=== PATIENT | male | born 1955 | race Caucasian/White ===

== ENCOUNTER 2018-11-25 04:05 | Inpatient (IN) | payer OTHER ==
[2018-11-25] VITALS (46 sets, daily range): BP systolic 69–144; BP diastolic 42–91
[~2018-11-25] VITALS: Ht 188 cm; Wt 104.8 kg
[2018-11-25] MEDS ORDERED: Vancomycin 1.5 GM in NS 275 ML IVPB ONE (04:15)
[2018-11-25] MEDS ORDERED: Sodium Chloride 3,400 ML IVLG ONE (04:15)
[2018-11-25] MEDS ORDERED: Piperacillin/Tazobactam 3.375 GM in NS 110 ML IVPB ONE (04:15)
[2018-11-25] MEDS ORDERED: Acetaminophen 650 MG SUPP RECTAL ONE (04:15)
--- NOTE | 2018-11-25 04:18 | Emergency Room Report ---
History of Present Illness General Chief Complaint: Altered Mental Status Source: EMS Present Illness HPI EMS was called to [facility] for altered level of consciousness. Oxygen saturation was 82%. The patient was also hypotensive. They started an IO and started fluid bolus. The patient fell hot to them. They're provider impression was sepsis. The patient is in the [facility] facility with a history of muscle weakness. Little other history available. Allergies: Coded Allergies: No Known Allergies (Unverified , 11/25/18) Patient History Limited by: medical condition Past Medical History: see triage record Social History: Denies: smoking Social History Narrative [facility] facility Reviewed Nursing Documentation: PMH: Agreed; PSxH: Agreed Nursing Documentation-PMH Hx Hypertension: Yes Hx Gastrointestinal Problems: Yes - GERD Hx Cerebrovascular Accident: Yes - neuropathy, muscle weakness, acidosis Review of Systems All Other Systems: limited Physical Exam Vital Signs Date Time Temp Pulse Resp B/P (MAP) Pulse Ox O2 Delivery O2 Flow Rate FiO2 11/25/18 04:06 Nasal Cannula 3.0 11/25/18 04:20 102.1 123 43 72/42 89 11/25/18 05:00 80 Sp02 EP Interpretation: reviewed, abnormal - interpreted as low by me General Appearance: severe distress, lethargic, other - opens eyes with voice Head: normocephalic, atraumatic Eyes: bilateral eye normal inspection, bilateral eye PERRL ENT: dry mucus membranes Neck: supple, no meningismus Respiratory: lungs clear, normal breath sounds, other - tachypnea and deep respirations Cardiovascular #1: tachycardia Cardiovascular #2: 2+ radial (R) Gastrointestinal: decreased bowel sounds, scaphoid Genitourinary: no CVA tenderness Musculoskeletal: other - extensor contractions LE with atrophy Neurologic: motor weakness - diffuse Psychiatric: other - lethargic Skin: other - hot, cyanosis and poor capillary fill Procedures Critical Care Time Critical Care Time Total Critical Care Time: 120 min bedside evaluation and treatment excludes procedures (EKG, intubation, CVP). Reason for critical care: severe sepsis Possible complications: hypotension, hypertension, [place], shock, arrhythmias, metabolic acidosis, end organ damage, respiratory failure. Interventions: intubation, CVP, sepsis resuscitation, aspirin for NSTEMI Course: Patient presents with severe dyspnea, fever and distress. Patient appears septic. An IO was begun in the field. CVP begun. Fluid resuscitation , bloods and antibiotics started. Excessive work with breathing therefore intubation indicated. Patient intubated intubated. Ventilator settings given. Sedation initiated. Intermittent waking and increased sedation. Repeat evaluations. Positive troponin treated with aspirin. EKG without STEMI. Labs with multiorgan failure. Ventilator changed based on ABG. Repeat evaluations and boluses of propofol given for proper sedation. Bicarbonate given. Still hypotensive near 30 mg/kg bolus. Levo fed started. Continue type duration. Discussed with admitting physician. See medical treatment notes. Consultations: nursing staff, EMS, RT, admitting MD Performed by: Dr. Dejesus Tolerated well condition = critical Central Line Central Line : Consent: Verbal Central Line Lumen: triple Maximal Sterile Barrier Tech: yes cap, yes mask, yes sterile gown, yes sterile gloves, yes large sterile sheet, yes hand hygiene, yes chlorhexidine prep Central Line Postion: internal jugular (R) Anesthesia: Lidocaine cc's of anesthesia: 0 - 0.5 Complications: none Central Line Post Position: sutured Attempts: One Patient Tolerated: Well Complications: None Progress 40 ml blood drawn for lab -performed under ultrasound guidance Intubation Intubation : Consent: Verbal Intubation Method: orotracheal Tube Size (cm): 7.5 Medications: Etomidate, Versed Breath Sounds after Intubation: equal Intubation Complications: no complications Post Intubation Xray: Yes Attempts: One Patient Tolerated: Well Complications: None Medical Decision Making Diagnostic Impression: Primary Impression: Severe sepsis Additional Impressions: Acute renal failure Qualified Codes: N17.9 - Acute kidney failure, unspecified NSTEMI (non-ST elevated myocardial infarction) Hypoxia Elevated liver function tests UTI (urinary tract infection) Qualified Codes: N39.0 - Urinary tract infection, site not specified ER Course Patient presents hypoxic and hypotensive. Differential includes sepsis, pneumonia, severe sepsis, acute myocardial infarction, probably embolus amongst others. Evaluation will be with EKG, chest x-ray and labs including blood culture and lactate. The patient will receive 30 mg/kg fluid resuscitation as well as antibiotics and Tylenol. The patient has some respiratory difficulty at this time and he may require BiPAP or intubation. Depending on how he responds to fluid resuscitation he may require pressors also. Needs line. CVP started. Work to breath. Needs intubation. (In retrospect, hypoxia might be due to poor perfusion.) However, metabolic acidosis with respiratory compensation needs vent assist. Sedation assisted with versed and bolus propofol. 5:25 Lab called with + troponin. WBC normal but L shift. Renal failure. Elevated LFTs. Min elevated BNP. INR prolonged (on anticoagulation). EKG without STEMI. CXR with ET good, CVP SVC and clear lungs. Hypotensive after bolus of propofol. Initial resuscitation bolus still infusing. Sats 100%. Await ABG. Mentation was improved. Cyanosis of LE, but cap fill good of hands. Sats better. BP 91 and HR better. 5:45 ABG with compensated met acidosis. Bicarb given and decreased FiO2 6:15. BP still low and bolus almost in - Levophed ordered. 6:25. Discussed Dr. Gutierrez @ 6:40. IO removed by ERMD 6:45. Bolus of LR ordered in ICU. Laboratory Tests Test 11/25/18 04:40 11/25/18 05:50 11/25/18 07:00 11/25/18 08:24 White Blood Count 7.0 K/UL (4.8-10.8) Red Blood Count 4.11 M/UL (4.70-6.10) L Hemoglobin 11.6 G/DL (14.2-18.0) L Hematocrit 34.6 % (42.0-52.0) L Mean Corpuscular Volume 84 FL (80-99) Mean Corpuscular Hemoglobin 28.3 PG (27.0-31.0) Mean Corpuscular Hemoglobin Concent 33.6 G/DL (32.0-36.0) Red Cell Distribution Width 14.0 % (11.6-14.8) Platelet Count 231 K/UL (150-450) Mean Platelet Volume 8.1 FL (6.5-10.1) Neutrophils (%) (Auto) % (45.0-75.0) Lymphocytes (%) (Auto) % (20.0-45.0) Monocytes (%) (Auto) % (1.0-10.0) Eosinophils (%) (Auto) % (0.0-3.0) Basophils (%) (Auto) % (0.0-2.0) Differential Total Cells Counted 100 Neutrophils % (Manual) 71 % (45-75) Lymphocytes % (Manual) 12 % (20-45) L Monocytes % (Manual) 2 % (1-10) Eosinophils % (Manual) 0 % (0-3) Basophils % (Manual) 0 % (0-2) Band Neutrophils 15 % (0-8) H Platelet Estimate Adequate Platelet Morphology Normal Anisocytosis 1+ Prothrombin Time 14.3 SEC (9.30-11.50) H Prothrombin Time INR 1.4 (0.9-1.1) H PTT 35 SEC (23-33) H Sodium Level 136 MMOL/L (136-145) Potassium Level 3.5 MMOL/L (3.5-5.1) Chloride Level 102 MMOL/L (98-107) Carbon Dioxide Level 12 MMOL/L (21-32) L Anion Gap 22 mmol/L (5-15) H Blood Urea Nitrogen 36 mg/dL (7-18) H Creatinine 3.8 MG/DL (0.55-1.30) H Estimate Glomerular Filtration Rate 16.3 mL/min (>60) Glucose Level 123 MG/DL (74-106) H Lactic Acid Level 8.90 mmol/L (0.4-2.0) H 6.60 mmol/L (0.66-2.22) H Calcium Level 9.1 MG/DL (8.5-10.1) Magnesium Level 1.7 MG/DL (1.8-2.4) L Total Bilirubin 1.4 MG/DL (0.2-1.0) H Direct Bilirubin 1.0 MG/DL (0.0-0.3) H Aspartate Amino Transferase (AST) 213 U/L (15-37) H Alanine Aminotransferase (ALT) 151 U/L (12-78) H Alkaline Phosphatase 233 U/L (46-116) H Total Creatine Kinase 209 U/L (26-308) Creatine Kinase MB 1.4 NG/ML (0.0-3.6) Creatine Kinase MB Relative Index 0.6 Troponin I 0.166 ng/mL (0.000-0.056) Pro-B-Type Natriuretic Peptide 1847 pg/mL (0-125) H Total Protein 7.4 G/DL (6.4-8.2) Albumin 2.5 G/DL (3.4-5.0) L Globulin 4.9 g/dL Albumin/Globulin Ratio 0.5 (1.0-2.7) L Triglycerides Level 145 MG/DL (30-150) Arterial Blood pH 7.375 (7.350-7.450) 7.392 (7.350-7.450) Arterial Blood Partial Pressure CO2 18.6 mmHg (35.0-45.0) *L 22.6 mmHg (35.0-45.0) *L Arterial Blood Partial Pressure O2 394.7 mmHg (75.0-100.0) H 108.0 mmHg (75.0-100.0) H Arterial Blood HCO3 10.6 mmol/L (22.0-26.0) *L 13.4 mmol/L (22.0-26.0) *L Arterial Blood Oxygen Saturation 99.2 % (95-100) 97.5 % (95-100) Arterial Blood Base Excess -12.5 (-2-2) *L -9.7 (-2-2) *L Jon Test Positive Positive Urine Color Yellow Urine Appearance Slightly cloudy Urine pH 5 (4.5-8.0) Urine Specific [place] 1.015 (1.005-1.035) Urine Protein 4+ (NEGATIVE) H Urine Glucose (UA) Negative (NEGATIVE) Urine Ketones Negative (NEGATIVE) Urine Blood 5+ (NEGATIVE) H Urine Nitrite Positive (NEGATIVE) H Urine Bilirubin Negative (NEGATIVE) Urine Urobilinogen Normal MG/DL (0.0-1.0) Urine Leukocyte Esterase 3+ (NEGATIVE) H Urine RBC 5-10 /HPF (0 - 0) H Urine WBC 40-60 /HPF (0 - 0) H Urine Squamous Epithelial Cells Occasional /LPF Urine Bacteria Moderate /HPF (NONE) H Test 11/25/18 14:05 Lactic Acid Level 5.00 mmol/L (0.4-2.0) H Troponin I 0.267 ng/mL (0.000-0.056) EKG Diagnostic Results Rate: tachycardiac Rhythm: NSR ST Segments: no acute changes - NSSTTW changes Rhythm Strip Diag. Results EP Interpretation: yes Rhythm: no PVC's, no ectopy, other - ST Chest X-Ray Diagnostic Results Chest X-Ray Diagnostic Results : Chest X-Ray Ordered: Yes # of Views/Limited/Complete: 1 View Indication: Other EP Interpretation: Yes Interpretation: no consolidation, no effusion, no pneumothorax, other - CVP in SVC and ET good Impression: Other Electronically Signed by: Electronically signed by Carl Dejesus MD Last Vital Signs Date Time Temp Pulse Resp B/P (MAP) Pulse Ox O2 Delivery O2 Flow Rate FiO2 11/25/18 15:07 90 24 70 11/25/18 15:00 84/57 (66) 100 11/25/18 14:00 98.5 11/25/18 12:00 40.0 11/25/18 12:00 Mechanical Ventilator Status: improved Disposition: ADMITTED INPATIENT Condition: Critical Carl Dejesus MD November 25, 2018 04:18
[2018-11-25] MEDS ORDERED: FAMOTIDINE20 MG ORAL (04:47)
[2018-11-25] MEDS ORDERED: ARTIFICIAL TEA1 EAC2 OP (04:47)
[2018-11-25] MEDS ORDERED: ACETAMINOPHEN325 M1 ORAL (04:47)
[2018-11-25] MEDS ORDERED: NORCO 5-325 TA1 EACH ORAL (04:47)
[2018-11-25] MEDS ORDERED: NEURONTIN300 MG ORAL (04:47)
[2018-11-25] MEDS ORDERED: XARELTO10 MG ORAL (04:47)
[2018-11-25] MEDS ORDERED: Midazolam 2mg/2ml Inj IV ONE (05:00)
[2018-11-25] MEDS ORDERED: Etomidate 40mg/20ml Inj IV ONE ×2 (05:00→10:25)
[2018-11-25] MEDS ORDERED: Midazolam for drip 50 MG in NS 90 ML IV ONE (05:00)
[2018-11-25] MEDS ORDERED: Midazolam 2mg/2ml Inj IVP ONE (05:15)
[2018-11-25 05:16] LABS: ANION GAP 22 mmol/L (5-15); BLOOD UREA NITROGEN 36 mg/dL (7-18); CALCIUM 9.1 MG/DL (8.5-10.1); CARBON DIOXIDE 12 MMOL/L (21-32); CHLORIDE 102 MMOL/L (98-107); CREATININE 3.8 MG/DL (0.55-1.30); POTASSIUM 3.5 MMOL/L (3.5-5.1); SODIUM 136 MMOL/L (136-145)
[2018-11-25 05:18] LABS: HEMATOCRIT 34.6 % (42.0-52.0); HEMOGLOBIN 11.6 G/DL (14.2-18.0); INR 1.4 (0.9-1.1); MEAN CORPUSCULAR VOLUME 84 FL (80-99); PLATELET COUNT 231 K/UL (150-450); RED BLOOD COUNT 4.11 M/UL (4.70-6.10)
[2018-11-25 05:31] LABS: ALANINE AMINOTRANSFERASE 151 U/L (12-78); ALBUMIN 2.5 G/DL (3.4-5.0); ALBUMIN/GLOBULIN RATIO 0.5 (1.0-2.7); ALKALINE PHOSPHATASE 233 U/L (46-116); ASPARTATE AMINO TRANSFERASE 213 U/L (15-37); BILIRUBIN,TOTAL 1.4 MG/DL (0.2-1.0); CKMB 1.4 NG/ML (0.0-3.6); CREATINE KINASE 209 U/L (26-308)
[2018-11-25] MEDS ORDERED: Sodium Bicarbonate 50ml Carp IV ONE (06:15)
[2018-11-25] MEDS ORDERED: Levophed 4mg/4mL Inj IV ONE (06:34)
[2018-11-25 07:23] LABS: APPEARANCE,URINE SLIGHTLY CLOUDY; BILIRUBIN, URINE NEGATIVE (NEGATIVE); GLUCOSE, URINE (UA) NEGATIVE (NEGATIVE); KETONES,URINE NEGATIVE (NEGATIVE); LEUKOCYTE ESTERASE ,URINE 3+ (NEGATIVE); NITRITE,URINE POSITIVE (NEGATIVE); PH,URINE 5 (4.5-8.0); PROTEIN,URINE 4+ (NEGATIVE); UROBILINOGEN,URINE NORMAL MG/DL (0.0-1.0)
[2018-11-25 07:35] LABS: COLOR,URINE YELLOW
[2018-11-25] MEDS ORDERED: Midazolam 2mg/2ml Inj IVP PRN (08:15)
[2018-11-25] MEDS ORDERED: LR 1000ml 1,000 ML IV ONE (08:30)
--- NOTE | 2018-11-25 08:38 | Critical Care Progress Note ---
Assessment/Plan Assessment/Plan Respiratory failure, acute hypoxemia hypotension possible sepsis NSTEMI transaminitis metabolic acidosis possible shock liver PLAN care noted IV antibiotics respiratory care Ventilatory support monitor acid base SNF meds supportive care pressors if needed suction as needed no wean oxygen therapy and titrate prognosis guarded medications/laboratory data/nursing notes/ICU care reviewed in detail note reviewed and edited care discussed with RN and RT ICU time spent 50 minutes Critical Care - Subjective Interval Events: asked to follow events noted and reviewed intubated ROS Limited/Unobtainable: Yes Condition: critical EKG Rhythm: Sinus Rhythm I&O: Intake and Output 11/24/18 11/25/18 19:00 07:00 Output Total 0 ml Balance 0 ml Output Urine Total 0 ml Critical Care - Objective ET-Tube: 7.5 ET Position: 24 Last 24 Hour Vital Signs Date Time Temp Pulse Resp B/P (MAP) Pulse Ox O2 Delivery O2 Flow Rate FiO2 11/25/18 07:31 101.8 110 17 90/55 98 Mechanical Ventilator 70 11/25/18 07:17 109 31 70 11/25/18 07:07 90/58 11/25/18 07:00 78/56 11/25/18 07:00 31 78/56 Mechanical Ventilator 100.0 80 11/25/18 07:00 100.0 109 31 78/56 100 Mechanical Ventilator 11/25/18 06:57 82/56 11/25/18 06:52 88/46 11/25/18 06:47 75/56 11/25/18 06:45 101.0 111 32 75/56 100 Mechanical Ventilator 11/25/18 06:45 75/56 11/25/18 06:45 32 75/56 Mechanical Ventilator 100.0 80 11/25/18 06:42 75/48 11/25/18 06:37 79/54 11/25/18 06:37 82/54 11/25/18 06:30 32 79/54 Mechanical Ventilator 100.0 80 11/25/18 06:30 101.4 115 32 79/54 100 Mechanical Ventilator 11/25/18 06:15 101.4 116 32 78/53 94 Mechanical Ventilator 11/25/18 06:15 32 78/32 Mechanical Ventilator 94.0 80 11/25/18 06:00 33 102/64 Mechanical Ventilator 100.0 80 11/25/18 06:00 101.4 119 33 102/64 100 Mechanical Ventilator 11/25/18 05:56 40 144/87 Mechanical Ventilator 94.0 80 11/25/18 05:45 101.6 120 33 120/42 96 Mechanical Ventilator 11/25/18 05:45 33 91/52 Mechanical Ventilator 96.0 80 11/25/18 05:30 30 128/42 Mechanical Ventilator 91.0 80 11/25/18 05:30 101.8 127 30 128/42 91 Mechanical Ventilator 11/25/18 05:20 101.8 133 40 144/87 94 Mechanical Ventilator 11/25/18 05:20 40 144/87 Mechanical Ventilator 94.0 80 11/25/18 05:18 131 36 Mechanical Ventilator 70 11/25/18 05:15 40 144/87 Mechanical Ventilator 94.0 80 11/25/18 05:07 136 36 70 11/25/18 05:00 31 Mechanical Ventilator 90.0 80 11/25/18 04:20 123 41 Nasal Cannula 3.0 11/25/18 04:20 102.1 123 43 72/42 89 Non-Rebreather 15.0 11/25/18 04:06 Nasal Cannula 3.0 Labs: Labs Test 11/25/18 04:40 11/25/18 05:50 11/25/18 07:00 White Blood Count 7.0 K/UL (4.8-10.8) Red Blood Count 4.11 M/UL (4.70-6.10) Hemoglobin 11.6 G/DL (14.2-18.0) Hematocrit 34.6 % (42.0-52.0) Mean Corpuscular Volume 84 FL (80-99) Mean Corpuscular Hemoglobin 28.3 PG (27.0-31.0) Mean Corpuscular Hemoglobin Concent 33.6 G/DL (32.0-36.0) Red Cell Distribution Width 14.0 % (11.6-14.8) Platelet Count 231 K/UL (150-450) Mean Platelet Volume 8.1 FL (6.5-10.1) Neutrophils (%) (Auto) % (45.0-75.0) Lymphocytes (%) (Auto) % (20.0-45.0) Monocytes (%) (Auto) % (1.0-10.0) Eosinophils (%) (Auto) % (0.0-3.0) Basophils (%) (Auto) % (0.0-2.0) Prothrombin Time 14.3 SEC (9.30-11.50) Prothromb Time International Ratio 1.4 (0.9-1.1) Activated Partial Thromboplast Time 35 SEC (23-33) Sodium Level 136 MMOL/L (136-145) Potassium Level 3.5 MMOL/L (3.5-5.1) Chloride Level 102 MMOL/L (98-107) Carbon Dioxide Level 12 MMOL/L (21-32) Anion Gap 22 mmol/L (5-15) Blood Urea Nitrogen 36 mg/dL (7-18) Creatinine 3.8 MG/DL (0.55-1.30) Estimat Glomerular Filtration Rate 16.3 mL/min (>60) Glucose Level 123 MG/DL (74-106) Lactic Acid Level 8.90 mmol/L (0.4-2.0) 6.60 mmol/L (0.66-2.22) Calcium Level 9.1 MG/DL (8.5-10.1) Magnesium Level 1.7 MG/DL (1.8-2.4) Total Bilirubin 1.4 MG/DL (0.2-1.0) Direct Bilirubin 1.0 MG/DL (0.0-0.3) Aspartate Amino Transf (AST/SGOT) 213 U/L (15-37) Alanine Aminotransferase (ALT/SGPT) 151 U/L (12-78) Alkaline Phosphatase 233 U/L (46-116) Total Creatine Kinase 209 U/L (26-308) Creatine Kinase MB 1.4 NG/ML (0.0-3.6) Creatine Kinase MB Relative Index 0.6 Troponin I 0.166 ng/mL (0.000-0.056) Pro-B-Type Natriuretic Peptide 1847 pg/mL (0-125) Total Protein 7.4 G/DL (6.4-8.2) Albumin 2.5 G/DL (3.4-5.0) Globulin 4.9 g/dL Albumin/Globulin Ratio 0.5 (1.0-2.7) Triglycerides Level 145 MG/DL (30-150) Arterial Blood pH 7.375 (7.350-7.450) Arterial Blood Partial Pressure CO2 18.6 mmHg (35.0-45.0) Arterial Blood Partial Pressure O2 394.7 mmHg (75.0-100.0) Arterial Blood HCO3 10.6 mmol/L (22.0-26.0) Arterial Blood Oxygen Saturation 99.2 % (95-100) Arterial Blood Base Excess -12.5 (-2-2) Jon Test Positive Urine Color Yellow Urine Appearance Slightly cloudy Urine pH 5 (4.5-8.0) Urine Specific [place] 1.015 (1.005-1.035) Urine Protein 4+ (NEGATIVE) Urine Glucose (UA) Negative (NEGATIVE) Urine Ketones Negative (NEGATIVE) Urine Blood 5+ (NEGATIVE) Urine Nitrite Positive (NEGATIVE) Urine Bilirubin Negative (NEGATIVE) Urine Urobilinogen Normal MG/DL (0.0-1.0) Urine Leukocyte Esterase 3+ (NEGATIVE) Urine RBC 5-10 /HPF (0 - 0) Urine WBC 40-60 /HPF (0 - 0) Urine Squamous Epithelial Cells Occasional /LPF Urine Bacteria Moderate /HPF (NONE) Objective: WDWN toxic orally intubated clear breath sounds bilaterally without rhonchi or wheeze [id number] without MRG NABS nontender no HSM; no distention no CCE nonfocal, sedated skin noted reviewed and edited Matt Ramirez MD November 25, 2018 08:38
[2018-11-25] MEDS: Piperacillin/Tazobactam 3.375 GM in NS 110 ML IVPB SCH ×2 (09:30→22:20)
[2018-11-25] MEDS: 1/2NS w/KCl 20mEq 1000ml 1,000 ML IV SCH ×2 (10:16→22:24)
[2018-11-25] MEDS: LORazepam Inj 2mg/ml 1ml IV PRN ×2 (10:16→16:15)
[2018-11-25] MEDS: Pantoprazole Inj IVP SCH ×2 (10:16→21:17)
--- NOTE | 2018-11-25 11:40 | Diagnostic Imaging Report ---
Indication: Dyspnea Comparison: None A single view chest radiograph was obtained. Findings: Cardiomediastinal appearance is within normal limits for age. Endotracheal tube is in good position 4 cm above the tyrese. There is a right jugular line projected over the SVC. The lungs are clear. Pulmonary vascularity is appropriate. The diaphragmatic contour is smooth and costophrenic angles are sharp. No pleural effusions are identified. The bones are unremarkable. Impression: No acute findings
[2018-11-25] MEDS: Midazolam 2mg/2ml Inj IVP PRN (12:39)
[2018-11-25] MEDS ORDERED: Vancomycin 500mg/D5W 110ml IVPB ONE ×2 (14:00)
--- NOTE | 2018-11-25 16:00 | History and Physical Report ---
DATE OF ADMISSION: 11/25/2018 CHIEF COMPLAINT: Shortness of breath. HISTORY OF PRESENT ILLNESS: This is a 63-year-old male who is a resident of [facility]. I was called earlier this morning about the patient developing profound shortness of breath. 911 was called and the patient was transferred to this hospital's ER. PAST MEDICAL HISTORY: 1. Organic brain syndrome. 2. History of decubitus ulcers. 3. History of DVT. 4. History of osteomyelitis of the left foot. 5. Anemia of chronic disease. 6. Status post DVT, left leg and right basilic vein. 7. History of depression. 8. History of alcohol abuse. MEDICATIONS: Tylenol p.r.n., [place] p.r.n., Artificial Tears, famotidine, Neurontin, Xarelto. ALLERGIES: No known drug allergies. FAMILY HISTORY: Unable to obtain. SOCIAL HISTORY: Unable to obtain. REVIEW OF SYSTEMS: Unable to obtain. PHYSICAL EXAMINATION: GENERAL: This is an elderly male, who is in moderate to severe respiratory distress. He is intubated transorally. VITAL SIGNS: Blood pressure 90/55, pulse 110, apical, temperature 101.8. HEENT: The head is normocephalic and atraumatic. Pupils are equal, round, and reactive to light. NECK: Supple. Trachea midline. There was no lymphadenopathy or thyromegaly. LUNGS: Bilateral rhonchi. HEART: Regular rate and rhythm with a tachycardia. No rubs, murmurs, or gallops. ABDOMEN: Soft and nontender. Bowel sounds were active. EXTREMITIES: No clubbing, cyanosis, or edema. NEUROLOGICAL: He is obtunded. There were no gross focal findings. LABORATORY AND ANCILLARY DATA: CBC within normal range. ABGs at 5:50 a.m., pH 7.375, pCO2 18.6, pO2 395, bicarbonate 10.6. This is after intubation. Chemistry electrolytes sodium 136, potassium 3.5, BUN 36, creatinine 3.8. Lactic acid initially 8.9 and then 6.6. AST 213, ALT 151. Troponin 0.166. EKG, sinus tachycardia. Chest x-ray is not reported. ASSESSMENT: 1. Septicemia. 2. Respiratory failure secondary to above. 3. Organic brain syndrome. 4. History of decubitus ulcers. 5. History of DVT. 6. History of osteomyelitis of the left foot. 7. Anemia of chronic disease. 8. Status post DVT, left leg and right basilic vein. 9. History of depression. 10. History of alcohol abuse. PLAN: 1. Continue intubation. 2. IV fluids. 3. IV antibiotics. Vlad Gutierrez M.D. DR: ROSA JOB#: [id number] CC:
[2018-11-25] MEDS: Heparin 5000 units/ml inj SUBQ SCH (21:19)
[2018-11-26] VITALS (38 sets, daily range): BP systolic 90–114; BP diastolic 41–80
[2018-11-26] MEDS ORDERED: Dyna-Hex 2% Top Sol 2oz TOPIC SCH (04:15)
[2018-11-26 04:55] LABS: HEMATOCRIT 32.3 % (42.0-52.0); HEMOGLOBIN 10.8 G/DL (14.2-18.0); MEAN CORPUSCULAR VOLUME 86 FL (80-99); PLATELET COUNT 175 K/UL (150-450); RED BLOOD COUNT 3.77 M/UL (4.70-6.10); RED CELL DISTRIBUTION WIDTH 14.9 % (11.6-14.8)
[2018-11-26 05:03] LABS: WHITE BLOOD COUNT 38.3 K/UL (4.8-10.8)
[2018-11-26 05:25] LABS: ANION GAP 17 mmol/L (5-15); BLOOD UREA NITROGEN 46 mg/dL (7-18); CALCIUM 7.8 MG/DL (8.5-10.1); CARBON DIOXIDE 16 MMOL/L (21-32); CHLORIDE 100 MMOL/L (98-107); CREATININE 4.8 MG/DL (0.55-1.30); SODIUM 133 MMOL/L (136-145)
[2018-11-26] MEDS: LORazepam Inj 2mg/ml 1ml IV PRN (05:35)
[2018-11-26] MEDS: Piperacillin/Tazobactam 3.375 GM in NS 110 ML IVPB SCH (05:43)
[2018-11-26] MEDS: Pantoprazole Inj IVP SCH ×2 (08:09→20:28)
[2018-11-26] MEDS: Heparin 5000 units/ml inj SUBQ SCH ×2 (08:13→20:34)
--- NOTE | 2018-11-26 09:48 | Diagnostic Imaging Report ---
Indication: Dyspnea Comparison: 11/25/2018 A single view chest radiograph was obtained. Findings: Lung volumes are low. Heart size is relatively normal. Right jugular line and endotracheal tubes are in good position. IMPRESSION: No acute disease
[2018-11-26] MEDS: 1/2NS w/KCl 20mEq 1000ml 1,000 ML IV SCH (11:22)
--- NOTE | 2018-11-26 12:45 | General Progress Note ---
Assessment/Plan Assessment/Plan: GNR - not called in to me!!! Were available around midnight! U C+s GNR = True Urosepsis On IV Zosyn + Vanco. Dc Vanco Check Renal US Subjective Allergies: Coded Allergies: No Known Allergies (Unverified , 11/25/18) Subjective On vent. Nonverbal Objective Last 24 Hour Vital Signs Date Time Temp Pulse Resp B/P (MAP) Pulse Ox O2 Delivery O2 Flow Rate FiO2 11/26/18 12:01 80 11/26/18 12:01 40 11/26/18 12:00 98.4 78 31 92/57 (69) 100 11/26/18 11:30 81 31 94/59 (71) 100 11/26/18 11:00 81 32 94/57 (69) 100 11/26/18 10:53 80 32 40 11/26/18 10:33 85/53 11/26/18 10:30 77 29 105/68 (80) 100 11/26/18 10:00 83 31 103/48 (66) 100 11/26/18 10:00 85/53 11/26/18 09:30 76 29 114/41 (65) 100 11/26/18 09:00 103/64 11/26/18 09:00 80 28 103/64 (77) 100 11/26/18 08:36 84 32 40 11/26/18 08:00 Mechanical Ventilator 11/26/18 08:00 83 11/26/18 08:00 40 11/26/18 08:00 98.4 83 27 92/58 (69) 100 11/26/18 07:00 83 33 95/60 (72) 100 11/26/18 06:49 84 30 40 11/26/18 06:00 95/61 11/26/18 06:00 85 29 95/61 (72) 100 11/26/18 05:41 94/46 11/26/18 05:18 92 32 40 70 11/26/18 05:00 96/61 11/26/18 05:00 87 34 96/61 (73) 100 11/26/18 04:00 Mechanical Ventilator 11/26/18 04:00 84 11/26/18 04:00 98.8 84 33 109/66 (80) 100 11/26/18 04:00 92/64 11/26/18 04:00 40 11/26/18 03:30 84 29 92/64 (73) 100 11/26/18 03:22 84 26 40 70 11/26/18 03:00 85 29 94/62 (73) 100 11/26/18 03:00 93/59 11/26/18 02:30 85 28 93/59 (70) 100 11/26/18 02:00 95/62 11/26/18 02:00 86 29 93/60 (71) 100 11/26/18 01:30 88 28 95/62 (73) 100 11/26/18 01:00 90/60 11/26/18 01:00 88 28 93/61 (72) 100 11/26/18 00:46 92/68 11/26/18 00:36 87 26 40 70 11/26/18 00:30 87 28 90/60 (70) 100 11/26/18 00:00 98.6 91 29 92/63 (73) 100 11/26/18 00:00 Mechanical Ventilator 11/26/18 00:00 91/60 11/25/18 23:30 92 28 91/60 (70) 100 11/25/18 23:20 85 26 40 70 11/25/18 23:00 94/65 11/25/18 23:00 98 32 94/65 (75) 100 11/25/18 22:30 98 32 94/65 (75) 100 11/25/18 22:00 97 33 88/65 (73) 100 11/25/18 22:00 88/68 11/25/18 21:30 97 33 91/63 (72) 100 11/25/18 21:10 98 34 40 70 11/25/18 21:00 96 32 88/59 (69) 100 11/25/18 21:00 88/56 11/25/18 20:30 96 31 90/61 (71) 100 11/25/18 20:00 68 11/25/18 20:00 40 11/25/18 20:00 98.8 96 34 90/64 (73) 100 11/25/18 20:00 90/61 11/25/18 20:00 Mechanical Ventilator 11/25/18 19:59 87/67 11/25/18 19:58 94 34 91/65 (74) 100 11/25/18 19:30 95 34 87/68 (74) 100 11/25/18 19:11 98 31 87/63 (71) 100 11/25/18 19:10 101 33 84/59 (67) 100 11/25/18 19:00 96 27 77/48 (58) 11/25/18 19:00 92 34 87/63 (71) 100 11/25/18 18:47 90 28 40 70 11/25/18 18:30 90 26 90/62 (71) 100 11/25/18 18:00 90 26 87/54 (65) 100 11/25/18 17:30 92 25 88/55 (66) 100 11/25/18 17:22 92 26 70 11/25/18 17:00 92 26 85/59 (68) 100 11/25/18 16:30 97.8 91 24 91/60 (70) 100 11/25/18 16:00 90 11/25/18 16:00 40 11/25/18 16:00 Mechanical Ventilator 11/25/18 16:00 94 32 88/57 (67) 100 11/25/18 15:30 91 26 86/54 (65) 100 11/25/18 15:07 90 24 70 11/25/18 15:00 91 25 84/57 (66) 100 11/25/18 14:30 90 26 84/53 (63) 100 11/25/18 14:00 98.5 91 25 81/53 (62) 100 11/25/18 13:36 83/56 11/25/18 13:30 94 25 83/56 (65) 100 11/25/18 13:00 96 27 85/56 (66) 100 Intake and Output 11/25/18 11/26/18 19:00 07:00 Intake Total 1340.7 ml 2212.1 ml Output Total 490 ml 623 ml Balance 850.7 ml 1589.1 ml Intake IV Total 1340.7 ml 2212.1 ml Output Urine Total 490 ml 623 ml Laboratory Tests 11/25/18 14:05: Lactic Acid Level 5.00H, Troponin I 0.267H 11/25/18 20:00: Lactic Acid Level 4.60H, Troponin I 0.281H 11/25/18 23:10: Lactic Acid Level 6.10H 11/26/18 04:00: Lactic Acid Level 4.30H, Troponin I 0.253H, White Blood Count 38.3#*H, Red Blood Count 3.77L, Hemoglobin 10.8L, Hematocrit 32.3L, Mean Corpuscular Volume 86, Mean Corpuscular Hemoglobin 28.6, Mean Corpuscular Hemoglobin Concent 33.4, Red Cell Distribution Width 14.9H, Platelet Count 175, Mean Platelet Volume 7.9 , Neutrophils (%) (Auto) , Lymphocytes (%) (Auto) , Monocytes (%) (Auto) , Eosinophils (%) (Auto) , Basophils (%) (Auto) , Differential Total Cells Counted 100, Neutrophils % (Manual) 78H, Lymphocytes % (Manual) 2L, Monocytes % (Manual) 11H, Eosinophils % (Manual) 0, Basophils % (Manual) 0, Band Neutrophils 9H, Platelet Estimate Adequate, Platelet Morphology Normal, Anisocytosis 1+, Sodium Level 133L, Potassium Level 5.0, Chloride Level 100, Carbon Dioxide Level 16L, Anion Gap 17H, Blood Urea Nitrogen 46H, Creatinine 4.8H, Estimat Glomerular Filtration Rate 12.4, Glucose Level 117H, Calcium Level 7.8L, Magnesium Level 1.3L 11/26/18 06:47: Lactic Acid Level 3.80H 11/26/18 07:40: Arterial Blood pH 7.407, Arterial Blood Partial Pressure CO2 22.5*L, Arterial Blood Partial Pressure O2 147.1H, Arterial Blood HCO3 13.8*L, Arterial Blood Oxygen Saturation 98.6, Arterial Blood Base Excess -9.1*L, Jon Test Positive 11/26/18 11:55: Lactic Acid Level [Pending], Troponin I [Pending], Random Vancomycin Level [ Pending] Height (Feet): 6 Height (Inches): 2.00 Weight (Pounds): 251 Objective CV RR Lungs CTA Abd SNT. BS + E No CCE Vlad Gutierrez MD November 26, 2018 12:45
--- NOTE | 2018-11-26 14:12 | Diagnostic Imaging Report ---
Indication:Elevated Bun and Creatinine. Technique: Grayscale and duplex Doppler imaging of the kidneys performed. Comparison: None Findings: There is moderate left hydronephrosis demonstrated with dilatation of the renal pelvis and calyces. Internal filling defects likely small stones or debris noted within the dilated collecting system. The left ureter is not visualized on this study. The bladder is nondistended. Arguelles catheter noted in good position. The right kidney shows no hydronephrosis. There are bilateral renal cysts. In the upper pole the right kidney there is a 2.6 cm cyst. Other smaller cysts are noted within both kidneys. IVC is unremarkable. The right kidney measures 13.3 cm in length. The left kidney is 14.8 cm in length. IMPRESSION: Moderate left hydronephrosis. Internal debris and/or stones suspected. Further evaluation recommended. Bilateral renal cysts Arguelles catheter
[2018-11-26] MEDS ORDERED: NS 275ml ONE (14:14)
[2018-11-26] MEDS ORDERED: Tubing IV Secondary IV ONE (14:14)
--- NOTE | 2018-11-26 14:29 | Critical Care Progress Note ---
Assessment/Plan Assessment/Plan Respiratory failure, acute hypoxemia hypotension possible sepsis NSTEMI transaminitis metabolic acidosis possible shock liver leukocytosis possible sepsis PLAN care noted IV antibiotics panculture respiratory care Ventilatory support monitor acid base SNF meds supportive care pressors if needed suction as needed wean as able oxygen therapy and titrate prognosis guarded medications/laboratory data/nursing notes/ICU care reviewed in detail note reviewed and edited care discussed with RN and RT ICU time spent 50 minutes Critical Care - Subjective Interval Events: icu events reviewed ROS Limited/Unobtainable: Yes Condition: critical EKG Rhythm: Sinus Rhythm I&O: Intake and Output 11/25/18 11/26/18 19:00 07:00 Intake Total 1340.7 ml 2212.1 ml Output Total 490 ml 623 ml Balance 850.7 ml 1589.1 ml Intake IV Total 1340.7 ml 2212.1 ml Output Urine Total 490 ml 623 ml Critical Care - Objective ET-Tube: 7.5 ET Position: 24 Last 24 Hour Vital Signs Date Time Temp Pulse Resp B/P (MAP) Pulse Ox O2 Delivery O2 Flow Rate FiO2 11/26/18 13:00 99/60 11/26/18 13:00 77 28 96/56 (69) 100 11/26/18 12:53 78 35 40 11/26/18 12:01 80 11/26/18 12:01 40 11/26/18 12:00 Mechanical Ventilator 11/26/18 12:00 98/61 11/26/18 12:00 98.4 78 31 92/57 (69) 100 11/26/18 11:30 81 31 94/59 (71) 100 11/26/18 11:00 94/59 11/26/18 11:00 81 32 94/57 (69) 100 11/26/18 10:53 80 32 40 11/26/18 10:33 85/53 11/26/18 10:30 77 29 105/68 (80) 100 11/26/18 10:00 83 31 103/48 (66) 100 11/26/18 10:00 85/53 11/26/18 09:30 76 29 114/41 (65) 100 11/26/18 09:00 103/64 11/26/18 09:00 80 28 103/64 (77) 100 11/26/18 08:36 84 32 40 11/26/18 08:00 Mechanical Ventilator 11/26/18 08:00 83 11/26/18 08:00 40 11/26/18 08:00 98.4 83 27 92/58 (69) 100 11/26/18 07:00 83 33 95/60 (72) 100 11/26/18 06:49 84 30 40 11/26/18 06:00 95/61 11/26/18 06:00 85 29 95/61 (72) 100 11/26/18 05:41 94/46 11/26/18 05:18 92 32 40 70 11/26/18 05:00 96/61 11/26/18 05:00 87 34 96/61 (73) 100 11/26/18 04:00 Mechanical Ventilator 11/26/18 04:00 84 11/26/18 04:00 98.8 84 33 109/66 (80) 100 11/26/18 04:00 92/64 11/26/18 04:00 40 11/26/18 03:30 84 29 92/64 (73) 100 11/26/18 03:22 84 26 40 70 11/26/18 03:00 85 29 94/62 (73) 100 11/26/18 03:00 93/59 11/26/18 02:30 85 28 93/59 (70) 100 11/26/18 02:00 95/62 11/26/18 02:00 86 29 93/60 (71) 100 11/26/18 01:30 88 28 95/62 (73) 100 11/26/18 01:00 90/60 11/26/18 01:00 88 28 93/61 (72) 100 11/26/18 00:46 92/68 11/26/18 00:36 87 26 40 70 11/26/18 00:30 87 28 90/60 (70) 100 11/26/18 00:00 98.6 91 29 92/63 (73) 100 11/26/18 00:00 Mechanical Ventilator 11/26/18 00:00 91/60 11/25/18 23:30 92 28 91/60 (70) 100 11/25/18 23:20 85 26 40 70 11/25/18 23:00 94/65 11/25/18 23:00 98 32 94/65 (75) 100 11/25/18 22:30 98 32 94/65 (75) 100 11/25/18 22:00 97 33 88/65 (73) 100 11/25/18 22:00 88/68 11/25/18 21:30 97 33 91/63 (72) 100 11/25/18 21:10 98 34 40 70 11/25/18 21:00 96 32 88/59 (69) 100 11/25/18 21:00 88/56 11/25/18 20:30 96 31 90/61 (71) 100 11/25/18 20:00 68 11/25/18 20:00 40 11/25/18 20:00 98.8 96 34 90/64 (73) 100 11/25/18 20:00 90/61 11/25/18 20:00 Mechanical Ventilator 11/25/18 19:59 87/67 11/25/18 19:58 94 34 91/65 (74) 100 11/25/18 19:30 95 34 87/68 (74) 100 11/25/18 19:11 98 31 87/63 (71) 100 11/25/18 19:10 101 33 84/59 (67) 100 11/25/18 19:00 96 27 77/48 (58) 11/25/18 19:00 92 34 87/63 (71) 100 11/25/18 18:47 90 28 40 70 11/25/18 18:30 90 26 90/62 (71) 100 11/25/18 18:00 90 26 87/54 (65) 100 11/25/18 17:30 92 25 88/55 (66) 100 11/25/18 17:22 92 26 70 11/25/18 17:00 92 26 85/59 (68) 100 11/25/18 16:30 97.8 91 24 91/60 (70) 100 11/25/18 16:00 90 11/25/18 16:00 40 11/25/18 16:00 Mechanical Ventilator 11/25/18 16:00 94 32 88/57 (67) 100 11/25/18 15:30 91 26 86/54 (65) 100 11/25/18 15:07 90 24 70 11/25/18 15:00 91 25 84/57 (66) 100 11/25/18 14:30 90 26 84/53 (63) 100 Labs: Labs Test 11/25/18 04:40 11/25/18 05:50 11/25/18 07:00 11/25/18 08:24 White Blood Count 7.0 K/UL (4.8-10.8) Red Blood Count 4.11 M/UL (4.70-6.10) Hemoglobin 11.6 G/DL (14.2-18.0) Hematocrit 34.6 % (42.0-52.0) Mean Corpuscular Volume 84 FL (80-99) Mean Corpuscular Hemoglobin 28.3 PG (27.0-31.0) Mean Corpuscular Hemoglobin Concent 33.6 G/DL (32.0-36.0) Red Cell Distribution Width 14.0 % (11.6-14.8) Platelet Count 231 K/UL (150-450) Mean Platelet Volume 8.1 FL (6.5-10.1) Neutrophils (%) (Auto) % (45.0-75.0) Lymphocytes (%) (Auto) % (20.0-45.0) Monocytes (%) (Auto) % (1.0-10.0) Eosinophils (%) (Auto) % (0.0-3.0) Basophils (%) (Auto) % (0.0-2.0) Differential Total Cells Counted 100 Neutrophils % (Manual) 71 % (45-75) Lymphocytes % (Manual) 12 % (20-45) Monocytes % (Manual) 2 % (1-10) Eosinophils % (Manual) 0 % (0-3) Basophils % (Manual) 0 % (0-2) Band Neutrophils 15 % (0-8) Platelet Estimate Adequate Platelet Morphology Normal Anisocytosis 1+ Prothrombin Time 14.3 SEC (9.30-11.50) Prothromb Time International Ratio 1.4 (0.9-1.1) Activated Partial Thromboplast Time 35 SEC (23-33) Sodium Level 136 MMOL/L (136-145) Potassium Level 3.5 MMOL/L (3.5-5.1) Chloride Level 102 MMOL/L (98-107) Carbon Dioxide Level 12 MMOL/L (21-32) Anion Gap 22 mmol/L (5-15) Blood Urea Nitrogen 36 mg/dL (7-18) Creatinine 3.8 MG/DL (0.55-1.30) Estimat Glomerular Filtration Rate 16.3 mL/min (>60) Glucose Level 123 MG/DL (74-106) Lactic Acid Level 8.90 mmol/L (0.4-2.0) 6.60 mmol/L (0.66-2.22) Calcium Level 9.1 MG/DL (8.5-10.1) Magnesium Level 1.7 MG/DL (1.8-2.4) Total Bilirubin 1.4 MG/DL (0.2-1.0) Direct Bilirubin 1.0 MG/DL (0.0-0.3) Aspartate Amino Transf (AST/SGOT) 213 U/L (15-37) Alanine Aminotransferase (ALT/SGPT) 151 U/L (12-78) Alkaline Phosphatase 233 U/L (46-116) Total Creatine Kinase 209 U/L (26-308) Creatine Kinase MB 1.4 NG/ML (0.0-3.6) Creatine Kinase MB Relative Index 0.6 Troponin I 0.166 ng/mL (0.000-0.056) Pro-B-Type Natriuretic Peptide 1847 pg/mL (0-125) Total Protein 7.4 G/DL (6.4-8.2) Albumin 2.5 G/DL (3.4-5.0) Globulin 4.9 g/dL Albumin/Globulin Ratio 0.5 (1.0-2.7) Triglycerides Level 145 MG/DL (30-150) Arterial Blood pH 7.375 (7.350-7.450) 7.392 (7.350-7.450) Arterial Blood Partial Pressure CO2 18.6 mmHg (35.0-45.0) 22.6 mmHg (35.0-45.0) Arterial Blood Partial Pressure O2 394.7 mmHg (75.0-100.0) 108.0 mmHg (75.0-100.0) Arterial Blood HCO3 10.6 mmol/L (22.0-26.0) 13.4 mmol/L (22.0-26.0) Arterial Blood Oxygen Saturation 99.2 % (95-100) 97.5 % (95-100) Arterial Blood Base Excess -12.5 (-2-2) -9.7 (-2-2) Jon Test Positive Positive Urine Color Yellow Urine Appearance Slightly cloudy Urine pH 5 (4.5-8.0) Urine Specific [place] 1.015 (1.005-1.035) Urine Protein 4+ (NEGATIVE) Urine Glucose (UA) Negative (NEGATIVE) Urine Ketones Negative (NEGATIVE) Urine Blood 5+ (NEGATIVE) Urine Nitrite Positive (NEGATIVE) Urine Bilirubin Negative (NEGATIVE) Urine Urobilinogen Normal MG/DL (0.0-1.0) Urine Leukocyte Esterase 3+ (NEGATIVE) Urine RBC 5-10 /HPF (0 - 0) Urine WBC 40-60 /HPF (0 - 0) Urine Squamous Epithelial Cells Occasional /LPF Urine Bacteria Moderate /HPF (NONE) Test 11/25/18 14:05 11/25/18 20:00 11/25/18 23:10 11/26/18 04:00 Lactic Acid Level 5.00 mmol/L (0.4-2.0) 4.60 mmol/L (0.4-2.0) 6.10 mmol/L (0.66-2.22) 4.30 mmol/L (0.4-2.0) Troponin I 0.267 ng/mL (0.000-0.056) 0.281 ng/mL (0.000-0.056) 0.253 ng/mL (0.000-0.056) White Blood Count 38.3 K/UL (4.8-10.8) Red Blood Count 3.77 M/UL (4.70-6.10) Hemoglobin 10.8 G/DL (14.2-18.0) Hematocrit 32.3 % (42.0-52.0) Mean Corpuscular Volume 86 FL (80-99) Mean Corpuscular Hemoglobin 28.6 PG (27.0-31.0) Mean Corpuscular Hemoglobin Concent 33.4 G/DL (32.0-36.0) Red Cell Distribution Width 14.9 % (11.6-14.8) Platelet Count 175 K/UL (150-450) Mean Platelet Volume 7.9 FL (6.5-10.1) Neutrophils (%) (Auto) % (45.0-75.0) Lymphocytes (%) (Auto) % (20.0-45.0) Monocytes (%) (Auto) % (1.0-10.0) Eosinophils (%) (Auto) % (0.0-3.0) Basophils (%) (Auto) % (0.0-2.0) Differential Total Cells Counted 100 Neutrophils % (Manual) 78 % (45-75) Lymphocytes % (Manual) 2 % (20-45) Monocytes % (Manual) 11 % (1-10) Eosinophils % (Manual) 0 % (0-3) Basophils % (Manual) 0 % (0-2) Band Neutrophils 9 % (0-8) Platelet Estimate Adequate Platelet Morphology Normal Anisocytosis 1+ Sodium Level 133 MMOL/L (136-145) Potassium Level 5.0 MMOL/L (3.5-5.1) Chloride Level 100 MMOL/L (98-107) Carbon Dioxide Level 16 MMOL/L (21-32) Anion Gap 17 mmol/L (5-15) Blood Urea Nitrogen 46 mg/dL (7-18) Creatinine 4.8 MG/DL (0.55-1.30) Estimat Glomerular Filtration Rate 12.4 mL/min (>60) Glucose Level 117 MG/DL (74-106) Calcium Level 7.8 MG/DL (8.5-10.1) Magnesium Level 1.3 MG/DL (1.8-2.4) Test 11/26/18 06:47 11/26/18 07:40 11/26/18 11:55 Lactic Acid Level 3.80 mmol/L (0.66-2.22) 2.50 mmol/L (0.4-2.0) Arterial Blood pH 7.407 (7.350-7.450) Arterial Blood Partial Pressure CO2 22.5 mmHg (35.0-45.0) Arterial Blood Partial Pressure O2 147.1 mmHg (75.0-100.0) Arterial Blood HCO3 13.8 mmol/L (22.0-26.0) Arterial Blood Oxygen Saturation 98.6 % (95-100) Arterial Blood Base Excess -9.1 (-2-2) Jon Test Positive Troponin I 0.328 ng/mL (0.000-0.056) Random Vancomycin Level 16.6 ug/mL Objective: WDWN toxic orally intubated clear breath sounds bilaterally without rhonchi or wheeze [id number] without MRG NABS nontender no HSM; no distention no CCE nonfocal, sedated skin noted reviewed and edited Micro: Microbiology Date/Time Source Procedure Growth Status 11/25/18 04:30 Blood Blood Culture - Preliminary Resulted 11/25/18 04:15 Blood Blood Culture - Preliminary Resulted 11/25/18 07:00 Urine,Clean Catch Urine Culture - Preliminary Gram Negative Bacillus 1 Resulted Matt Ramirez MD November 26, 2018 14:29
[2018-11-26] MEDS ORDERED: Piperacillin/Tazobactam 3.375 GM in NS 110 ML IVPB SCH (18:00)
[2018-11-26] MEDS: Dyna-Hex 2% Top Sol 2oz TOPIC SCH (20:27)
[2018-11-26] MEDS: Meropenem 500 MG in NS 55 ML IVPB SCH (22:03)
[2018-11-27] VITALS (36 sets, daily range): BP systolic 84–120; BP diastolic 50–94
[2018-11-27] MEDS: LORazepam Inj 2mg/ml 1ml IV PRN ×4 (01:04→14:19)
[2018-11-27] MEDS: 1/2NS w/KCl 20mEq 1000ml 1,000 ML IV SCH ×2 (05:05→14:19)
[2018-11-27 05:25] LABS: HEMATOCRIT 30.3 % (42.0-52.0); HEMOGLOBIN 10.2 G/DL (14.2-18.0); MEAN CORPUSCULAR VOLUME 84 FL (80-99); PLATELET COUNT 156 K/UL (150-450); RED BLOOD COUNT 3.59 M/UL (4.70-6.10); RED CELL DISTRIBUTION WIDTH 15.2 % (11.6-14.8)
[2018-11-27 05:34] LABS: ANION GAP 12 mmol/L (5-15); BLOOD UREA NITROGEN 49 mg/dL (7-18); CALCIUM 8.2 MG/DL (8.5-10.1); CARBON DIOXIDE 18 MMOL/L (21-32); CHLORIDE 102 MMOL/L (98-107); CREATININE 4.9 MG/DL (0.55-1.30); POTASSIUM 4.3 MMOL/L (3.5-5.1); SODIUM 132 MMOL/L (136-145)
[2018-11-27 05:37] LABS: WHITE BLOOD COUNT 25.3 K/UL (4.8-10.8)
[2018-11-27] MEDS: Pantoprazole Inj IVP SCH ×2 (08:01→20:05)
[2018-11-27] MEDS: Meropenem 500 MG in NS 55 ML IVPB SCH ×2 (08:01→20:06)
[2018-11-27] MEDS: Heparin 5000 units/ml inj SUBQ SCH ×2 (08:02→20:06)
--- NOTE | 2018-11-27 09:40 | Nephrology Progress Note ---
Assessment/Plan Plan BC GNR - not called in to me!!! Were available around midnight! U C+s GNR = True Urosepsis On IV Zosyn + Vanco. Dc Vanco Check Renal US Acute Non Oliguric ATN see orders Subjective Subjective On weaning protocol Objective Objective Last 24 Hour Vital Signs Date Time Temp Pulse Resp B/P (MAP) Pulse Ox O2 Delivery O2 Flow Rate FiO2 11/27/18 09:00 82 25 97/64 (75) 100 11/27/18 08:54 83 27 40 11/27/18 08:50 100 11/27/18 08:30 83 22 101/64 (76) 100 11/27/18 08:01 95/65 11/27/18 08:00 40 11/27/18 08:00 Mechanical Ventilator 11/27/18 08:00 80 11/27/18 08:00 99.4 82 30 97/63 (74) 100 11/27/18 07:04 78 26 40 11/27/18 07:00 75 27 95/65 (75) 100 11/27/18 06:30 85 29 101/64 (76) 100 11/27/18 06:00 85 29 105/66 (79) 100 11/27/18 06:00 105/66 11/27/18 05:30 81 29 103/60 (74) 100 11/27/18 05:25 80 29 40 11/27/18 05:00 96/64 11/27/18 05:00 80 27 96/64 (75) 100 11/27/18 04:30 83 32 105/64 (78) 100 11/27/18 04:00 83 11/27/18 04:00 Mechanical Ventilator 11/27/18 04:00 40 11/27/18 04:00 100.0 79 31 94/59 (71) 100 11/27/18 04:00 105/64 11/27/18 03:30 77 26 103/69 (80) 100 11/27/18 03:19 79 31 40 11/27/18 03:00 80 25 98/60 (73) 100 11/27/18 03:00 103/69 11/27/18 02:30 82 28 101/65 (77) 100 11/27/18 02:00 101/65 11/27/18 02:00 86 29 91/54 (66) 100 11/27/18 01:30 88 32 95/63 (74) 100 11/27/18 01:14 88 32 40 11/27/18 01:00 88 28 90/54 (66) 100 11/27/18 01:00 95/63 11/27/18 00:30 84 30 88/56 (67) 100 11/27/18 00:00 40 11/27/18 00:00 86 11/27/18 00:00 99.5 88 31 84/50 (61) 100 11/27/18 00:00 84/50 11/27/18 00:00 Mechanical Ventilator 11/26/18 23:06 85 32 40 11/26/18 23:00 83 32 97/67 (77) 100 11/26/18 23:00 102/63 11/26/18 22:00 110/31 11/26/18 22:00 82 29 99/67 (78) 100 11/26/18 21:30 85 33 99/58 (72) 100 11/26/18 21:04 84 33 40 11/26/18 21:00 85 34 95/63 (74) 100 11/26/18 21:00 112/37 11/26/18 20:30 86 34 98/62 (74) 100 11/26/18 20:00 Mechanical Ventilator 11/26/18 20:00 68 11/26/18 20:00 128/46 11/26/18 20:00 100.0 86 30 98/63 (75) 100 11/26/18 20:00 40 11/26/18 19:02 86 31 40 11/26/18 19:00 94/63 11/26/18 19:00 86 28 94/63 (73) 100 11/26/18 18:30 85 28 93/58 (70) 100 11/26/18 18:30 102/64 11/26/18 18:00 86 28 102/64 (77) 100 11/26/18 18:00 102/64 11/26/18 17:30 81 32 111/65 (80) 100 11/26/18 17:29 82 34 40 11/26/18 17:00 93/69 11/26/18 17:00 81 32 103/54 (70) 100 11/26/18 16:30 82 30 93/69 (77) 100 11/26/18 16:00 Mechanical Ventilator 11/26/18 16:00 95/58 11/26/18 16:00 85 11/26/18 16:00 40 11/26/18 16:00 99.3 81 31 95/58 (70) 100 11/26/18 15:21 82 36 40 11/26/18 15:00 103/38 11/26/18 15:00 82 28 99/68 (78) 100 11/26/18 15:00 83 28 99/68 (78) 100 11/26/18 14:30 86 36 104/58 (73) 100 11/26/18 14:00 81 35 106/80 (89) 99 11/26/18 14:00 104/58 11/26/18 13:30 79 35 94/54 (67) 99 11/26/18 13:00 99/60 11/26/18 13:00 77 28 96/56 (69) 100 11/26/18 12:53 78 35 40 11/26/18 12:01 80 11/26/18 12:01 40 11/26/18 12:00 Mechanical Ventilator 11/26/18 12:00 98/61 11/26/18 12:00 98.4 78 31 92/57 (69) 100 11/26/18 11:30 81 31 94/59 (71) 100 11/26/18 11:00 94/59 11/26/18 11:00 81 32 94/57 (69) 100 11/26/18 10:53 80 32 40 11/26/18 10:33 85/53 11/26/18 10:30 77 29 105/68 (80) 100 11/26/18 10:00 83 31 103/48 (66) 100 11/26/18 10:00 85/53 Intake and Output 11/26/18 11/27/18 19:00 07:00 Intake Total 2127.26 ml 929.32 ml Output Total 1100 ml 990 ml Balance 1027.26 ml -60.68 ml Intake IV Total 2127.26 ml 929.32 ml Output Urine Total 1100 ml 990 ml Laboratory Tests 11/26/18 11:55: Lactic Acid Level 2.50H, Troponin I 0.328H, Random Vancomycin Level 16.6 11/26/18 17:59: Lactic Acid Level 1.80 11/27/18 03:50: White Blood Count 25.3*H, Red Blood Count 3.59L, Hemoglobin 10.2L, Hematocrit 30.3L, Mean Corpuscular Volume 84, Mean Corpuscular Hemoglobin 28.4, Mean Corpuscular Hemoglobin Concent 33.7, Red Cell Distribution Width 15.2H, Platelet Count 156, Mean Platelet Volume 8.7, Neutrophils (%) (Auto) , Lymphocytes (%) (Auto) , Monocytes (%) (Auto) , Eosinophils (%) (Auto) , Basophils (%) (Auto) , Differential Total Cells Counted 100, Neutrophils % ( Manual) 94H, Lymphocytes % (Manual) 3L, Monocytes % (Manual) 2, Eosinophils % ( Manual) 1, Basophils % (Manual) 0, Band Neutrophils 0, Platelet Estimate Adequate, Platelet Morphology Normal, Hypochromasia 1+, Anisocytosis 1+, Sodium Level 132L, Potassium Level 4.3, Chloride Level 102, Carbon Dioxide Level 18L, Anion Gap 12, Blood Urea Nitrogen 49H, Creatinine 4.9H, Estimat Glomerular Filtration Rate 12.1, Glucose Level 92, Calcium Level 8.2L Height (Feet): 6 Height (Inches): 2.00 Weight (Pounds): 255 Objective CV RR Lungs B wheezes Abd SNT. BS + E No CCE Vlad Gutierrez MD November 27, 2018 09:40
--- NOTE | 2018-11-27 14:57 | Pulmonolgy Critical Care Note ---
Critical Care - Asmt/Plan Assessment/Plan: Pulmonary CCM Progress Note Assessment/Plan Respiratory failure, acute hypoxemia hypotension possible sepsis NSTEMI transaminitis metabolic acidosis possible shock liver leukocytosis possible sepsis PLAN care noted IV antibiotics panculture respiratory care Ventilatory support PRN monitor acid base SNF meds supportive care pressors if needed suction as needed wean as able oxygen therapy and titrate prognosis guarded medications/laboratory data/nursing notes/ICU care reviewed in detail note reviewed and edited care discussed with RN and RT ICU time spent 40 minutes Critical Care - Subjective Interval Events: icu events reviewed ROS Limited/Unobtainable: Yes Condition: critical EKG Rhythm: Sinus Rhythm Labs Test 11/25/18 04:40 11/25/18 05:50 11/25/18 07:00 11/25/18 08:24 White Blood Count 7.0 K/UL (4.8-10.8) Red Blood Count 4.11 M/UL (4.70-6.10) Hemoglobin 11.6 G/DL (14.2-18.0) Hematocrit 34.6 % (42.0-52.0) Mean Corpuscular Volume 84 FL (80-99) Mean Corpuscular Hemoglobin 28.3 PG (27.0-31.0) Mean Corpuscular Hemoglobin Concent 33.6 G/DL (32.0-36.0) Red Cell Distribution Width 14.0 % (11.6-14.8) Platelet Count 231 K/UL (150-450) Mean Platelet Volume 8.1 FL (6.5-10.1) Neutrophils (%) (Auto) % (45.0-75.0) Lymphocytes (%) (Auto) % (20.0-45.0) Monocytes (%) (Auto) % (1.0-10.0) Eosinophils (%) (Auto) % (0.0-3.0) Basophils (%) (Auto) % (0.0-2.0) Differential Total Cells Counted 100 Neutrophils % (Manual) 71 % (45-75) Lymphocytes % (Manual) 12 % (20-45) Monocytes % (Manual) 2 % (1-10) Eosinophils % (Manual) 0 % (0-3) Basophils % (Manual) 0 % (0-2) Band Neutrophils 15 % (0-8) Platelet Estimate Adequate Platelet Morphology Normal Anisocytosis 1+ Prothrombin Time 14.3 SEC (9.30-11.50) Prothromb Time International Ratio 1.4 (0.9-1.1) Activated Partial Thromboplast Time 35 SEC (23-33) Sodium Level 136 MMOL/L (136-145) Potassium Level 3.5 MMOL/L (3.5-5.1) Chloride Level 102 MMOL/L (98-107) Carbon Dioxide Level 12 MMOL/L (21-32) Anion Gap 22 mmol/L (5-15) Blood Urea Nitrogen 36 mg/dL (7-18) Creatinine 3.8 MG/DL (0.55-1.30) Estimat Glomerular Filtration Rate 16.3 mL/min (>60) Glucose Level 123 MG/DL (74-106) Lactic Acid Level 8.90 mmol/L (0.4-2.0) 6.60 mmol/L (0.66-2.22) Calcium Level 9.1 MG/DL (8.5-10.1) Magnesium Level 1.7 MG/DL (1.8-2.4) Total Bilirubin 1.4 MG/DL (0.2-1.0) Direct Bilirubin 1.0 MG/DL (0.0-0.3) Aspartate Amino Transf (AST/SGOT) 213 U/L (15-37) Alanine Aminotransferase (ALT/SGPT) 151 U/L (12-78) Alkaline Phosphatase 233 U/L (46-116) Total Creatine Kinase 209 U/L (26-308) Creatine Kinase MB 1.4 NG/ML (0.0-3.6) Creatine Kinase MB Relative Index 0.6 Troponin I 0.166 ng/mL (0.000-0.056) Pro-B-Type Natriuretic Peptide 1847 pg/mL (0-125) Total Protein 7.4 G/DL (6.4-8.2) Albumin 2.5 G/DL (3.4-5.0) Globulin 4.9 g/dL Albumin/Globulin Ratio 0.5 (1.0-2.7) Triglycerides Level 145 MG/DL (30-150) Arterial Blood pH 7.375 (7.350-7.450) 7.392 (7.350-7.450) Arterial Blood Partial Pressure CO2 18.6 mmHg (35.0-45.0) 22.6 mmHg (35.0-45.0) Arterial Blood Partial Pressure O2 394.7 mmHg (75.0-100.0) 108.0 mmHg (75.0-100.0) Arterial Blood HCO3 10.6 mmol/L (22.0-26.0) 13.4 mmol/L (22.0-26.0) Arterial Blood Oxygen Saturation 99.2 % (95-100) 97.5 % (95-100) Arterial Blood Base Excess -12.5 (-2-2) -9.7 (-2-2) Jon Test Positive Positive Urine Color Yellow Urine Appearance Slightly cloudy Urine pH 5 (4.5-8.0) Urine Specific [place] 1.015 (1.005-1.035) Urine Protein 4+ (NEGATIVE) Urine Glucose (UA) Negative (NEGATIVE) Urine Ketones Negative (NEGATIVE) Urine Blood 5+ (NEGATIVE) Urine Nitrite Positive (NEGATIVE) Urine Bilirubin Negative (NEGATIVE) Urine Urobilinogen Normal MG/DL (0.0-1.0) Urine Leukocyte Esterase 3+ (NEGATIVE) Urine RBC 5-10 /HPF (0 - 0) Urine WBC 40-60 /HPF (0 - 0) Urine Squamous Epithelial Cells Occasional /LPF Urine Bacteria Moderate /HPF (NONE) Test 11/25/18 14:05 11/25/18 20:00 11/25/18 23:10 11/26/18 04:00 Lactic Acid Level 5.00 mmol/L (0.4-2.0) 4.60 mmol/L (0.4-2.0) 6.10 mmol/L (0.66-2.22) 4.30 mmol/L (0.4-2.0) Troponin I 0.267 ng/mL (0.000-0.056) 0.281 ng/mL (0.000-0.056) 0.253 ng/mL (0.000-0.056) White Blood Count 38.3 K/UL (4.8-10.8) Red Blood Count 3.77 M/UL (4.70-6.10) Hemoglobin 10.8 G/DL (14.2-18.0) Hematocrit 32.3 % (42.0-52.0) Mean Corpuscular Volume 86 FL (80-99) Mean Corpuscular Hemoglobin 28.6 PG (27.0-31.0) Mean Corpuscular Hemoglobin Concent 33.4 G/DL (32.0-36.0) Red Cell Distribution Width 14.9 % (11.6-14.8) Platelet Count 175 K/UL (150-450) Mean Platelet Volume 7.9 FL (6.5-10.1) Neutrophils (%) (Auto) % (45.0-75.0) Lymphocytes (%) (Auto) % (20.0-45.0) Monocytes (%) (Auto) % (1.0-10.0) Eosinophils (%) (Auto) % (0.0-3.0) Basophils (%) (Auto) % (0.0-2.0) Differential Total Cells Counted 100 Neutrophils % (Manual) 78 % (45-75) Lymphocytes % (Manual) 2 % (20-45) Monocytes % (Manual) 11 % (1-10) Eosinophils % (Manual) 0 % (0-3) Basophils % (Manual) 0 % (0-2) Band Neutrophils 9 % (0-8) Platelet Estimate Adequate Platelet Morphology Normal Anisocytosis 1+ Sodium Level 133 MMOL/L (136-145) Potassium Level 5.0 MMOL/L (3.5-5.1) Chloride Level 100 MMOL/L (98-107) Carbon Dioxide Level 16 MMOL/L (21-32) Anion Gap 17 mmol/L (5-15) Blood Urea Nitrogen 46 mg/dL (7-18) Creatinine 4.8 MG/DL (0.55-1.30) Estimat Glomerular Filtration Rate 12.4 mL/min (>60) Glucose Level 117 MG/DL (74-106) Calcium Level 7.8 MG/DL (8.5-10.1) Magnesium Level 1.3 MG/DL (1.8-2.4) Test 11/26/18 06:47 11/26/18 07:40 11/26/18 11:55 Lactic Acid Level 3.80 mmol/L (0.66-2.22) 2.50 mmol/L (0.4-2.0) Arterial Blood pH 7.407 (7.350-7.450) Arterial Blood Partial Pressure CO2 22.5 mmHg (35.0-45.0) Arterial Blood Partial Pressure O2 147.1 mmHg (75.0-100.0) Arterial Blood HCO3 13.8 mmol/L (22.0-26.0) Arterial Blood Oxygen Saturation 98.6 % (95-100) Arterial Blood Base Excess -9.1 (-2-2) Jon Test Positive Troponin I 0.328 ng/mL (0.000-0.056) Random Vancomycin Level 16.6 ug/mL Objective: WDWN toxic orally intubated clear breath sounds bilaterally without rhonchi or wheeze [id number] without MRG NABS nontender no HSM; no distention no CCE nonfocal, sedated skin noted reviewed and edited Micro: Microbiology Date/Time Source Procedure Growth Status 11/25/18 04:30 Blood Blood Culture - Preliminary Resulted 11/25/18 04:15 Blood Blood Culture - Preliminary Resulted 11/25/18 07:00 Urine,Clean Catch Urine Culture - Preliminary Gram Negative Bacillus 1 Resulted Critical Care - Objective Last 24 Hour Vital Signs Date Time Temp Pulse Resp B/P (MAP) Pulse Ox O2 Delivery O2 Flow Rate FiO2 11/27/18 14:00 73 22 91/62 (72) 100 11/27/18 13:00 74 22 99/65 (76) 11/27/18 12:43 77 28 40 11/27/18 12:30 77 22 85/62 (70) 100 11/27/18 12:00 98.2 83 22 95/62 (73) 100 11/27/18 12:00 Mechanical Ventilator 11/27/18 12:00 85 11/27/18 12:00 40 11/27/18 11:30 84 28 88/66 (73) 100 11/27/18 11:00 89 31 96/67 (77) 98 11/27/18 10:35 95 23 40 11/27/18 10:30 94 27 96/67 (77) 99 11/27/18 10:00 111 35 97/60 (72) 98 11/27/18 09:30 101 31 97/60 (72) 99 11/27/18 09:00 82 25 97/64 (75) 100 11/27/18 08:54 83 27 40 11/27/18 08:50 100 11/27/18 08:30 83 22 101/64 (76) 100 11/27/18 08:01 95/65 11/27/18 08:00 40 11/27/18 08:00 Mechanical Ventilator 11/27/18 08:00 80 11/27/18 08:00 99.4 82 30 97/63 (74) 100 11/27/18 07:04 78 26 40 11/27/18 07:00 75 27 95/65 (75) 100 11/27/18 06:30 85 29 101/64 (76) 100 11/27/18 06:00 85 29 105/66 (79) 100 11/27/18 06:00 105/66 11/27/18 05:30 81 29 103/60 (74) 100 11/27/18 05:25 80 29 40 11/27/18 05:00 96/64 11/27/18 05:00 80 27 96/64 (75) 100 11/27/18 04:30 83 32 105/64 (78) 100 11/27/18 04:00 83 11/27/18 04:00 Mechanical Ventilator 11/27/18 04:00 40 11/27/18 04:00 100.0 79 31 94/59 (71) 100 11/27/18 04:00 105/64 11/27/18 03:30 77 26 103/69 (80) 100 11/27/18 03:19 79 31 40 11/27/18 03:00 80 25 98/60 (73) 100 11/27/18 03:00 103/69 11/27/18 02:30 82 28 101/65 (77) 100 11/27/18 02:00 101/65 11/27/18 02:00 86 29 91/54 (66) 100 11/27/18 01:30 88 32 95/63 (74) 100 11/27/18 01:14 88 32 40 11/27/18 01:00 88 28 90/54 (66) 100 11/27/18 01:00 95/63 11/27/18 00:30 84 30 88/56 (67) 100 11/27/18 00:00 40 11/27/18 00:00 86 11/27/18 00:00 99.5 88 31 84/50 (61) 100 11/27/18 00:00 84/50 11/27/18 00:00 Mechanical Ventilator 11/26/18 23:06 85 32 40 11/26/18 23:00 83 32 97/67 (77) 100 11/26/18 23:00 102/63 11/26/18 22:00 110/31 11/26/18 22:00 82 29 99/67 (78) 100 11/26/18 21:30 85 33 99/58 (72) 100 11/26/18 21:04 84 33 40 11/26/18 21:00 85 34 95/63 (74) 100 11/26/18 21:00 112/37 11/26/18 20:30 86 34 98/62 (74) 100 11/26/18 20:00 Mechanical Ventilator 11/26/18 20:00 68 11/26/18 20:00 128/46 11/26/18 20:00 100.0 86 30 98/63 (75) 100 11/26/18 20:00 40 11/26/18 19:02 86 31 40 11/26/18 19:00 94/63 11/26/18 19:00 86 28 94/63 (73) 100 11/26/18 18:30 85 28 93/58 (70) 100 11/26/18 18:30 102/64 11/26/18 18:00 86 28 102/64 (77) 100 11/26/18 18:00 102/64 11/26/18 17:30 81 32 111/65 (80) 100 11/26/18 17:29 82 34 40 11/26/18 17:00 93/69 11/26/18 17:00 81 32 103/54 (70) 100 11/26/18 16:30 82 30 93/69 (77) 100 11/26/18 16:00 Mechanical Ventilator 11/26/18 16:00 95/58 11/26/18 16:00 85 11/26/18 16:00 40 11/26/18 16:00 99.3 81 31 95/58 (70) 100 11/26/18 15:21 82 36 40 11/26/18 15:00 103/38 11/26/18 15:00 82 28 99/68 (78) 100 11/26/18 15:00 83 28 99/68 (78) 100 Micro: Microbiology Date/Time Source Procedure Growth Status 11/25/18 04:30 Blood Blood Culture - Preliminary Gram Negative Bacillus 1 Resulted 11/25/18 04:15 Blood Blood Culture - Preliminary Gram Negative Bacillus 1 Resulted 11/25/18 04:09 Nasal Nares MRSA Culture - Final NO METHICILLIN RESISTANT STAPH AUREUS... Complete 11/25/18 07:00 Urine,Clean Catch Urine Culture - Final Escherichia Coli - Esbl Complete 11/25/18 04:09 Rectum - Final NO CARBAPENEM-RESISTANT ENTEROBACTERI... Complete 11/25/18 04:09 Rectum VRE Culture - Final Enterococcus Faecalis - Vre Complete Critical Care - Subjective ROS Limited/Unobtainable: No FI02: 40 Vent Support Breath Rate: 18 Vent Support Mode: AC Vent Tidal Volume: 650 Sputum Amount: Small PEEP: 5.0 PIP: 25 I&O: Intake and Output 11/26/18 11/27/18 19:00 07:00 Intake Total 2127.26 ml 929.32 ml Output Total 1100 ml 990 ml Balance 1027.26 ml -60.68 ml Intake IV Total 2127.26 ml 929.32 ml Output Urine Total 1100 ml 990 ml ET-Tube: 7.5 ET Position: 24 Carl Key MD November 27, 2018 14:57
[2018-11-27] MEDS ORDERED: NS 250 ML IV ONE (15:45)
--- NOTE | 2018-11-27 17:30 | Consultation ---
DATE OF CONSULTATION: 11/27/2014 INFECTIOUS DISEASE CONSULTATION This consult is for coverage of Dr. Barnes. CONSULTING PHYSICIAN: Sandeep Faust M.D. PRIMARY ATTENDING PHYSICIAN: Vlad Gutierrez M.D. REASON FOR CONSULT: Gram-negative sepsis, UTI. HISTORY OF PRESENT ILLNESS: This 63-year-old white male who is a residential resident admitted on 11/25/2018. The patient had altered mental status at nursing facility, had a decrease in O2 saturation to 82%, was hypotensive, had a fever of 102.1 in the ER. He had a pulse rate of 123. Intubated in the ER, started on maximum dose of vasopressor and transferred to ICU. The patient at the time of admission had elevation in transaminase, acidosis, acute renal failure, started on IV antibiotic Zosyn that was changed yesterday to meropenem. The patient's fever is going down, currently is off pressor. PAST MEDICAL HISTORY: Organic brain syndrome, history of foot osteomyelitis, depression, alcohol abuse, and history of DVT of legs. ALLERGIES: No known drug allergies. MEDICATIONS: Meropenem, heparin, norepinephrine, lorazepam, metolazone, Protonix, and Tylenol. SOCIAL HISTORY: correction resident. Single. He has history of alcohol abuse in the past. No other history obtainable. The patient is on restraints. PHYSICAL EXAMINATION: VITAL SIGNS: Temperature is 99.4, T-max 100, pulse 95, and blood pressure 97/60. GENERAL APPEARANCE: Seems to be well developed. HEAD AND NECK: Orally intubated. [place] conjunctivae. HEART: Normal rate. LUNGS: On mechanical ventilator. Clear. ABDOMEN: Soft and nontender. EXTREMITIES: No edema. There is erythema in ruth area. LINES: The patient has right subclavian line. NEUROLOGIC: Awake, seems confused. LABORATORY AND DIAGNOSTIC DATA: Sodium 132, potassium 4.3, chloride 102, bicarbonate 18, BUN 49, and creatinine 4.9. The latest lactic acid was 1.8. Lactic acid at the time of admission was 6.1. Troponin is elevated 0.328. WBC 25.3 coming down from 38.3, hemoglobin 10.9, hematocrit 30.3, and platelets within normal limit. UA showed wbc's 40 to 60, nitrite positive, bacteria moderate. Urine culture showed ESBL E. coli. Blood culture x2 growing gram-negative rods. VRE screen is positive. MRSA screen is negative. Chest x-ray showed no acute disease. Renal ultrasound showed left hydronephrosis, that is moderate, Sludge or stones suspected. IMPRESSION: 1. Gram-negative sepsis. 2. Urinary tract infection, that seems to be complicated. 3. Acute renal failure. 4. Left hydronephrosis, likely secondary to nephrolithiasis. 5. Septic shock, that is resolving. 6. Anemia. 7. Acute respiratory failure. RECOMMENDATION: We will continue meropenem. We will follow up blood cultures. We will follow up transaminase level and BUN and creatinine. At the end of my exam, I thank Dr. Gutierrez, for involving me in the care of this patient. Sandeep Faust M.D. DR: SUKUMAR JOB#: [id number] CC: KEYON
[2018-11-27] MEDS: Midazolam 2mg/2ml Inj IVP PRN (20:05)
[2018-11-27] MEDS: Dyna-Hex 2% Top Sol 2oz TOPIC SCH (20:05)
[2018-11-28] VITALS (24 sets, daily range): BP systolic 92–139; BP diastolic 56–85
[2018-11-28] MEDS: 1/2NS w/KCl 20mEq 1000ml 1,000 ML IV SCH ×2 (04:00→17:26)
[2018-11-28 05:18] LABS: HEMATOCRIT 30.5 % (42.0-52.0); HEMOGLOBIN 10.2 G/DL (14.2-18.0); MEAN CORPUSCULAR VOLUME 85 FL (80-99); PLATELET COUNT 180 K/UL (150-450); RED CELL DISTRIBUTION WIDTH 15.1 % (11.6-14.8); WHITE BLOOD COUNT 21.6 K/UL (4.8-10.8)
[2018-11-28 05:43] LABS: ANION GAP 14 mmol/L (5-15); CALCIUM 8.7 MG/DL (8.5-10.1); CARBON DIOXIDE 17 MMOL/L (21-32); CHLORIDE 105 MMOL/L (98-107); CREATININE 4.8 MG/DL (0.55-1.30); POTASSIUM 4.5 MMOL/L (3.5-5.1); SODIUM 136 MMOL/L (136-145)
[2018-11-28 05:53] LABS: BLOOD UREA NITROGEN 58 mg/dL (7-18)
--- NOTE | 2018-11-28 08:16 | Critical Care Progress Note ---
Assessment/Plan Assessment/Plan Respiratory failure, acute hypoxemia hypotension possible sepsis NSTEMI transaminitis metabolic acidosis possible shock liver leukocytosis possible sepsis PLAN care noted IV antibiotics reviewed cultures respiratory care Ventilatory support monitor acid base SNF meds supportive care suction as needed wean as able oxygen therapy and titrate prognosis guarded medications/laboratory data/nursing notes/ICU care reviewed in detail note reviewed and edited care discussed with RN and RT ICU time spent 35 minutes Critical Care - Subjective Interval Events: on vent increase RR Condition: critical EKG Rhythm: Sinus Rhythm Residuals: minimal Tube Feeding Tolerated: yes I&O: Intake and Output 11/27/18 11/28/18 18:59 06:59 Intake Total 920 ml 940 ml Output Total 1000 ml 1190 ml Balance -80 ml -250 ml Intake IV Total 920 ml 940 ml Output Urine Total 1000 ml 1190 ml Critical Care - Objective ET-Tube: 7.5 ET Position: 24 Last 24 Hour Vital Signs Date Time Temp Pulse Resp B/P (MAP) Pulse Ox O2 Delivery O2 Flow Rate FiO2 11/28/18 07:19 77 27 40 11/28/18 07:00 70 24 105/64 (78) 100 11/28/18 06:00 82 28 109/81 (90) 100 11/28/18 05:12 77 27 40 11/28/18 05:00 77 22 105/69 (81) 100 11/28/18 04:00 97.7 76 33 109/75 (86) 100 11/28/18 04:00 80 11/28/18 04:00 40 11/28/18 04:00 Mechanical Ventilator 11/28/18 03:00 80 29 115/79 (91) 100 11/28/18 02:48 81 27 40 11/28/18 02:00 79 21 92/56 (68) 100 11/28/18 01:19 78 36 40 11/28/18 01:00 82 18 123/76 (92) 100 11/28/18 00:00 68 11/28/18 00:00 Mechanical Ventilator 11/28/18 00:00 98.5 77 23 117/74 (88) 100 11/27/18 23:05 85 33 40 11/27/18 23:00 81 25 103/77 (86) 96 11/27/18 22:00 77 28 120/73 (89) 100 11/27/18 21:10 80 28 40 11/27/18 21:00 76 25 110/68 (82) 11/27/18 20:00 40 11/27/18 20:00 99.1 80 29 103/71 (82) 100 11/27/18 20:00 Mechanical Ventilator 11/27/18 20:00 75 11/27/18 19:15 86 33 40 11/27/18 19:00 79 24 104/66 (79) 99 11/27/18 18:00 75 24 107/94 (98) 99 11/27/18 17:02 78 27 40 11/27/18 17:00 74 29 94/68 (77) 100 11/27/18 16:00 Mechanical Ventilator 11/27/18 16:00 98.5 77 29 91/64 (73) 100 11/27/18 16:00 78 11/27/18 16:00 40 11/27/18 15:06 79 26 40 11/27/18 15:00 80 22 96/62 (73) 100 11/27/18 14:00 73 22 91/62 (72) 100 11/27/18 13:00 74 22 99/65 (76) 11/27/18 12:43 77 28 40 11/27/18 12:30 77 22 85/62 (70) 100 11/27/18 12:00 98.2 83 22 95/62 (73) 100 11/27/18 12:00 Mechanical Ventilator 11/27/18 12:00 85 11/27/18 12:00 40 11/27/18 11:30 84 28 88/66 (73) 100 11/27/18 11:00 89 31 96/67 (77) 98 11/27/18 10:35 95 23 40 11/27/18 10:30 94 27 96/67 (77) 99 11/27/18 10:00 111 35 97/60 (72) 98 11/27/18 09:30 101 31 97/60 (72) 99 11/27/18 09:00 82 25 97/64 (75) 100 11/27/18 08:54 83 27 40 11/27/18 08:50 100 11/27/18 08:30 83 22 101/64 (76) 100 Labs: Labs Test 11/25/18 08:24 11/25/18 14:05 11/25/18 20:00 11/25/18 23:10 Arterial Blood pH 7.392 (7.350-7.450) Arterial Blood Partial Pressure CO2 22.6 mmHg (35.0-45.0) Arterial Blood Partial Pressure O2 108.0 mmHg (75.0-100.0) Arterial Blood HCO3 13.4 mmol/L (22.0-26.0) Arterial Blood Oxygen Saturation 97.5 % (95-100) Arterial Blood Base Excess -9.7 (-2-2) Jon Test Positive Lactic Acid Level 5.00 mmol/L (0.4-2.0) 4.60 mmol/L (0.4-2.0) 6.10 mmol/L (0.66-2.22) Troponin I 0.267 ng/mL (0.000-0.056) 0.281 ng/mL (0.000-0.056) Test 11/26/18 04:00 11/26/18 06:47 11/26/18 07:40 11/26/18 11:55 White Blood Count 38.3 K/UL (4.8-10.8) Red Blood Count 3.77 M/UL (4.70-6.10) Hemoglobin 10.8 G/DL (14.2-18.0) Hematocrit 32.3 % (42.0-52.0) Mean Corpuscular Volume 86 FL (80-99) Mean Corpuscular Hemoglobin 28.6 PG (27.0-31.0) Mean Corpuscular Hemoglobin Concent 33.4 G/DL (32.0-36.0) Red Cell Distribution Width 14.9 % (11.6-14.8) Platelet Count 175 K/UL (150-450) Mean Platelet Volume 7.9 FL (6.5-10.1) Neutrophils (%) (Auto) % (45.0-75.0) Lymphocytes (%) (Auto) % (20.0-45.0) Monocytes (%) (Auto) % (1.0-10.0) Eosinophils (%) (Auto) % (0.0-3.0) Basophils (%) (Auto) % (0.0-2.0) Differential Total Cells Counted 100 Neutrophils % (Manual) 78 % (45-75) Lymphocytes % (Manual) 2 % (20-45) Monocytes % (Manual) 11 % (1-10) Eosinophils % (Manual) 0 % (0-3) Basophils % (Manual) 0 % (0-2) Band Neutrophils 9 % (0-8) Platelet Estimate Adequate Platelet Morphology Normal Anisocytosis 1+ Sodium Level 133 MMOL/L (136-145) Potassium Level 5.0 MMOL/L (3.5-5.1) Chloride Level 100 MMOL/L (98-107) Carbon Dioxide Level 16 MMOL/L (21-32) Anion Gap 17 mmol/L (5-15) Blood Urea Nitrogen 46 mg/dL (7-18) Creatinine 4.8 MG/DL (0.55-1.30) Estimat Glomerular Filtration Rate 12.4 mL/min (>60) Glucose Level 117 MG/DL (74-106) Lactic Acid Level 4.30 mmol/L (0.4-2.0) 3.80 mmol/L (0.66-2.22) 2.50 mmol/L (0.4-2.0) Calcium Level 7.8 MG/DL (8.5-10.1) Magnesium Level 1.3 MG/DL (1.8-2.4) Troponin I 0.253 ng/mL (0.000-0.056) 0.328 ng/mL (0.000-0.056) Arterial Blood pH 7.407 (7.350-7.450) Arterial Blood Partial Pressure CO2 22.5 mmHg (35.0-45.0) Arterial Blood Partial Pressure O2 147.1 mmHg (75.0-100.0) Arterial Blood HCO3 13.8 mmol/L (22.0-26.0) Arterial Blood Oxygen Saturation 98.6 % (95-100) Arterial Blood Base Excess -9.1 (-2-2) Jon Test Positive Random Vancomycin Level 16.6 ug/mL Test 11/26/18 17:59 11/27/18 03:50 11/28/18 04:00 Lactic Acid Level 1.80 mmol/L (0.66-2.22) White Blood Count 25.3 K/UL (4.8-10.8) 21.6 K/UL (4.8-10.8) Red Blood Count 3.59 M/UL (4.70-6.10) 3.60 M/UL (4.70-6.10) Hemoglobin 10.2 G/DL (14.2-18.0) 10.2 G/DL (14.2-18.0) Hematocrit 30.3 % (42.0-52.0) 30.5 % (42.0-52.0) Mean Corpuscular Volume 84 FL (80-99) 85 FL (80-99) Mean Corpuscular Hemoglobin 28.4 PG (27.0-31.0) 28.4 PG (27.0-31.0) Mean Corpuscular Hemoglobin Concent 33.7 G/DL (32.0-36.0) 33.4 G/DL (32.0-36.0) Red Cell Distribution Width 15.2 % (11.6-14.8) 15.1 % (11.6-14.8) Platelet Count 156 K/UL (150-450) 180 K/UL (150-450) Mean Platelet Volume 8.7 FL (6.5-10.1) 7.7 FL (6.5-10.1) Neutrophils (%) (Auto) % (45.0-75.0) % (45.0-75.0) Lymphocytes (%) (Auto) % (20.0-45.0) % (20.0-45.0) Monocytes (%) (Auto) % (1.0-10.0) % (1.0-10.0) Eosinophils (%) (Auto) % (0.0-3.0) % (0.0-3.0) Basophils (%) (Auto) % (0.0-2.0) % (0.0-2.0) Differential Total Cells Counted 100 100 Neutrophils % (Manual) 94 % (45-75) 91 % (45-75) Lymphocytes % (Manual) 3 % (20-45) 3 % (20-45) Monocytes % (Manual) 2 % (1-10) 3 % (1-10) Eosinophils % (Manual) 1 % (0-3) 3 % (0-3) Basophils % (Manual) 0 % (0-2) 0 % (0-2) Band Neutrophils 0 % (0-8) 0 % (0-8) Platelet Estimate Adequate Adequate Platelet Morphology Normal Normal Hypochromasia 1+ 1+ Anisocytosis 1+ 1+ Sodium Level 132 MMOL/L (136-145) 136 MMOL/L (136-145) Potassium Level 4.3 MMOL/L (3.5-5.1) 4.5 MMOL/L (3.5-5.1) Chloride Level 102 MMOL/L (98-107) 105 MMOL/L (98-107) Carbon Dioxide Level 18 MMOL/L (21-32) 17 MMOL/L (21-32) Anion Gap 12 mmol/L (5-15) 14 mmol/L (5-15) Blood Urea Nitrogen 49 mg/dL (7-18) 58 mg/dL (7-18) Creatinine 4.9 MG/DL (0.55-1.30) 4.8 MG/DL (0.55-1.30) Estimat Glomerular Filtration Rate 12.1 mL/min (>60) 12.4 mL/min (>60) Glucose Level 92 MG/DL (74-106) 75 MG/DL (74-106) Calcium Level 8.2 MG/DL (8.5-10.1) 8.7 MG/DL (8.5-10.1) Phosphorus Level 2.2 MG/DL (2.5-4.9) Objective: WDWN toxic orally intubated clear breath sounds bilaterally without rhonchi or wheeze [id number] without MRG NABS nontender no HSM; no distention no CCE nonfocal, sedated skin noted reviewed and edited Matt Ramirez MD November 28, 2018 08:16
[2018-11-28] MEDS: Heparin 5000 units/ml inj SUBQ SCH ×2 (08:21→20:40)
[2018-11-28] MEDS: Meropenem 500 MG in NS 55 ML IVPB SCH ×2 (08:21→20:39)
[2018-11-28] MEDS: Pantoprazole Inj IVP SCH ×2 (08:21→20:39)
--- NOTE | 2018-11-28 10:09 | Nephrology Progress Note ---
Assessment/Plan Plan BC GNR - not called in to me!!! Were available around midnight! U C+s GNR = True Urosepsis On IV Zosyn + Vanco. Dc Vanco Check Renal US Acute Non Oliguric ATN see orders Subjective Subjective On weaning protocol Objective Objective Last 24 Hour Vital Signs Date Time Temp Pulse Resp B/P (MAP) Pulse Ox O2 Delivery O2 Flow Rate FiO2 11/28/18 09:07 74 27 30 30 11/28/18 09:06 100 11/28/18 09:00 72 27 94/66 (75) 100 11/28/18 08:00 74 11/28/18 08:00 97.7 73 25 117/79 (92) 11/28/18 08:00 40 11/28/18 08:00 Mechanical Ventilator 11/28/18 07:19 77 27 35 11/28/18 07:00 70 24 105/64 (78) 100 11/28/18 06:00 82 28 109/81 (90) 100 11/28/18 05:12 77 27 40 11/28/18 05:00 77 22 105/69 (81) 100 11/28/18 04:00 97.7 76 33 109/75 (86) 100 11/28/18 04:00 80 11/28/18 04:00 40 11/28/18 04:00 Mechanical Ventilator 11/28/18 03:00 80 29 115/79 (91) 100 11/28/18 02:48 81 27 40 11/28/18 02:00 79 21 92/56 (68) 100 11/28/18 01:19 78 36 40 11/28/18 01:00 82 18 123/76 (92) 100 11/28/18 00:00 68 11/28/18 00:00 Mechanical Ventilator 11/28/18 00:00 98.5 77 23 117/74 (88) 100 11/27/18 23:05 85 33 40 11/27/18 23:00 81 25 103/77 (86) 96 11/27/18 22:00 77 28 120/73 (89) 100 11/27/18 21:10 80 28 40 11/27/18 21:00 76 25 110/68 (82) 11/27/18 20:00 40 11/27/18 20:00 99.1 80 29 103/71 (82) 100 11/27/18 20:00 Mechanical Ventilator 11/27/18 20:00 75 11/27/18 19:15 86 33 40 11/27/18 19:00 79 24 104/66 (79) 99 11/27/18 18:00 75 24 107/94 (98) 99 11/27/18 17:02 78 27 40 11/27/18 17:00 74 29 94/68 (77) 100 11/27/18 16:00 Mechanical Ventilator 11/27/18 16:00 98.5 77 29 91/64 (73) 100 11/27/18 16:00 78 11/27/18 16:00 40 11/27/18 15:06 79 26 40 11/27/18 15:00 80 22 96/62 (73) 100 11/27/18 14:00 73 22 91/62 (72) 100 11/27/18 13:00 74 22 99/65 (76) 11/27/18 12:43 77 28 40 11/27/18 12:30 77 22 85/62 (70) 100 11/27/18 12:00 98.2 83 22 95/62 (73) 100 11/27/18 12:00 Mechanical Ventilator 11/27/18 12:00 85 11/27/18 12:00 40 11/27/18 11:30 84 28 88/66 (73) 100 11/27/18 11:00 89 31 96/67 (77) 98 11/27/18 10:35 95 23 40 11/27/18 10:30 94 27 96/67 (77) 99 Intake and Output 11/27/18 11/28/18 18:59 06:59 Intake Total 920 ml 940 ml Output Total 1000 ml 1190 ml Balance -80 ml -250 ml Intake IV Total 920 ml 940 ml Output Urine Total 1000 ml 1190 ml Laboratory Tests 11/28/18 04:00: White Blood Count 21.6H, Red Blood Count 3.60L, Hemoglobin 10.2L, Hematocrit 30.5L, Mean Corpuscular Volume 85, Mean Corpuscular Hemoglobin 28.4, Mean Corpuscular Hemoglobin Concent 33.4, Red Cell Distribution Width 15.1H, Platelet Count 180, Mean Platelet Volume 7.7, Neutrophils (%) (Auto) , Lymphocytes (%) (Auto) , Monocytes (%) (Auto) , Eosinophils (%) (Auto) , Basophils (%) (Auto) , Differential Total Cells Counted 100, Neutrophils % ( Manual) 91H, Lymphocytes % (Manual) 3L, Monocytes % (Manual) 3, Eosinophils % ( Manual) 3, Basophils % (Manual) 0, Band Neutrophils 0, Platelet Estimate Adequate, Platelet Morphology Normal, Hypochromasia 1+, Anisocytosis 1+, Sodium Level 136, Potassium Level 4.5, Chloride Level 105, Carbon Dioxide Level 17L, Anion Gap 14, Blood Urea Nitrogen 58H, Creatinine 4.8H, Estimat Glomerular Filtration Rate 12.4, Glucose Level 75, Calcium Level 8.7, Phosphorus Level 2.2L Height (Feet): 6 Height (Inches): 2.00 Weight (Pounds): 250 Objective CV RR Lungs B wheezes Abd SNT. BS + E No CCE Vlad Gutierrez MD November 28, 2018 10:09
--- NOTE | 2018-11-28 10:59 | Infectious Diseases Prog Note ---
Assessment/Plan Assessment/Plan IMPRESSION: 1. E. coli sepsis. 2. Urinary tract infection, that seems to be complicated. 3. Acute renal failure. 4. Left hydronephrosis, likely secondary to nephrolithiasis. 5. Septic shock, that is resolving. 6. Anemia. 7. Acute respiratory failure. RECOMMENDATION: We will continue meropenem Subjective ROS Limited/Unobtainable: Yes Neurologic: Reports: other - on restraint Allergies: Coded Allergies: No Known Allergies (Unverified , 11/25/18) Objective Vital Signs Last 24 Hour Vital Signs Date Time Temp Pulse Resp B/P (MAP) Pulse Ox O2 Delivery O2 Flow Rate FiO2 11/28/18 10:41 69 31 30 11/28/18 10:00 75 24 115/80 (92) 100 11/28/18 09:07 74 27 30 30 11/28/18 09:06 100 11/28/18 09:00 72 27 94/66 (75) 100 11/28/18 08:00 74 11/28/18 08:00 97.7 73 25 117/79 (92) 11/28/18 08:00 40 11/28/18 08:00 Mechanical Ventilator 11/28/18 07:19 77 27 35 11/28/18 07:00 70 24 105/64 (78) 100 11/28/18 06:00 82 28 109/81 (90) 100 11/28/18 05:12 77 27 40 11/28/18 05:00 77 22 105/69 (81) 100 11/28/18 04:00 97.7 76 33 109/75 (86) 100 11/28/18 04:00 80 11/28/18 04:00 40 11/28/18 04:00 Mechanical Ventilator 11/28/18 03:00 80 29 115/79 (91) 100 11/28/18 02:48 81 27 40 11/28/18 02:00 79 21 92/56 (68) 100 11/28/18 01:19 78 36 40 11/28/18 01:00 82 18 123/76 (92) 100 11/28/18 00:00 68 11/28/18 00:00 Mechanical Ventilator 11/28/18 00:00 98.5 77 23 117/74 (88) 100 11/27/18 23:05 85 33 40 11/27/18 23:00 81 25 103/77 (86) 96 11/27/18 22:00 77 28 120/73 (89) 100 11/27/18 21:10 80 28 40 11/27/18 21:00 76 25 110/68 (82) 11/27/18 20:00 40 11/27/18 20:00 99.1 80 29 103/71 (82) 100 11/27/18 20:00 Mechanical Ventilator 11/27/18 20:00 75 11/27/18 19:15 86 33 40 11/27/18 19:00 79 24 104/66 (79) 99 11/27/18 18:00 75 24 107/94 (98) 99 11/27/18 17:02 78 27 40 11/27/18 17:00 74 29 94/68 (77) 100 11/27/18 16:00 Mechanical Ventilator 11/27/18 16:00 98.5 77 29 91/64 (73) 100 11/27/18 16:00 78 11/27/18 16:00 40 11/27/18 15:06 79 26 40 11/27/18 15:00 80 22 96/62 (73) 100 11/27/18 14:00 73 22 91/62 (72) 100 11/27/18 13:00 74 22 99/65 (76) 11/27/18 12:43 77 28 40 11/27/18 12:30 77 22 85/62 (70) 100 11/27/18 12:00 98.2 83 22 95/62 (73) 100 11/27/18 12:00 Mechanical Ventilator 11/27/18 12:00 85 11/27/18 12:00 40 11/27/18 11:30 84 28 88/66 (73) 100 11/27/18 11:00 89 31 96/67 (77) 98 Height (Feet): 6 Height (Inches): 2.00 Weight (Pounds): 250 HEENT: other - orally intubated Respiratory/Chest: lungs clear, other - on ventilator Cardiovascular: normal rate, other - RIJ line Abdomen: soft, non tender Extremities: no edema Neurologic/Psychiatric: alert, responsive Laboratory Tests Test 11/28/18 04:00 11/28/18 10:12 White Blood Count 21.6 K/UL (4.8-10.8) H Red Blood Count 3.60 M/UL (4.70-6.10) L Hemoglobin 10.2 G/DL (14.2-18.0) L Hematocrit 30.5 % (42.0-52.0) L Mean Corpuscular Volume 85 FL (80-99) Mean Corpuscular Hemoglobin 28.4 PG (27.0-31.0) Mean Corpuscular Hemoglobin Concent 33.4 G/DL (32.0-36.0) Red Cell Distribution Width 15.1 % (11.6-14.8) H Platelet Count 180 K/UL (150-450) Mean Platelet Volume 7.7 FL (6.5-10.1) Neutrophils (%) (Auto) % (45.0-75.0) Lymphocytes (%) (Auto) % (20.0-45.0) Monocytes (%) (Auto) % (1.0-10.0) Eosinophils (%) (Auto) % (0.0-3.0) Basophils (%) (Auto) % (0.0-2.0) Differential Total Cells Counted 100 Neutrophils % (Manual) 91 % (45-75) H Lymphocytes % (Manual) 3 % (20-45) L Monocytes % (Manual) 3 % (1-10) Eosinophils % (Manual) 3 % (0-3) Basophils % (Manual) 0 % (0-2) Band Neutrophils 0 % (0-8) Platelet Estimate Adequate Platelet Morphology Normal Hypochromasia 1+ Anisocytosis 1+ Sodium Level 136 MMOL/L (136-145) Potassium Level 4.5 MMOL/L (3.5-5.1) Chloride Level 105 MMOL/L (98-107) Carbon Dioxide Level 17 MMOL/L (21-32) L Anion Gap 14 mmol/L (5-15) Blood Urea Nitrogen 58 mg/dL (7-18) H Creatinine 4.8 MG/DL (0.55-1.30) H Estimat Glomerular Filtration Rate 12.4 mL/min (>60) Glucose Level 75 MG/DL (74-106) Calcium Level 8.7 MG/DL (8.5-10.1) Phosphorus Level 2.2 MG/DL (2.5-4.9) L Arterial Blood pH 7.402 (7.350-7.450) Arterial Blood Partial Pressure CO2 23.7 mmHg (35.0-45.0) *L Arterial Blood Partial Pressure O2 115.4 mmHg (75.0-100.0) H Arterial Blood HCO3 14.4 mmol/L (22.0-26.0) *L Arterial Blood Oxygen Saturation 97.9 % (95-100) Arterial Blood Base Excess -8.7 (-2-2) L Jon Test Positive Current Medications Medications (Trade) Dose Ordered Sig/Rikki Route PRN Reason Start Time Stop Time Status Last Admin Dose Admin Acetaminophen (Tylenol) 650 mg Q6H PRN ORAL Mild Pain/Temp > 100.5 11/25/18 08:15 12/25/18 08:14 Chlorhexidine Gluconate (Brianna-Hex 2%) 1 applic DAILY@2000 TOPIC 11/26/18 20:00 12/26/18 19:59 11/27/18 20:05 Heparin Sodium (Porcine) (Heparin 5000 units/ml) 5,000 units EVERY 12 HOURS SUBQ 11/25/18 21:00 12/25/18 20:59 11/28/18 08:21 Lorazepam (Ativan 2mg/ml 1ml) 2 mg Q4H PRN IV For Anxiety 11/25/18 09:45 12/02/18 09:44 11/27/18 14:19 Meropenem 500 mg/ Sodium Chloride 55 ml @ 110 mls/hr EVERY 12 HOURS IVPB 11/26/18 22:00 12/01/18 21:59 11/28/18 08:21 Midazolam HCl (Versed 2mg/2ml vial) 2 mg Q4H PRN IVP Agitation 11/25/18 09:45 12/25/18 08:14 11/27/18 20:05 Norepinephrine Bitartrate 8 mg/ Dextrose 508 ml @ 0 mls/hr Q24H IV 11/25/18 13:30 12/25/18 13:29 11/27/18 08:01 Pantoprazole (Protonix) 40 mg EVERY 12 HOURS IVP 11/25/18 09:00 12/25/18 08:59 11/28/18 08:21 Sodium 1,000 ml @ 75 mls/hr [id number] IV 11/25/18 09:30 12/25/18 09:29 11/28/18 04:00 Sandeep Faust MD November 28, 2018 10:59
[2018-11-28] MEDS ORDERED: Sodium Bicarbonate 50ml Carp IV SCH (11:45)
[2018-11-28] MEDS: LORazepam Inj 2mg/ml 1ml IV PRN (13:01)
[2018-11-28] MEDS: Dyna-Hex 2% Top Sol 2oz TOPIC SCH (20:38)
--- NOTE | 2018-11-28 20:41 | Cardiology Report ---
APPROVED REPORT EXAM: Two-dimensional and M-mode echocardiogram with Doppler and color Doppler. INDICATION Congestive Heart Failure M-Mode DIMENSIONS IVSd0.8 (0.7-1.1cm)Left Atrium (MM)2.7 (1.6-4.0cm) LVDd4.6 (3.5-5.6cm)Aortic Root3.7 (2.0-3.7cm) PWd0.8 (0.7-1.1cm)Aortic Cusp Exc.1.6 (1.5-2.0cm) IVSs1.2 cm LVDs2.6 (2.5-4.0cm) PWs1.2 cm Technically difficult study due to pt's breathing. Normal left ventricular chamber size, systolic function and wall motion to extent visualized. Left ventricular ejection fraction estimated to be 55-60 %. Study quality precludes accurate assessment of regional wall motion. No evidence of left ventricular hypertrophy. No evidence of pericardial effusion. All other cardiac chamber sizes are within normal limits. Focal aortic valve sclerosis with adequate cusp excursion. Thickened mitral valve leaflets with normal excursion. Mitral annulus and aortic root calcification. Normal pulmonic valve structure. Normal tricuspid valve structure. IVC at normal size with physiologic collapse. A color flow and spectral Doppler study was performed and revealed: No aortic insufficiency . Mild mitral regurgitation. Mitral diastolic velocities suggest reduced left ventricular relaxation c/w mild LV diastolic dysfunction (Grade I ). Trace tricuspid regurgitation. Tricuspid systolic velocities suggests peak right ventricular systolic pressure of 25 mmHg
[2018-11-29] VITALS (26 sets, daily range): BP systolic 101–128; BP diastolic 59–83
[2018-11-29 05:03] LABS: HEMATOCRIT 30.9 % (42.0-52.0); HEMOGLOBIN 10.4 G/DL (14.2-18.0); MEAN CORPUSCULAR VOLUME 85 FL (80-99); PLATELET COUNT 159 K/UL (150-450); RED BLOOD COUNT 3.63 M/UL (4.70-6.10); RED CELL DISTRIBUTION WIDTH 15.3 % (11.6-14.8); WHITE BLOOD COUNT 15.3 K/UL (4.8-10.8)
[2018-11-29 05:12] LABS: ANION GAP 14 mmol/L (5-15); BLOOD UREA NITROGEN 63 mg/dL (7-18); CALCIUM 8.7 MG/DL (8.5-10.1); CARBON DIOXIDE 19 MMOL/L (21-32); CHLORIDE 109 MMOL/L (98-107); CREATININE 4.5 MG/DL (0.55-1.30); POTASSIUM 4.3 MMOL/L (3.5-5.1); SODIUM 141 MMOL/L (136-145)
[2018-11-29] MEDS: Meropenem 500 MG in NS 55 ML IVPB SCH ×2 (09:20→20:05)
[2018-11-29] MEDS: Pantoprazole Inj IVP SCH ×2 (09:20→20:04)
[2018-11-29] MEDS: 1/2NS w/KCl 20mEq 1000ml 1,000 ML IV SCH ×2 (09:21→21:25)
[2018-11-29] MEDS: Heparin 5000 units/ml inj SUBQ SCH ×2 (09:23→20:06)
--- NOTE | 2018-11-29 09:31 | Pulmonolgy Critical Care Note ---
Critical Care - Asmt/Plan Assessment/Plan: Pulmonary CCM Progress Note Assessment/Plan Respiratory failure, acute hypoxemia hypotension possible sepsis NSTEMI transaminitis metabolic acidosis possible shock liver leukocytosis possible sepsis PLAN care noted IV antibiotics reviewed cultures respiratory care Ventilatory support monitor acid base SNF meds supportive care suction as needed wean as able oxygen therapy and titrate prognosis guarded medications/laboratory data/nursing notes/ICU care reviewed in detail note reviewed and edited care discussed with RN and RT ICU time spent 35 minutes Critical Care - Subjective Interval Events: on vent increase RR Condition: critical EKG Rhythm: Sinus Rhythm Residuals: minimal Tube Feeding Tolerated: yes Labs Test 11/25/18 08:24 11/25/18 14:05 11/25/18 20:00 11/25/18 23:10 Arterial Blood pH 7.392 (7.350-7.450) Arterial Blood Partial Pressure CO2 22.6 mmHg (35.0-45.0) Arterial Blood Partial Pressure O2 108.0 mmHg (75.0-100.0) Arterial Blood HCO3 13.4 mmol/L (22.0-26.0) Arterial Blood Oxygen Saturation 97.5 % (95-100) Arterial Blood Base Excess -9.7 (-2-2) Jon Test Positive Lactic Acid Level 5.00 mmol/L (0.4-2.0) 4.60 mmol/L (0.4-2.0) 6.10 mmol/L (0.66-2.22) Troponin I 0.267 ng/mL (0.000-0.056) 0.281 ng/mL (0.000-0.056) Test 11/26/18 04:00 11/26/18 06:47 11/26/18 07:40 11/26/18 11:55 White Blood Count 38.3 K/UL (4.8-10.8) Red Blood Count 3.77 M/UL (4.70-6.10) Hemoglobin 10.8 G/DL (14.2-18.0) Hematocrit 32.3 % (42.0-52.0) Mean Corpuscular Volume 86 FL (80-99) Mean Corpuscular Hemoglobin 28.6 PG (27.0-31.0) Mean Corpuscular Hemoglobin Concent 33.4 G/DL (32.0-36.0) Red Cell Distribution Width 14.9 % (11.6-14.8) Platelet Count 175 K/UL (150-450) Mean Platelet Volume 7.9 FL (6.5-10.1) Neutrophils (%) (Auto) % (45.0-75.0) Lymphocytes (%) (Auto) % (20.0-45.0) Monocytes (%) (Auto) % (1.0-10.0) Eosinophils (%) (Auto) % (0.0-3.0) Basophils (%) (Auto) % (0.0-2.0) Differential Total Cells Counted 100 Neutrophils % (Manual) 78 % (45-75) Lymphocytes % (Manual) 2 % (20-45) Monocytes % (Manual) 11 % (1-10) Eosinophils % (Manual) 0 % (0-3) Basophils % (Manual) 0 % (0-2) Band Neutrophils 9 % (0-8) Platelet Estimate Adequate Platelet Morphology Normal Anisocytosis 1+ Sodium Level 133 MMOL/L (136-145) Potassium Level 5.0 MMOL/L (3.5-5.1) Chloride Level 100 MMOL/L (98-107) Carbon Dioxide Level 16 MMOL/L (21-32) Anion Gap 17 mmol/L (5-15) Blood Urea Nitrogen 46 mg/dL (7-18) Creatinine 4.8 MG/DL (0.55-1.30) Estimat Glomerular Filtration Rate 12.4 mL/min (>60) Glucose Level 117 MG/DL (74-106) Lactic Acid Level 4.30 mmol/L (0.4-2.0) 3.80 mmol/L (0.66-2.22) 2.50 mmol/L (0.4-2.0) Calcium Level 7.8 MG/DL (8.5-10.1) Magnesium Level 1.3 MG/DL (1.8-2.4) Troponin I 0.253 ng/mL (0.000-0.056) 0.328 ng/mL (0.000-0.056) Arterial Blood pH 7.407 (7.350-7.450) Arterial Blood Partial Pressure CO2 22.5 mmHg (35.0-45.0) Arterial Blood Partial Pressure O2 147.1 mmHg (75.0-100.0) Arterial Blood HCO3 13.8 mmol/L (22.0-26.0) Arterial Blood Oxygen Saturation 98.6 % (95-100) Arterial Blood Base Excess -9.1 (-2-2) Jon Test Positive Random Vancomycin Level 16.6 ug/mL Test 11/26/18 17:59 11/27/18 03:50 11/28/18 04:00 Lactic Acid Level 1.80 mmol/L (0.66-2.22) White Blood Count 25.3 K/UL (4.8-10.8) 21.6 K/UL (4.8-10.8) Red Blood Count 3.59 M/UL (4.70-6.10) 3.60 M/UL (4.70-6.10) Hemoglobin 10.2 G/DL (14.2-18.0) 10.2 G/DL (14.2-18.0) Hematocrit 30.3 % (42.0-52.0) 30.5 % (42.0-52.0) Mean Corpuscular Volume 84 FL (80-99) 85 FL (80-99) Mean Corpuscular Hemoglobin 28.4 PG (27.0-31.0) 28.4 PG (27.0-31.0) Mean Corpuscular Hemoglobin Concent 33.7 G/DL (32.0-36.0) 33.4 G/DL (32.0-36.0) Red Cell Distribution Width 15.2 % (11.6-14.8) 15.1 % (11.6-14.8) Platelet Count 156 K/UL (150-450) 180 K/UL (150-450) Mean Platelet Volume 8.7 FL (6.5-10.1) 7.7 FL (6.5-10.1) Neutrophils (%) (Auto) % (45.0-75.0) % (45.0-75.0) Lymphocytes (%) (Auto) % (20.0-45.0) % (20.0-45.0) Monocytes (%) (Auto) % (1.0-10.0) % (1.0-10.0) Eosinophils (%) (Auto) % (0.0-3.0) % (0.0-3.0) Basophils (%) (Auto) % (0.0-2.0) % (0.0-2.0) Differential Total Cells Counted 100 100 Neutrophils % (Manual) 94 % (45-75) 91 % (45-75) Lymphocytes % (Manual) 3 % (20-45) 3 % (20-45) Monocytes % (Manual) 2 % (1-10) 3 % (1-10) Eosinophils % (Manual) 1 % (0-3) 3 % (0-3) Basophils % (Manual) 0 % (0-2) 0 % (0-2) Band Neutrophils 0 % (0-8) 0 % (0-8) Platelet Estimate Adequate Adequate Platelet Morphology Normal Normal Hypochromasia 1+ 1+ Anisocytosis 1+ 1+ Sodium Level 132 MMOL/L (136-145) 136 MMOL/L (136-145) Potassium Level 4.3 MMOL/L (3.5-5.1) 4.5 MMOL/L (3.5-5.1) Chloride Level 102 MMOL/L (98-107) 105 MMOL/L (98-107) Carbon Dioxide Level 18 MMOL/L (21-32) 17 MMOL/L (21-32) Anion Gap 12 mmol/L (5-15) 14 mmol/L (5-15) Blood Urea Nitrogen 49 mg/dL (7-18) 58 mg/dL (7-18) Creatinine 4.9 MG/DL (0.55-1.30) 4.8 MG/DL (0.55-1.30) Estimat Glomerular Filtration Rate 12.1 mL/min (>60) 12.4 mL/min (>60) Glucose Level 92 MG/DL (74-106) 75 MG/DL (74-106) Calcium Level 8.2 MG/DL (8.5-10.1) 8.7 MG/DL (8.5-10.1) Phosphorus Level 2.2 MG/DL (2.5-4.9) Objective: VSS Noted WDWN toxic orally intubated clear breath sounds bilaterally without rhonchi or wheeze [id number] without MRG NABS nontender no HSM; no distention no CCE nonfocal, sedated skin noted reviewed and edited Critical Care - Objective Last 24 Hour Vital Signs Date Time Temp Pulse Resp B/P (MAP) Pulse Ox O2 Delivery O2 Flow Rate FiO2 11/29/18 08:30 75 23 113/68 (83) 100 11/29/18 08:00 77 23 116/66 (83) 100 11/29/18 07:00 83 22 108/63 (78) 100 11/29/18 06:00 82 22 110/66 (81) 100 11/29/18 05:00 76 22 118/67 (84) 100 11/29/18 04:00 98.9 78 26 113/59 (77) 100 11/29/18 04:00 82 11/29/18 04:00 Nasal Cannula 2.0 Venturi Mask 11/29/18 03:00 85 26 111/65 (80) 94 11/29/18 02:00 86 26 126/78 (94) 100 11/29/18 01:00 80 23 128/83 (98) 100 11/29/18 00:00 Venturi Mask Venturi Mask 11/29/18 00:00 84 11/29/18 00:00 98.8 82 22 126/81 (96) 100 11/28/18 23:00 77 22 135/75 (95) 100 11/28/18 22:00 80 22 139/80 (99) 100 11/28/18 21:00 77 22 117/76 (90) 100 11/28/18 20:00 Venturi Mask Venturi Mask 11/28/18 20:00 98.1 74 23 125/73 (90) 100 11/28/18 20:00 76 11/28/18 19:43 Venturi Mask 6.0 28 11/28/18 19:42 100 Venturi Mask 6.0 28 11/28/18 19:00 71 23 121/78 (92) 100 11/28/18 18:00 71 24 124/77 (93) 100 11/28/18 17:00 66 24 132/84 (100) 100 11/28/18 16:00 Venturi Mask Venturi Mask 11/28/18 16:00 73 11/28/18 16:00 97.7 66 25 113/73 (86) 100 11/28/18 15:00 74 26 111/74 (86) 100 11/28/18 14:00 72 24 126/78 (94) 100 11/28/18 13:30 103/85 11/28/18 13:00 76 29 109/68 (82) 100 11/28/18 12:06 80 22 11/28/18 12:06 Venturi Mask 6.0 28 11/28/18 12:00 98.0 72 23 103/85 (91) 100 11/28/18 12:00 Mechanical Ventilator 11/28/18 12:00 74 11/28/18 11:00 71 24 125/81 (96) 100 11/28/18 10:41 69 31 30 11/28/18 10:00 75 24 115/80 (92) 100 Critical Care - Subjective ROS Limited/Unobtainable: No FI02: 28 Vent Support Breath Rate: 18 Vent Support Mode: CPAP Vent Tidal Volume: 650 Sputum Amount: Moderate PEEP: 5.0 PIP: 14 I&O: Intake and Output 11/28/18 11/29/18 18:59 06:59 Intake Total 880 ml 880 ml Output Total 885 ml 820 ml Balance -5 ml 60 ml Intake IV Total 880 ml 880 ml Output Urine Total 885 ml 820 ml # Bowel Movements 1 ET-Tube: 7.5 ET Position: 24 Carl Key MD November 29, 2018 09:31
[2018-11-29] MEDS ORDERED: NS 275ml ONE (10:06)
[2018-11-29] MEDS ORDERED: Tubing IV Secondary IV ONE (10:06)
[2018-11-29 12:29] LABS: CREATININE 4.5 MG/DL (0.55-1.30)
--- NOTE | 2018-11-29 14:40 | Nephrology Progress Note ---
Assessment/Plan Plan BC GNR - not called in to me!!! Were available around midnight! U C+s GNR = True Urosepsis On IV Zosyn + Vanco. Dc Vanco Check Renal US Acute Non Oliguric ATN CCr 20!! Mild Metab. Acidosis. No need for HD. Subjective Subjective Extubated. No c/o. Objective Objective Last 24 Hour Vital Signs Date Time Temp Pulse Resp B/P (MAP) Pulse Ox O2 Delivery O2 Flow Rate FiO2 11/29/18 14:00 72 25 112/71 (85) 100 11/29/18 13:00 71 22 122/78 (93) 100 11/29/18 12:30 66 22 116/74 (88) 100 11/29/18 12:00 97.8 73 23 119/70 (86) 100 11/29/18 12:00 73 11/29/18 12:00 Nasal Cannula 2.0 Venturi Mask 11/29/18 11:00 73 23 113/66 (82) 100 11/29/18 10:00 80 19 117/76 (90) 100 11/29/18 09:00 76 24 108/65 (79) 99 11/29/18 08:30 75 23 113/68 (83) 100 11/29/18 08:00 98.8 77 23 116/66 (83) 100 11/29/18 08:00 79 11/29/18 08:00 Nasal Cannula 2.0 Venturi Mask 11/29/18 07:00 83 22 108/63 (78) 100 11/29/18 06:00 82 22 110/66 (81) 100 11/29/18 05:00 76 22 118/67 (84) 100 11/29/18 04:00 98.9 78 26 113/59 (77) 100 11/29/18 04:00 82 11/29/18 04:00 Nasal Cannula 2.0 Venturi Mask 11/29/18 03:00 85 26 111/65 (80) 94 11/29/18 02:00 86 26 126/78 (94) 100 11/29/18 01:00 80 23 128/83 (98) 100 11/29/18 00:00 Venturi Mask Venturi Mask 11/29/18 00:00 84 11/29/18 00:00 98.8 82 22 126/81 (96) 100 11/28/18 23:00 77 22 135/75 (95) 100 11/28/18 22:00 80 22 139/80 (99) 100 11/28/18 21:00 77 22 117/76 (90) 100 11/28/18 20:00 Venturi Mask Venturi Mask 11/28/18 20:00 98.1 74 23 125/73 (90) 100 11/28/18 20:00 76 11/28/18 19:43 Venturi Mask 6.0 28 11/28/18 19:42 100 Venturi Mask 6.0 28 11/28/18 19:00 71 23 121/78 (92) 100 11/28/18 18:00 71 24 124/77 (93) 100 11/28/18 17:00 66 24 132/84 (100) 100 11/28/18 16:00 Venturi Mask Venturi Mask 11/28/18 16:00 73 11/28/18 16:00 97.7 66 25 113/73 (86) 100 11/28/18 15:00 74 26 111/74 (86) 100 Intake and Output 11/28/18 11/29/18 18:59 06:59 Intake Total 880 ml 880 ml Output Total 885 ml 820 ml Balance -5 ml 60 ml Intake IV Total 880 ml 880 ml Output Urine Total 885 ml 820 ml # Bowel Movements 1 Laboratory Tests 11/29/18 04:30: White Blood Count 15.3H, Red Blood Count 3.63L, Hemoglobin 10.4L, Hematocrit 30.9L, Mean Corpuscular Volume 85, Mean Corpuscular Hemoglobin 28.6, Mean Corpuscular Hemoglobin Concent 33.6, Red Cell Distribution Width 15.3H, Platelet Count 159, Mean Platelet Volume 7.8, Neutrophils (%) (Auto) , Lymphocytes (%) (Auto) , Monocytes (%) (Auto) , Eosinophils (%) (Auto) , Basophils (%) (Auto) , Differential Total Cells Counted 100, Neutrophils % ( Manual) 84H, Lymphocytes % (Manual) 8L, Monocytes % (Manual) 6, Eosinophils % ( Manual) 2, Basophils % (Manual) 0, Band Neutrophils 0, Platelet Estimate Adequate, Platelet Morphology Normal, Hypochromasia 1+, Anisocytosis 1+, Sodium Level 141, Potassium Level 4.3, Chloride Level 109H, Carbon Dioxide Level 19L, Anion Gap 14, Blood Urea Nitrogen 63H, Creatinine 4.5H, Estimat Glomerular Filtration Rate 13.4, Glucose Level 87, Calcium Level 8.7, Phosphorus Level 3.7 , Hepatitis A IgM Antibody [Pending], Hepatitis B Surface Antigen [Pending], Hepatitis B Core IgM Antibody [Pending], Hepatitis C Antibody [Pending] 11/29/18 11:00: Creatinine 4.5H, Estimat Glomerular Filtration Rate 13.4, Urine Collection Time 24, Urine Total Volume 2200, Urine Creatinine 84, Urine Creatinine 24 Hour 1848 , Patient Height Inches (Creat Clear) 74, Patient Weight Pounds (Creat Clear) 260, Creatinine Clearance 20L, Urine Total Protein mg/dL 65, Urine Total Protein 24 Hour 1430.0H Height (Feet): 6 Height (Inches): 2.00 Weight (Pounds): 260 Objective CV RR Lungs B wheezes Abd SNT. BS + E No CCE Vlad Gutierrez MD November 29, 2018 14:40
[2018-11-29] MEDS: Dyna-Hex 2% Top Sol 2oz TOPIC SCH (20:04)
[2018-11-30] VITALS (24 sets, daily range): BP systolic 90–128; BP diastolic 51–76
[2018-11-30 05:52] LABS: ANION GAP 13 mmol/L (5-15); BLOOD UREA NITROGEN 64 mg/dL (7-18); CALCIUM 8.6 MG/DL (8.5-10.1); CARBON DIOXIDE 17 MMOL/L (21-32); CHLORIDE 110 MMOL/L (98-107); CREATININE 4.2 MG/DL (0.55-1.30); POTASSIUM 4.5 MMOL/L (3.5-5.1); SODIUM 140 MMOL/L (136-145)
[2018-11-30 06:00] LABS: CREATINE KINASE 38 U/L (26-308)
--- NOTE | 2018-11-30 08:03 | Critical Care Progress Note ---
Assessment/Plan Assessment/Plan Respiratory failure, acute hypoxemia hypotension possible sepsis NSTEMI transaminitis metabolic acidosis possible shock liver leukocytosis possible sepsis PLAN care noted stable off vent IV antibiotics reviewed cultures respiratory care Ventilatory support off monitor acid base supportive care suction as needed oxygen therapy and titrate prognosis guarded medications/laboratory data/nursing notes/ICU care reviewed in detail note reviewed and edited care discussed with RN and RT ICU time spent 35 minutes Critical Care - Subjective Interval Events: overall improved extubated ROS Limited/Unobtainable: Yes Condition: improving EKG Rhythm: Sinus Rhythm I&O: Intake and Output 11/29/18 11/30/18 19:00 07:00 Intake Total 1210 ml 1155 ml Output Total 780 ml 935 ml Balance 430 ml 220 ml Intake Oral 200 ml 200 ml IV Total 1010 ml 955 ml Output Urine Total 780 ml 935 ml Critical Care - Objective ET-Tube: 7.5 ET Position: 24 Last 24 Hour Vital Signs Date Time Temp Pulse Resp B/P (MAP) Pulse Ox O2 Delivery O2 Flow Rate FiO2 11/30/18 07:00 70 27 95/51 (66) 100 11/30/18 06:00 68 27 99/55 (70) 100 11/30/18 05:00 67 17 94/62 (73) 100 11/30/18 04:00 Nasal Cannula 2.0 Nasal Cannula 2.0 11/30/18 04:00 62 11/30/18 04:00 99.3 68 20 115/74 (88) 100 11/30/18 03:00 66 21 126/65 (85) 100 11/30/18 02:00 65 23 115/68 (84) 11/30/18 01:00 64 24 117/74 (88) 99 11/30/18 00:00 66 11/30/18 00:00 99.2 64 18 128/76 (93) 99 11/30/18 00:00 Nasal Cannula 2.0 Nasal Cannula 2.0 11/29/18 23:00 68 17 124/77 (93) 100 11/29/18 22:00 63 22 111/67 (82) 100 11/29/18 21:00 68 15 120/70 (87) 100 11/29/18 20:54 Nasal Cannula 4.0 36 11/29/18 20:54 100 Nasal Cannula 4.0 36 11/29/18 20:00 98.3 67 15 115/71 (86) 100 11/29/18 20:00 75 11/29/18 20:00 Nasal Cannula 2.0 Nasal Cannula 2.0 11/29/18 19:00 67 15 101/66 (78) 100 11/29/18 18:00 67 20 122/73 (89) 100 11/29/18 17:00 72 26 101/74 (83) 100 11/29/18 16:00 72 11/29/18 16:00 Nasal Cannula 2.0 Venturi Mask 11/29/18 16:00 98.6 70 23 106/68 (81) 100 11/29/18 15:00 72 19 111/79 (90) 100 11/29/18 14:00 72 25 112/71 (85) 100 11/29/18 13:00 71 22 122/78 (93) 100 11/29/18 12:30 66 22 116/74 (88) 100 11/29/18 12:00 97.8 73 23 119/70 (86) 100 11/29/18 12:00 73 11/29/18 12:00 Nasal Cannula 2.0 Venturi Mask 11/29/18 11:00 73 23 113/66 (82) 100 11/29/18 10:00 80 19 117/76 (90) 100 11/29/18 09:00 76 24 108/65 (79) 99 11/29/18 08:30 75 23 113/68 (83) 100 Labs: Laboratory Tests Test 11/29/18 11:00 11/30/18 04:30 Urine Collection Time 24 HRS Urine Total Volume 2200 ML Urine Creatinine 84 mg/dL Urine Creatinine 24 Hour 1848 mg/24hr (0973-0752) Patient Height Inches (Creat Clear) 74 INCHES Patient Weight Pounds (Creat Clear) 260 LBS Creatinine Clearance 20 mL/min (71-151) L Urine Total Protein mg/dL 65 mg/dL Urine Total Protein 24 Hour 1430.0 mg/24hr (< 150) H Creatinine 4.5 MG/DL (0.55-1.30) H 4.2 MG/DL (0.55-1.30) H Estimat Glomerular Filtration Rate 13.4 mL/min (>60) 14.5 mL/min (>60) Sodium Level 140 MMOL/L (136-145) Potassium Level 4.5 MMOL/L (3.5-5.1) Chloride Level 110 MMOL/L (98-107) H Carbon Dioxide Level 17 MMOL/L (21-32) L Anion Gap 13 mmol/L (5-15) Blood Urea Nitrogen 64 mg/dL (7-18) H Glucose Level 93 MG/DL (74-106) Calcium Level 8.6 MG/DL (8.5-10.1) Phosphorus Level 4.3 MG/DL (2.5-4.9) Total Creatine Kinase 38 U/L (26-308) Objective: WDWN on oxygen extubated clear breath sounds bilaterally without rhonchi or wheeze [id number] without MRG NABS nontender no HSM; no distention no CCE nonfocal, more alert skin noted reviewed and edited Matt Ramirez MD November 30, 2018 08:03
--- NOTE | 2018-11-30 08:05 | Diagnostic Imaging Report ---
APPROVED REPORT CPT Code: 90332 Present Symptoms Comments: AMS RIGHT LEG: Venous imaging reveals a patent deep venous system. There is no evidence of thrombus within the femoral, popliteal or tibial segments. The greater saphenous vein is also within normal limits. Doppler indicates normal spontaneous flow within these segments. LEFT LEG:Imaging reveals venous insufficiency in the greater saphenous vein at the proximal thigh level. Reflux lasting longer than 0.5 seconds noted. Venous imaging reveals a patent deep venous system. There is no evidence of thrombus within the femoral, popliteal or tibial segments. Doppler indicates normal spontaneous flow within these segments.
[2018-11-30] MEDS: 1/2NS w/KCl 20mEq 1000ml 1,000 ML IV SCH ×3 (09:06→20:32)
[2018-11-30] MEDS: Pantoprazole Inj IVP SCH ×2 (09:06→20:21)
[2018-11-30] MEDS: Meropenem 1gm/NS 110ml IVPB SCH ×4 (09:06→20:20)
[2018-11-30] MEDS: Heparin 5000 units/ml inj SUBQ SCH ×2 (09:08→20:25)
[2018-11-30] MEDS ORDERED: Tubing IV Secondary IV ONE ×2 (10:27→15:49)
[2018-11-30] MEDS ORDERED: NS 275ml ONE (10:27)
--- NOTE | 2018-11-30 10:36 | Infectious Diseases Prog Note ---
Assessment/Plan Assessment/Plan antibiotics : meropenem A 1. e.coli sepsis secondary to UTI 2. e.coli UTI 3. leucocytosis improving 4. shock 5. renal failure improving 6. left hydronephrosis 7. rectal VRE colonization P 1. continue meropenem 5 more days 2. will follow up cultures Subjective Constitutional: Denies: fever, chills Respiratory: Denies: shortness of breath, dry cough Gastrointestinal/Abdominal: Denies: nausea, vomiting, diarrhea Musculoskeletal: Denies: pain Allergies: Coded Allergies: No Known Allergies (Unverified , 11/25/18) Objective Vital Signs Last 24 Hour Vital Signs Date Time Temp Pulse Resp B/P (MAP) Pulse Ox O2 Delivery O2 Flow Rate FiO2 11/30/18 08:00 67 11/30/18 08:00 Nasal Cannula 2.0 Nasal Cannula 2.0 11/30/18 07:00 70 27 95/51 (66) 100 11/30/18 06:00 68 27 99/55 (70) 100 11/30/18 05:00 67 17 94/62 (73) 100 11/30/18 04:00 Nasal Cannula 2.0 Nasal Cannula 2.0 11/30/18 04:00 62 11/30/18 04:00 99.3 68 20 115/74 (88) 100 11/30/18 03:00 66 21 126/65 (85) 100 11/30/18 02:00 65 23 115/68 (84) 11/30/18 01:00 64 24 117/74 (88) 99 11/30/18 00:00 66 11/30/18 00:00 99.2 64 18 128/76 (93) 99 11/30/18 00:00 Nasal Cannula 2.0 Nasal Cannula 2.0 11/29/18 23:00 68 17 124/77 (93) 100 11/29/18 22:00 63 22 111/67 (82) 100 11/29/18 21:00 68 15 120/70 (87) 100 11/29/18 20:54 Nasal Cannula 4.0 36 11/29/18 20:54 100 Nasal Cannula 4.0 36 11/29/18 20:00 98.3 67 15 115/71 (86) 100 11/29/18 20:00 75 11/29/18 20:00 Nasal Cannula 2.0 Nasal Cannula 2.0 11/29/18 19:00 67 15 101/66 (78) 100 11/29/18 18:00 67 20 122/73 (89) 100 11/29/18 17:00 72 26 101/74 (83) 100 11/29/18 16:00 72 11/29/18 16:00 Nasal Cannula 2.0 Venturi Mask 11/29/18 16:00 98.6 70 23 106/68 (81) 100 11/29/18 15:00 72 19 111/79 (90) 100 11/29/18 14:00 72 25 112/71 (85) 100 11/29/18 13:00 71 22 122/78 (93) 100 11/29/18 12:30 66 22 116/74 (88) 100 11/29/18 12:00 97.8 73 23 119/70 (86) 100 11/29/18 12:00 73 11/29/18 12:00 Nasal Cannula 2.0 Venturi Mask 11/29/18 11:00 73 23 113/66 (82) 100 Height (Feet): 6 Height (Inches): 2.00 Weight (Pounds): 265 Respiratory/Chest: lungs clear Cardiovascular: normal rate, regular rhythm, no gallop/murmur Abdomen: soft, non tender Extremities: no edema, other - right IJ catheter Laboratory Tests Test 11/29/18 11:00 11/30/18 04:30 Urine Collection Time 24 HRS Urine Total Volume 2200 ML Urine Creatinine 84 mg/dL Urine Creatinine 24 Hour 1848 mg/24hr (1394-2694) Patient Height Inches (Creat Clear) 74 INCHES Patient Weight Pounds (Creat Clear) 260 LBS Creatinine Clearance 20 mL/min (71-151) L Urine Total Protein mg/dL 65 mg/dL Urine Total Protein 24 Hour 1430.0 mg/24hr (< 150) H Creatinine 4.5 MG/DL (0.55-1.30) H 4.2 MG/DL (0.55-1.30) H Estimat Glomerular Filtration Rate 13.4 mL/min (>60) 14.5 mL/min (>60) Sodium Level 140 MMOL/L (136-145) Potassium Level 4.5 MMOL/L (3.5-5.1) Chloride Level 110 MMOL/L (98-107) H Carbon Dioxide Level 17 MMOL/L (21-32) L Anion Gap 13 mmol/L (5-15) Blood Urea Nitrogen 64 mg/dL (7-18) H Glucose Level 93 MG/DL (74-106) Calcium Level 8.6 MG/DL (8.5-10.1) Phosphorus Level 4.3 MG/DL (2.5-4.9) Total Creatine Kinase 38 U/L (26-308) Current Medications Medications (Trade) Dose Ordered Sig/Rikki Route PRN Reason Start Time Stop Time Status Last Admin Dose Admin Acetaminophen (Tylenol) 650 mg Q6H PRN ORAL Mild Pain/Temp > 100.5 11/25/18 08:15 12/25/18 08:14 Chlorhexidine Gluconate (Brianna-Hex 2%) 1 applic DAILY@2000 TOPIC 11/26/18 20:00 12/26/18 19:59 11/29/18 20:04 Heparin Sodium (Porcine) (Heparin 5000 units/ml) 5,000 units EVERY 12 HOURS SUBQ 11/25/18 21:00 12/25/18 20:59 11/30/18 09:08 Lorazepam (Ativan 2mg/ml 1ml) 2 mg Q4H PRN IV For Anxiety 11/25/18 09:45 12/02/18 09:44 11/28/18 13:01 Meropenem 1 gm/ Sodium Chloride 110 ml @ 220 mls/hr Q12HR IVPB 11/30/18 09:00 12/05/18 08:59 11/30/18 09:06 Midazolam HCl (Versed 2mg/2ml vial) 2 mg Q4H PRN IVP Agitation 11/25/18 09:45 12/25/18 08:14 11/27/18 20:05 Norepinephrine Bitartrate 8 mg/ Dextrose 508 ml @ 0 mls/hr Q24H IV 11/25/18 13:30 12/25/18 13:29 11/27/18 08:01 Pantoprazole (Protonix) 40 mg EVERY 12 HOURS IVP 11/25/18 09:00 12/25/18 08:59 11/30/18 09:06 Sodium 1,000 ml @ 75 mls/hr [id number] IV 11/25/18 09:30 12/25/18 09:29 11/30/18 09:06 Adilia Barnes MD November 30, 2018 10:36
--- NOTE | 2018-11-30 11:30 | Nephrology Progress Note ---
Assessment/Plan Plan BC GNR - not called in to me!!! Were available around midnight! U C+s GNR = True Urosepsis On IV Zosyn + Vanco. Dc Vanco Check Renal US Acute Non Oliguric ATN CCr 20!! Mild Metab. Acidosis. No need for HD. To [facility] Subjective Subjective Extubated. No c/o. Objective Objective Last 24 Hour Vital Signs Date Time Temp Pulse Resp B/P (MAP) Pulse Ox O2 Delivery O2 Flow Rate FiO2 11/30/18 11:00 60 23 97/64 (75) 100 11/30/18 10:00 65 20 102/69 (80) 100 11/30/18 09:00 64 20 96/64 (75) 100 11/30/18 08:00 67 11/30/18 08:00 Nasal Cannula 2.0 Nasal Cannula 2.0 11/30/18 08:00 99.1 61 20 90/52 (65) 100 11/30/18 07:00 70 27 95/51 (66) 100 11/30/18 06:00 68 27 99/55 (70) 100 11/30/18 05:00 67 17 94/62 (73) 100 11/30/18 04:00 Nasal Cannula 2.0 Nasal Cannula 2.0 11/30/18 04:00 62 11/30/18 04:00 99.3 68 20 115/74 (88) 100 11/30/18 03:00 66 21 126/65 (85) 100 11/30/18 02:00 65 23 115/68 (84) 11/30/18 01:00 64 24 117/74 (88) 99 11/30/18 00:00 66 11/30/18 00:00 99.2 64 18 128/76 (93) 99 11/30/18 00:00 Nasal Cannula 2.0 Nasal Cannula 2.0 11/29/18 23:00 68 17 124/77 (93) 100 11/29/18 22:00 63 22 111/67 (82) 100 11/29/18 21:00 68 15 120/70 (87) 100 11/29/18 20:54 Nasal Cannula 4.0 36 11/29/18 20:54 100 Nasal Cannula 4.0 36 11/29/18 20:00 98.3 67 15 115/71 (86) 100 11/29/18 20:00 75 11/29/18 20:00 Nasal Cannula 2.0 Nasal Cannula 2.0 11/29/18 19:00 67 15 101/66 (78) 100 11/29/18 18:00 67 20 122/73 (89) 100 11/29/18 17:00 72 26 101/74 (83) 100 11/29/18 16:00 72 11/29/18 16:00 Nasal Cannula 2.0 Venturi Mask 11/29/18 16:00 98.6 70 23 106/68 (81) 100 11/29/18 15:00 72 19 111/79 (90) 100 11/29/18 14:00 72 25 112/71 (85) 100 11/29/18 13:00 71 22 122/78 (93) 100 11/29/18 12:30 66 22 116/74 (88) 100 11/29/18 12:00 97.8 73 23 119/70 (86) 100 11/29/18 12:00 73 11/29/18 12:00 Nasal Cannula 2.0 Venturi Mask Intake and Output 11/29/18 11/30/18 19:00 07:00 Intake Total 1210 ml 1155 ml Output Total 780 ml 935 ml Balance 430 ml 220 ml Intake Oral 200 ml 200 ml IV Total 1010 ml 955 ml Output Urine Total 780 ml 935 ml Laboratory Tests 11/30/18 04:30: Sodium Level 140, Potassium Level 4.5, Chloride Level 110H, Carbon Dioxide Level 17L, Anion Gap 13, Blood Urea Nitrogen 64H, Creatinine 4.2H, Estimat Glomerular Filtration Rate 14.5, Glucose Level 93, Calcium Level 8.6, Phosphorus Level 4.3, Total Creatine Kinase 38 Height (Feet): 6 Height (Inches): 2.00 Weight (Pounds): 265 Objective CV RR Lungs B wheezes Abd SNT. BS + E No CCE Vlad Gutierrez MD November 30, 2018 11:30
[2018-11-30] MEDS: Dyna-Hex 2% Top Sol 2oz TOPIC SCH (20:14)
[2018-12-01] VITALS (23 sets, daily range): BP systolic 90–127; BP diastolic 25–82
[2018-12-01 05:58] LABS: HEMATOCRIT 23.5 % (42.0-52.0); HEMOGLOBIN 7.8 G/DL (14.2-18.0); MEAN CORPUSCULAR VOLUME 100 FL (80-99); PLATELET COUNT 102 K/UL (150-450); RED BLOOD COUNT 2.35 M/UL (4.70-6.10); RED CELL DISTRIBUTION WIDTH 13.1 % (11.6-14.8); WHITE BLOOD COUNT 7.5 K/UL (4.8-10.8)
[2018-12-01] MEDS: 1/2NS w/KCl 20mEq 1000ml 1,000 ML IV SCH ×3 (06:07→21:03)
[2018-12-01 06:16] LABS: ANION GAP 4 mmol/L (5-15); BLOOD UREA NITROGEN 15 mg/dL (7-18); CALCIUM 7.8 MG/DL (8.5-10.1); CARBON DIOXIDE 29 MMOL/L (21-32); CHLORIDE 112 MMOL/L (98-107); CREATININE 0.7 MG/DL (0.55-1.30); POTASSIUM 3.8 MMOL/L (3.5-5.1); SODIUM 145 MMOL/L (136-145)
[2018-12-01] MEDS: Pantoprazole Inj IVP SCH ×2 (08:47→21:03)
[2018-12-01] MEDS: Meropenem 1gm/NS 110ml IVPB SCH ×4 (08:48→17:25)
[2018-12-01] MEDS: Heparin 5000 units/ml inj SUBQ SCH ×2 (08:49→21:04)
--- NOTE | 2018-12-01 09:51 | Critical Care Progress Note ---
Assessment/Plan Assessment/Plan Respiratory failure, acute hypoxemia hypotension possible sepsis NSTEMI transaminitis metabolic acidosis possible shock liver leukocytosis possible sepsis PLAN care noted stable off vent IV antibiotics reviewed cultures respiratory care Ventilatory support off monitor acid base supportive care suction as needed oxygen therapy and titrate prognosis guarded medications/laboratory data/nursing notes/ICU care reviewed in detail note reviewed and edited care discussed with RN and RT ICU time spent 35 minutes Critical Care - Subjective Interval Events: ICU care reviewed No distress EKG Rhythm: Sinus Rhythm I&O: Intake and Output 11/30/18 12/01/18 19:00 07:00 Intake Total 2859 ml 4590 ml Output Total 1375 ml 1400 ml Balance 1484 ml 3190 ml Intake Oral 1674 ml 2880 ml IV Total 1185 ml 1710 ml Output Urine Total 1375 ml 1400 ml Critical Care - Objective ET-Tube: 7.5 ET Position: 24 Last 24 Hour Vital Signs Date Time Temp Pulse Resp B/P (MAP) Pulse Ox O2 Delivery O2 Flow Rate FiO2 12/01/18 09:00 59 18 96/60 (72) 100 12/01/18 08:00 Nasal Cannula 2.0 12/01/18 08:00 98.9 59 15 127/25 (59) 100 12/01/18 07:00 56 22 97/59 (72) 100 12/01/18 06:00 54 17 94/60 (71) 100 12/01/18 05:00 57 21 100 12/01/18 05:00 57 21 97/82 (87) 100 12/01/18 04:00 97.8 57 17 111/66 (81) 100 12/01/18 04:00 58 12/01/18 04:00 Nasal Cannula 2.0 Nasal Cannula 2.0 12/01/18 03:00 57 18 103/60 (74) 100 12/01/18 03:00 57 18 103/60 (74) 100 12/01/18 02:30 56 19 97/68 (78) 100 12/01/18 02:00 58 20 105/69 (81) 100 12/01/18 02:00 58 20 105/69 (81) 100 12/01/18 01:30 55 21 105/69 (81) 100 12/01/18 01:00 55 19 113/70 (84) 99 12/01/18 01:00 55 19 113/70 (84) 99 12/01/18 00:30 54 11 115/71 (86) 100 12/01/18 00:30 54 11 115/71 (86) 100 12/01/18 00:00 55 22 109/67 (81) 100 12/01/18 00:00 55 22 109/67 (81) 100 12/01/18 00:00 Nasal Cannula 2.0 Nasal Cannula 2.0 12/01/18 00:00 55 12/01/18 00:00 55 22 109/67 (81) 100 11/30/18 23:00 99.0 55 20 101/64 (76) 100 11/30/18 22:00 55 20 109/67 (81) 100 11/30/18 21:00 54 20 100/67 (78) 100 11/30/18 20:31 Nasal Cannula 2.0 28 11/30/18 20:31 100 Nasal Cannula 2.0 28 11/30/18 20:21 56 19 Nasal Cannula 2.0 28 11/30/18 20:00 48 11/30/18 20:00 100.0 56 21 93/66 (75) 100 11/30/18 20:00 Nasal Cannula 2.0 Nasal Cannula 2.0 11/30/18 19:00 58 24 101/60 (74) 100 11/30/18 18:00 57 23 94/56 (69) 100 11/30/18 17:00 56 20 91/54 (66) 100 11/30/18 16:00 98.7 55 23 91/61 (71) 100 11/30/18 16:00 Nasal Cannula 2.0 Nasal Cannula 2.0 11/30/18 16:00 55 11/30/18 15:00 59 25 91/62 (72) 100 11/30/18 14:00 56 22 95/57 (70) 100 11/30/18 13:30 95/57 11/30/18 13:00 61 23 95/55 (68) 100 11/30/18 12:00 Nasal Cannula 2.0 Nasal Cannula 2.0 11/30/18 12:00 99.0 58 23 99/62 (74) 100 11/30/18 12:00 58 11/30/18 11:00 60 23 97/64 (75) 100 11/30/18 10:00 65 20 102/69 (80) 100 Labs: Laboratory Tests Test 12/01/18 04:30 White Blood Count 7.5 K/UL (4.8-10.8) Red Blood Count 2.35 M/UL (4.70-6.10) L Hemoglobin 7.8 G/DL (14.2-18.0) L Hematocrit 23.5 % (42.0-52.0) L Mean Corpuscular Volume 100 FL (80-99) H Mean Corpuscular Hemoglobin 33.1 PG (27.0-31.0) H Mean Corpuscular Hemoglobin Concent 33.1 G/DL (32.0-36.0) Red Cell Distribution Width 13.1 % (11.6-14.8) Platelet Count 102 K/UL (150-450) L Mean Platelet Volume 10.7 FL (6.5-10.1) H Neutrophils (%) (Auto) % (45.0-75.0) Lymphocytes (%) (Auto) % (20.0-45.0) Monocytes (%) (Auto) % (1.0-10.0) Eosinophils (%) (Auto) % (0.0-3.0) Basophils (%) (Auto) % (0.0-2.0) Differential Total Cells Counted 100 Neutrophils % (Manual) 75 % (45-75) Lymphocytes % (Manual) 20 % (20-45) Monocytes % (Manual) 5 % (1-10) Eosinophils % (Manual) 0 % (0-3) Basophils % (Manual) 0 % (0-2) Band Neutrophils 0 % (0-8) Platelet Estimate Decreased L Platelet Morphology Normal Macrocytosis 1+ Sodium Level 145 MMOL/L (136-145) Potassium Level 3.8 MMOL/L (3.5-5.1) Chloride Level 112 MMOL/L (98-107) H Carbon Dioxide Level 29 MMOL/L (21-32) Anion Gap 4 mmol/L (5-15) L Blood Urea Nitrogen 15 mg/dL (7-18) Creatinine 0.7 MG/DL (0.55-1.30) # Estimat Glomerular Filtration Rate > 60 mL/min (>60) Glucose Level 134 MG/DL (74-106) H Calcium Level 7.8 MG/DL (8.5-10.1) L Phosphorus Level 2.4 MG/DL (2.5-4.9) L Magnesium Level 2.2 MG/DL (1.8-2.4) Objective: WDWN on oxygen extubated and stable clear breath sounds bilaterally without rhonchi or wheeze [id number] without MRG NABS nontender no HSM; no distention no CCE nonfocal, more alert skin noted reviewed and edited Matt Ramirez MD December 01, 2018 09:51
--- NOTE | 2018-12-01 10:43 | Nephrology Progress Note ---
Assessment/Plan Plan GNR Urosepsis - IV Abx. = True Urosepsis On IV Zosyn + Vanco. Dc Vanco Check Renal US Acute Non Oliguric ATN CCr 20!! Mild Metab. Acidosis. No need for HD. Hypotensive +_ Bradycardic! Erroneous Lab results (m/p drawn from IV line) - to repeat! Subjective Subjective Extubated. No c/o. Snoring. Objective Objective Last 24 Hour Vital Signs Date Time Temp Pulse Resp B/P (MAP) Pulse Ox O2 Delivery O2 Flow Rate FiO2 12/01/18 10:00 57 15 91/56 (68) 100 12/01/18 09:00 59 18 96/60 (72) 100 12/01/18 08:00 Nasal Cannula 2.0 12/01/18 08:00 98.9 59 15 127/25 (59) 100 12/01/18 07:00 56 22 97/59 (72) 100 12/01/18 06:00 54 17 94/60 (71) 100 12/01/18 05:00 57 21 100 12/01/18 05:00 57 21 97/82 (87) 100 12/01/18 04:00 97.8 57 17 111/66 (81) 100 12/01/18 04:00 58 12/01/18 04:00 Nasal Cannula 2.0 Nasal Cannula 2.0 12/01/18 03:00 57 18 103/60 (74) 100 12/01/18 03:00 57 18 103/60 (74) 100 12/01/18 02:30 56 19 97/68 (78) 100 12/01/18 02:00 58 20 105/69 (81) 100 12/01/18 02:00 58 20 105/69 (81) 100 12/01/18 01:30 55 21 105/69 (81) 100 12/01/18 01:00 55 19 113/70 (84) 99 12/01/18 01:00 55 19 113/70 (84) 99 12/01/18 00:30 54 11 115/71 (86) 100 12/01/18 00:30 54 11 115/71 (86) 100 12/01/18 00:00 55 22 109/67 (81) 100 12/01/18 00:00 55 22 109/67 (81) 100 12/01/18 00:00 Nasal Cannula 2.0 Nasal Cannula 2.0 12/01/18 00:00 55 12/01/18 00:00 55 22 109/67 (81) 100 11/30/18 23:00 99.0 55 20 101/64 (76) 100 11/30/18 22:00 55 20 109/67 (81) 100 11/30/18 21:00 54 20 100/67 (78) 100 11/30/18 20:31 Nasal Cannula 2.0 28 11/30/18 20:31 100 Nasal Cannula 2.0 28 11/30/18 20:21 56 19 Nasal Cannula 2.0 28 11/30/18 20:00 48 11/30/18 20:00 100.0 56 21 93/66 (75) 100 11/30/18 20:00 Nasal Cannula 2.0 Nasal Cannula 2.0 11/30/18 19:00 58 24 101/60 (74) 100 11/30/18 18:00 57 23 94/56 (69) 100 11/30/18 17:00 56 20 91/54 (66) 100 11/30/18 16:00 98.7 55 23 91/61 (71) 100 11/30/18 16:00 Nasal Cannula 2.0 Nasal Cannula 2.0 11/30/18 16:00 55 11/30/18 15:00 59 25 91/62 (72) 100 11/30/18 14:00 56 22 95/57 (70) 100 11/30/18 13:30 95/57 11/30/18 13:00 61 23 95/55 (68) 100 11/30/18 12:00 Nasal Cannula 2.0 Nasal Cannula 2.0 11/30/18 12:00 99.0 58 23 99/62 (74) 100 11/30/18 12:00 58 11/30/18 11:00 60 23 97/64 (75) 100 Intake and Output 11/30/18 12/01/18 19:00 07:00 Intake Total 2859 ml 4590 ml Output Total 1375 ml 1400 ml Balance 1484 ml 3190 ml Intake Oral 1674 ml 2880 ml IV Total 1185 ml 1710 ml Output Urine Total 1375 ml 1400 ml Laboratory Tests 12/01/18 04:30: White Blood Count 7.5, Red Blood Count 2.35L, Hemoglobin 7.8L, Hematocrit 23.5L , Mean Corpuscular Volume 100H, Mean Corpuscular Hemoglobin 33.1H, Mean Corpuscular Hemoglobin Concent 33.1, Red Cell Distribution Width 13.1, Platelet Count 102L, Mean Platelet Volume 10.7H, Neutrophils (%) (Auto) , Lymphocytes (% ) (Auto) , Monocytes (%) (Auto) , Eosinophils (%) (Auto) , Basophils (%) (Auto) , Differential Total Cells Counted 100, Neutrophils % (Manual) 75, Lymphocytes % (Manual) 20, Monocytes % (Manual) 5, Eosinophils % (Manual) 0, Basophils % ( Manual) 0, Band Neutrophils 0, Platelet Estimate DecreasedL, Platelet Morphology Normal, Macrocytosis 1+, Sodium Level 145, Potassium Level 3.8, Chloride Level 112H, Carbon Dioxide Level 29, Anion Gap 4L, Blood Urea Nitrogen 15, Creatinine 0.7#, Estimat Glomerular Filtration Rate > 60, Glucose Level 134H , Calcium Level 7.8L, Phosphorus Level 2.4L, Magnesium Level 2.2 Height (Feet): 6 Height (Inches): 2.00 Weight (Pounds): 270 Objective CV RR Lungs B wheezes Abd SNT. BS + E No CCE Vlad Gutierrez MD December 01, 2018 10:43
--- NOTE | 2018-12-01 10:58 | Infectious Diseases Prog Note ---
Assessment/Plan Assessment/Plan IMPRESSION: 1. E. coli sepsis. 2. Urinary tract infection, that seems to be complicated. 3. Acute renal failure. 4. Left hydronephrosis, likely secondary to nephrolithiasis. 5. Septic shock, resolved 6. Anemia. 7. Acute respiratory failure, extubated RECOMMENDATION: We will continue meropenem X 4 days Subjective ROS Limited/Unobtainable: No Constitutional: Reports: no symptoms Respiratory: Reports: no symptoms Gastrointestinal/Abdominal: Reports: no symptoms Genitourinary: Reports: no symptoms Allergies: Coded Allergies: No Known Allergies (Unverified , 11/25/18) Objective Vital Signs Last 24 Hour Vital Signs Date Time Temp Pulse Resp B/P (MAP) Pulse Ox O2 Delivery O2 Flow Rate FiO2 12/01/18 10:00 57 15 91/56 (68) 100 12/01/18 09:00 59 18 96/60 (72) 100 12/01/18 08:00 Nasal Cannula 2.0 12/01/18 08:00 98.9 59 15 127/25 (59) 100 12/01/18 07:00 56 22 97/59 (72) 100 12/01/18 06:00 54 17 94/60 (71) 100 12/01/18 05:00 57 21 100 12/01/18 05:00 57 21 97/82 (87) 100 12/01/18 04:00 97.8 57 17 111/66 (81) 100 12/01/18 04:00 58 12/01/18 04:00 Nasal Cannula 2.0 Nasal Cannula 2.0 12/01/18 03:00 57 18 103/60 (74) 100 12/01/18 03:00 57 18 103/60 (74) 100 12/01/18 02:30 56 19 97/68 (78) 100 12/01/18 02:00 58 20 105/69 (81) 100 12/01/18 02:00 58 20 105/69 (81) 100 12/01/18 01:30 55 21 105/69 (81) 100 12/01/18 01:00 55 19 113/70 (84) 99 12/01/18 01:00 55 19 113/70 (84) 99 12/01/18 00:30 54 11 115/71 (86) 100 12/01/18 00:30 54 11 115/71 (86) 100 12/01/18 00:00 55 22 109/67 (81) 100 12/01/18 00:00 55 22 109/67 (81) 100 12/01/18 00:00 Nasal Cannula 2.0 Nasal Cannula 2.0 12/01/18 00:00 55 12/01/18 00:00 55 22 109/67 (81) 100 11/30/18 23:00 99.0 55 20 101/64 (76) 100 11/30/18 22:00 55 20 109/67 (81) 100 11/30/18 21:00 54 20 100/67 (78) 100 11/30/18 20:31 Nasal Cannula 2.0 28 11/30/18 20:31 100 Nasal Cannula 2.0 28 11/30/18 20:21 56 19 Nasal Cannula 2.0 28 11/30/18 20:00 48 11/30/18 20:00 100.0 56 21 93/66 (75) 100 11/30/18 20:00 Nasal Cannula 2.0 Nasal Cannula 2.0 11/30/18 19:00 58 24 101/60 (74) 100 11/30/18 18:00 57 23 94/56 (69) 100 11/30/18 17:00 56 20 91/54 (66) 100 11/30/18 16:00 98.7 55 23 91/61 (71) 100 11/30/18 16:00 Nasal Cannula 2.0 Nasal Cannula 2.0 11/30/18 16:00 55 11/30/18 15:00 59 25 91/62 (72) 100 11/30/18 14:00 56 22 95/57 (70) 100 11/30/18 13:30 95/57 11/30/18 13:00 61 23 95/55 (68) 100 11/30/18 12:00 Nasal Cannula 2.0 Nasal Cannula 2.0 11/30/18 12:00 99.0 58 23 99/62 (74) 100 11/30/18 12:00 58 11/30/18 11:00 60 23 97/64 (75) 100 Height (Feet): 6 Height (Inches): 2.00 Weight (Pounds): 270 General Appearance: no acute distress HEENT: mucous membranes moist Respiratory/Chest: lungs clear Cardiovascular: bradycardia, other - RIJ central line Extremities: no edema Neurologic/Psychiatric: alert, responsive Laboratory Tests Test 12/01/18 04:30 White Blood Count 7.5 K/UL (4.8-10.8) Red Blood Count 2.35 M/UL (4.70-6.10) L Hemoglobin 7.8 G/DL (14.2-18.0) L Hematocrit 23.5 % (42.0-52.0) L Mean Corpuscular Volume 100 FL (80-99) H Mean Corpuscular Hemoglobin 33.1 PG (27.0-31.0) H Mean Corpuscular Hemoglobin Concent 33.1 G/DL (32.0-36.0) Red Cell Distribution Width 13.1 % (11.6-14.8) Platelet Count 102 K/UL (150-450) L Mean Platelet Volume 10.7 FL (6.5-10.1) H Neutrophils (%) (Auto) % (45.0-75.0) Lymphocytes (%) (Auto) % (20.0-45.0) Monocytes (%) (Auto) % (1.0-10.0) Eosinophils (%) (Auto) % (0.0-3.0) Basophils (%) (Auto) % (0.0-2.0) Differential Total Cells Counted 100 Neutrophils % (Manual) 75 % (45-75) Lymphocytes % (Manual) 20 % (20-45) Monocytes % (Manual) 5 % (1-10) Eosinophils % (Manual) 0 % (0-3) Basophils % (Manual) 0 % (0-2) Band Neutrophils 0 % (0-8) Platelet Estimate Decreased L Platelet Morphology Normal Macrocytosis 1+ Sodium Level 145 MMOL/L (136-145) Potassium Level 3.8 MMOL/L (3.5-5.1) Chloride Level 112 MMOL/L (98-107) H Carbon Dioxide Level 29 MMOL/L (21-32) Anion Gap 4 mmol/L (5-15) L Blood Urea Nitrogen 15 mg/dL (7-18) Creatinine 0.7 MG/DL (0.55-1.30) # Estimat Glomerular Filtration Rate > 60 mL/min (>60) Glucose Level 134 MG/DL (74-106) H Calcium Level 7.8 MG/DL (8.5-10.1) L Phosphorus Level 2.4 MG/DL (2.5-4.9) L Magnesium Level 2.2 MG/DL (1.8-2.4) Current Medications Medications (Trade) Dose Ordered Sig/Rikki Route PRN Reason Start Time Stop Time Status Last Admin Dose Admin Acetaminophen (Tylenol) 650 mg Q6H PRN ORAL Mild Pain/Temp > 100.5 11/25/18 08:15 12/25/18 08:14 Chlorhexidine Gluconate (Brianna-Hex 2%) 1 applic DAILY@2000 TOPIC 11/26/18 20:00 12/26/18 19:59 11/30/18 20:14 Heparin Sodium (Porcine) (Heparin 5000 units/ml) 5,000 units EVERY 12 HOURS SUBQ 11/25/18 21:00 12/25/18 20:59 12/01/18 08:49 Lorazepam (Ativan 2mg/ml 1ml) 2 mg Q4H PRN IV For Anxiety 11/25/18 09:45 12/02/18 09:44 11/28/18 13:01 Meropenem 1 gm/ Sodium Chloride 110 ml @ 220 mls/hr Q8HR@0100,0900,1700 IVPB 12/01/18 09:00 12/06/18 08:59 12/01/18 08:48 Midazolam HCl (Versed 2mg/2ml vial) 2 mg Q4H PRN IVP Agitation 11/25/18 09:45 12/25/18 08:14 11/27/18 20:05 Norepinephrine Bitartrate 8 mg/ Dextrose 508 ml @ 0 mls/hr Q24H IV 11/25/18 13:30 12/25/18 13:29 11/27/18 08:01 Pantoprazole (Protonix) 40 mg EVERY 12 HOURS IVP 11/25/18 09:00 12/25/18 08:59 12/01/18 08:47 Sodium 1,000 ml @ 100 mls/hr Q10H IV 11/30/18 12:32 12/30/18 12:31 12/01/18 06:07 Sandeep Faust MD December 01, 2018 10:58
[2018-12-01 11:58] LABS: BASOPHILS % (AUTO) 1.3 % (0.0-2.0); EOSINOPHILS % (AUTO) 3.3 % (0.0-3.0); HEMATOCRIT 32.4 % (42.0-52.0); HEMOGLOBIN 10.5 G/DL (14.2-18.0); LYMPHOCYTES % (AUTO) 8.5 % (20.0-45.0); MEAN CORPUSCULAR VOLUME 86 FL (80-99); MONOCYTES % (AUTO) 7.3 % (1.0-10.0); NEUTROPHILS % (AUTO) 79.6 % (45.0-75.0); PLATELET COUNT 272 K/UL (150-450); RED BLOOD COUNT 3.77 M/UL (4.70-6.10); WHITE BLOOD COUNT 13.7 K/UL (4.8-10.8)
[2018-12-01 12:07] LABS: ANION GAP 11 mmol/L (5-15); BLOOD UREA NITROGEN 56 mg/dL (7-18); CALCIUM 8.1 MG/DL (8.5-10.1); CARBON DIOXIDE 18 MMOL/L (21-32); CHLORIDE 107 MMOL/L (98-107); CREATININE 3.5 MG/DL (0.55-1.30); SODIUM 136 MMOL/L (136-145)
[2018-12-01] MEDS: Dyna-Hex 2% Top Sol 2oz TOPIC SCH (20:42)
[2018-12-01] MEDS ORDERED: LORazepam Inj 2mg/ml 1ml IV PRN ×2 (20:54→21:45)
[2018-12-01] MEDS ORDERED: 1/2NS w/KCl 20mEq 1000ml 1,000 ML IV SCH (21:00)
[2018-12-01] MEDS ORDERED: Heparin 5000 units/ml inj SUBQ SCH (21:00)
[2018-12-01] MEDS ORDERED: Pantoprazole Inj IVP SCH (21:00)
[2018-12-01] MEDS ORDERED: Midazolam 2mg/2ml Inj IVP PRN ×2 (21:45)
[2018-12-02] VITALS: BP 105/62
[2018-12-02] MEDS ORDERED: Meropenem 1 GM in NS 110 ML IVPB SCH (01:00)
[2018-12-02] MEDS: Meropenem 1 GM in NS 110 ML IVPB SCH ×3 (01:14→17:19)
[2018-12-02] MEDS: 1/2NS w/KCl 20mEq 1000ml 1,000 ML IV SCH ×2 (02:41→12:55)
[2018-12-02 04:00] VITALS: BP 136/64
[2018-12-02 05:16] LABS: HEMATOCRIT 30.2 % (42.0-52.0); HEMOGLOBIN 10.2 G/DL (14.2-18.0); MEAN CORPUSCULAR VOLUME 84 FL (80-99); PLATELET COUNT 328 K/UL (150-450); RED BLOOD COUNT 3.58 M/UL (4.70-6.10); RED CELL DISTRIBUTION WIDTH 15.3 % (11.6-14.8); WHITE BLOOD COUNT 14.6 K/UL (4.8-10.8)
[2018-12-02 05:39] LABS: ANION GAP 12 mmol/L (5-15); BLOOD UREA NITROGEN 52 mg/dL (7-18); CALCIUM 8.2 MG/DL (8.5-10.1); CARBON DIOXIDE 15 MMOL/L (21-32); CHLORIDE 109 MMOL/L (98-107); CREATININE 3.3 MG/DL (0.55-1.30); POTASSIUM 4.7 MMOL/L (3.5-5.1); SODIUM 136 MMOL/L (136-145)
[2018-12-02 08:00] VITALS: BP 111/55
--- NOTE | 2018-12-02 08:02 | Critical Care Progress Note ---
Assessment/Plan Assessment/Plan Respiratory failure, acute hypoxemia hypotension possible sepsis NSTEMI transaminitis metabolic acidosis possible shock liver leukocytosis possible sepsis PLAN care noted no distress at present IV antibiotics reviewed cultures respiratory care Ventilatory support off monitor acid base supportive care suction as needed oxygen therapy and titrate prognosis guarded medications/laboratory data/nursing notes reviewed in detail note reviewed and edited care discussed with RN and RT Critical Care - Subjective Condition: improving EKG Rhythm: Sinus Rhythm I&O: Intake and Output 12/01/18 12/02/18 19:00 07:00 Intake Total 490 ml 1386 ml Output Total 800 ml 1150 ml Balance -310 ml 236 ml Intake Oral 490 ml 240 ml IV Total 1146 ml Output Urine Total 800 ml 1150 ml # Bowel Movements 2 Critical Care - Objective ET-Tube: 7.5 ET Position: 24 Last 24 Hour Vital Signs Date Time Temp Pulse Resp B/P (MAP) Pulse Ox O2 Delivery O2 Flow Rate FiO2 12/02/18 04:00 57 12/02/18 04:00 97.6 58 19 136/64 (88) 97 12/02/18 04:00 Nasal Cannula 2.0 12/02/18 00:00 55 12/02/18 00:00 Nasal Cannula 2.0 12/02/18 00:00 98.9 56 19 105/62 (76) 98 12/01/18 21:36 50 12/01/18 21:00 Nasal Cannula 2.0 12/01/18 21:00 98.0 54 19 117/70 (86) 99 12/01/18 18:00 50 20 98/68 (78) 100 12/01/18 17:00 98.9 50 19 100/60 (73) 100 12/01/18 16:00 Nasal Cannula 2.0 12/01/18 16:00 52 12/01/18 16:00 52 20 92/60 (71) 99 12/01/18 15:00 53 20 105/62 (76) 99 12/01/18 14:00 51 20 100/63 (75) 100 12/01/18 13:00 52 20 90/60 (70) 99 12/01/18 12:48 91/59 12/01/18 12:00 57 12/01/18 12:00 Nasal Cannula 2.0 12/01/18 12:00 98.6 54 15 91/56 (68) 100 12/01/18 11:00 54 21 99/63 (75) 100 12/01/18 10:00 57 15 91/56 (68) 100 12/01/18 09:00 59 18 96/60 (72) 100 Labs: Labs Test 11/29/18 11:00 11/30/18 04:30 12/01/18 04:30 12/01/18 11:15 Urine Collection Time 24 HRS Urine Total Volume 2200 ML Urine Creatinine 84 mg/dL Urine Creatinine 24 Hour 1848 mg/24hr ([id number]) Patient Height Inches (Creat Clear) 74 INCHES Patient Weight Pounds (Creat Clear) 260 LBS Creatinine Clearance 20 mL/min (71-151) Urine Total Protein mg/dL 65 mg/dL Urine Total Protein 24 Hour 1430.0 mg/24hr (< 150) Creatinine 4.5 MG/DL (0.55-1.30) 4.2 MG/DL (0.55-1.30) 0.7 MG/DL (0.55-1.30) Estimat Glomerular Filtration Rate 13.4 mL/min (>60) 14.5 mL/min (>60) > 60 mL/min (>60) Sodium Level 140 MMOL/L (136-145) 145 MMOL/L (136-145) Potassium Level 4.5 MMOL/L (3.5-5.1) 3.8 MMOL/L (3.5-5.1) Chloride Level 110 MMOL/L (98-107) 112 MMOL/L (98-107) Carbon Dioxide Level 17 MMOL/L (21-32) 29 MMOL/L (21-32) Anion Gap 13 mmol/L (5-15) 4 mmol/L (5-15) Blood Urea Nitrogen 64 mg/dL (7-18) 15 mg/dL (7-18) Glucose Level 93 MG/DL (74-106) 134 MG/DL (74-106) Calcium Level 8.6 MG/DL (8.5-10.1) 7.8 MG/DL (8.5-10.1) Phosphorus Level 4.3 MG/DL (2.5-4.9) 2.4 MG/DL (2.5-4.9) Total Creatine Kinase 38 U/L (26-308) White Blood Count 7.5 K/UL (4.8-10.8) 13.7 K/UL (4.8-10.8) Red Blood Count 2.35 M/UL (4.70-6.10) 3.77 M/UL (4.70-6.10) Hemoglobin 7.8 G/DL (14.2-18.0) 10.5 G/DL (14.2-18.0) Hematocrit 23.5 % (42.0-52.0) 32.4 % (42.0-52.0) Mean Corpuscular Volume 100 FL (80-99) 86 FL (80-99) Mean Corpuscular Hemoglobin 33.1 PG (27.0-31.0) 27.8 PG (27.0-31.0) Mean Corpuscular Hemoglobin Concent 33.1 G/DL (32.0-36.0) 32.4 G/DL (32.0-36.0) Red Cell Distribution Width 13.1 % (11.6-14.8) 15.0 % (11.6-14.8) Platelet Count 102 K/UL (150-450) 272 K/UL (150-450) Mean Platelet Volume 10.7 FL (6.5-10.1) 8.1 FL (6.5-10.1) Neutrophils (%) (Auto) % (45.0-75.0) 79.6 % (45.0-75.0) Lymphocytes (%) (Auto) % (20.0-45.0) 8.5 % (20.0-45.0) Monocytes (%) (Auto) % (1.0-10.0) 7.3 % (1.0-10.0) Eosinophils (%) (Auto) % (0.0-3.0) 3.3 % (0.0-3.0) Basophils (%) (Auto) % (0.0-2.0) 1.3 % (0.0-2.0) Differential Total Cells Counted 100 Neutrophils % (Manual) 75 % (45-75) Lymphocytes % (Manual) 20 % (20-45) Monocytes % (Manual) 5 % (1-10) Eosinophils % (Manual) 0 % (0-3) Basophils % (Manual) 0 % (0-2) Band Neutrophils 0 % (0-8) Platelet Estimate Decreased Platelet Morphology Normal Macrocytosis 1+ Magnesium Level 2.2 MG/DL (1.8-2.4) Test 12/01/18 11:40 12/02/18 04:45 Sodium Level 136 MMOL/L (136-145) 136 MMOL/L (136-145) Potassium Level 5.0 MMOL/L (3.5-5.1) 4.7 MMOL/L (3.5-5.1) Chloride Level 107 MMOL/L (98-107) 109 MMOL/L (98-107) Carbon Dioxide Level 18 MMOL/L (21-32) 15 MMOL/L (21-32) Anion Gap 11 mmol/L (5-15) 12 mmol/L (5-15) Blood Urea Nitrogen 56 mg/dL (7-18) 52 mg/dL (7-18) Creatinine 3.5 MG/DL (0.55-1.30) 3.3 MG/DL (0.55-1.30) Estimat Glomerular Filtration Rate 17.9 mL/min (>60) 19.2 mL/min (>60) Glucose Level 95 MG/DL (74-106) 81 MG/DL (74-106) Calcium Level 8.1 MG/DL (8.5-10.1) 8.2 MG/DL (8.5-10.1) Thyroid Stimulating Hormone (TSH) 3.522 uiU/mL (0.358-3.740) White Blood Count 14.6 K/UL (4.8-10.8) Red Blood Count 3.58 M/UL (4.70-6.10) Hemoglobin 10.2 G/DL (14.2-18.0) Hematocrit 30.2 % (42.0-52.0) Mean Corpuscular Volume 84 FL (80-99) Mean Corpuscular Hemoglobin 28.5 PG (27.0-31.0) Mean Corpuscular Hemoglobin Concent 33.8 G/DL (32.0-36.0) Red Cell Distribution Width 15.3 % (11.6-14.8) Platelet Count 328 K/UL (150-450) Mean Platelet Volume 7.8 FL (6.5-10.1) Neutrophils (%) (Auto) % (45.0-75.0) Lymphocytes (%) (Auto) % (20.0-45.0) Monocytes (%) (Auto) % (1.0-10.0) Eosinophils (%) (Auto) % (0.0-3.0) Basophils (%) (Auto) % (0.0-2.0) Objective: WDWN on oxygen extubated and stable clear breath sounds bilaterally without rhonchi or wheeze [id number] without MRG NABS nontender no HSM; no distention no CCE nonfocal, more alert skin noted reviewed and edited Matt Ramirez MD December 02, 2018 08:02
[2018-12-02] MEDS: Pantoprazole Inj IVP SCH ×2 (09:00→20:35)
[2018-12-02] MEDS: Heparin 5000 units/ml inj SUBQ SCH ×2 (09:02→21:00)
--- NOTE | 2018-12-02 10:08 | Nephrology Progress Note ---
Assessment/Plan Plan GNR Urosepsis - IV Abx. = True Urosepsis On IV Zosyn + Vanco. Dc Vanco Check Renal US Acute Non Oliguric ATN CCr 20!! Mild Metab. Acidosis. No need for HD. Hypotensive +_ Bradycardic! Erroneous Lab results (m/p drawn from IV line) - to repeat! Severe Renal Failure - slowly improving. Subjective Subjective Extubated. No c/o. Snoring. Objective Objective Last 24 Hour Vital Signs Date Time Temp Pulse Resp B/P (MAP) Pulse Ox O2 Delivery O2 Flow Rate FiO2 12/02/18 08:00 Nasal Cannula 2.0 12/02/18 08:00 98.0 58 21 111/55 (73) 94 12/02/18 08:00 58 12/02/18 04:00 57 12/02/18 04:00 97.6 58 19 136/64 (88) 97 12/02/18 04:00 Nasal Cannula 2.0 12/02/18 00:00 55 12/02/18 00:00 Nasal Cannula 2.0 12/02/18 00:00 98.9 56 19 105/62 (76) 98 12/01/18 21:36 50 12/01/18 21:00 Nasal Cannula 2.0 12/01/18 21:00 98.0 54 19 117/70 (86) 99 12/01/18 18:00 50 20 98/68 (78) 100 12/01/18 17:00 98.9 50 19 100/60 (73) 100 12/01/18 16:00 Nasal Cannula 2.0 12/01/18 16:00 52 12/01/18 16:00 52 20 92/60 (71) 99 12/01/18 15:00 53 20 105/62 (76) 99 12/01/18 14:00 51 20 100/63 (75) 100 12/01/18 13:00 52 20 90/60 (70) 99 12/01/18 12:48 91/59 12/01/18 12:00 57 12/01/18 12:00 Nasal Cannula 2.0 12/01/18 12:00 98.6 54 15 91/56 (68) 100 12/01/18 11:00 54 21 99/63 (75) 100 Intake and Output 12/01/18 12/02/18 19:00 07:00 Intake Total 490 ml 1386 ml Output Total 800 ml 1150 ml Balance -310 ml 236 ml Intake Oral 490 ml 240 ml IV Total 1146 ml Output Urine Total 800 ml 1150 ml # Bowel Movements 2 Laboratory Tests 12/01/18 11:15: White Blood Count 13.7#H, Red Blood Count 3.77L, Hemoglobin 10.5#L, Hematocrit 32.4#L, Mean Corpuscular Volume 86#, Mean Corpuscular Hemoglobin 27.8, Mean Corpuscular Hemoglobin Concent 32.4, Red Cell Distribution Width 15.0H, Platelet Count 272#, Mean Platelet Volume 8.1, Neutrophils (%) (Auto) 79.6H, Lymphocytes (%) (Auto) 8.5L, Monocytes (%) (Auto) 7.3, Eosinophils (%) (Auto) 3.3H, Basophils (%) (Auto) 1.3 12/01/18 11:40: Sodium Level 136, Potassium Level 5.0, Chloride Level 107, Carbon Dioxide Level 18L, Anion Gap 11, Blood Urea Nitrogen 56H, Creatinine 3.5#H, Estimat Glomerular Filtration Rate 17.9, Glucose Level 95, Calcium Level 8.1L, Thyroid Stimulating Hormone (TSH) 3.522 12/02/18 04:45: White Blood Count 14.6H, Red Blood Count 3.58L, Hemoglobin 10.2L, Hematocrit 30.2L, Mean Corpuscular Volume 84, Mean Corpuscular Hemoglobin 28.5, Mean Corpuscular Hemoglobin Concent 33.8, Red Cell Distribution Width 15.3H, Platelet Count 328, Mean Platelet Volume 7.8, Neutrophils (%) (Auto) , Lymphocytes (%) (Auto) , Monocytes (%) (Auto) , Eosinophils (%) (Auto) , Basophils (%) (Auto) , Sodium Level 136, Potassium Level 4.7, Chloride Level 109H, Carbon Dioxide Level 15L, Anion Gap 12, Blood Urea Nitrogen 52H, Creatinine 3.3H, Estimat Glomerular Filtration Rate 19.2, Glucose Level 81, Calcium Level 8.2L, Differential Total Cells Counted 100, Neutrophils % (Manual ) 77H, Lymphocytes % (Manual) 13L, Monocytes % (Manual) 5, Eosinophils % (Manual ) 5H, Basophils % (Manual) 0, Band Neutrophils 0, Platelet Estimate Adequate, Platelet Morphology Normal, Anisocytosis 1+ Height (Feet): 6 Height (Inches): 2.00 Weight (Pounds): 271 Objective CV RR Lungs B wheezes Abd SNT. BS + E No CCE Vlad Gutierrez MD December 02, 2018 10:08
[2018-12-02 12:02] VITALS: BP 103/62
[2018-12-02 16:00] VITALS: BP 99/62
--- NOTE | 2018-12-02 19:50 | Cardiology Report ---
APPROVED REPORT EKG Measurement Heart [id number] Sinus tachycardia T wave abnormality, consider inferior ischemia Abnormal ECG
[2018-12-02 20:00] VITALS: BP 101/69
[2018-12-02] MEDS ORDERED: Dyna-Hex 2% Top Sol 2oz TOPIC SCH ×2 (20:00)
[2018-12-03] VITALS: BP 106/66
[2018-12-03] MEDS: Meropenem 1 GM in NS 110 ML IVPB SCH ×3 (00:34→21:03)
[2018-12-03] MEDS: 1/2NS w/KCl 20mEq 1000ml 1,000 ML IV SCH ×3 (00:34→23:05)
[2018-12-03 04:00] VITALS: BP 102/70
[2018-12-03 05:35] LABS: BASOPHILS % (AUTO) 0.4 % (0.0-2.0); HEMATOCRIT 31.4 % (42.0-52.0); HEMOGLOBIN 10.4 G/DL (14.2-18.0); LYMPHOCYTES % (AUTO) 16.7 % (20.0-45.0); MEAN CORPUSCULAR VOLUME 86 FL (80-99); MONOCYTES % (AUTO) 3.8 % (1.0-10.0); PLATELET COUNT 379 K/UL (150-450); RED BLOOD COUNT 3.68 M/UL (4.70-6.10); RED CELL DISTRIBUTION WIDTH 15.1 % (11.6-14.8); WHITE BLOOD COUNT 11.3 K/UL (4.8-10.8)
[2018-12-03 06:06] LABS: ANION GAP 13 mmol/L (5-15); BLOOD UREA NITROGEN 46 mg/dL (7-18); CALCIUM 8.4 MG/DL (8.5-10.1); CARBON DIOXIDE 16 MMOL/L (21-32); CHLORIDE 109 MMOL/L (98-107); CREATININE 3.2 MG/DL (0.55-1.30); SODIUM 138 MMOL/L (136-145)
[2018-12-03 08:00] VITALS: BP 106/66
[2018-12-03] MEDS: Pantoprazole Inj IVP SCH ×2 (08:29→21:03)
[2018-12-03] MEDS: Heparin 5000 units/ml inj SUBQ SCH ×2 (08:33→21:04)
--- NOTE | 2018-12-03 08:56 | Critical Care Progress Note ---
Assessment/Plan Assessment/Plan Respiratory failure, acute hypoxemia hypotension possible sepsis NSTEMI transaminitis metabolic acidosis possible shock liver leukocytosis possible sepsis PLAN care noted no distress at present IV antibiotics per ID reviewed cultures respiratory care Ventilatory support off monitor acid base supportive care repeat imaging oxygen therapy and titrate prognosis guarded medications/laboratory data/nursing notes reviewed in detail note reviewed and edited care discussed with RN and RT Critical Care - Subjective Condition: improving EKG Rhythm: Sinus Rhythm I&O: Intake and Output 12/02/18 12/03/18 19:00 07:00 Intake Total 1220 ml 1295 ml Output Total 1600 ml 220 ml Balance -380 ml 1075 ml Intake Oral 240 ml IV Total 1220 ml 1055 ml Output Urine Total 1600 ml 220 ml # Bowel Movements 1 Critical Care - Objective ET-Tube: 7.5 ET Position: 24 Last 24 Hour Vital Signs Date Time Temp Pulse Resp B/P (MAP) Pulse Ox O2 Delivery O2 Flow Rate FiO2 12/03/18 08:00 Nasal Cannula 2.0 12/03/18 08:00 99.1 52 22 106/66 (79) 98 12/03/18 06:35 Nasal Cannula 2.0 28 12/03/18 06:35 99 Nasal Cannula 2.0 28 12/03/18 04:00 98.0 54 24 102/70 (81) 98 12/03/18 04:00 Nasal Cannula 2.0 12/03/18 04:00 50 12/03/18 00:00 98.0 50 24 106/66 (79) 98 12/03/18 00:00 50 12/03/18 00:00 Nasal Cannula 2.0 12/02/18 20:00 Nasal Cannula 2.0 12/02/18 20:00 51 12/02/18 20:00 98.9 53 24 101/69 (80) 97 12/02/18 19:27 98 Nasal Cannula 2.0 28 12/02/18 19:27 Nasal Cannula 2.0 28 12/02/18 16:00 48 12/02/18 16:00 98.4 54 24 99/62 (74) 100 12/02/18 16:00 Nasal Cannula 2.0 12/02/18 12:02 98.1 54 23 103/62 (76) 95 12/02/18 12:00 57 12/02/18 12:00 Nasal Cannula 2.0 Objective: WDWN on oxygen extubated and stable clear breath sounds bilaterally without rhonchi or wheeze [id number] without MRG NABS nontender no HSM; no distention no CCE nonfocal, more alert skin noted reviewed and edited Matt Ramirez MD December 03, 2018 08:56
--- NOTE | 2018-12-03 10:18 | Infectious Diseases Prog Note ---
Assessment/Plan Assessment/Plan antibiotics : meropenem A 1. e.coli sepsis secondary to UTI 2. e.coli UTI 3. leucocytosis resolved 4. shock resolved 5. renal failure improving 6. left hydronephrosis 7. rectal VRE colonization P 1. continue meropenem 2 more days 2. will follow up cultures Subjective Constitutional: Denies: fever, chills Respiratory: Denies: shortness of breath, dry cough Gastrointestinal/Abdominal: Denies: nausea, vomiting, diarrhea Musculoskeletal: Denies: pain Allergies: Coded Allergies: No Known Allergies (Unverified , 11/25/18) Objective Vital Signs Last 24 Hour Vital Signs Date Time Temp Pulse Resp B/P (MAP) Pulse Ox O2 Delivery O2 Flow Rate FiO2 12/03/18 08:00 Nasal Cannula 2.0 12/03/18 08:00 99.1 52 22 106/66 (79) 98 12/03/18 06:35 Nasal Cannula 2.0 28 12/03/18 06:35 99 Nasal Cannula 2.0 28 12/03/18 04:00 98.0 54 24 102/70 (81) 98 12/03/18 04:00 Nasal Cannula 2.0 12/03/18 04:00 50 12/03/18 00:00 98.0 50 24 106/66 (79) 98 12/03/18 00:00 50 12/03/18 00:00 Nasal Cannula 2.0 12/02/18 20:00 Nasal Cannula 2.0 12/02/18 20:00 51 12/02/18 20:00 98.9 53 24 101/69 (80) 97 12/02/18 19:27 98 Nasal Cannula 2.0 28 12/02/18 19:27 Nasal Cannula 2.0 28 12/02/18 16:00 48 12/02/18 16:00 98.4 54 24 99/62 (74) 100 12/02/18 16:00 Nasal Cannula 2.0 12/02/18 12:02 98.1 54 23 103/62 (76) 95 12/02/18 12:00 57 12/02/18 12:00 Nasal Cannula 2.0 Height (Feet): 6 Height (Inches): 2.00 Weight (Pounds): 271 Respiratory/Chest: lungs clear Cardiovascular: normal rate, regular rhythm, no gallop/murmur Abdomen: soft, non tender Extremities: no edema Laboratory Tests Test 12/03/18 04:00 White Blood Count 11.3 K/UL (4.8-10.8) H Red Blood Count 3.68 M/UL (4.70-6.10) L Hemoglobin 10.4 G/DL (14.2-18.0) L Hematocrit 31.4 % (42.0-52.0) L Mean Corpuscular Volume 86 FL (80-99) Mean Corpuscular Hemoglobin 28.2 PG (27.0-31.0) Mean Corpuscular Hemoglobin Concent 32.9 G/DL (32.0-36.0) Red Cell Distribution Width 15.1 % (11.6-14.8) H Platelet Count 379 K/UL (150-450) Mean Platelet Volume 8.3 FL (6.5-10.1) Neutrophils (%) (Auto) 76.0 % (45.0-75.0) H Lymphocytes (%) (Auto) 16.7 % (20.0-45.0) L Monocytes (%) (Auto) 3.8 % (1.0-10.0) Eosinophils (%) (Auto) 3.0 % (0.0-3.0) Basophils (%) (Auto) 0.4 % (0.0-2.0) Sodium Level 138 MMOL/L (136-145) Potassium Level 5.0 MMOL/L (3.5-5.1) Chloride Level 109 MMOL/L (98-107) H Carbon Dioxide Level 16 MMOL/L (21-32) L Anion Gap 13 mmol/L (5-15) Blood Urea Nitrogen 46 mg/dL (7-18) H Creatinine 3.2 MG/DL (0.55-1.30) H Estimat Glomerular Filtration Rate 19.8 mL/min (>60) Glucose Level 69 MG/DL (74-106) L Calcium Level 8.4 MG/DL (8.5-10.1) L Current Medications Medications (Trade) Dose Ordered Sig/Rikki Route PRN Reason Start Time Stop Time Status Last Admin Dose Admin Acetaminophen (Tylenol) 650 mg Q6H PRN ORAL Mild Pain/Temp > 100.5 12/01/18 20:54 12/31/18 20:53 Heparin Sodium (Porcine) (Heparin 5000 units/ml) 5,000 units EVERY 12 HOURS SUBQ 12/01/18 21:00 12/25/18 20:59 12/03/18 08:33 Lorazepam (Ativan 2mg/ml 1ml) 2 mg Q4H PRN IV For Anxiety 12/01/18 20:54 12/08/18 20:53 Meropenem 1 gm/ Sodium Chloride 110 ml @ 220 mls/hr Q8HR@0100,0900,1700 IVPB 12/02/18 01:00 12/06/18 08:59 12/03/18 08:29 Midazolam HCl (Versed 2mg/2ml vial) 2 mg Q4H PRN IVP Agitation 12/01/18 21:45 12/25/18 08:14 Pantoprazole (Protonix) 40 mg EVERY 12 HOURS IVP 12/01/18 21:00 12/25/18 08:59 12/03/18 08:29 Sodium 1,000 ml @ 100 mls/hr Q10H IV 12/01/18 20:54 12/31/18 20:53 12/03/18 00:34 Adilia Barnes MD December 03, 2018 10:18
[2018-12-03 11:52] VITALS: BP 126/56
--- NOTE | 2018-12-03 12:32 | Diagnostic Imaging Report ---
Indication: Dyspnea Comparison: 11/26/2018 A single view chest radiograph was obtained. Findings: Mild pulmonary vascular congestion suspected with slightly prominent and ill-defined pulmonary vasculature and suggestion of minimal perihilar interstitial edema. Lung volumes are low. Heart is borderline enlarged. IMPRESSION: Pulmonary vascular congestion suspected. Correlate clinically
--- NOTE | 2018-12-03 13:30 | Nephrology Progress Note ---
Assessment/Plan Plan GNR Urosepsis - IV Abx. = True Urosepsis On IV Zosyn + Vanco. Dc Vanco Check Renal US Non resolving ARF. Continue to monitor Subjective Subjective Extubated. No c/o. Snoring. Objective Objective Last 24 Hour Vital Signs Date Time Temp Pulse Resp B/P (MAP) Pulse Ox O2 Delivery O2 Flow Rate FiO2 12/03/18 11:52 98.7 58 21 126/56 (79) 97 12/03/18 08:00 48 12/03/18 08:00 Nasal Cannula 2.0 12/03/18 08:00 99.1 52 22 106/66 (79) 98 12/03/18 06:35 Nasal Cannula 2.0 28 12/03/18 06:35 99 Nasal Cannula 2.0 28 12/03/18 04:00 98.0 54 24 102/70 (81) 98 12/03/18 04:00 Nasal Cannula 2.0 12/03/18 04:00 50 12/03/18 00:00 98.0 50 24 106/66 (79) 98 12/03/18 00:00 50 12/03/18 00:00 Nasal Cannula 2.0 12/02/18 20:00 Nasal Cannula 2.0 12/02/18 20:00 51 12/02/18 20:00 98.9 53 24 101/69 (80) 97 12/02/18 19:27 98 Nasal Cannula 2.0 28 12/02/18 19:27 Nasal Cannula 2.0 28 12/02/18 16:00 48 12/02/18 16:00 98.4 54 24 99/62 (74) 100 12/02/18 16:00 Nasal Cannula 2.0 Intake and Output 12/02/18 12/03/18 19:00 07:00 Intake Total 1220 ml 1395 ml Output Total 1600 ml 220 ml Balance -380 ml 1175 ml Intake Oral 240 ml IV Total 1220 ml 1155 ml Output Urine Total 1600 ml 220 ml # Bowel Movements 1 Laboratory Tests 12/03/18 04:00: White Blood Count 11.3H, Red Blood Count 3.68L, Hemoglobin 10.4L, Hematocrit 31.4L, Mean Corpuscular Volume 86, Mean Corpuscular Hemoglobin 28.2, Mean Corpuscular Hemoglobin Concent 32.9, Red Cell Distribution Width 15.1H, Platelet Count 379, Mean Platelet Volume 8.3, Neutrophils (%) (Auto) 76.0H, Lymphocytes (%) (Auto) 16.7L, Monocytes (%) (Auto) 3.8, Eosinophils (%) (Auto) 3.0, Basophils (%) (Auto) 0.4, Sodium Level 138, Potassium Level 5.0, Chloride Level 109H, Carbon Dioxide Level 16L, Anion Gap 13, Blood Urea Nitrogen 46H, Creatinine 3.2H, Estimat Glomerular Filtration Rate 19.8, Glucose Level 69L, Calcium Level 8.4L Height (Feet): 6 Height (Inches): 2.00 Weight (Pounds): 271 Objective CV RR Lungs B wheezes Abd SNT. BS + E No CCE Vlad Gutierrez MD December 03, 2018 13:30
[2018-12-03 16:00] VITALS: BP 106/58
[2018-12-03 20:00] VITALS: BP 134/77
[2018-12-04] VITALS: BP 122/71
[2018-12-04 04:00] VITALS: BP 112/61
[2018-12-04 05:11] LABS: BASOPHILS % (AUTO) 0.4 % (0.0-2.0); EOSINOPHILS % (AUTO) 2.7 % (0.0-3.0); HEMATOCRIT 30.6 % (42.0-52.0); HEMOGLOBIN 10.3 G/DL (14.2-18.0); LYMPHOCYTES % (AUTO) 16.4 % (20.0-45.0); MEAN CORPUSCULAR VOLUME 84 FL (80-99); MONOCYTES % (AUTO) 4.1 % (1.0-10.0); NEUTROPHILS % (AUTO) 76.5 % (45.0-75.0); PLATELET COUNT 434 K/UL (150-450); RED BLOOD COUNT 3.63 M/UL (4.70-6.10); RED CELL DISTRIBUTION WIDTH 15.2 % (11.6-14.8); WHITE BLOOD COUNT 11.8 K/UL (4.8-10.8)
[2018-12-04 05:26] LABS: ANION GAP 10 mmol/L (5-15); BLOOD UREA NITROGEN 39 mg/dL (7-18); CALCIUM 8.3 MG/DL (8.5-10.1); CARBON DIOXIDE 16 MMOL/L (21-32); CHLORIDE 106 MMOL/L (98-107); CREATININE 2.8 MG/DL (0.55-1.30); POTASSIUM 5.1 MMOL/L (3.5-5.1); SODIUM 132 MMOL/L (136-145)
[2018-12-04 08:00] VITALS: BP 116/69
[2018-12-04] MEDS: Meropenem 1 GM in NS 110 ML IVPB SCH ×2 (08:29→20:56)
[2018-12-04] MEDS: Pantoprazole Inj IVP SCH ×2 (08:29→20:56)
[2018-12-04] MEDS: Heparin 5000 units/ml inj SUBQ SCH ×2 (08:33→20:59)
[2018-12-04] MEDS: 1/2NS w/KCl 20mEq 1000ml 1,000 ML IV SCH (09:41)
[2018-12-04 12:00] VITALS: BP 102/67
--- NOTE | 2018-12-04 12:07 | Pulmonology Progress Note ---
Assessment/Plan Assessment/Plan Pulmonary Progress Note Assessment/Plan Respiratory failure, acute - improved hypoxemia on O2 hypotension possible sepsis NSTEMI transaminitis metabolic acidosis possible shock liver leukocytosis possible sepsis PLAN care noted no distress at present IV antibiotics per ID reviewed cultures respiratory care - now extubated monitor acid base supportive care repeat imaging oxygen therapy and titrate prognosis guarded medications/laboratory data/nursing notes reviewed in detail note reviewed and edited care discussed with RN and RT Objective Vital Signs Noted Objective: WDWN on oxygen extubated and stable clear breath sounds bilaterally without rhonchi or wheeze [id number] without MRG NABS nontender no HSM; no distention no CCE nonfocal, more alert skin noted reviewed and edited Subjective ROS Limited/Unobtainable: No Allergies: Coded Allergies: No Known Allergies (Unverified , 11/25/18) Objective Last 24 Hour Vital Signs Date Time Temp Pulse Resp B/P (MAP) Pulse Ox O2 Delivery O2 Flow Rate FiO2 12/04/18 08:00 53 12/04/18 08:00 Nasal Cannula 2.0 12/04/18 08:00 98.1 50 21 116/69 (85) 97 12/04/18 04:00 97.0 53 18 112/61 (78) 97 12/04/18 04:00 Nasal Cannula 2.0 12/04/18 03:24 68 12/04/18 00:00 Nasal Cannula 2.0 12/04/18 00:00 97.7 52 20 122/71 (88) 98 12/03/18 23:29 59 12/03/18 20:44 100 Nasal Cannula 2.0 28 12/03/18 20:44 Nasal Cannula 2.0 28 12/03/18 20:00 Nasal Cannula 2.0 12/03/18 20:00 98.0 54 20 134/77 (96) 100 12/03/18 19:04 56 12/03/18 16:00 Nasal Cannula 2.0 12/03/18 16:00 98.7 64 21 106/58 (74) 98 12/03/18 16:00 50 Intake and Output 12/03/18 12/04/18 19:00 07:00 Intake Total 1160 ml 2801.66 ml Output Total 1900 ml 2400 ml Balance -740 ml 401.66 ml Intake Oral 1600 ml IV Total 1160 ml 1201.66 ml Output Urine Total 1900 ml 2400 ml Laboratory Tests 12/04/18 03:20: White Blood Count 11.8H, Red Blood Count 3.63L, Hemoglobin 10.3L, Hematocrit 30.6L, Mean Corpuscular Volume 84, Mean Corpuscular Hemoglobin 28.3, Mean Corpuscular Hemoglobin Concent 33.6, Red Cell Distribution Width 15.2H, Platelet Count 434, Mean Platelet Volume 8.2, Neutrophils (%) (Auto) 76.5H, Lymphocytes (%) (Auto) 16.4L, Monocytes (%) (Auto) 4.1, Eosinophils (%) (Auto) 2.7, Basophils (%) (Auto) 0.4, Sodium Level 132L, Potassium Level 5.1, Chloride Level 106, Carbon Dioxide Level 16L, Anion Gap 10, Blood Urea Nitrogen 39H, Creatinine 2.8H, Estimat Glomerular Filtration Rate 23.2, Glucose Level 65L, Calcium Level 8.3L Current Medications Medications (Trade) Dose Ordered Sig/Rikki Route PRN Reason Start Time Stop Time Status Last Admin Dose Admin Acetaminophen (Tylenol) 650 mg Q6H PRN ORAL Mild Pain/Temp > 100.5 12/01/18 20:54 12/31/18 20:53 Heparin Sodium (Porcine) (Heparin 5000 units/ml) 5,000 units EVERY 12 HOURS SUBQ 12/01/18 21:00 12/25/18 20:59 12/04/18 08:33 Lorazepam (Ativan 2mg/ml 1ml) 2 mg Q4H PRN IV For Anxiety 12/01/18 20:54 12/08/18 20:53 Meropenem 1 gm/ Sodium Chloride 110 ml @ 220 mls/hr Q12HR IVPB 12/03/18 21:00 12/05/18 23:59 12/04/18 08:29 Midazolam HCl (Versed 2mg/2ml vial) 2 mg Q4H PRN IVP Agitation 12/01/18 21:45 12/25/18 08:14 Pantoprazole (Protonix) 40 mg EVERY 12 HOURS IVP 12/01/18 21:00 12/25/18 08:59 12/04/18 08:29 Sodium 1,000 ml @ 100 mls/hr Q10H IV 12/01/18 20:54 12/31/18 20:53 12/04/18 09:41 Carl Key MD December 04, 2018 12:07
--- NOTE | 2018-12-04 12:11 | Infectious Diseases Prog Note ---
Assessment/Plan Assessment/Plan IMPRESSION: 1. E. coli sepsis. 2. Urinary tract infection, that seems to be complicated. 3. Acute renal failure, slowly improving 4. Left hydronephrosis, likely secondary to nephrolithiasis. 5. Septic shock, resolved 6. Anemia. 7. Acute respiratory failure, extubated RECOMMENDATION: We will continue meropenem X 1 day Subjective ROS Limited/Unobtainable: No HEENT: Reports: no symptoms Respiratory: Reports: no symptoms Cardiovascular: Reports: no symptoms Gastrointestinal/Abdominal: Reports: no symptoms Genitourinary: Reports: no symptoms Allergies: Coded Allergies: No Known Allergies (Unverified , 11/25/18) Objective Vital Signs Last 24 Hour Vital Signs Date Time Temp Pulse Resp B/P (MAP) Pulse Ox O2 Delivery O2 Flow Rate FiO2 12/04/18 08:00 53 12/04/18 08:00 Nasal Cannula 2.0 12/04/18 08:00 98.1 50 21 116/69 (85) 97 12/04/18 04:00 97.0 53 18 112/61 (78) 97 12/04/18 04:00 Nasal Cannula 2.0 12/04/18 03:24 68 12/04/18 00:00 Nasal Cannula 2.0 12/04/18 00:00 97.7 52 20 122/71 (88) 98 12/03/18 23:29 59 12/03/18 20:44 100 Nasal Cannula 2.0 28 12/03/18 20:44 Nasal Cannula 2.0 28 12/03/18 20:00 Nasal Cannula 2.0 12/03/18 20:00 98.0 54 20 134/77 (96) 100 12/03/18 19:04 56 12/03/18 16:00 Nasal Cannula 2.0 12/03/18 16:00 98.7 64 21 106/58 (74) 98 12/03/18 16:00 50 Height (Feet): 6 Height (Inches): 2.00 Weight (Pounds): 270 General Appearance: no acute distress HEENT: mucous membranes moist Respiratory/Chest: lungs clear Cardiovascular: bradycardia Abdomen: soft, non tender Extremities: other - pedal edema Neurologic/Psychiatric: alert, responsive Laboratory Tests Test 12/04/18 03:20 White Blood Count 11.8 K/UL (4.8-10.8) H Red Blood Count 3.63 M/UL (4.70-6.10) L Hemoglobin 10.3 G/DL (14.2-18.0) L Hematocrit 30.6 % (42.0-52.0) L Mean Corpuscular Volume 84 FL (80-99) Mean Corpuscular Hemoglobin 28.3 PG (27.0-31.0) Mean Corpuscular Hemoglobin Concent 33.6 G/DL (32.0-36.0) Red Cell Distribution Width 15.2 % (11.6-14.8) H Platelet Count 434 K/UL (150-450) Mean Platelet Volume 8.2 FL (6.5-10.1) Neutrophils (%) (Auto) 76.5 % (45.0-75.0) H Lymphocytes (%) (Auto) 16.4 % (20.0-45.0) L Monocytes (%) (Auto) 4.1 % (1.0-10.0) Eosinophils (%) (Auto) 2.7 % (0.0-3.0) Basophils (%) (Auto) 0.4 % (0.0-2.0) Sodium Level 132 MMOL/L (136-145) L Potassium Level 5.1 MMOL/L (3.5-5.1) Chloride Level 106 MMOL/L (98-107) Carbon Dioxide Level 16 MMOL/L (21-32) L Anion Gap 10 mmol/L (5-15) Blood Urea Nitrogen 39 mg/dL (7-18) H Creatinine 2.8 MG/DL (0.55-1.30) H Estimat Glomerular Filtration Rate 23.2 mL/min (>60) Glucose Level 65 MG/DL (74-106) L Calcium Level 8.3 MG/DL (8.5-10.1) L Current Medications Medications (Trade) Dose Ordered Sig/Rikki Route PRN Reason Start Time Stop Time Status Last Admin Dose Admin Acetaminophen (Tylenol) 650 mg Q6H PRN ORAL Mild Pain/Temp > 100.5 12/01/18 20:54 12/31/18 20:53 Heparin Sodium (Porcine) (Heparin 5000 units/ml) 5,000 units EVERY 12 HOURS SUBQ 12/01/18 21:00 12/25/18 20:59 12/04/18 08:33 Lorazepam (Ativan 2mg/ml 1ml) 2 mg Q4H PRN IV For Anxiety 12/01/18 20:54 12/08/18 20:53 Meropenem 1 gm/ Sodium Chloride 110 ml @ 220 mls/hr Q12HR IVPB 12/03/18 21:00 12/05/18 23:59 12/04/18 08:29 Midazolam HCl (Versed 2mg/2ml vial) 2 mg Q4H PRN IVP Agitation 12/01/18 21:45 12/25/18 08:14 Pantoprazole (Protonix) 40 mg EVERY 12 HOURS IVP 12/01/18 21:00 12/25/18 08:59 12/04/18 08:29 Sodium 1,000 ml @ 100 mls/hr Q10H IV 12/01/18 20:54 12/31/18 20:53 12/04/18 09:41 Sandeep Faust MD December 04, 2018 12:11
--- NOTE | 2018-12-04 14:41 | Nephrology Progress Note ---
Assessment/Plan Plan GNR Urosepsis - IV Abx. = True Urosepsis On IV Zosyn + Vanco. Dc Vanco Check Renal US Non resolving ARF. Continue to monitor Per SNF his MS is unusual for him. Needs HD? Neuro eval. Subjective Subjective Extubated. No c/o. Snoring. Objective Objective Last 24 Hour Vital Signs Date Time Temp Pulse Resp B/P (MAP) Pulse Ox O2 Delivery O2 Flow Rate FiO2 12/04/18 12:09 53 12/04/18 12:00 Nasal Cannula 2.0 12/04/18 12:00 97.9 63 22 102/67 (79) 97 12/04/18 08:00 53 12/04/18 08:00 Nasal Cannula 2.0 12/04/18 08:00 98.1 50 21 116/69 (85) 97 12/04/18 04:00 97.0 53 18 112/61 (78) 97 12/04/18 04:00 Nasal Cannula 2.0 12/04/18 03:24 68 12/04/18 00:00 Nasal Cannula 2.0 12/04/18 00:00 97.7 52 20 122/71 (88) 98 12/03/18 23:29 59 12/03/18 20:44 100 Nasal Cannula 2.0 28 12/03/18 20:44 Nasal Cannula 2.0 28 12/03/18 20:00 Nasal Cannula 2.0 12/03/18 20:00 98.0 54 20 134/77 (96) 100 12/03/18 19:04 56 12/03/18 16:00 Nasal Cannula 2.0 12/03/18 16:00 98.7 64 21 106/58 (74) 98 12/03/18 16:00 50 Intake and Output 12/03/18 12/04/18 19:00 07:00 Intake Total 1160 ml 2801.66 ml Output Total 1900 ml 2400 ml Balance -740 ml 401.66 ml Intake Oral 1600 ml IV Total 1160 ml 1201.66 ml Output Urine Total 1900 ml 2400 ml Laboratory Tests 12/04/18 03:20: White Blood Count 11.8H, Red Blood Count 3.63L, Hemoglobin 10.3L, Hematocrit 30.6L, Mean Corpuscular Volume 84, Mean Corpuscular Hemoglobin 28.3, Mean Corpuscular Hemoglobin Concent 33.6, Red Cell Distribution Width 15.2H, Platelet Count 434, Mean Platelet Volume 8.2, Neutrophils (%) (Auto) 76.5H, Lymphocytes (%) (Auto) 16.4L, Monocytes (%) (Auto) 4.1, Eosinophils (%) (Auto) 2.7, Basophils (%) (Auto) 0.4, Sodium Level 132L, Potassium Level 5.1, Chloride Level 106, Carbon Dioxide Level 16L, Anion Gap 10, Blood Urea Nitrogen 39H, Creatinine 2.8H, Estimat Glomerular Filtration Rate 23.2, Glucose Level 65L, Calcium Level 8.3L Height (Feet): 6 Height (Inches): 2.00 Weight (Pounds): 270 Objective CV RR Lungs B wheezes Abd SNT. BS + E No CCE Vlad Gutierrez MD December 04, 2018 14:41
[2018-12-04 16:00] VITALS: BP 111/71
[2018-12-04 20:00] VITALS: BP 110/66
[2018-12-05] VITALS: BP 108/61
[2018-12-05 04:00] VITALS: BP 105/64
[2018-12-05 08:00] VITALS: BP 108/66
--- NOTE | 2018-12-05 08:51 | Critical Care Progress Note ---
Assessment/Plan Assessment/Plan Respiratory failure, acute hypoxemia hypotension possible sepsis NSTEMI transaminitis metabolic acidosis possible shock liver leukocytosis possible sepsis PLAN care noted no distress at present IV antibiotics per ID reviewed cultures respiratory care monitor acid base supportive care repeat imaging for further clearing low flow oxygen medications/laboratory data/nursing notes reviewed in detail note reviewed and edited care discussed with RN and RT Critical Care - Subjective Condition: stable EKG Rhythm: Sinus Rhythm I&O: Intake and Output 12/04/18 12/05/18 19:00 07:00 Intake Total 1020 ml 110 ml Output Total 2700 ml 2680 ml Balance -1680 ml -2570 ml Intake Oral 100 ml 0 ml IV Total 920 ml 110 ml Output Urine Total 2700 ml 2680 ml # Bowel Movements 1 2 Critical Care - Objective ET-Tube: 7.5 ET Position: 24 Last 24 Hour Vital Signs Date Time Temp Pulse Resp B/P (MAP) Pulse Ox O2 Delivery O2 Flow Rate FiO2 12/05/18 04:00 Room Air 12/05/18 04:00 97.9 54 20 105/64 (78) 98 12/05/18 03:25 59 12/05/18 00:00 98.8 53 20 108/61 (77) 98 12/05/18 00:00 Nasal Cannula 2.0 12/04/18 23:45 55 12/04/18 20:00 Nasal Cannula 2.0 28 12/04/18 20:00 Nasal Cannula 2.0 12/04/18 20:00 97 Nasal Cannula 2.0 28 12/04/18 20:00 97.1 50 20 110/66 (81) 100 12/04/18 19:28 48 12/04/18 16:00 51 12/04/18 16:00 98.2 58 22 111/71 (84) 98 12/04/18 16:00 Nasal Cannula 2.0 12/04/18 12:09 53 12/04/18 12:00 Nasal Cannula 2.0 12/04/18 12:00 97.9 63 22 102/67 (79) 97 Objective: WDWN on oxygen extubated and stable clear breath sounds bilaterally without rhonchi or wheeze [id number] without MRG NABS nontender no HSM; no distention no CCE nonfocal, more alert skin noted reviewed and edited Matt Ramirez MD December 05, 2018 08:51
[2018-12-05] MEDS: Meropenem 1 GM in NS 110 ML IVPB SCH ×2 (09:13→20:24)
[2018-12-05] MEDS: Pantoprazole Inj IVP SCH ×2 (09:13→20:23)
[2018-12-05] MEDS: Heparin 5000 units/ml inj SUBQ SCH ×2 (09:14→20:25)
--- NOTE | 2018-12-05 10:18 | Infectious Diseases Prog Note ---
Assessment/Plan Assessment/Plan IMPRESSION: 1. E. coli sepsis. 2. Urinary tract infection, that seems to be complicated. 3. Acute renal failure, slowly improving 4. Left hydronephrosis, likely secondary to nephrolithiasis. 5. Septic shock, resolved 6. Anemia. 7. Acute respiratory failure, extubated RECOMMENDATION: We will continue meropenem until tonight Subjective ROS Limited/Unobtainable: No Constitutional: Reports: no symptoms Respiratory: Reports: no symptoms Gastrointestinal/Abdominal: Reports: no symptoms Genitourinary: Reports: no symptoms Allergies: Coded Allergies: No Known Allergies (Unverified , 11/25/18) Objective Vital Signs Last 24 Hour Vital Signs Date Time Temp Pulse Resp B/P (MAP) Pulse Ox O2 Delivery O2 Flow Rate FiO2 12/05/18 08:00 98.4 58 20 108/66 (80) 98 12/05/18 08:00 Room Air 12/05/18 07:31 55 12/05/18 04:00 Room Air 12/05/18 04:00 97.9 54 20 105/64 (78) 98 12/05/18 03:25 59 12/05/18 00:00 98.8 53 20 108/61 (77) 98 12/05/18 00:00 Nasal Cannula 2.0 12/04/18 23:45 55 12/04/18 20:00 Nasal Cannula 2.0 28 12/04/18 20:00 Nasal Cannula 2.0 12/04/18 20:00 97 Nasal Cannula 2.0 28 12/04/18 20:00 97.1 50 20 110/66 (81) 100 12/04/18 19:28 48 12/04/18 16:00 51 12/04/18 16:00 98.2 58 22 111/71 (84) 98 12/04/18 16:00 Nasal Cannula 2.0 12/04/18 12:09 53 12/04/18 12:00 Nasal Cannula 2.0 12/04/18 12:00 97.9 63 22 102/67 (79) 97 Height (Feet): 6 Height (Inches): 2.00 Weight (Pounds): 251 General Appearance: no acute distress Respiratory/Chest: lungs clear Cardiovascular: normal rate Abdomen: soft, non tender Extremities: other - mild pedal edema Neurologic/Psychiatric: alert, responsive Current Medications Medications (Trade) Dose Ordered Sig/Rikki Route PRN Reason Start Time Stop Time Status Last Admin Dose Admin Acetaminophen (Tylenol) 650 mg Q6H PRN ORAL Mild Pain/Temp > 100.5 12/01/18 20:54 12/31/18 20:53 Heparin Sodium (Porcine) (Heparin 5000 units/ml) 5,000 units EVERY 12 HOURS SUBQ 12/01/18 21:00 12/25/18 20:59 12/05/18 09:14 Lorazepam (Ativan 2mg/ml 1ml) 2 mg Q4H PRN IV For Anxiety 12/01/18 20:54 12/08/18 20:53 Meropenem 1 gm/ Sodium Chloride 110 ml @ 220 mls/hr Q12HR IVPB 12/03/18 21:00 12/05/18 23:59 12/05/18 09:13 Midazolam HCl (Versed 2mg/2ml vial) 2 mg Q4H PRN IVP Agitation 12/01/18 21:45 12/25/18 08:14 Pantoprazole (Protonix) 40 mg EVERY 12 HOURS IVP 12/01/18 21:00 12/25/18 08:59 12/05/18 09:13 Sandeep Faust MD December 05, 2018 10:18
[2018-12-05 12:00] VITALS: BP 106/63
--- NOTE | 2018-12-05 13:02 | Nephrology Progress Note ---
Assessment/Plan Plan GNR Urosepsis - IV Abx. Resolving. Slowly resolving ARF. Continue to monitor Per SNF his MS is unusual for him. Neuro eval. Psych eval. Repeat Creatinine clearance. Amulate. DVT PPX. Subjective Subjective No new c/o. Slightly improved appetite. Objective Objective Last 24 Hour Vital Signs Date Time Temp Pulse Resp B/P (MAP) Pulse Ox O2 Delivery O2 Flow Rate FiO2 12/05/18 12:00 98.2 49 24 106/63 (77) 99 12/05/18 12:00 Room Air 12/05/18 11:44 48 12/05/18 08:00 98.4 58 20 108/66 (80) 98 12/05/18 08:00 Room Air 12/05/18 07:31 55 12/05/18 04:00 Room Air 12/05/18 04:00 97.9 54 20 105/64 (78) 98 12/05/18 03:25 59 12/05/18 00:00 98.8 53 20 108/61 (77) 98 12/05/18 00:00 Nasal Cannula 2.0 12/04/18 23:45 55 12/04/18 20:00 Nasal Cannula 2.0 28 12/04/18 20:00 Nasal Cannula 2.0 12/04/18 20:00 97 Nasal Cannula 2.0 28 12/04/18 20:00 97.1 50 20 110/66 (81) 100 12/04/18 19:28 48 12/04/18 16:00 51 12/04/18 16:00 98.2 58 22 111/71 (84) 98 12/04/18 16:00 Nasal Cannula 2.0 Intake and Output 12/04/18 12/05/18 19:00 07:00 Intake Total 1020 ml 110 ml Output Total 2700 ml 2680 ml Balance -1680 ml -2570 ml Intake Oral 100 ml 0 ml IV Total 920 ml 110 ml Output Urine Total 2700 ml 2680 ml # Bowel Movements 1 2 Height (Feet): 6 Height (Inches): 2.00 Weight (Pounds): 251 Objective CV RR Lungs B wheezes Abd SNT. BS + E No CCE Vlad Gutierrez MD December 05, 2018 13:02
--- NOTE | 2018-12-05 13:26 | Consultation ---
History of Present Illness General Date patient seen: December 04, 2018 Time patient seen: 20:00 Chief Complaint: Altered Mental Status Present Illness HPI Mr Alexi Martinez is a 63-year-old male who is a fpc resident at [facility], who was admitted on 11/25/2018. He has a PMH significant for organic brain syndrome, history of foot osteomyelitis of the left foot, depression, alcohol abuse, and history of DVT of legs. He was noted to have SOB and altered mental status at nursing facility, a decrease in O2 saturation to 82%, was hypotensive, had a fever of 102.1 in the ER. He had a pulse rate of 123. Intubated in the ER, started on maximum dose of vasopressor and transferred to ICU. The patient at the time of admission had elevation in transaminase, acidosis, acute renal failure, and was intubated in ICU at [facility]. We are called to evaluate him for confusion post extubation in the stepdown unit of [facility]. At this time he is alert and conversant, oriented to himself. He is occasionally irritable and verbally confrontational but normal in conversation and following commands. Allergies: Coded Allergies: No Known Allergies (Unverified , 11/25/18) Medication History Scheduled Famotidine (Famotidine), 20 MG ORAL DAILY, (Reported) Gabapentin (Neurontin), 300 MG ORAL BID, (Reported) Rivaroxaban (Xarelto*), 10 MG ORAL DAILY, (Reported) Scheduled PRN Acetaminophen* (Acetaminophen 325MG Tablet*), 325 MG ORAL Q4H PRN for Pain Scale (3-5), (Reported) Acetaminophen* (Acetaminophen 325MG Tablet*), 325 MG ORAL Q4H PRN for Mild Pain/ Temp > 100.5, (Reported) Hydrocodone Bit/Acetaminophen 5-325* ([place] 5-325*), 1 TAB ORAL Q4H PRN for For Pain, (Reported) Miscellaneous Medications Dextran 70/Hypromellose (Artificial Tears), 1 EACH OP, (Reported) Patient History Limited by: medical condition History Provided By: Patient Healthcare decision maker Resuscitation status Full Code Advanced Directive on File Review of Systems Constitutional: Reports: weakness; Denies: no symptoms, see HPI, chills, sweats , fever, malaise, other Eye: Denies: no symptoms, see HPI, eye pain, blurred vision, tearing, double vision, nose pain, nose congestion, acuity changes, discharge, other ENT: Denies: no symptoms, see HPI, ear pain, ear discharge, nose pain, nose congestion, throat pain, throat swelling, mouth pain, hearing loss, nasal discharge, other Respiratory: Denies: no symptoms, see HPI, cough, orthopnea, shortness of breath, stridor, wheezing, ALLEN, sputum, other Cardiovascular: Denies: no symptoms, see HPI, chest pain, edema, palpitations, syncope, PND, other Gastrointestinal: Denies: no symptoms, see HPI, abdominal pain, constipation, diarrhea, nausea, vomiting, melena, hematemesis, other Genitourinary: Denies: no symptoms, see HPI, discharge, dysuria, frequency, hematuria, pain, retention, incontinence, urgency, vag bleed/dc, other Psychiatric: Denies: no symptoms, see HPI, prior hx, anxiety, depressed feelings, emotional problems, SI, HI, hallucinations, other Neurological: Reports: focal weakness; Denies: no symptoms, see HPI, headache, numbness, paresthesia, seizure, tingling, tremors, syncope, dizziness, other Endocrine: Denies: no symptoms, see HPI, excessive sweating, flushing, intolerance to temperature, increased thirst, increased urine, unexplained weight loss, other Hematologic/Lymphatic: Denies: no symptoms, see HPI, anemia, blood clots, easy bleeding, easy bruising, swollen glands, diathesis, other All Other Systems: negative except mentioned in HPI Physical Exam General Appearance: WD/WN, no apparent distress, alert, confused, agitated Lines, tubes and drains: peripheral HEENT: normocephalic, atraumatic, anicteric, mucous membranes moist, PERRL, EOMI, pharynx normal, supple, no JVD Neck: non-tender, normal alignment, supple, normal inspection Respiratory/Chest: no respiratory distress, no accessory muscle use Extremities: no calf tenderness, normal capillary refill, non-pitting, no edema , no cyanosis Skin Exam: normal pigmentation, warm/dry 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 He is somewhat confrontational in speech / demeanor He is appropriate in following directions and asking his own follow up questions. His exam is nonfocal as he reports that he was unable to walk at baseline secondary to multiple surgeries on his back and feet. Last 24 Hour Vital Signs Date Time Temp Pulse Resp B/P (MAP) Pulse Ox O2 Delivery O2 Flow Rate FiO2 12/05/18 12:00 98.2 49 24 106/63 (77) 99 12/05/18 12:00 Room Air 12/05/18 11:44 48 12/05/18 08:00 98.4 58 20 108/66 (80) 98 12/05/18 08:00 Room Air 12/05/18 07:31 55 12/05/18 04:00 Room Air 12/05/18 04:00 97.9 54 20 105/64 (78) 98 12/05/18 03:25 59 12/05/18 00:00 98.8 53 20 108/61 (77) 98 12/05/18 00:00 Nasal Cannula 2.0 12/04/18 23:45 55 12/04/18 20:00 Nasal Cannula 2.0 28 12/04/18 20:00 Nasal Cannula 2.0 12/04/18 20:00 97 Nasal Cannula 2.0 28 12/04/18 20:00 97.1 50 20 110/66 (81) 100 12/04/18 19:28 48 12/04/18 16:00 51 12/04/18 16:00 98.2 58 22 111/71 (84) 98 12/04/18 16:00 Nasal Cannula 2.0 Intake and Output 12/04/18 12/05/18 19:00 07:00 Intake Total 1020 ml 110 ml Output Total 2700 ml 2680 ml Balance -1680 ml -2570 ml Intake Oral 100 ml 0 ml IV Total 920 ml 110 ml Output Urine Total 2700 ml 2680 ml # Bowel Movements 1 2 Height (Feet): 6 Height (Inches): 2.00 Weight (Pounds): 251 Medications Current Medications Medications (Trade) Dose Ordered Sig/Rikki Route PRN Reason Start Time Stop Time Status Last Admin Dose Admin Acetaminophen (Tylenol) 650 mg Q6H PRN ORAL Mild Pain/Temp > 100.5 12/01/18 20:54 12/31/18 20:53 Heparin Sodium (Porcine) (Heparin 5000 units/ml) 5,000 units EVERY 12 HOURS SUBQ 12/01/18 21:00 12/25/18 20:59 12/05/18 09:14 Lorazepam (Ativan 2mg/ml 1ml) 2 mg Q4H PRN IV For Anxiety 12/01/18 20:54 12/08/18 20:53 Meropenem 1 gm/ Sodium Chloride 110 ml @ 220 mls/hr Q12HR IVPB 12/03/18 21:00 12/05/18 23:59 12/05/18 09:13 Midazolam HCl (Versed 2mg/2ml vial) 2 mg Q4H PRN IVP Agitation 12/01/18 21:45 12/25/18 08:14 Olanzapine (ZyPREXA) 5 mg BEDTIME ORAL 12/05/18 21:00 01/04/19 20:59 Pantoprazole (Protonix) 40 mg EVERY 12 HOURS IVP 12/01/18 21:00 12/25/18 08:59 12/05/18 09:13 Assessment/Plan Problem List: (1) UTI (urinary tract infection) ICD Codes: N39.0 - Urinary tract infection, site not specified SNOMED: 29841417 Qualifiers: Qualified Codes: N39.0 - Urinary tract infection, site not specified (2) Acute renal failure ICD Codes: N17.9 - Acute kidney failure, unspecified SNOMED: 33319488 Qualifiers: Qualified Codes: N17.9 - Acute kidney failure, unspecified (3) Hypoxia ICD Codes: R09.02 - Hypoxemia; R65.20 - Severe sepsis without septic shock SNOMED: 980119021, 708837175 (4) Elevated liver function tests ICD Codes: R94.5 - Abnormal results of liver function studies SNOMED: 268834262, 811437453 (5) Severe sepsis ICD Codes: A41.9 - Sepsis, unspecified organism; R65.20 - Severe sepsis without septic shock SNOMED: 15931791, 478587965 (6) NSTEMI (non-ST elevated myocardial infarction) ICD Codes: I21.4 - Non-ST elevation (NSTEMI) myocardial infarction; R65.20 - Severe sepsis without septic shock SNOMED: 23450476, 400399638 Status: stable Assessment/Plan: CT head ordered for confusion. Non focal exam at this time. Continue Q4 Hour neuro obs Check TSH Check HgBA1c Correct / Replete lytes Maintain normothermia Maintain normoglycemia with ISS Maintain SBP<140 Check B12 Desire Suarez N.P. December 05, 2018 13:26
[2018-12-05 16:00] VITALS: BP 111/57
[2018-12-05 16:08] LABS: CREATININE 2.8 MG/DL (0.55-1.30)
[2018-12-05 20:00] VITALS: BP 105/61
--- NOTE | 2018-12-05 22:06 | Cardiology Progress Note ---
Subjective Subjective The patient with episode of sinus bradycardia. Mostly when he is asleep. At present time no cardiac intervention is necessary. Will follow Objective Last 24 Hour Vital Signs Date Time Temp Pulse Resp B/P (MAP) Pulse Ox O2 Delivery O2 Flow Rate FiO2 12/05/18 20:00 98.1 57 20 105/61 (76) 100 12/05/18 20:00 Room Air 12/05/18 19:05 68 12/05/18 16:02 Room Air 12/05/18 16:00 49 12/05/18 16:00 97.7 51 22 111/57 (75) 97 12/05/18 12:00 98.2 49 24 106/63 (77) 99 12/05/18 12:00 Room Air 12/05/18 11:44 48 12/05/18 08:00 98.4 58 20 108/66 (80) 98 12/05/18 08:00 Room Air 12/05/18 07:31 55 12/05/18 04:00 Room Air 12/05/18 04:00 97.9 54 20 105/64 (78) 98 12/05/18 03:25 59 12/05/18 00:00 98.8 53 20 108/61 (77) 98 12/05/18 00:00 Nasal Cannula 2.0 12/04/18 23:45 55 Intake and Output 12/04/18 12/05/18 19:00 07:00 Intake Total 1020 ml 110 ml Output Total 2700 ml 2680 ml Balance -1680 ml -2570 ml Intake Oral 100 ml 0 ml IV Total 920 ml 110 ml Output Urine Total 2700 ml 2680 ml # Bowel Movements 1 2 Gracie Bunch MD December 05, 2018 22:06
--- NOTE | 2018-12-05 23:15 | Consultation ---
DATE OF CONSULTATION: 12/05/2018 CONSULTING PHYSICIAN: Elisabeth Ozuna M.D. HISTORY OF PRESENT ILLNESS: The patient is a 63-year-old male with a history of decubitus ulcer, DVT, osteomyelitis, depression, alcohol abuse, who has been admitted to the hospital due to COPD. The patient is somewhat confused, is a poor historian, presents with depressed mood, low appetite, waxing and waning consciousness, was a poor historian and was unable to provide any history. PAST PSYCHIATRIC HISTORY: Significant for depression as well as anxiety disorder. He is currently on benzodiazepines. PAST MEDICAL HISTORY: Significant for urinary tract infection, acute renal failure, hypoxia, sepsis, and non-ST elevated myocardial infarction. ALLERGIES: No known drug allergies. SUBSTANCE ABUSE HISTORY: No known history of illicit drug use or alcohol. MENTAL STATUS EXAMINATION: The patient is alert and oriented to times self. Mood is depressed. Affect is constricted, congruent with mood. Thought process is concrete. Thought content, no suicidal or homicidal ideation. ASSESSMENT: Sc[place] I Acute metabolic encephalopathy, major depressive disorder. Sc[place]ey II Deferred. Sc[place]ey III Altered mental status. [place] IV Low to moderate. [place]ey V . PLAN: 1. The patient will be started on mg at bedtime. 2. Prozac 20 mg in the morning. 3. Limit administering benzodiazepines, opiate pain medication as the patient has cognitive impairment. Elisabeth zOuna M.D. DR: CARLITA JOB#: [id number] CC:
[2018-12-06] VITALS: BP 110/66
[2018-12-06 04:00] VITALS: BP 115/65
[2018-12-06 05:11] LABS: BASOPHILS % (AUTO) 0.7 % (0.0-2.0); EOSINOPHILS % (AUTO) 3.1 % (0.0-3.0); HEMATOCRIT 31.8 % (42.0-52.0); HEMOGLOBIN 10.5 G/DL (14.2-18.0); LYMPHOCYTES % (AUTO) 15.8 % (20.0-45.0); MEAN CORPUSCULAR VOLUME 86 FL (80-99); MONOCYTES % (AUTO) 5.4 % (1.0-10.0); NEUTROPHILS % (AUTO) 74.9 % (45.0-75.0); PLATELET COUNT 582 K/UL (150-450); RED CELL DISTRIBUTION WIDTH 15.3 % (11.6-14.8); WHITE BLOOD COUNT 10.5 K/UL (4.8-10.8)
[2018-12-06 05:35] LABS: ANION GAP 8 mmol/L (5-15); BLOOD UREA NITROGEN 33 mg/dL (7-18); CARBON DIOXIDE 20 MMOL/L (21-32); CHLORIDE 106 MMOL/L (98-107); CREATININE 2.3 MG/DL (0.55-1.30); POTASSIUM 4.7 MMOL/L (3.5-5.1); SODIUM 134 MMOL/L (136-145)
[2018-12-06 08:00] VITALS: BP 104/57
[2018-12-06] MEDS: Pantoprazole Inj IVP SCH (08:59)
[2018-12-06] MEDS: Heparin 5000 units/ml inj SUBQ SCH ×2 (08:59→20:38)
--- NOTE | 2018-12-06 10:05 | Infectious Diseases Prog Note ---
Assessment/Plan Assessment/Plan antibiotics : none A 1. e.coli sepsis secondary to UTI s/p rx 2. e.coli UTI s/p rx 3. leucocytosis resolved 4. shock resolved 5. renal failure improving 6. left hydronephrosis 7. rectal VRE colonization P 1. observe off antibiotics Subjective Constitutional: Denies: fever, chills Respiratory: Denies: shortness of breath, dry cough Gastrointestinal/Abdominal: Denies: nausea, vomiting, diarrhea Musculoskeletal: Denies: pain Allergies: Coded Allergies: No Known Allergies (Unverified , 11/25/18) Objective Vital Signs Last 24 Hour Vital Signs Date Time Temp Pulse Resp B/P (MAP) Pulse Ox O2 Delivery O2 Flow Rate FiO2 12/06/18 08:00 Room Air 12/06/18 08:00 98.7 72 18 104/57 (73) 100 12/06/18 06:30 Room Air 21 12/06/18 06:30 Room Air 21 12/06/18 04:00 98.1 65 20 115/65 (82) 100 12/06/18 04:00 Room Air 12/06/18 03:34 55 12/06/18 00:00 Room Air 12/06/18 00:00 97.9 55 20 110/66 (81) 100 12/05/18 23:39 55 12/05/18 20:00 98.1 57 20 105/61 (76) 100 12/05/18 20:00 Room Air 12/05/18 19:05 68 12/05/18 16:02 Room Air 12/05/18 16:00 49 12/05/18 16:00 97.7 51 22 111/57 (75) 97 12/05/18 12:00 98.2 49 24 106/63 (77) 99 12/05/18 12:00 Room Air 12/05/18 11:44 48 Height (Feet): 6 Height (Inches): 2.00 Weight (Pounds): 245 Respiratory/Chest: lungs clear Cardiovascular: normal rate, regular rhythm, no gallop/murmur Abdomen: soft, non tender Extremities: no edema Laboratory Tests Test 12/06/18 03:25 White Blood Count 10.5 K/UL (4.8-10.8) Red Blood Count 3.70 M/UL (4.70-6.10) L Hemoglobin 10.5 G/DL (14.2-18.0) L Hematocrit 31.8 % (42.0-52.0) L Mean Corpuscular Volume 86 FL (80-99) Mean Corpuscular Hemoglobin 28.4 PG (27.0-31.0) Mean Corpuscular Hemoglobin Concent 33.1 G/DL (32.0-36.0) Red Cell Distribution Width 15.3 % (11.6-14.8) H Platelet Count 582 K/UL (150-450) H Mean Platelet Volume 7.2 FL (6.5-10.1) Neutrophils (%) (Auto) 74.9 % (45.0-75.0) Lymphocytes (%) (Auto) 15.8 % (20.0-45.0) L Monocytes (%) (Auto) 5.4 % (1.0-10.0) Eosinophils (%) (Auto) 3.1 % (0.0-3.0) H Basophils (%) (Auto) 0.7 % (0.0-2.0) Sodium Level 134 MMOL/L (136-145) L Potassium Level 4.7 MMOL/L (3.5-5.1) Chloride Level 106 MMOL/L (98-107) Carbon Dioxide Level 20 MMOL/L (21-32) L Anion Gap 8 mmol/L (5-15) Blood Urea Nitrogen 33 mg/dL (7-18) H Creatinine 2.3 MG/DL (0.55-1.30) H Estimat Glomerular Filtration Rate 29.1 mL/min (>60) Glucose Level 78 MG/DL (74-106) Calcium Level 9.0 MG/DL (8.5-10.1) Current Medications Medications (Trade) Dose Ordered Sig/Rikki Route PRN Reason Start Time Stop Time Status Last Admin Dose Admin Acetaminophen (Tylenol) 650 mg Q6H PRN ORAL Mild Pain/Temp > 100.5 12/01/18 20:54 12/31/18 20:53 Fluoxetine HCl (PROzac) 20 mg DAILY ORAL 12/06/18 09:00 01/05/19 08:59 12/06/18 08:59 Heparin Sodium (Porcine) (Heparin 5000 units/ml) 5,000 units EVERY 12 HOURS SUBQ 12/01/18 21:00 12/25/18 20:59 12/06/18 08:59 Lorazepam (Ativan 2mg/ml 1ml) 2 mg Q4H PRN IV For Anxiety 12/01/18 20:54 12/08/18 20:53 Midazolam HCl (Versed 2mg/2ml vial) 2 mg Q4H PRN IVP Agitation 12/01/18 21:45 12/25/18 08:14 Olanzapine (ZyPREXA) 5 mg BEDTIME ORAL 12/05/18 21:00 01/04/19 20:59 Pantoprazole (Protonix) 40 mg EVERY 12 HOURS IVP 12/01/18 21:00 12/25/18 08:59 12/06/18 08:59 Adilia Barnes MD December 06, 2018 10:05
[2018-12-06 12:00] VITALS: BP 100/60
--- NOTE | 2018-12-06 12:36 | Nephrology Progress Note ---
Assessment/Plan Plan GNR Urosepsis - IV Abx. Resolving. Slowly resolving ARF. Continue to monitor Per SNF his MS is unusual for him. Neuro eval. Psych eval. Repeat Creatinine clearance. Improving slowly. Metabolic encephalopathy with Major Depression. Ambulate. DVT PPX. Subjective Subjective No new c/o. Slightly improved appetite. Objective Objective Last 24 Hour Vital Signs Date Time Temp Pulse Resp B/P (MAP) Pulse Ox O2 Delivery O2 Flow Rate FiO2 12/06/18 12:00 98.2 84 18 100/60 (73) 98 12/06/18 12:00 Room Air 12/06/18 08:00 Room Air 12/06/18 08:00 98.7 72 18 104/57 (73) 100 12/06/18 07:20 56 12/06/18 06:30 Room Air 21 12/06/18 06:30 Room Air 21 12/06/18 04:00 98.1 65 20 115/65 (82) 100 12/06/18 04:00 Room Air 12/06/18 03:34 55 12/06/18 00:00 Room Air 12/06/18 00:00 97.9 55 20 110/66 (81) 100 12/05/18 23:39 55 12/05/18 20:00 98.1 57 20 105/61 (76) 100 12/05/18 20:00 Room Air 12/05/18 19:05 68 12/05/18 16:02 Room Air 12/05/18 16:00 49 12/05/18 16:00 97.7 51 22 111/57 (75) 97 Intake and Output 12/05/18 12/06/18 19:00 07:00 Intake Total 700 ml 410 ml Output Total 500 ml 2500 ml Balance 200 ml -2090 ml Intake Oral 700 ml 300 ml IV Total 110 ml Output Urine Total 500 ml 2500 ml # Bowel Movements 3 2 Laboratory Tests 12/06/18 03:25: White Blood Count 10.5, Red Blood Count 3.70L, Hemoglobin 10.5L, Hematocrit 31.8L, Mean Corpuscular Volume 86, Mean Corpuscular Hemoglobin 28.4, Mean Corpuscular Hemoglobin Concent 33.1, Red Cell Distribution Width 15.3H, Platelet Count 582H, Mean Platelet Volume 7.2, Neutrophils (%) (Auto) 74.9, Lymphocytes (%) (Auto) 15.8L, Monocytes (%) (Auto) 5.4, Eosinophils (%) (Auto) 3.1H, Basophils (%) (Auto) 0.7, Sodium Level 134L, Potassium Level 4.7, Chloride Level 106, Carbon Dioxide Level 20L, Anion Gap 8, Blood Urea Nitrogen 33H, Creatinine 2.3H, Estimat Glomerular Filtration Rate 29.1, Glucose Level 78 , Calcium Level 9.0 Height (Feet): 6 Height (Inches): 2.00 Weight (Pounds): 245 Objective CV RR Lungs B wheezes Abd SNT. BS + E No CCE Vlad Gutierrez MD December 06, 2018 12:36
--- NOTE | 2018-12-06 14:08 | Pulmonology Progress Note ---
Assessment/Plan Assessment/Plan Pulmonary Progress Note Assessment Respiratory failure, acute - improved hypoxemia on O2 hypotension possible sepsis NSTEMI transaminitis metabolic acidosis possible shock liver leukocytosis possible sepsis Plan care noted no distress at present IV antibiotics per ID reviewed cultures respiratory care monitor acid base supportive care repeat imaging for further clearing low flow oxygen medications/laboratory data/nursing notes reviewed in detail note reviewed and edited care discussed with RN and RT Critical Care - Subjective Condition: stable EKG Rhythm: Sinus Rhythm Vital Signs Noted Objective: WDWN on oxygen extubated and stable clear breath sounds bilaterally without rhonchi or wheeze [id number] without MRG NABS nontender no HSM; no distention no CCE nonfocal, more alert skin noted reviewed and edited Subjective ROS Limited/Unobtainable: No Allergies: Coded Allergies: No Known Allergies (Unverified , 11/25/18) Objective Last 24 Hour Vital Signs Date Time Temp Pulse Resp B/P (MAP) Pulse Ox O2 Delivery O2 Flow Rate FiO2 12/06/18 12:00 98.2 84 18 100/60 (73) 98 12/06/18 12:00 55 12/06/18 12:00 Room Air 12/06/18 08:00 Room Air 12/06/18 08:00 98.7 72 18 104/57 (73) 100 12/06/18 07:20 56 12/06/18 06:30 Room Air 21 12/06/18 06:30 Room Air 21 12/06/18 04:00 98.1 65 20 115/65 (82) 100 12/06/18 04:00 Room Air 12/06/18 03:34 55 12/06/18 00:00 Room Air 12/06/18 00:00 97.9 55 20 110/66 (81) 100 12/05/18 23:39 55 12/05/18 20:00 98.1 57 20 105/61 (76) 100 12/05/18 20:00 Room Air 12/05/18 19:05 68 12/05/18 16:02 Room Air 12/05/18 16:00 49 12/05/18 16:00 97.7 51 22 111/57 (75) 97 Intake and Output 12/05/18 12/06/18 19:00 07:00 Intake Total 700 ml 410 ml Output Total 500 ml 2500 ml Balance 200 ml -2090 ml Intake Oral 700 ml 300 ml IV Total 110 ml Output Urine Total 500 ml 2500 ml # Bowel Movements 3 2 Laboratory Tests 12/06/18 03:25: White Blood Count 10.5, Red Blood Count 3.70L, Hemoglobin 10.5L, Hematocrit 31.8L, Mean Corpuscular Volume 86, Mean Corpuscular Hemoglobin 28.4, Mean Corpuscular Hemoglobin Concent 33.1, Red Cell Distribution Width 15.3H, Platelet Count 582H, Mean Platelet Volume 7.2, Neutrophils (%) (Auto) 74.9, Lymphocytes (%) (Auto) 15.8L, Monocytes (%) (Auto) 5.4, Eosinophils (%) (Auto) 3.1H, Basophils (%) (Auto) 0.7, Sodium Level 134L, Potassium Level 4.7, Chloride Level 106, Carbon Dioxide Level 20L, Anion Gap 8, Blood Urea Nitrogen 33H, Creatinine 2.3H, Estimat Glomerular Filtration Rate 29.1, Glucose Level 78 , Calcium Level 9.0 Current Medications Medications (Trade) Dose Ordered Sig/Rikki Route PRN Reason Start Time Stop Time Status Last Admin Dose Admin Acetaminophen (Tylenol) 650 mg Q6H PRN ORAL Mild Pain/Temp > 100.5 12/01/18 20:54 12/31/18 20:53 Fluoxetine HCl (PROzac) 20 mg DAILY ORAL 12/06/18 09:00 01/05/19 08:59 12/06/18 08:59 Heparin Sodium (Porcine) (Heparin 5000 units/ml) 5,000 units EVERY 12 HOURS SUBQ 12/01/18 21:00 12/25/18 20:59 12/06/18 08:59 Lorazepam (Ativan 2mg/ml 1ml) 2 mg Q4H PRN IV For Anxiety 12/01/18 20:54 12/08/18 20:53 Midazolam HCl (Versed 2mg/2ml vial) 2 mg Q4H PRN IVP Agitation 12/01/18 21:45 12/25/18 08:14 Olanzapine (ZyPREXA) 5 mg BEDTIME ORAL 12/05/18 21:00 01/04/19 20:59 Pantoprazole (Protonix) 40 mg Q12HR ORAL 12/06/18 21:00 01/05/19 20:59 Carl Key MD December 06, 2018 14:08
[2018-12-06 16:00] VITALS: BP 100/60
--- NOTE | 2018-12-06 19:31 | Progress Note ---
DATE: 12/06/2018 SUBJECTIVE: The patient is still somewhat confused. He knows that he is in the hospital. He knows his name and date of . Disoriented to date. The patient has poor appetite. He has had his Ensure today 5 bottles. He stated that he has low appetite. His mood is irritable and has poor memory and has difficulty processing information given to him. MENTAL STATUS EXAMINATION: Alert and oriented times self, place, poor insight into the situation he is in. Mood is irritable and depressed. Affect is constricted. Thought process, there is a paucity of thought content. Thought content, no suicidal or homicidal ideations. He is paranoid. Memory is impaired. ASSESSMENT: 1. Chronic encephalopathy. 2. Major depressive disorder. PLAN: 1. We will continue Prozac 20 mg in the morning. 2. Continue Zyprexa 5 mg at bedtime. 3. Provide the patient with reality orientation and supportive therapy. Elisabeth Ozuna M.D. DR: Anjelica JOB#: [id number] CC:
[2018-12-06 20:00] VITALS: BP 110/64
--- NOTE | 2018-12-06 22:40 | Cardiology Progress Note ---
Assessment/Plan Assessment/Plan sinus bradycardia, probably baseline. No intervention Subjective Subjective the patient does not have cardiac coplaints. mostly compalining on weakness. Objective Last 24 Hour Vital Signs Date Time Temp Pulse Resp B/P (MAP) Pulse Ox O2 Delivery O2 Flow Rate FiO2 12/06/18 20:00 99.1 54 24 110/64 (79) 94 12/06/18 20:00 Room Air 12/06/18 19:21 53 12/06/18 16:00 Room Air 12/06/18 16:00 52 12/06/18 16:00 97.3 60 18 100/60 (73) 98 12/06/18 12:00 98.2 84 18 100/60 (73) 98 12/06/18 12:00 55 12/06/18 12:00 Room Air 12/06/18 08:00 Room Air 12/06/18 08:00 98.7 72 18 104/57 (73) 100 12/06/18 07:20 56 12/06/18 06:30 Room Air 21 12/06/18 06:30 Room Air 21 12/06/18 04:00 98.1 65 20 115/65 (82) 100 12/06/18 04:00 Room Air 12/06/18 03:34 55 12/06/18 00:00 Room Air 12/06/18 00:00 97.9 55 20 110/66 (81) 100 12/05/18 23:39 55 General Appearance: other - lethargic and confused EENT: PERRL/EOMI Neck: no JVD Rhythm: SB Cardiovascular: bradycardia Respiratory/Chest: crackles/rales Abdomen: no organomegaly Extremities: other - feet deforities Intake and Output 12/05/18 12/06/18 19:00 07:00 Intake Total 700 ml 410 ml Output Total 500 ml 2500 ml Balance 200 ml -2090 ml Intake Oral 700 ml 300 ml IV Total 110 ml Output Urine Total 500 ml 2500 ml # Bowel Movements 3 2 Laboratory Tests Test 12/06/18 03:25 White Blood Count 10.5 K/UL (4.8-10.8) Red Blood Count 3.70 M/UL (4.70-6.10) L Hemoglobin 10.5 G/DL (14.2-18.0) L Hematocrit 31.8 % (42.0-52.0) L Mean Corpuscular Volume 86 FL (80-99) Mean Corpuscular Hemoglobin 28.4 PG (27.0-31.0) Mean Corpuscular Hemoglobin Concent 33.1 G/DL (32.0-36.0) Red Cell Distribution Width 15.3 % (11.6-14.8) H Platelet Count 582 K/UL (150-450) H Mean Platelet Volume 7.2 FL (6.5-10.1) Neutrophils (%) (Auto) 74.9 % (45.0-75.0) Lymphocytes (%) (Auto) 15.8 % (20.0-45.0) L Monocytes (%) (Auto) 5.4 % (1.0-10.0) Eosinophils (%) (Auto) 3.1 % (0.0-3.0) H Basophils (%) (Auto) 0.7 % (0.0-2.0) Sodium Level 134 MMOL/L (136-145) L Potassium Level 4.7 MMOL/L (3.5-5.1) Chloride Level 106 MMOL/L (98-107) Carbon Dioxide Level 20 MMOL/L (21-32) L Anion Gap 8 mmol/L (5-15) Blood Urea Nitrogen 33 mg/dL (7-18) H Creatinine 2.3 MG/DL (0.55-1.30) H Estimat Glomerular Filtration Rate 29.1 mL/min (>60) Glucose Level 78 MG/DL (74-106) Calcium Level 9.0 MG/DL (8.5-10.1) Gracie Bunch MD December 06, 2018 22:40
--- NOTE | 2018-12-06 23:47 | Neurology Progress Note ---
Interim History Interim History ROS Limited/Unobtainable: No Complaints: AMS Events: None new -resting in bed all day Interim History This visit was performed on November with Dr. Zeus Garnica Objective Physical Exam Last Vital Signs Date Time Temp Pulse Resp B/P (MAP) Pulse Ox O2 Delivery O2 Flow Rate FiO2 12/06/18 20:00 99.1 54 24 110/64 (79) 94 12/06/18 20:00 Room Air 12/06/18 06:30 21 12/05/18 00:00 2.0 Laboratory Tests Test 12/06/18 03:25 White Blood Count 10.5 K/UL (4.8-10.8) Red Blood Count 3.70 M/UL (4.70-6.10) L Hemoglobin 10.5 G/DL (14.2-18.0) L Hematocrit 31.8 % (42.0-52.0) L Mean Corpuscular Volume 86 FL (80-99) Mean Corpuscular Hemoglobin 28.4 PG (27.0-31.0) Mean Corpuscular Hemoglobin Concent 33.1 G/DL (32.0-36.0) Red Cell Distribution Width 15.3 % (11.6-14.8) H Platelet Count 582 K/UL (150-450) H Mean Platelet Volume 7.2 FL (6.5-10.1) Neutrophils (%) (Auto) 74.9 % (45.0-75.0) Lymphocytes (%) (Auto) 15.8 % (20.0-45.0) L Monocytes (%) (Auto) 5.4 % (1.0-10.0) Eosinophils (%) (Auto) 3.1 % (0.0-3.0) H Basophils (%) (Auto) 0.7 % (0.0-2.0) Sodium Level 134 MMOL/L (136-145) L Potassium Level 4.7 MMOL/L (3.5-5.1) Chloride Level 106 MMOL/L (98-107) Carbon Dioxide Level 20 MMOL/L (21-32) L Anion Gap 8 mmol/L (5-15) Blood Urea Nitrogen 33 mg/dL (7-18) H Creatinine 2.3 MG/DL (0.55-1.30) H Estimat Glomerular Filtration Rate 29.1 mL/min (>60) Glucose Level 78 MG/DL (74-106) Calcium Level 9.0 MG/DL (8.5-10.1) General: well developed, well nourished, no acute distress Head: normocophalic, atraumatic Neck: no rigidity EENT: benign Neurologic Exam Mental Status: awake, alert, oriented x4, normal cognition, good mathematical skills, normal recent memory, normal remote memory, preserved visuospatial function Speech: normal speech, no dysarthia Language: normal language, no aphasia Cranial Nerve II: fundus normal, visual evans, no papilledema Cranial Nerves III, IV, : PERRLA, EOMI, pupils Cranial Nerve V: normal facial sensations, temporales function normal, masseters function normal, pterygoids function normal Cranial Nerve VII: no facial asymmetry, normal facial expressions Cranial Nerve VIII: normal hearing, no nystagmus Cranial Nerve IX: normal palate elevation, gag response Cranial Nerve X: no voice hoarseness Cranial Nerve XI: SCM symmetric, trapezii function normal Cranial Nerve XII: tongue midline, no tongue atrophy/fasciculations Motor System: normal muscle tone, no involuntary movement Sensory: normal pinprick, normal light touch, normal position sense, normal graphesthesia Coordination: normal finger to nose bilaterally, normal heel to ruth bilaterally, negative Romberg test Deep Tendon Reflexes: 1+ bicep (L), 1+ bicep (R), 1+ tricep (L), 1+ tricep (R) , 1+ brachioradialis (L), 1+ brachioradialis (R), 1+ knee (L), 1+ knee (R), 1+ ankle (L), 1+ ankle (R) Reflexes: flexor plantar (L), flexor plantar (R); extensor plantar (L), extensor plantar (R) Stance: normal Gait: stable, normal regular, heel + toe gait Objective Bilateral LE weakness - greatest at hip flexors but AG bilaterally - unable to ambulate Impression/Recommendations Problems: (1) UTI (urinary tract infection) (2) Acute renal failure (3) Hypoxia (4) Elevated liver function tests (5) Severe sepsis (6) NSTEMI (non-ST elevated myocardial infarction) Status: stable Recommendations Continue Q4 Hr Neuro Obs HgB>8 Maintain normothermia Maintain normoglycemia Check TSH No indication for CT/ MRI at this time. PT Eval Psych Eval SBP< 140 Abx as per Desire Palmer N.P. December 06, 2018 23:47
[2018-12-07] VITALS: BP 112/58
[2018-12-07 04:00] VITALS: BP 106/62
[2018-12-07 06:10] LABS: BASOPHILS % (AUTO) 0.9 % (0.0-2.0); EOSINOPHILS % (AUTO) 2.3 % (0.0-3.0); HEMATOCRIT 31.6 % (42.0-52.0); HEMOGLOBIN 10.5 G/DL (14.2-18.0); LYMPHOCYTES % (AUTO) 20.1 % (20.0-45.0); MEAN CORPUSCULAR VOLUME 85 FL (80-99); MONOCYTES % (AUTO) 4.5 % (1.0-10.0); NEUTROPHILS % (AUTO) 72.3 % (45.0-75.0); PLATELET COUNT 537 K/UL (150-450); RED BLOOD COUNT 3.72 M/UL (4.70-6.10); WHITE BLOOD COUNT 10.9 K/UL (4.8-10.8)
[2018-12-07 06:29] LABS: ANION GAP 11 mmol/L (5-15); BLOOD UREA NITROGEN 33 mg/dL (7-18); CALCIUM 9.1 MG/DL (8.5-10.1); CARBON DIOXIDE 20 MMOL/L (21-32); CHLORIDE 105 MMOL/L (98-107); CREATININE 2.2 MG/DL (0.55-1.30); POTASSIUM 4.8 MMOL/L (3.5-5.1); SODIUM 136 MMOL/L (136-145)
[2018-12-07 08:00] VITALS: BP 91/51
[2018-12-07] MEDS: Heparin 5000 units/ml inj SUBQ SCH ×2 (08:30→20:10)
--- NOTE | 2018-12-07 10:26 | Nephrology Progress Note ---
Assessment/Plan Plan GNR Urosepsis - IV Abx. Resolving. Slowly resolving ARF. Continue to monitor Per SNF his MS is unusual for him. Neuro eval. Psych eval. Repeat Creatinine clearance. Improving slowly. Metabolic encephalopathy with Major Depression. Ambulate. DVT PPX. Subjective Subjective No new c/o. Slightly improved appetite. Objective Objective Last 24 Hour Vital Signs Date Time Temp Pulse Resp B/P (MAP) Pulse Ox O2 Delivery O2 Flow Rate FiO2 12/07/18 09:05 97 Room Air 21 12/07/18 09:05 Room Air 21 12/07/18 08:00 Room Air 12/07/18 08:00 98.8 69 21 91/51 (64) 95 12/07/18 08:00 60 12/07/18 04:02 55 12/07/18 04:00 99.0 57 20 106/62 (77) 98 12/07/18 04:00 Room Air 12/07/18 00:00 Room Air 12/07/18 00:00 98.7 53 24 112/58 (76) 97 12/06/18 23:36 57 12/06/18 20:16 Nasal Cannula 2.0 28 12/06/18 20:16 98 Nasal Cannula 2.0 28 12/06/18 20:00 99.1 54 24 110/64 (79) 94 12/06/18 20:00 Room Air 12/06/18 19:21 53 12/06/18 16:00 Room Air 12/06/18 16:00 52 12/06/18 16:00 97.3 60 18 100/60 (73) 98 12/06/18 12:00 98.2 84 18 100/60 (73) 98 12/06/18 12:00 55 12/06/18 12:00 Room Air Intake and Output 12/06/18 12/07/18 18:59 06:59 Intake Total 948 ml 240 ml Output Total 1800 ml 2000 ml Balance -852 ml -1760 ml Intake Oral 240 ml Other 948 ml Output Urine Total 1800 ml 2000 ml Laboratory Tests 12/07/18 04:52: White Blood Count 10.9H, Red Blood Count 3.72L, Hemoglobin 10.5L, Hematocrit 31.6L, Mean Corpuscular Volume 85, Mean Corpuscular Hemoglobin 28.2, Mean Corpuscular Hemoglobin Concent 33.1, Red Cell Distribution Width 15.0H, Platelet Count 537H, Mean Platelet Volume 7.6, Neutrophils (%) (Auto) 72.3, Lymphocytes (%) (Auto) 20.1, Monocytes (%) (Auto) 4.5, Eosinophils (%) (Auto) 2.3, Basophils (%) (Auto) 0.9, Sodium Level 136, Potassium Level 4.8, Chloride Level 105, Carbon Dioxide Level 20L, Anion Gap 11, Blood Urea Nitrogen 33H, Creatinine 2.2H, Estimat Glomerular Filtration Rate 30.6, Glucose Level 94, Calcium Level 9.1 Height (Feet): 6 Height (Inches): 2.00 Weight (Pounds): 246 Objective CV RR Lungs B wheezes Abd SNT. BS + E No CCE Vlad Gutierrez MD December 07, 2018 10:26
[2018-12-07 12:00] VITALS: BP 97/55
[2018-12-07 16:00] VITALS: BP 114/67
--- NOTE | 2018-12-07 16:43 | Pulmonology Progress Note ---
Assessment/Plan Assessment/Plan Pulmonary Progress Note Assessment Respiratory failure, acute - improved hypoxemia on O2 hypotension possible sepsis NSTEMI transaminitis metabolic acidosis possible shock liver leukocytosis possible sepsis Plan care noted no distress at present IV antibiotics per ID reviewed cultures respiratory care monitor acid base supportive care repeat imaging for further clearing low flow oxygen medications/laboratory data/nursing notes reviewed in detail note reviewed and edited care discussed with RN and RT Critical Care - Subjective Condition: stable EKG Rhythm: Sinus Rhythm Vital Signs Noted Objective: WDWN on oxygen extubated and stable clear breath sounds bilaterally without rhonchi or wheeze [id number] without MRG NABS nontender no HSM; no distention no CCE nonfocal, more alert skin noted reviewed and edited Subjective ROS Limited/Unobtainable: No Allergies: Coded Allergies: No Known Allergies (Unverified , 11/25/18) Objective Last 24 Hour Vital Signs Date Time Temp Pulse Resp B/P (MAP) Pulse Ox O2 Delivery O2 Flow Rate FiO2 12/07/18 16:00 57 12/07/18 16:00 Room Air 12/07/18 12:00 88 12/07/18 12:00 Room Air 12/07/18 12:00 98.5 74 22 97/55 (69) 98 12/07/18 09:05 97 Room Air 21 12/07/18 09:05 Room Air 21 12/07/18 08:00 Room Air 12/07/18 08:00 98.8 69 21 91/51 (64) 95 12/07/18 08:00 60 12/07/18 04:02 55 12/07/18 04:00 99.0 57 20 106/62 (77) 98 12/07/18 04:00 Room Air 12/07/18 00:00 Room Air 12/07/18 00:00 98.7 53 24 112/58 (76) 97 12/06/18 23:36 57 12/06/18 20:16 Nasal Cannula 2.0 28 12/06/18 20:16 98 Nasal Cannula 2.0 28 12/06/18 20:00 99.1 54 24 110/64 (79) 94 12/06/18 20:00 Room Air 12/06/18 19:21 53 Intake and Output 12/06/18 12/07/18 19:00 07:00 Intake Total 948 ml 240 ml Output Total 1800 ml 2000 ml Balance -852 ml -1760 ml Intake Oral 240 ml Other 948 ml Output Urine Total 1800 ml 2000 ml Laboratory Tests 12/07/18 04:52: White Blood Count 10.9H, Red Blood Count 3.72L, Hemoglobin 10.5L, Hematocrit 31.6L, Mean Corpuscular Volume 85, Mean Corpuscular Hemoglobin 28.2, Mean Corpuscular Hemoglobin Concent 33.1, Red Cell Distribution Width 15.0H, Platelet Count 537H, Mean Platelet Volume 7.6, Neutrophils (%) (Auto) 72.3, Lymphocytes (%) (Auto) 20.1, Monocytes (%) (Auto) 4.5, Eosinophils (%) (Auto) 2.3, Basophils (%) (Auto) 0.9, Sodium Level 136, Potassium Level 4.8, Chloride Level 105, Carbon Dioxide Level 20L, Anion Gap 11, Blood Urea Nitrogen 33H, Creatinine 2.2H, Estimat Glomerular Filtration Rate 30.6, Glucose Level 94, Calcium Level 9.1 Current Medications Medications (Trade) Dose Ordered Sig/Rikki Route PRN Reason Start Time Stop Time Status Last Admin Dose Admin Acetaminophen (Tylenol) 650 mg Q6H PRN ORAL Mild Pain/Temp > 100.5 12/01/18 20:54 12/31/18 20:53 Fluoxetine HCl (PROzac) 20 mg DAILY ORAL 12/06/18 09:00 01/05/19 08:59 12/07/18 08:27 Heparin Sodium (Porcine) (Heparin 5000 units/ml) 5,000 units EVERY 12 HOURS SUBQ 12/01/18 21:00 12/25/18 20:59 12/07/18 08:30 Lorazepam (Ativan 2mg/ml 1ml) 2 mg Q4H PRN IV For Anxiety 12/01/18 20:54 12/08/18 20:53 Midazolam HCl (Versed 2mg/2ml vial) 2 mg Q4H PRN IVP Agitation 12/01/18 21:45 12/25/18 08:14 Olanzapine (ZyPREXA) 5 mg BEDTIME ORAL 12/05/18 21:00 01/04/19 20:59 12/06/18 20:36 Pantoprazole (Protonix) 40 mg Q12HR ORAL 5/24/19 21:00 01/05/19 20:59 12/07/18 08:27 Carl Key MD December 07, 2018 16:43
[2018-12-07 20:00] VITALS: BP 122/70
--- NOTE | 2018-12-07 23:48 | Neurology Progress Note ---
Interim History Interim History ROS Limited/Unobtainable: No Complaints: AMS Events: This visit was performed on November with Dr. Garnica Objective Physical Exam Last Vital Signs Date Time Temp Pulse Resp B/P (MAP) Pulse Ox O2 Delivery O2 Flow Rate FiO2 12/07/18 20:00 66 12/07/18 20:00 Room Air 12/07/18 20:00 98.1 20 122/70 (87) 99 12/07/18 09:05 21 12/06/18 20:16 2.0 Laboratory Tests Test 12/07/18 04:52 White Blood Count 10.9 K/UL (4.8-10.8) H Red Blood Count 3.72 M/UL (4.70-6.10) L Hemoglobin 10.5 G/DL (14.2-18.0) L Hematocrit 31.6 % (42.0-52.0) L Mean Corpuscular Volume 85 FL (80-99) Mean Corpuscular Hemoglobin 28.2 PG (27.0-31.0) Mean Corpuscular Hemoglobin Concent 33.1 G/DL (32.0-36.0) Red Cell Distribution Width 15.0 % (11.6-14.8) H Platelet Count 537 K/UL (150-450) H Mean Platelet Volume 7.6 FL (6.5-10.1) Neutrophils (%) (Auto) 72.3 % (45.0-75.0) Lymphocytes (%) (Auto) 20.1 % (20.0-45.0) Monocytes (%) (Auto) 4.5 % (1.0-10.0) Eosinophils (%) (Auto) 2.3 % (0.0-3.0) Basophils (%) (Auto) 0.9 % (0.0-2.0) Sodium Level 136 MMOL/L (136-145) Potassium Level 4.8 MMOL/L (3.5-5.1) Chloride Level 105 MMOL/L (98-107) Carbon Dioxide Level 20 MMOL/L (21-32) L Anion Gap 11 mmol/L (5-15) Blood Urea Nitrogen 33 mg/dL (7-18) H Creatinine 2.2 MG/DL (0.55-1.30) H Estimat Glomerular Filtration Rate 30.6 mL/min (>60) Glucose Level 94 MG/DL (74-106) Calcium Level 9.1 MG/DL (8.5-10.1) Neurologic Exam Mental Status: awake, alert, oriented x4, normal cognition, good mathematical skills, normal recent memory, normal remote memory, preserved visuospatial function Speech: normal speech, no dysarthia Language: normal language, no aphasia Cranial Nerve II: fundus normal, visual evans, no papilledema Cranial Nerves III, IV, : PERRLA, EOMI, pupils Cranial Nerve V: normal facial sensations, temporales function normal, masseters function normal, pterygoids function normal Cranial Nerve VII: no facial asymmetry, normal facial expressions Cranial Nerve VIII: normal hearing, no nystagmus Cranial Nerve IX: normal palate elevation, gag response Cranial Nerve X: no voice hoarseness Cranial Nerve XI: SCM symmetric, trapezii function normal Cranial Nerve XII: tongue midline, no tongue atrophy/fasciculations Motor System: no involuntary movement - Bilateral LE weakness - AG BLE and BUE - but non ambulatory , no muscle wasting Sensory: normal pinprick, normal light touch, normal position sense, normal graphesthesia Coordination: normal finger to nose bilaterally, normal heel to ruth bilaterally, negative Romberg test Deep Tendon Reflexes: 2+ bicep (L), 2+ bicep (R), 2+ tricep (L), 2+ tricep (R) , 2+ brachioradialis (L), 2+ brachioradialis (R), 2+ knee (L), 2+ knee (R), 2+ ankle (L), 2+ ankle (R) Stance: normal Gait: stable, normal regular, heel + toe gait Impression/Recommendations Problems: (1) UTI (urinary tract infection) (2) Acute renal failure (3) Hypoxia (4) Elevated liver function tests (5) Severe sepsis (6) NSTEMI (non-ST elevated myocardial infarction) Status: stable Recommendations Continue Q4 Hr Neuro Obs HgB>8 Maintain normothermia Maintain normoglycemia Abx as per ID Replace/ Replete Lytes PT Eval Psych Eval SBP< 140 Abx as per ID Desire Suarez N.P. December 07, 2018 23:48
[2018-12-08] VITALS: BP 107/61
--- NOTE | 2018-12-08 02:15 | Progress Note ---
DATE: 12/07/2018 SUBJECTIVE: The patient is presenting with cognitive impairment, memory impairment. Still has low appetite. Easily agitated. The patient is still refusing medications and has poor insight and judgment into his current medical condition. MENTAL STATUS EXAMINATION: The patient is alert and oriented to self, place, and situation. Mood is irritable. Affect is constricted. Congruent mood. Thought process is concrete. Thought content, no suicidal or homicidal ideations. Memory is impaired. ASSESSMENT: 1. Chronic encephalopathy. 2. Depression. 3. Poor appetite. PLAN: The patient lacks capacity to refuse any medication. If the patient is refusing any medication, medication . Elisabeth Ozuna M.D. DR: PREETI JOB#: [id number] CC:
[2018-12-08 04:00] VITALS: BP 102/62
[2018-12-08 08:00] VITALS: BP 93/50
[2018-12-08] MEDS ORDERED: 1/2 NS 1000ml IV ONE (08:09)
[2018-12-08] MEDS ORDERED: NS 275ml ONE (08:09)
[2018-12-08] MEDS ORDERED: Tubing IV Secondary IV ONE (08:09)
[2018-12-08] MEDS: Heparin 5000 units/ml inj SUBQ SCH ×2 (08:19→20:59)
--- NOTE | 2018-12-08 09:50 | Infectious Diseases Prog Note ---
Assessment/Plan Assessment/Plan IMPRESSION: 1. E. coli sepsis. 2. Urinary tract infection, that seems to be complicated. 3. Acute renal failure, slowly improving 4. Left hydronephrosis, likely secondary to nephrolithiasis. 5. Septic shock, resolved 6. Anemia. 7. Acute respiratory failure, extubated RECOMMENDATION: Observe off antibiotic Subjective ROS Limited/Unobtainable: No Constitutional: Reports: no symptoms Respiratory: Reports: no symptoms Cardiovascular: Reports: no symptoms Gastrointestinal/Abdominal: Reports: no symptoms Allergies: Coded Allergies: No Known Allergies (Unverified , 11/25/18) Objective Vital Signs Last 24 Hour Vital Signs Date Time Temp Pulse Resp B/P (MAP) Pulse Ox O2 Delivery O2 Flow Rate FiO2 12/08/18 08:00 Room Air 12/08/18 08:00 98.2 68 19 93/50 (64) 98 12/08/18 08:00 70 12/08/18 04:00 Room Air 12/08/18 04:00 79 12/08/18 04:00 98.1 73 19 102/62 (75) 99 12/08/18 00:00 83 12/08/18 00:00 Room Air 12/08/18 00:00 98.0 83 20 107/61 (76) 99 12/07/18 20:00 66 12/07/18 20:00 Room Air 12/07/18 20:00 98.1 90 20 122/70 (87) 99 12/07/18 16:00 97.9 59 21 114/67 (83) 98 12/07/18 16:00 57 12/07/18 16:00 Room Air 12/07/18 12:00 88 12/07/18 12:00 Room Air 12/07/18 12:00 98.5 74 22 97/55 (69) 98 Height (Feet): 6 Height (Inches): 2.00 Weight (Pounds): 246 General Appearance: no acute distress HEENT: mucous membranes moist Respiratory/Chest: lungs clear Cardiovascular: normal rate Abdomen: soft, non tender Genitourinary: other - Arguelles catheter Extremities: no edema Neurologic/Psychiatric: alert, responsive Current Medications Medications (Trade) Dose Ordered Sig/Rikki Route PRN Reason Start Time Stop Time Status Last Admin Dose Admin Acetaminophen (Tylenol) 650 mg Q6H PRN ORAL Mild Pain/Temp > 100.5 5/19/19 20:54 12/31/18 20:53 Fluoxetine HCl (PROzac) 20 mg DAILY ORAL 12/06/18 09:00 01/05/19 08:59 12/08/18 08:19 Heparin Sodium (Porcine) (Heparin 5000 units/ml) 5,000 units EVERY 12 HOURS SUBQ 12/01/18 21:00 12/25/18 20:59 12/08/18 08:19 Lorazepam (Ativan 2mg/ml 1ml) 2 mg Q4H PRN IV For Anxiety 12/01/18 20:54 12/08/18 20:53 Midazolam HCl (Versed 2mg/2ml vial) 2 mg Q4H PRN IVP Agitation 12/01/18 21:45 12/25/18 08:14 Olanzapine (ZyPREXA) 5 mg BEDTIME ORAL 12/05/18 21:00 01/04/19 20:59 12/07/18 20:08 Pantoprazole (Protonix) 40 mg Q12HR ORAL 12/06/18 21:00 01/05/19 20:59 12/08/18 08:20 Sandeep Faust MD December 08, 2018 09:50
--- NOTE | 2018-12-08 10:10 | Nephrology Progress Note ---
Assessment/Plan Plan Slowly resolving ARF. Continue to monitor Per SNF his MS is unusual for him. Neuro eval. Psych eval. Repeat Creatinine clearance. Improving slowly. Metabolic encephalopathy with Major Depression. Ambulate. DVT PPX. Subjective Subjective No new c/o. Slightly improved appetite. Refusing blood draw. Objective Objective Last 24 Hour Vital Signs Date Time Temp Pulse Resp B/P (MAP) Pulse Ox O2 Delivery O2 Flow Rate FiO2 12/08/18 08:00 Room Air 12/08/18 08:00 98.2 68 19 93/50 (64) 98 12/08/18 08:00 70 12/08/18 04:00 Room Air 12/08/18 04:00 79 12/08/18 04:00 98.1 73 19 102/62 (75) 99 12/08/18 00:00 83 12/08/18 00:00 Room Air 12/08/18 00:00 98.0 83 20 107/61 (76) 99 12/07/18 20:00 66 12/07/18 20:00 Room Air 12/07/18 20:00 98.1 90 20 122/70 (87) 99 12/07/18 16:00 97.9 59 21 114/67 (83) 98 12/07/18 16:00 57 12/07/18 16:00 Room Air 12/07/18 12:00 88 12/07/18 12:00 Room Air 12/07/18 12:00 98.5 74 22 97/55 (69) 98 Intake and Output 12/07/18 12/08/18 19:00 07:00 Intake Total 1100 ml Output Total 2000 ml 2500 ml Balance -900 ml -2500 ml Intake Oral 100 ml IV Total 1000 ml Output Urine Total 2000 ml 2500 ml # Bowel Movements 2 Height (Feet): 6 Height (Inches): 2.00 Weight (Pounds): 246 Objective CV RR Lungs B wheezes Abd SNT. BS + E No CCE Vlad Gutierrez MD December 08, 2018 10:10
[2018-12-08 11:53] VITALS: BP 102/59
[2018-12-08 16:00] VITALS: BP 101/64
--- NOTE | 2018-12-08 18:40 | Pulmonology Progress Note ---
Assessment/Plan Assessment/Plan Pulmonary Progress Note Assessment Respiratory failure, acute - improved hypoxemia on O2 hypotension possible sepsis NSTEMI transaminitis metabolic acidosis possible shock liver leukocytosis possible sepsis Plan care noted no distress at present IV antibiotics per ID reviewed cultures respiratory care monitor acid base supportive care repeat imaging for further clearing low flow oxygen medications/laboratory data/nursing notes reviewed in detail note reviewed and edited care discussed with RN and RT Critical Care - Subjective Condition: stable EKG Rhythm: Sinus Rhythm Vital Signs Noted Objective: WDWN on oxygen extubated and stable clear breath sounds bilaterally without rhonchi or wheeze [id number] without MRG NABS nontender no HSM; no distention no CCE nonfocal, more alert skin noted reviewed and edited Subjective ROS Limited/Unobtainable: No Allergies: Coded Allergies: No Known Allergies (Unverified , 11/25/18) Objective Last 24 Hour Vital Signs Date Time Temp Pulse Resp B/P (MAP) Pulse Ox O2 Delivery O2 Flow Rate FiO2 12/08/18 16:00 97.8 57 21 101/64 (76) 96 12/08/18 16:00 52 12/08/18 15:51 Room Air 12/08/18 12:00 54 12/08/18 11:58 Room Air 12/08/18 11:53 97.9 60 20 102/59 (73) 97 12/08/18 09:48 Room Air 12/08/18 09:47 96 Room Air 21 12/08/18 08:00 Room Air 12/08/18 08:00 98.2 68 19 93/50 (64) 98 12/08/18 08:00 70 12/08/18 04:00 Room Air 12/08/18 04:00 79 12/08/18 04:00 98.1 73 19 102/62 (75) 99 12/08/18 00:00 83 12/08/18 00:00 Room Air 12/08/18 00:00 98.0 83 20 107/61 (76) 99 12/07/18 20:00 66 12/07/18 20:00 Room Air 12/07/18 20:00 98.1 90 20 122/70 (87) 99 Intake and Output 12/07/18 12/08/18 19:00 07:00 Intake Total 1100 ml Output Total 2000 ml 2500 ml Balance -900 ml -2500 ml Intake Oral 100 ml IV Total 1000 ml Output Urine Total 2000 ml 2500 ml # Bowel Movements 2 Current Medications Medications (Trade) Dose Ordered Sig/Rikki Route PRN Reason Start Time Stop Time Status Last Admin Dose Admin Acetaminophen (Tylenol) 650 mg Q6H PRN ORAL Mild Pain/Temp > 100.5 12/01/18 20:54 12/31/18 20:53 Fluoxetine HCl (PROzac) 20 mg DAILY ORAL 12/06/18 09:00 01/05/19 08:59 12/08/18 08:19 Heparin Sodium (Porcine) (Heparin 5000 units/ml) 5,000 units EVERY 12 HOURS SUBQ 12/01/18 21:00 12/25/18 20:59 12/08/18 08:19 Lorazepam (Ativan 2mg/ml 1ml) 2 mg Q4H PRN IV For Anxiety 12/01/18 20:54 12/08/18 20:53 Midazolam HCl (Versed 2mg/2ml vial) 2 mg Q4H PRN IVP Agitation 12/01/18 21:45 12/25/18 08:14 Olanzapine (ZyPREXA) 5 mg BEDTIME ORAL 12/05/18 21:00 01/04/19 20:59 12/07/18 20:08 Pantoprazole (Protonix) 40 mg Q12HR ORAL 12/06/18 21:00 01/05/19 20:59 12/08/18 08:20 Carl eKy MD December 08, 2018 18:40
[2018-12-08 20:00] VITALS: BP 104/57
--- NOTE | 2018-12-08 23:44 | Neurology Progress Note ---
Interim History Interim History ROS Limited/Unobtainable: No Complaints: AMS Events: This visit was performed on November with Dr. Garnica Objective Physical Exam Last Vital Signs Date Time Temp Pulse Resp B/P (MAP) Pulse Ox O2 Delivery O2 Flow Rate FiO2 12/08/18 20:00 Room Air 12/08/18 20:00 97.8 62 21 104/57 (73) 100 12/08/18 09:47 21 12/06/18 20:16 2.0 General: well developed, well nourished, no acute distress Head: normocophalic, atraumatic Neck: no rigidity EENT: benign Neurologic Exam Mental Status: awake, alert, oriented x4, normal cognition, good mathematical skills, normal recent memory, normal remote memory, preserved visuospatial function Speech: normal speech, no dysarthia Language: normal language, no aphasia Cranial Nerve II: fundus normal, visual evans, no papilledema Cranial Nerves III, IV, : PERRLA, EOMI, pupils Cranial Nerve V: normal facial sensations, temporales function normal, masseters function normal, pterygoids function normal Cranial Nerve VII: no facial asymmetry, normal facial expressions Cranial Nerve VIII: normal hearing, no nystagmus Cranial Nerve IX: normal palate elevation, gag response Cranial Nerve X: no voice hoarseness Cranial Nerve XI: SCM symmetric, trapezii function normal Cranial Nerve XII: tongue midline, no tongue atrophy/fasciculations Motor System: no involuntary movement - Bilateral LE weakness - AG BLE and BUE - but non ambulatory , no muscle wasting Sensory: normal pinprick, normal light touch, normal position sense, normal graphesthesia Coordination: normal finger to nose bilaterally, normal heel to ruth bilaterally, negative Romberg test Deep Tendon Reflexes: 2+ bicep (L), 2+ bicep (R), 2+ tricep (L), 2+ tricep (R) , 2+ brachioradialis (L), 2+ brachioradialis (R), 2+ knee (L), 2+ knee (R), 2+ ankle (L), 2+ ankle (R) Reflexes: flexor plantar (L), flexor plantar (R); extensor plantar (L), extensor plantar (R) Stance: normal Gait: stable, normal regular, heel + toe gait Objective Bilateral LE weakness - greatest at hip flexors but AG bilaterally - unable to ambulate Impression/Recommendations Problems: (1) UTI (urinary tract infection) (2) Acute renal failure (3) Hypoxia (4) Elevated liver function tests (5) Severe sepsis (6) NSTEMI (non-ST elevated myocardial infarction) Status: stable Recommendations Continue Q4 Hr Neuro Obs HgB>8 Maintain normothermia Maintain normoglycemia Abx as per ID Replace/ Replete Lytes PT Eval Psych Eval SBP< 140 Abx as per ID Desire Suarez N.P. December 08, 2018 23:44
[2018-12-09] VITALS: BP 101/66
[2018-12-09 04:00] VITALS: BP 103/56
--- NOTE | 2018-12-09 05:15 | Progress Note ---
DATE: 12/08/2018 SUBJECTIVE: The patient was more interacting today. He continues to have poor memory and is forgetful. He has low appetite. Continues to take medications sporadically. MENTAL STATUS EXAMINATION: The patient is alert, oriented times, self, place, and situation. He is forgetful. Mood is irritable. Affect is constricted, congruent with mood. Thought process is concrete. Thought content, no suicidal, or homicidal ideation. ASSESSMENT: Major depressive disorder, failure to thrive, low appetite. PLAN: We will continue Prozac. Continue the Zyprexa. Provide the patient with reality orientation and supportive therapy. Elisabeth Ozuna M.D. DR: JORGE A JOB#: [id number] CC:
[2018-12-09 08:00] VITALS: BP 105/57
[2018-12-09] MEDS: Heparin 5000 units/ml inj SUBQ SCH ×2 (08:06→20:42)
--- NOTE | 2018-12-09 08:17 | Nephrology Progress Note ---
Assessment/Plan Plan Slowly resolving ARF. Continue to monitor Per SNF his MS is unusual for him. Neuro eval. Psych eval. Repeat Creatinine clearance. Improving slowly. Metabolic encephalopathy with Major Depression. Ambulate. DVT PPX. Subjective Subjective No new c/o. Objective Objective Last 24 Hour Vital Signs Date Time Temp Pulse Resp B/P (MAP) Pulse Ox O2 Delivery O2 Flow Rate FiO2 12/09/18 04:00 98.6 56 21 103/56 (72) 100 12/09/18 04:00 Room Air 12/09/18 04:00 56 12/09/18 00:00 Room Air 12/09/18 00:00 98.0 57 21 101/66 (78) 100 12/09/18 00:00 58 12/08/18 20:00 Room Air 12/08/18 20:00 97.8 62 21 104/57 (73) 100 12/08/18 20:00 61 12/08/18 16:00 97.8 57 21 101/64 (76) 96 12/08/18 16:00 52 12/08/18 15:51 Room Air 12/08/18 12:00 54 12/08/18 11:58 Room Air 12/08/18 11:53 97.9 60 20 102/59 (73) 97 12/08/18 09:48 Room Air 12/08/18 09:47 96 Room Air 21 Intake and Output 12/08/18 12/09/18 19:00 07:00 Intake Total 700 ml 240 ml Output Total 1200 ml 1900 ml Balance -500 ml -1660 ml Intake Oral 700 ml 240 ml Output Urine Total 1200 ml 1900 ml # Bowel Movements 2 Height (Feet): 6 Height (Inches): 2.00 Weight (Pounds): 240 Objective CV RR Lungs B wheezes Abd SNT. BS + E No CCE Vlad Gutierrez MD December 09, 2018 08:17
--- NOTE | 2018-12-09 09:20 | Critical Care Progress Note ---
Assessment/Plan Assessment/Plan Respiratory failure resolved hypoxemia NSTEMI transaminitis metabolic acidosis PLAN care noted no distress at present respiratory care monitor acid base supportive care repeat imaging PRN low flow oxygen medications/laboratory data/nursing notes reviewed in detail note reviewed and edited care discussed with RN and RT Critical Care - Subjective Condition: stable EKG Rhythm: Sinus Rhythm I&O: Intake and Output 12/08/18 12/09/18 19:00 07:00 Intake Total 700 ml 240 ml Output Total 1200 ml 1900 ml Balance -500 ml -1660 ml Intake Oral 700 ml 240 ml Output Urine Total 1200 ml 1900 ml # Bowel Movements 2 Critical Care - Objective ET-Tube: 7.5 ET Position: 24 Last 24 Hour Vital Signs Date Time Temp Pulse Resp B/P (MAP) Pulse Ox O2 Delivery O2 Flow Rate FiO2 12/09/18 04:00 98.6 56 21 103/56 (72) 100 12/09/18 04:00 Room Air 12/09/18 04:00 56 12/09/18 00:00 Room Air 12/09/18 00:00 98.0 57 21 101/66 (78) 100 12/09/18 00:00 58 12/08/18 20:00 Room Air 12/08/18 20:00 97.8 62 21 104/57 (73) 100 12/08/18 20:00 61 12/08/18 16:00 97.8 57 21 101/64 (76) 96 12/08/18 16:00 52 12/08/18 15:51 Room Air 12/08/18 12:00 54 12/08/18 11:58 Room Air 12/08/18 11:53 97.9 60 20 102/59 (73) 97 12/08/18 09:48 Room Air 12/08/18 09:47 96 Room Air 21 Objective: WDWN on oxygen clear breath sounds bilaterally without rhonchi or wheeze [id number] without MRG NABS nontender no HSM; no distention no CCE nonfocal, more alert skin noted reviewed and edited Matt Ramirez MD December 09, 2018 09:20
[2018-12-09 12:00] VITALS: BP 106/71
--- NOTE | 2018-12-09 15:56 | Cardiology Progress Note ---
Assessment/Plan Assessment/Plan stable from cardiac [place] troponin elevation most likely was due to sepsis Subjective Subjective the patient does not have cardiac coplaints. mostly compalining on weakness. Objective Last 24 Hour Vital Signs Date Time Temp Pulse Resp B/P (MAP) Pulse Ox O2 Delivery O2 Flow Rate FiO2 12/09/18 12:00 97.6 70 24 106/71 (83) 94 12/09/18 12:00 73 12/09/18 12:00 Room Air 12/09/18 08:00 Room Air 12/09/18 08:00 98.2 62 24 105/57 (73) 97 12/09/18 08:00 59 12/09/18 07:15 97 Nasal Cannula 2.0 28 12/09/18 07:15 Nasal Cannula 2.0 28 12/09/18 04:00 98.6 56 21 103/56 (72) 100 12/09/18 04:00 Room Air 12/09/18 04:00 56 12/09/18 00:00 Room Air 12/09/18 00:00 98.0 57 21 101/66 (78) 100 12/09/18 00:00 58 12/08/18 20:00 Room Air 12/08/18 20:00 97.8 62 21 104/57 (73) 100 12/08/18 20:00 61 12/08/18 16:00 97.8 57 21 101/64 (76) 96 12/08/18 16:00 52 General Appearance: other - [id number] EENT: PERRL/EOMI Neck: no JVD Rhythm: SB Cardiovascular: normal rate, systolic murmur Respiratory/Chest: rhonchi - left - mild Extremities: other - feet deformities Intake and Output 12/08/18 12/09/18 18:59 06:59 Intake Total 700 ml 240 ml Output Total 1200 ml 1900 ml Balance -500 ml -1660 ml Intake Oral 700 ml 240 ml Output Urine Total 1200 ml 1900 ml # Bowel Movements 2 Gracie Bunch MD December 09, 2018 15:56
[2018-12-09 16:00] VITALS: BP 99/61
[2018-12-09 16:14] LABS: BASOPHILS % (AUTO) 2.2 % (0.0-2.0); EOSINOPHILS % (AUTO) 2.8 % (0.0-3.0); HEMATOCRIT 29.7 % (42.0-52.0); HEMOGLOBIN 10.3 G/DL (14.2-18.0); LYMPHOCYTES % (AUTO) 24.7 % (20.0-45.0); MEAN CORPUSCULAR VOLUME 83 FL (80-99); MONOCYTES % (AUTO) 4.1 % (1.0-10.0); NEUTROPHILS % (AUTO) 66.2 % (45.0-75.0); PLATELET COUNT 501 K/UL (150-450); RED CELL DISTRIBUTION WIDTH 14.6 % (11.6-14.8); WHITE BLOOD COUNT 9.8 K/UL (4.8-10.8)
[2018-12-09 16:21] LABS: ANION GAP 9 mmol/L (5-15); BLOOD UREA NITROGEN 34 mg/dL (7-18); CALCIUM 9.1 MG/DL (8.5-10.1); CARBON DIOXIDE 24 MMOL/L (21-32); CHLORIDE 101 MMOL/L (98-107); CREATININE 2.1 MG/DL (0.55-1.30); POTASSIUM 4.6 MMOL/L (3.5-5.1); SODIUM 134 MMOL/L (136-145)
[2018-12-09 20:00] VITALS: BP 101/56
--- NOTE | 2018-12-09 22:47 | Neurology Progress Note ---
Interim History Interim History ROS Limited/Unobtainable: No Complaints: AMS Events: This visit was performed on November with Dr. Garnica Interim History Patient still has not been out of bed. He remains intermittently irritable but expresses a desire for PT. Denies pain currently. Objective Physical Exam Last Vital Signs Date Time Temp Pulse Resp B/P (MAP) Pulse Ox O2 Delivery O2 Flow Rate FiO2 12/09/18 20:00 97.7 58 24 101/56 (71) 100 12/09/18 20:00 Room Air 12/09/18 07:15 2.0 28 Laboratory Tests Test 12/09/18 15:45 White Blood Count 9.8 K/UL (4.8-10.8) Red Blood Count 3.60 M/UL (4.70-6.10) L Hemoglobin 10.3 G/DL (14.2-18.0) L Hematocrit 29.7 % (42.0-52.0) L Mean Corpuscular Volume 83 FL (80-99) Mean Corpuscular Hemoglobin 28.5 PG (27.0-31.0) Mean Corpuscular Hemoglobin Concent 34.5 G/DL (32.0-36.0) Red Cell Distribution Width 14.6 % (11.6-14.8) Platelet Count 501 K/UL (150-450) H Mean Platelet Volume 6.7 FL (6.5-10.1) Neutrophils (%) (Auto) 66.2 % (45.0-75.0) Lymphocytes (%) (Auto) 24.7 % (20.0-45.0) Monocytes (%) (Auto) 4.1 % (1.0-10.0) Eosinophils (%) (Auto) 2.8 % (0.0-3.0) Basophils (%) (Auto) 2.2 % (0.0-2.0) H Sodium Level 134 MMOL/L (136-145) L Potassium Level 4.6 MMOL/L (3.5-5.1) Chloride Level 101 MMOL/L (98-107) Carbon Dioxide Level 24 MMOL/L (21-32) Anion Gap 9 mmol/L (5-15) Blood Urea Nitrogen 34 mg/dL (7-18) H Creatinine 2.1 MG/DL (0.55-1.30) H Estimat Glomerular Filtration Rate 32.3 mL/min (>60) Glucose Level 108 MG/DL (74-106) H Calcium Level 9.1 MG/DL (8.5-10.1) General: well developed, well nourished, no acute distress Head: normocophalic, atraumatic Neck: no rigidity EENT: benign Neurologic Exam Mental Status: awake, alert, oriented x4, normal cognition, good mathematical skills, normal recent memory, normal remote memory, preserved visuospatial function Speech: normal speech, no dysarthia Language: normal language, no aphasia Cranial Nerve II: fundus normal, visual evans, no papilledema Cranial Nerves III, IV, : PERRLA, EOMI, pupils Cranial Nerve V: normal facial sensations, temporales function normal, masseters function normal, pterygoids function normal Cranial Nerve VII: no facial asymmetry, normal facial expressions Cranial Nerve VIII: normal hearing, no nystagmus Cranial Nerve IX: normal palate elevation, gag response Cranial Nerve X: no voice hoarseness Cranial Nerve XI: SCM symmetric, trapezii function normal Cranial Nerve XII: tongue midline, no tongue atrophy/fasciculations Motor System: no involuntary movement - Bilateral LE weakness - AG BLE and BUE - but non ambulatory , no muscle wasting Sensory: normal pinprick, normal light touch, normal position sense, normal graphesthesia Coordination: normal finger to nose bilaterally, normal heel to ruth bilaterally, negative Romberg test Deep Tendon Reflexes: 2+ bicep (L), 2+ bicep (R), 2+ tricep (L), 2+ tricep (R) , 2+ brachioradialis (L), 2+ brachioradialis (R), 2+ knee (L), 2+ knee (R), 2+ ankle (L), 2+ ankle (R) Reflexes: flexor plantar (L), flexor plantar (R); extensor plantar (L), extensor plantar (R) Stance: normal Gait: stable, normal regular, heel + toe gait Objective Bilateral LE weakness - greatest at hip flexors but AG bilaterally - unable to ambulate Impression/Recommendations Problems: (1) UTI (urinary tract infection) (2) Acute renal failure (3) Hypoxia (4) Elevated liver function tests (5) Severe sepsis (6) NSTEMI (non-ST elevated myocardial infarction) Status: stable Recommendations Continue Q4 Hr Neuro Obs HgB>8 Maintain normothermia Maintain normoglycemia Abx as per ID Replace/ Replete Lytes Psych Eval SBP< 140 Abx as per ID PT ORDERED Recommend OOB as able w/ air liaison and special staff - Desire Suarez N.P. December 09, 2018 22:47
[2018-12-10] VITALS: BP 108/60
--- NOTE | 2018-12-10 03:45 | Progress Note ---
DATE: 12/09/2018 SUBJECTIVE: The patient was resting, in no acute distress. He was non-cooperative this afternoon. The patient still has no appetite. The patient actually has been noncompliant and has been also anxious. . MENTAL STATUS EXAMINATION: The patient is alert and oriented x3. Mood is irritable and depressed. Affect is constricted. Congruent mood. Thought process is concrete. Thought content, no suicidal or homicidal ideation. Memory is impaired. ASSESSMENT: Major depressive disorder, failure to thrive. PLAN: We will continue the current medication and encouraged him to eat. . Elisabeth Ozuna M.D. DR: PREETI JOB#: [id number] CC:
[2018-12-10 04:00] VITALS: BP 110/66
--- NOTE | 2018-12-10 07:52 | Critical Care Progress Note ---
Assessment/Plan Assessment/Plan Respiratory failure resolved hypoxemia NSTEMI transaminitis metabolic acidosis PLAN care noted no distress at present respiratory care as is monitor acid base supportive care repeat imaging PRN low flow oxygen as is medications/laboratory data/nursing notes reviewed in detail note reviewed and edited care discussed with RN and RT Critical Care - Subjective Condition: stable EKG Rhythm: Sinus Rhythm I&O: Intake and Output 12/09/18 12/10/18 19:00 07:00 Intake Total 360 ml Output Total 2100 ml 1700 ml Balance -2100 ml -1340 ml Intake Oral 360 ml Output Urine Total 2100 ml 1700 ml # Bowel Movements 2 Critical Care - Objective ET-Tube: 7.5 ET Position: 24 Last 24 Hour Vital Signs Date Time Temp Pulse Resp B/P (MAP) Pulse Ox O2 Delivery O2 Flow Rate FiO2 12/10/18 04:00 98.1 57 24 110/66 (81) 99 12/10/18 04:00 68 12/10/18 04:00 Room Air 12/10/18 00:00 Room Air 12/10/18 00:00 63 12/10/18 00:00 97.7 56 24 108/60 (76) 100 12/09/18 20:00 97.7 58 24 101/56 (71) 100 12/09/18 20:00 Room Air 12/09/18 20:00 61 12/09/18 16:00 Room Air 12/09/18 16:00 53 12/09/18 16:00 98.0 63 24 99/61 (74) 100 12/09/18 12:00 97.6 70 24 106/71 (83) 94 12/09/18 12:00 73 12/09/18 12:00 Room Air 12/09/18 08:00 Room Air 12/09/18 08:00 98.2 62 24 105/57 (73) 97 12/09/18 08:00 59 Labs: Laboratory Tests Test 12/09/18 15:45 White Blood Count 9.8 K/UL (4.8-10.8) Red Blood Count 3.60 M/UL (4.70-6.10) L Hemoglobin 10.3 G/DL (14.2-18.0) L Hematocrit 29.7 % (42.0-52.0) L Mean Corpuscular Volume 83 FL (80-99) Mean Corpuscular Hemoglobin 28.5 PG (27.0-31.0) Mean Corpuscular Hemoglobin Concent 34.5 G/DL (32.0-36.0) Red Cell Distribution Width 14.6 % (11.6-14.8) Platelet Count 501 K/UL (150-450) H Mean Platelet Volume 6.7 FL (6.5-10.1) Neutrophils (%) (Auto) 66.2 % (45.0-75.0) Lymphocytes (%) (Auto) 24.7 % (20.0-45.0) Monocytes (%) (Auto) 4.1 % (1.0-10.0) Eosinophils (%) (Auto) 2.8 % (0.0-3.0) Basophils (%) (Auto) 2.2 % (0.0-2.0) H Sodium Level 134 MMOL/L (136-145) L Potassium Level 4.6 MMOL/L (3.5-5.1) Chloride Level 101 MMOL/L (98-107) Carbon Dioxide Level 24 MMOL/L (21-32) Anion Gap 9 mmol/L (5-15) Blood Urea Nitrogen 34 mg/dL (7-18) H Creatinine 2.1 MG/DL (0.55-1.30) H Estimat Glomerular Filtration Rate 32.3 mL/min (>60) Glucose Level 108 MG/DL (74-106) H Calcium Level 9.1 MG/DL (8.5-10.1) Objective: WDWN on oxygen clear breath sounds bilaterally without rhonchi or wheeze [id number] without MRG NABS nontender no HSM; no distention no CCE nonfocal, more alert skin noted reviewed and edited Matt Ramirez MD December 10, 2018 07:51
[2018-12-10] MEDS: Heparin 5000 units/ml inj SUBQ SCH ×2 (09:00→20:10)
--- NOTE | 2018-12-10 10:46 | Infectious Diseases Prog Note ---
Assessment/Plan Assessment/Plan antibiotics : none A 1. e.coli sepsis secondary to UTI s/p rx 2. e.coli UTI s/p rx 3. leucocytosis resolved 4. shock resolved 5. renal failure improving 6. left hydronephrosis 7. rectal VRE colonization P 1. observe off antibiotics Subjective Constitutional: Denies: fever, chills Respiratory: Denies: shortness of breath, dry cough Gastrointestinal/Abdominal: Denies: nausea, vomiting, diarrhea Musculoskeletal: Denies: pain Allergies: Coded Allergies: No Known Allergies (Unverified , 11/25/18) Objective Vital Signs Last 24 Hour Vital Signs Date Time Temp Pulse Resp B/P (MAP) Pulse Ox O2 Delivery O2 Flow Rate FiO2 12/10/18 04:00 98.1 57 24 110/66 (81) 99 12/10/18 04:00 68 12/10/18 04:00 Room Air 12/10/18 00:00 Room Air 12/10/18 00:00 63 12/10/18 00:00 97.7 56 24 108/60 (76) 100 12/09/18 20:00 97.7 58 24 101/56 (71) 100 12/09/18 20:00 Room Air 12/09/18 20:00 61 12/09/18 16:00 Room Air 12/09/18 16:00 53 12/09/18 16:00 98.0 63 24 99/61 (74) 100 12/09/18 12:00 97.6 70 24 106/71 (83) 94 12/09/18 12:00 73 12/09/18 12:00 Room Air Height (Feet): 6 Height (Inches): 2.00 Weight (Pounds): 246 Respiratory/Chest: lungs clear Cardiovascular: normal rate, regular rhythm, no gallop/murmur Abdomen: soft, non tender Extremities: no edema Laboratory Tests Test 12/09/18 15:45 White Blood Count 9.8 K/UL (4.8-10.8) Red Blood Count 3.60 M/UL (4.70-6.10) L Hemoglobin 10.3 G/DL (14.2-18.0) L Hematocrit 29.7 % (42.0-52.0) L Mean Corpuscular Volume 83 FL (80-99) Mean Corpuscular Hemoglobin 28.5 PG (27.0-31.0) Mean Corpuscular Hemoglobin Concent 34.5 G/DL (32.0-36.0) Red Cell Distribution Width 14.6 % (11.6-14.8) Platelet Count 501 K/UL (150-450) H Mean Platelet Volume 6.7 FL (6.5-10.1) Neutrophils (%) (Auto) 66.2 % (45.0-75.0) Lymphocytes (%) (Auto) 24.7 % (20.0-45.0) Monocytes (%) (Auto) 4.1 % (1.0-10.0) Eosinophils (%) (Auto) 2.8 % (0.0-3.0) Basophils (%) (Auto) 2.2 % (0.0-2.0) H Sodium Level 134 MMOL/L (136-145) L Potassium Level 4.6 MMOL/L (3.5-5.1) Chloride Level 101 MMOL/L (98-107) Carbon Dioxide Level 24 MMOL/L (21-32) Anion Gap 9 mmol/L (5-15) Blood Urea Nitrogen 34 mg/dL (7-18) H Creatinine 2.1 MG/DL (0.55-1.30) H Estimat Glomerular Filtration Rate 32.3 mL/min (>60) Glucose Level 108 MG/DL (74-106) H Calcium Level 9.1 MG/DL (8.5-10.1) Current Medications Medications (Trade) Dose Ordered Sig/Rikki Route PRN Reason Start Time Stop Time Status Last Admin Dose Admin Acetaminophen (Tylenol) 650 mg Q6H PRN ORAL Mild Pain/Temp > 100.5 12/01/18 20:54 12/31/18 20:53 Fluoxetine HCl (PROzac) 20 mg DAILY ORAL 12/06/18 09:00 01/05/19 08:59 12/09/18 08:03 Heparin Sodium (Porcine) (Heparin 5000 units/ml) 5,000 units EVERY 12 HOURS SUBQ 12/01/18 21:00 12/25/18 20:59 12/09/18 20:42 Midazolam HCl (Versed 2mg/2ml vial) 2 mg Q4H PRN IVP Agitation 12/01/18 21:45 12/25/18 08:14 Olanzapine (ZyPREXA) 5 mg BEDTIME ORAL 12/05/18 21:00 01/04/19 20:59 12/09/18 20:43 Pantoprazole (Protonix) 40 mg Q12HR ORAL 12/06/18 21:00 01/05/19 20:59 12/09/18 20:43 Adilia Barnes MD December 10, 2018 10:46
--- NOTE | 2018-12-10 13:25 | Diagnostic Imaging Report ---
Indication: Altered mental status Technique: Contiguous 5 mm thick transaxial imaging of the head obtained in a Siemens Sensation [address] scanner. Soft tissue and bone windows generated. Automatic Exposure Control was utilized. Total Dose length Product (DLP): [address] Dose Index Volume (CTDIvol): 70.38 mGy Comparison: none Findings: Extensive a craniectomy has been performed in the bifrontal regions and supraorbital regions bilaterally. There is extensive encephalomalacia of the frontal lobes bilaterally. Ex vacuo dilatation of the frontal horns of both lateral ventricles noted. There is a implanted metallic flap over the frontal craniotomy. There is no mass effect or edema definitely identified. There is no midline shift or evidence of acute intracranial hemorrhage. There is generalized atrophy as well. The cerebrum and cerebellum equally involved. Basal cisterns are prominent. IMPRESSION: No obvious mass effect or edema or evidence of acute intracranial hemorrhage. Extensive bifrontal encephalomalacia presumably on the basis of previous craniectomy/craniotomy which appears extensive involving the frontal bone. Generalized mild atrophy of the brain also noted. Note: The study was received for review and dictation 12/10/[address] scanner at [facility] is accredited by the [employer] and the scans are performed using dose optimization techniques as appropriate to a performed exam including Automatic Exposure control.
[2018-12-10 16:00] VITALS: BP 103/61
--- NOTE | 2018-12-10 16:01 | Cardiology Report ---
APPROVED REPORT EKG Measurement Heart [id number] FL [id number] Normal sinus rhythm Normal ECG
--- NOTE | 2018-12-10 16:44 | Nephrology Progress Note ---
Assessment/Plan Plan Refusing blood draw for RN but not to me - to resent tech now. Slowly resolving ARF. Continue to monitor Per SNF his MS is unusual for him. Neuro eval. Psych eval. Repeat Creatinine clearance. Improving slowly. Metabolic encephalopathy with Major Depression. Ambulate. DVT PPX. Subjective Subjective No new c/o. Objective Objective Last 24 Hour Vital Signs Date Time Temp Pulse Resp B/P (MAP) Pulse Ox O2 Delivery O2 Flow Rate FiO2 12/10/18 16:00 Room Air 12/10/18 12:00 Room Air 12/10/18 12:00 62 12/10/18 08:00 62 12/10/18 08:00 Room Air 12/10/18 04:00 98.1 57 24 110/66 (81) 99 12/10/18 04:00 68 12/10/18 04:00 Room Air 12/10/18 00:00 Room Air 12/10/18 00:00 63 12/10/18 00:00 97.7 56 24 108/60 (76) 100 12/09/18 20:00 97.7 58 24 101/56 (71) 100 12/09/18 20:00 Room Air 12/09/18 20:00 61 Intake and Output 12/09/18 12/10/18 18:59 06:59 Intake Total 360 ml Output Total 2100 ml 1700 ml Balance -2100 ml -1340 ml Intake Oral 360 ml Output Urine Total 2100 ml 1700 ml # Bowel Movements 2 Height (Feet): 6 Height (Inches): 2.00 Weight (Pounds): 246 Objective CV RR Lungs B wheezes Abd SNT. BS + E No CCE Vlad Gutierrez MD December 10, 2018 16:44
[2018-12-10] MEDS ORDERED: Tubing IV Secondary IV ONE (17:23)
[2018-12-10] MEDS ORDERED: NS 275ml ONE (17:23)
--- NOTE | 2018-12-10 17:43 | Neurology Progress Note ---
Interim History Interim History ROS Limited/Unobtainable: No Complaints: AMS Events: This visit was performed on December 10, [address] Garnica Interim History Awaiting PT visit - no complaints, fully oriented Objective Physical Exam Last Vital Signs Date Time Temp Pulse Resp B/P (MAP) Pulse Ox O2 Delivery O2 Flow Rate FiO2 12/10/18 16:00 Room Air 12/10/18 16:00 63 12/10/18 16:00 98.3 22 103/61 (75) 99 12/09/18 07:15 2.0 28 General: well developed, well nourished, no acute distress Head: normocophalic, atraumatic Neck: no rigidity EENT: benign Neurologic Exam Mental Status: awake, alert, oriented x4, normal cognition, good mathematical skills, normal recent memory, normal remote memory, preserved visuospatial function Speech: normal speech, no dysarthia Language: normal language, no aphasia Cranial Nerve II: fundus normal, visual evans, no papilledema Cranial Nerves III, IV, : PERRLA, EOMI, pupils Cranial Nerve V: normal facial sensations, temporales function normal, masseters function normal, pterygoids function normal Cranial Nerve VII: no facial asymmetry, normal facial expressions Cranial Nerve VIII: normal hearing, no nystagmus Cranial Nerve IX: normal palate elevation, gag response Cranial Nerve X: no voice hoarseness Cranial Nerve XI: SCM symmetric, trapezii function normal Cranial Nerve XII: tongue midline, no tongue atrophy/fasciculations Motor System: no involuntary movement - Bilateral LE weakness - AG BLE and BUE - but non ambulatory , no muscle wasting Sensory: normal pinprick, normal light touch, normal position sense, normal graphesthesia Coordination: normal finger to nose bilaterally, normal heel to ruth bilaterally, negative Romberg test Deep Tendon Reflexes: 2+ bicep (L), 2+ bicep (R), 2+ tricep (L), 2+ tricep (R) , 2+ brachioradialis (L), 2+ brachioradialis (R), 2+ knee (L), 2+ knee (R), 2+ ankle (L), 2+ ankle (R) Reflexes: flexor plantar (L), flexor plantar (R); extensor plantar (L), extensor plantar (R) Stance: normal Gait: stable, normal regular, heel + toe gait Objective Bilateral LE weakness - greatest at hip flexors but AG bilaterally - unable to ambulate Impression/Recommendations Problems: (1) UTI (urinary tract infection) (2) Acute renal failure (3) Hypoxia (4) Elevated liver function tests (5) Severe sepsis (6) NSTEMI (non-ST elevated myocardial infarction) Status: stable Recommendations Continue Q4 Hr Neuro Obs HgB>8 Maintain normothermia Maintain normoglycemia Abx as per ID Replace/ Replete Lytes Psych Eval SBP< 140 Abx as per ID PT ORDERED Check Iron Recommend OOB as able w/ staff educator - Desire Suarez N.P. December 10, 2018 17:42
--- NOTE | 2018-12-10 18:14 | Cardiology Progress Note ---
Assessment/Plan Assessment/Plan I reviewed the rhythm strip of the patient from yesterday, and there was no atrial flutter, it was sinus rhythm with artifact Subjective Subjective I was called by the nurse that patient went in atrial flutter for 10 min, asymptomatic, the patient is resting in bed without cardiac complaints Objective Last 24 Hour Vital Signs Date Time Temp Pulse Resp B/P (MAP) Pulse Ox O2 Delivery O2 Flow Rate FiO2 12/10/18 16:00 Room Air 12/10/18 16:00 63 12/10/18 16:00 98.3 60 22 103/61 (75) 99 12/10/18 12:00 Room Air 12/10/18 12:00 62 12/10/18 08:00 62 12/10/18 08:00 Room Air 12/10/18 04:00 98.1 57 24 110/66 (81) 99 12/10/18 04:00 68 12/10/18 04:00 Room Air 12/10/18 00:00 Room Air 12/10/18 00:00 63 12/10/18 00:00 97.7 56 24 108/60 (76) 100 12/09/18 20:00 97.7 58 24 101/56 (71) 100 12/09/18 20:00 Room Air 12/09/18 20:00 61 General Appearance: no apparent distress, other - slighlty disoriented EENT: PERRL/EOMI Neck: no JVD Rhythm: NSR Cardiovascular: normal rate Respiratory/Chest: normal breath sounds Intake and Output 12/09/18 12/10/18 18:59 06:59 Intake Total 360 ml Output Total 2100 ml 1700 ml Balance -2100 ml -1340 ml Intake Oral 360 ml Output Urine Total 2100 ml 1700 ml # Bowel Movements 2 Laboratory Tests Test 12/10/18 17:40 Hemoglobin A1c Pending Gracie Bunch MD December 10, 2018 18:14
[2018-12-10 20:00] VITALS: BP 108/67
[2018-12-11] VITALS: BP 110/50
--- NOTE | 2018-12-11 02:45 | Progress Note ---
DATE: 12/10/2018 SUBJECTIVE: The patient is calm, no behavior issues. Continues to have depressed mood, anhedonia, restlessness, episodes of forgetfulness, continues to refuse some care. MENTAL STATUS EXAMINATION: The patient is alert and oriented x3. Mood is dysphoric. Affect is constricted. Congruent with mood. Thought process is linear. Thought content, no suicidal, or homicidal ideation. ASSESSMENT: 1. Anxiety disorder. 2. Major depressive disorder. PLAN: 1. Educate the patient . 2. Provide the patient with reality orientation and supportive therapy. 3. Continue to encourage to take medication. Elisabeth Ozuna M.D. DR: Anjelica JOB#: [id number] CC:
[2018-12-11 04:00] VITALS: BP 107/64
[2018-12-11 08:00] VITALS: BP 101/65
[2018-12-11] MEDS: Heparin 5000 units/ml inj SUBQ SCH ×3 (08:06→20:06)
--- NOTE | 2018-12-11 10:22 | Pulmonology Progress Note ---
Assessment/Plan Assessment/Plan Pulmonary Progress Note Assessment Respiratory failure, acute - improved hypoxemia on O2 hypotension resolved hyponatremia possible sepsis NSTEMI transaminitis metabolic acidosis possible shock liver leukocytosis possible sepsis PLAN care noted no distress at present respiratory care as is monitor acid base supportive care repeat imaging PRN low flow oxygen as is medications/laboratory data/nursing notes reviewed in detail note reviewed and edited DW RN care discussed with RN and RT Vital Signs Noted Laboratory Tests Noted Test 12/09/18 15:45 White Blood Count 9.8 K/UL (4.8-10.8) Red Blood Count 3.60 M/UL (4.70-6.10) L Hemoglobin 10.3 G/DL (14.2-18.0) L Hematocrit 29.7 % (42.0-52.0) L Mean Corpuscular Volume 83 FL (80-99) Mean Corpuscular Hemoglobin 28.5 PG (27.0-31.0) Mean Corpuscular Hemoglobin Concent 34.5 G/DL (32.0-36.0) Red Cell Distribution Width 14.6 % (11.6-14.8) Platelet Count 501 K/UL (150-450) H Mean Platelet Volume 6.7 FL (6.5-10.1) Neutrophils (%) (Auto) 66.2 % (45.0-75.0) Lymphocytes (%) (Auto) 24.7 % (20.0-45.0) Monocytes (%) (Auto) 4.1 % (1.0-10.0) Eosinophils (%) (Auto) 2.8 % (0.0-3.0) Basophils (%) (Auto) 2.2 % (0.0-2.0) H Sodium Level 134 MMOL/L (136-145) L Potassium Level 4.6 MMOL/L (3.5-5.1) Chloride Level 101 MMOL/L (98-107) Carbon Dioxide Level 24 MMOL/L (21-32) Anion Gap 9 mmol/L (5-15) Blood Urea Nitrogen 34 mg/dL (7-18) H Creatinine 2.1 MG/DL (0.55-1.30) H Estimat Glomerular Filtration Rate 32.3 mL/min (>60) Glucose Level 108 MG/DL (74-106) H Calcium Level 9.1 MG/DL (8.5-10.1) Objective: WDWN on oxygen clear breath sounds bilaterally without rhonchi or wheeze [id number] without MRG NABS nontender no HSM; no distention no CCE nonfocal, more alert skin noted reviewed and edited Subjective ROS Limited/Unobtainable: No Allergies: Coded Allergies: No Known Allergies (Unverified , 11/25/18) Objective Last 24 Hour Vital Signs Date Time Temp Pulse Resp B/P (MAP) Pulse Ox O2 Delivery O2 Flow Rate FiO2 12/11/18 04:00 98.4 65 20 107/64 (78) 97 12/11/18 04:00 Room Air 12/11/18 04:00 68 12/11/18 00:00 67 12/11/18 00:00 98.0 69 16 110/50 (70) 96 12/11/18 00:00 Room Air 12/10/18 20:00 97.9 53 18 108/67 (81) 97 12/10/18 20:00 Room Air 12/10/18 20:00 68 12/10/18 16:00 Room Air 12/10/18 16:00 63 12/10/18 16:00 98.3 60 22 103/61 (75) 99 12/10/18 12:00 Room Air 12/10/18 12:00 62 Intake and Output 12/10/18 12/11/18 19:00 07:00 Intake Total 250 ml 960 ml Output Total 1200 ml 1200 ml Balance -950 ml -240 ml Intake Oral 250 ml 960 ml Output Urine Total 1200 ml 1200 ml Laboratory Tests 12/10/18 17:40: Hemoglobin A1c 5.6 Current Medications Medications (Trade) Dose Ordered Sig/Rikki Route PRN Reason Start Time Stop Time Status Last Admin Dose Admin Acetaminophen (Tylenol) 650 mg Q6H PRN ORAL Mild Pain/Temp > 100.5 12/01/18 20:54 12/31/18 20:53 Fluoxetine HCl (PROzac) 20 mg DAILY ORAL 12/06/18 09:00 01/05/19 08:59 12/11/18 08:04 Heparin Sodium (Porcine) (Heparin 5000 units/ml) 5,000 units EVERY 12 HOURS SUBQ 12/01/18 21:00 12/25/18 20:59 12/10/18 20:10 Midazolam HCl (Versed 2mg/2ml vial) 2 mg Q4H PRN IVP Agitation 12/01/18 21:45 12/25/18 08:14 Olanzapine (ZyPREXA) 5 mg BEDTIME ORAL 12/05/18 21:00 01/04/19 20:59 12/10/18 20:08 Pantoprazole (Protonix) 40 mg Q12HR ORAL 12/06/18 21:00 01/05/19 20:59 12/11/18 08:04 Carl Key MD December 11, 2018 10:22
--- NOTE | 2018-12-11 11:43 | Nephrology Progress Note ---
Assessment/Plan Plan Refusing blood draw for RN but not to me - to resent tech now. Slowly resolving ARF. Continue to monitor Per SNF his MS is unusual for him. Neuro eval. Psych eval. Repeat Creatinine clearance. Improving slowly. Metabolic encephalopathy with Major Depression. Ambulate. DVT PPX. Subjective Subjective No new c/o. Objective Objective Last 24 Hour Vital Signs Date Time Temp Pulse Resp B/P (MAP) Pulse Ox O2 Delivery O2 Flow Rate FiO2 12/11/18 07:36 63 12/11/18 04:00 98.4 65 20 107/64 (78) 97 12/11/18 04:00 Room Air 12/11/18 04:00 68 12/11/18 00:00 67 12/11/18 00:00 98.0 69 16 110/50 (70) 96 12/11/18 00:00 Room Air 12/10/18 20:00 97.9 53 18 108/67 (81) 97 12/10/18 20:00 Room Air 12/10/18 20:00 68 12/10/18 16:00 Room Air 12/10/18 16:00 63 12/10/18 16:00 98.3 60 22 103/61 (75) 99 12/10/18 12:00 Room Air 12/10/18 12:00 62 Intake and Output 12/10/18 12/11/18 19:00 07:00 Intake Total 250 ml 960 ml Output Total 1200 ml 1200 ml Balance -950 ml -240 ml Intake Oral 250 ml 960 ml Output Urine Total 1200 ml 1200 ml Laboratory Tests 12/10/18 17:40: Hemoglobin A1c 5.6 Height (Feet): 6 Height (Inches): 2.00 Weight (Pounds): 246 Objective CV RR Lungs B wheezes Abd SNT. BS + E No CCE Vlad Gutierrez MD December 11, 2018 11:43
[2018-12-11 12:00] VITALS: BP 126/67
[2018-12-11] MEDS ORDERED: DiphenhydrAMINE 50mg/ml Inj IVP SCH (12:15)
--- NOTE | 2018-12-11 12:36 | Infectious Diseases Prog Note ---
Assessment/Plan Assessment/Plan IMPRESSION: 1. E. coli sepsis. 2. Urinary tract infection, that seems to be complicated. 3. Acute renal failure, slowly improving 4. Left hydronephrosis, likely secondary to nephrolithiasis. 5. Septic shock, resolved 6. Anemia. 7. Acute respiratory failure, extubated RECOMMENDATION: Observe off antibiotic Subjective ROS Limited/Unobtainable: No Constitutional: Reports: no symptoms Respiratory: Reports: no symptoms Cardiovascular: Reports: no symptoms Gastrointestinal/Abdominal: Reports: no symptoms Genitourinary: Reports: no symptoms Musculoskeletal: Reports: no symptoms Allergies: Coded Allergies: No Known Allergies (Unverified , 11/25/18) Objective Vital Signs Last 24 Hour Vital Signs Date Time Temp Pulse Resp B/P (MAP) Pulse Ox O2 Delivery O2 Flow Rate FiO2 12/11/18 07:36 63 12/11/18 04:00 98.4 65 20 107/64 (78) 97 12/11/18 04:00 Room Air 12/11/18 04:00 68 12/11/18 00:00 67 12/11/18 00:00 98.0 69 16 110/50 (70) 96 12/11/18 00:00 Room Air 12/10/18 20:00 97.9 53 18 108/67 (81) 97 12/10/18 20:00 Room Air 12/10/18 20:00 68 12/10/18 16:00 Room Air 12/10/18 16:00 63 12/10/18 16:00 98.3 60 22 103/61 (75) 99 Height (Feet): 6 Height (Inches): 2.00 Weight (Pounds): 246 General Appearance: no acute distress HEENT: mucous membranes moist Respiratory/Chest: lungs clear Cardiovascular: normal rate Abdomen: soft, non tender Extremities: no edema Neurologic/Psychiatric: alert, responsive Laboratory Tests Test 12/10/18 17:40 Hemoglobin A1c 5.6 % (4.3-6.0) Current Medications Medications (Trade) Dose Ordered Sig/Rikki Route PRN Reason Start Time Stop Time Status Last Admin Dose Admin Acetaminophen (Tylenol) 650 mg Q6H PRN ORAL Mild Pain/Temp > 100.5 12/01/18 20:54 12/31/18 20:53 Diphenhydramine HCl (Benadryl) 25 mg ONCE IVP 12/11/18 12:15 12/11/18 13:30 12/11/18 12:24 Fluoxetine HCl (PROzac) 20 mg DAILY ORAL 12/06/18 09:00 01/05/19 08:59 12/11/18 08:04 Heparin Sodium (Porcine) (Heparin 5000 units/ml) 5,000 units EVERY 12 HOURS SUBQ 12/01/18 21:00 12/25/18 20:59 12/10/18 20:10 Lorazepam (Ativan 2mg/ml 1ml) 2 mg ONCE IM 12/11/18 12:30 12/11/18 14:00 Midazolam HCl (Versed 2mg/2ml vial) 2 mg Q4H PRN IVP Agitation 12/01/18 21:45 12/25/18 08:14 Olanzapine (ZyPREXA) 5 mg BEDTIME ORAL 12/05/18 21:00 01/04/19 20:59 12/10/18 20:08 Pantoprazole (Protonix) 40 mg Q12HR ORAL 12/06/18 21:00 01/05/19 20:59 12/11/18 08:04 Sandeep Faust MD December 11, 2018 12:36
[2018-12-11] MEDS: LORazepam Inj 2mg/ml 1ml IM SCH ×2 (12:53→13:07)
[2018-12-11 13:23] LABS: BASOPHILS % (AUTO) 2.4 % (0.0-2.0); HEMATOCRIT 34.3 % (42.0-52.0); LYMPHOCYTES % (AUTO) 12.4 % (20.0-45.0); MEAN CORPUSCULAR VOLUME 86 FL (80-99); NEUTROPHILS % (AUTO) 71.3 % (45.0-75.0); PLATELET COUNT 532 K/UL (150-450); RED BLOOD COUNT 3.98 M/UL (4.70-6.10); RED CELL DISTRIBUTION WIDTH 14.7 % (11.6-14.8); WHITE BLOOD COUNT 10.5 K/UL (4.8-10.8)
[2018-12-11 13:39] LABS: ANION GAP 11 mmol/L (5-15); BLOOD UREA NITROGEN 35 mg/dL (7-18); CALCIUM 9.6 MG/DL (8.5-10.1); CARBON DIOXIDE 25 MMOL/L (21-32); CHLORIDE 98 MMOL/L (98-107); CREATININE 2.1 MG/DL (0.55-1.30); POTASSIUM 4.5 MMOL/L (3.5-5.1); SODIUM 134 MMOL/L (136-145)
[2018-12-11 16:00] VITALS: BP 123/73
[2018-12-11 20:00] VITALS: BP 105/66
--- NOTE | 2018-12-11 23:12 | Neurology Progress Note ---
Interim History Interim History ROS Limited/Unobtainable: No Complaints: AMS Events: This visit was performed on December 11, [address] Garnica Objective Physical Exam Last Vital Signs Date Time Temp Pulse Resp B/P (MAP) Pulse Ox O2 Delivery O2 Flow Rate FiO2 12/11/18 20:00 98.6 88 24 105/66 (79) 98 12/11/18 20:00 Room Air 12/09/18 07:15 2.0 28 Laboratory Tests Test 12/11/18 13:00 White Blood Count 10.5 K/UL (4.8-10.8) Red Blood Count 3.98 M/UL (4.70-6.10) L Hemoglobin 11.0 G/DL (14.2-18.0) L Hematocrit 34.3 % (42.0-52.0) L Mean Corpuscular Volume 86 FL (80-99) Mean Corpuscular Hemoglobin 27.5 PG (27.0-31.0) Mean Corpuscular Hemoglobin Concent 32.0 G/DL (32.0-36.0) Red Cell Distribution Width 14.7 % (11.6-14.8) Platelet Count 532 K/UL (150-450) H Mean Platelet Volume 7.5 FL (6.5-10.1) Neutrophils (%) (Auto) 71.3 % (45.0-75.0) Lymphocytes (%) (Auto) 12.4 % (20.0-45.0) L Monocytes (%) (Auto) 11.0 % (1.0-10.0) H Eosinophils (%) (Auto) 3.0 % (0.0-3.0) Basophils (%) (Auto) 2.4 % (0.0-2.0) H Sodium Level 134 MMOL/L (136-145) L Potassium Level 4.5 MMOL/L (3.5-5.1) Chloride Level 98 MMOL/L (98-107) Carbon Dioxide Level 25 MMOL/L (21-32) Anion Gap 11 mmol/L (5-15) Blood Urea Nitrogen 35 mg/dL (7-18) H Creatinine 2.1 MG/DL (0.55-1.30) H Estimat Glomerular Filtration Rate 32.3 mL/min (>60) Glucose Level 123 MG/DL (74-106) H Calcium Level 9.6 MG/DL (8.5-10.1) General: well developed, well nourished, no acute distress Head: normocophalic, atraumatic Neck: no rigidity EENT: benign Neurologic Exam Mental Status: awake, alert, oriented x4, normal cognition, good mathematical skills, normal recent memory, normal remote memory, preserved visuospatial function Speech: normal speech, no dysarthia Language: normal language, no aphasia Cranial Nerve II: fundus normal, visual evans, no papilledema Cranial Nerves III, IV, : PERRLA, EOMI, pupils Cranial Nerve V: normal facial sensations, temporales function normal, masseters function normal, pterygoids function normal Cranial Nerve VII: no facial asymmetry, normal facial expressions Cranial Nerve VIII: normal hearing, no nystagmus Cranial Nerve IX: normal palate elevation, gag response Cranial Nerve X: no voice hoarseness Cranial Nerve XI: SCM symmetric, trapezii function normal Cranial Nerve XII: tongue midline, no tongue atrophy/fasciculations Motor System: no involuntary movement - Bilateral LE weakness - AG BLE and BUE - but non ambulatory , no muscle wasting Sensory: normal pinprick, normal light touch, normal position sense, normal graphesthesia Coordination: normal finger to nose bilaterally, normal heel to ruth bilaterally, negative Romberg test Deep Tendon Reflexes: 2+ bicep (L), 2+ bicep (R), 2+ tricep (L), 2+ tricep (R) , 2+ brachioradialis (L), 2+ brachioradialis (R), 2+ knee (L), 2+ knee (R), 2+ ankle (L), 2+ ankle (R) Reflexes: flexor plantar (L), flexor plantar (R); extensor plantar (L), extensor plantar (R) Stance: normal Gait: stable, normal regular, heel + toe gait Objective Bilateral LE weakness - greatest at hip flexors but AG bilaterally - unable to ambulate Imaging Patient : ERINNJUDITH Referring Physician: Vlad Gutierrez MD ID Number: [id number] Service Date: 12/08/18 : 1955 Report Date: 12/10/18 Gender: M Accession No.: [id number] Location: 2W Procedure: CT Head no Contrast Indication: Altered mental status Technique: Contiguous 5 mm thick transaxial imaging of the head obtained in a Siemens Sensation [address] scanner. Soft tissue and bone windows generated. Automatic Exposure Control was utilized. Total Dose length Product (DLP): [address] Dose Index Volume (CTDIvol): 70.38 mGy Comparison: none Findings: Extensive a craniectomy has been performed in the bifrontal regions and supraorbital regions bilaterally. There is extensive encephalomalacia of the frontal lobes bilaterally. Ex vacuo dilatation of the frontal horns of both lateral ventricles noted. There is a implanted metallic flap over the frontal craniotomy. There is no mass effect or edema definitely identified. There is no midline shift or evidence of acute intracranial hemorrhage. There is generalized atrophy as well. The cerebrum and cerebellum equally involved. Basal cisterns are prominent. IMPRESSION: No obvious mass effect or edema or evidence of acute intracranial hemorrhage. Extensive bifrontal encephalomalacia presumably on the basis of previous craniectomy/craniotomy which appears extensive involving the frontal bone. Generalized mild atrophy of the brain also noted. Note: The study was received for review and dictation 12/10/2018 Impression/Recommendations Problems: (1) UTI (urinary tract infection) (2) Acute renal failure (3) Hypoxia (4) Elevated liver function tests (5) Severe sepsis (6) NSTEMI (non-ST elevated myocardial infarction) Status: stable Recommendations Continue Q4 Hr Neuro Obs HgB>8 Maintain normothermia Maintain normoglycemia Abx as per ID Replace/ Replete Lytes Psych Eval SBP< 140 Abx as per ID PT ORDERED Check Iron Recommend OOB as able w/ staff assistant - Desire Suarez N.P. December 11, 2018 23:12
[2018-12-11 23:27] LABS: % IRON SATURATION 26 % (15-50); IRON 81 ug/dL (50-175); TOTAL IRON BINDING CAPACITY 318 ug/dL (250-450)
[2018-12-12] VITALS (7 sets, daily range): BP systolic 99–125; BP diastolic 59–68
--- NOTE | 2018-12-12 01:00 | Progress Note ---
DATE: 12/11/2018 SUBJECTIVE: The patient was uncooperative, agitated, yelling, using F words. The patient is refusing for blood draw, however, I was able to convince him to agree to the blood draw. The patient is refusing medication. He is uncooperative. MENTAL STATUS EXAMINATION: The patient is alert and oriented to time, self, place, and situation. He has poor insight into the medical condition he is in. Mood is irritable. Affect is constricted. Congruent with mood. Thought process is concrete. Thought content, no suicidal or homicidal ideation. ASSESSMENT: 1. Major depressive disorder. 2. Chronic encephalopathy. PLAN: We will increase the fluoxetine to 40 mg in the morning. Continue Zyprexa. Elisabeth Ozuna M.D. DR: KIKI JOB#: [id number] CC:
[2018-12-12] MEDS: Heparin 5000 units/ml inj SUBQ SCH ×2 (09:10→20:57)
--- NOTE | 2018-12-12 12:54 | Infectious Diseases Prog Note ---
Assessment/Plan Assessment/Plan IMPRESSION: 1. E. coli sepsis treated 2. Urinary tract infection, treated 3. Acute renal failure, slowly improving 4. Left hydronephrosis, likely secondary to nephrolithiasis. 5. Septic shock, resolved 6. Anemia. 7. Acute respiratory failure, extubated RECOMMENDATION: Observe off antibiotic Subjective ROS Limited/Unobtainable: Yes Allergies: Coded Allergies: No Known Allergies (Unverified , 11/25/18) Objective Vital Signs Last 24 Hour Vital Signs Date Time Temp Pulse Resp B/P (MAP) Pulse Ox O2 Delivery O2 Flow Rate FiO2 12/12/18 12:00 Room Air 12/12/18 12:00 97.8 64 22 100/59 (73) 97 12/12/18 08:00 Room Air 12/12/18 08:00 99.1 84 21 108/65 (79) 95 12/12/18 07:30 80 12/12/18 04:00 78 12/12/18 04:00 Room Air 12/12/18 04:00 98.1 69 20 105/61 (76) 95 12/12/18 00:00 69 12/12/18 00:00 Room Air 12/12/18 00:00 98.1 71 20 103/62 (76) 100 12/11/18 20:00 98.6 88 24 105/66 (79) 98 12/11/18 20:00 74 12/11/18 20:00 Room Air 12/11/18 16:00 63 12/11/18 16:00 Room Air 12/11/18 16:00 98.4 120 30 123/73 (90) 92 Height (Feet): 6 Height (Inches): 2.00 Weight (Pounds): 244 General Appearance: no acute distress HEENT: mucous membranes moist Respiratory/Chest: lungs clear Cardiovascular: normal rate Abdomen: soft, non tender Extremities: no edema Neurologic/Psychiatric: other - sleeping Laboratory Tests Test 12/11/18 13:00 White Blood Count 10.5 K/UL (4.8-10.8) Red Blood Count 3.98 M/UL (4.70-6.10) L Hemoglobin 11.0 G/DL (14.2-18.0) L Hematocrit 34.3 % (42.0-52.0) L Mean Corpuscular Volume 86 FL (80-99) Mean Corpuscular Hemoglobin 27.5 PG (27.0-31.0) Mean Corpuscular Hemoglobin Concent 32.0 G/DL (32.0-36.0) Red Cell Distribution Width 14.7 % (11.6-14.8) Platelet Count 532 K/UL (150-450) H Mean Platelet Volume 7.5 FL (6.5-10.1) Neutrophils (%) (Auto) 71.3 % (45.0-75.0) Lymphocytes (%) (Auto) 12.4 % (20.0-45.0) L Monocytes (%) (Auto) 11.0 % (1.0-10.0) H Eosinophils (%) (Auto) 3.0 % (0.0-3.0) Basophils (%) (Auto) 2.4 % (0.0-2.0) H Sodium Level 134 MMOL/L (136-145) L Potassium Level 4.5 MMOL/L (3.5-5.1) Chloride Level 98 MMOL/L (98-107) Carbon Dioxide Level 25 MMOL/L (21-32) Anion Gap 11 mmol/L (5-15) Blood Urea Nitrogen 35 mg/dL (7-18) H Creatinine 2.1 MG/DL (0.55-1.30) H Estimat Glomerular Filtration Rate 32.3 mL/min (>60) Glucose Level 123 MG/DL (74-106) H Calcium Level 9.6 MG/DL (8.5-10.1) Iron Level 81 ug/dL (50-175) Total Iron Binding Capacity 318 ug/dL (250-450) Percent Iron Saturation 26 % (15-50) Unsaturated Iron Binding 237 ug/dL (112-346) Current Medications Medications (Trade) Dose Ordered Sig/Rikki Route PRN Reason Start Time Stop Time Status Last Admin Dose Admin Acetaminophen (Tylenol) 650 mg Q6H PRN ORAL Mild Pain/Temp > 100.5 12/01/18 20:54 12/31/18 20:53 Fluoxetine HCl (PROzac) 40 mg DAILY ORAL 12/12/18 09:00 01/11/19 08:59 12/12/18 09:08 Heparin Sodium (Porcine) (Heparin 5000 units/ml) 5,000 units EVERY 12 HOURS SUBQ 12/01/18 21:00 12/25/18 20:59 12/12/18 09:10 Midazolam HCl (Versed 2mg/2ml vial) 2 mg Q4H PRN IVP Agitation 12/01/18 21:45 12/25/18 08:14 Olanzapine (ZyPREXA) 5 mg BEDTIME ORAL 12/05/18 21:00 01/04/19 20:59 12/11/18 20:05 Pantoprazole (Protonix) 40 mg Q12HR ORAL 12/06/18 21:00 01/05/19 20:59 12/12/18 09:08 Sandeep Faust MD December 12, 2018 12:54
--- NOTE | 2018-12-12 13:07 | Critical Care Progress Note ---
Assessment/Plan Assessment/Plan Respiratory failure resolved hypoxemia NSTEMI transaminitis metabolic acidosis PLAN care noted no distress at present respiratory care as is monitor acid base supportive care repeat imaging PRN- keep negative low flow oxygen as is medications/laboratory data/nursing notes reviewed in detail note reviewed and edited care discussed with RN and RT Critical Care - Subjective I&O: Intake and Output 12/11/18 12/12/18 19:00 07:00 Intake Total 350 ml 480 ml Output Total 850 ml 1800 ml Balance -500 ml -1320 ml Intake Oral 350 ml 480 ml Output Urine Total 850 ml 1800 ml # Bowel Movements 1 Critical Care - Objective ET-Tube: 7.5 ET Position: 24 Last 24 Hour Vital Signs Date Time Temp Pulse Resp B/P (MAP) Pulse Ox O2 Delivery O2 Flow Rate FiO2 12/12/18 12:00 Room Air 12/12/18 12:00 97.8 64 22 100/59 (73) 97 12/12/18 11:51 63 12/12/18 08:00 Room Air 12/12/18 08:00 99.1 84 21 108/65 (79) 95 12/12/18 07:30 80 12/12/18 04:00 78 12/12/18 04:00 Room Air 12/12/18 04:00 98.1 69 20 105/61 (76) 95 12/12/18 00:00 69 12/12/18 00:00 Room Air 12/12/18 00:00 98.1 71 20 103/62 (76) 100 12/11/18 20:00 98.6 88 24 105/66 (79) 98 12/11/18 20:00 74 12/11/18 20:00 Room Air 12/11/18 16:00 63 12/11/18 16:00 Room Air 12/11/18 16:00 98.4 120 30 123/73 (90) 92 Objective: WDWN on oxygen clear breath sounds bilaterally without rhonchi or wheeze [id number] without MRG NABS nontender no HSM; no distention no CCE nonfocal, more alert skin noted reviewed and edited Matt Ramirez MD December 12, 2018 13:07
--- NOTE | 2018-12-12 16:44 | Nephrology Progress Note ---
Assessment/Plan Plan Refusing blood draw for RN but not to me - to resent tech now. Slowly resolving ARF. Continue to monitor Per SNF his MS is unusual for him. Neuro eval. Psych eval. Repeat Creatinine clearance. Improving slowly. Metabolic encephalopathy with Major Depression. Ambulate. DVT PPX. Needs transfer to a psych facility! Subjective Subjective No new c/o. Very poor PO intake Objective Objective Last 24 Hour Vital Signs Date Time Temp Pulse Resp B/P (MAP) Pulse Ox O2 Delivery O2 Flow Rate FiO2 12/12/18 16:00 Room Air 12/12/18 12:00 Room Air 12/12/18 12:00 97.8 64 22 100/59 (73) 97 12/12/18 11:51 63 12/12/18 08:00 Room Air 12/12/18 08:00 99.1 84 21 108/65 (79) 95 12/12/18 07:30 80 12/12/18 04:00 78 12/12/18 04:00 Room Air 12/12/18 04:00 98.1 69 20 105/61 (76) 95 12/12/18 00:00 69 12/12/18 00:00 Room Air 12/12/18 00:00 98.1 71 20 103/62 (76) 100 12/11/18 20:00 98.6 88 24 105/66 (79) 98 12/11/18 20:00 74 12/11/18 20:00 Room Air Intake and Output 12/11/18 12/12/18 19:00 07:00 Intake Total 350 ml 480 ml Output Total 850 ml 1800 ml Balance -500 ml -1320 ml Intake Oral 350 ml 480 ml Output Urine Total 850 ml 1800 ml # Bowel Movements 1 Height (Feet): 6 Height (Inches): 2.00 Weight (Pounds): 244 Objective CV RR Lungs B wheezes Abd SNT. BS + E No CCE Vlad Gutierrez MD December 12, 2018 16:44
--- NOTE | 2018-12-12 20:00 | Progress Note ---
DATE: 12/12/2018 SUBJECTIVE: The patient refused PT and the patient is uncooperative with the staff. The patient is in a better mood today. He was more respectful and participate in physical therapy, answers the questions. He has low appetite. MENTAL STATUS EXAMINATION: The patient is alert, oriented times self, place, and situation. Mood is depressed. Affect is constricted, congruent with mood. Thought process is linear. Thought content, no suicidal or homicidal ideation. Memory, concentration, and attention is intact. Insight and judgment is fair. ASSESSMENT: 1. Major depressive disorder. 2. Anxiety disorder. PLAN: 1. The patient will be continued on olanzapine. 2. Continue the fluoxetine. 3. Agreed to remove the IV access with me, in the room, discussed with the nurse. Elisabeth Ozuna M.D. DR: COLE JOB#: [id number] CC:
--- NOTE | 2018-12-12 21:54 | Neurology Progress Note ---
Interim History Interim History ROS Limited/Unobtainable: Yes Complaints: AMS Events: This visit was performed on December 10, [address] Garnica Interim History Stable MS Objective Physical Exam Last Vital Signs Date Time Temp Pulse Resp B/P (MAP) Pulse Ox O2 Delivery O2 Flow Rate FiO2 12/12/18 20:00 98.1 73 21 115/65 (82) 96 12/12/18 16:00 Room Air 12/09/18 07:15 2.0 28 General: well developed, well nourished, no acute distress Head: normocophalic, atraumatic Neck: no rigidity EENT: benign Neurologic Exam Mental Status: awake, alert, oriented x4, normal cognition, good mathematical skills, normal recent memory, normal remote memory, preserved visuospatial function Speech: normal speech, no dysarthia Language: normal language, no aphasia Cranial Nerve II: fundus normal, visual evans, no papilledema Cranial Nerves III, IV, : PERRLA, EOMI, pupils Cranial Nerve V: normal facial sensations, temporales function normal, masseters function normal, pterygoids function normal Cranial Nerve VII: no facial asymmetry, normal facial expressions Cranial Nerve VIII: normal hearing, no nystagmus Cranial Nerve IX: normal palate elevation, gag response Cranial Nerve X: no voice hoarseness Cranial Nerve XI: SCM symmetric, trapezii function normal Cranial Nerve XII: tongue midline, no tongue atrophy/fasciculations Motor System: no involuntary movement - Bilateral LE weakness - AG BLE and BUE - but non ambulatory , no muscle wasting Sensory: normal pinprick, normal light touch, normal position sense, normal graphesthesia Coordination: normal finger to nose bilaterally, normal heel to ruth bilaterally, negative Romberg test Deep Tendon Reflexes: 2+ bicep (L), 2+ bicep (R), 2+ tricep (L), 2+ tricep (R) , 2+ brachioradialis (L), 2+ brachioradialis (R), 2+ knee (L), 2+ knee (R), 2+ ankle (L), 2+ ankle (R) Reflexes: flexor plantar (L), flexor plantar (R); extensor plantar (L), extensor plantar (R) Stance: normal Gait: stable, normal regular, heel + toe gait Objective Bilateral LE weakness - greatest at hip flexors but AG bilaterally - unable to ambulate Impression/Recommendations Problems: (1) UTI (urinary tract infection) (2) Acute renal failure (3) Hypoxia (4) Elevated liver function tests (5) Severe sepsis (6) NSTEMI (non-ST elevated myocardial infarction) Status: stable Recommendations Continue Q4 Hr Neuro Obs HgB>8 Maintain normothermia Maintain normoglycemia Abx as per ID Replace/ Replete Lytes Psych Eval SBP< 140 Abx as per ID PT ORDERED Check Iron Recommend OOB as able w/ field staff manager - Desire Suarez N.P. December 12, 2018 21:54
--- NOTE | 2018-12-12 23:07 | Cardiology Progress Note ---
Assessment/Plan Assessment/Plan The patient is stable in sinus rhythm Subjective Subjective The patient is resting quietly in bed, he is arousable, asnwers questions with few words. Denies any palpitations Objective Last 24 Hour Vital Signs Date Time Temp Pulse Resp B/P (MAP) Pulse Ox O2 Delivery O2 Flow Rate FiO2 12/12/18 22:00 97.4 64 18 99/63 (75) 96 12/12/18 20:00 98.1 73 21 115/65 (82) 96 12/12/18 16:00 Room Air 12/12/18 16:00 97.8 75 21 125/68 (87) 96 12/12/18 15:11 66 12/12/18 12:00 Room Air 12/12/18 12:00 97.8 64 22 100/59 (73) 97 12/12/18 11:51 63 12/12/18 08:00 Room Air 12/12/18 08:00 99.1 84 21 108/65 (79) 95 12/12/18 07:30 80 12/12/18 04:00 78 12/12/18 04:00 Room Air 12/12/18 04:00 98.1 69 20 105/61 (76) 95 12/12/18 00:00 69 12/12/18 00:00 Room Air 12/12/18 00:00 98.1 71 20 103/62 (76) 100 General Appearance: lethargic EENT: PERRL/EOMI Neck: no JVD Rhythm: SB Cardiovascular: regular rhythm Respiratory/Chest: crackles/rales Intake and Output 12/11/18 12/12/18 19:00 07:00 Intake Total 350 ml 480 ml Output Total 850 ml 1800 ml Balance -500 ml -1320 ml Intake Oral 350 ml 480 ml Output Urine Total 850 ml 1800 ml # Bowel Movements 1 telemetry sinus rhythm no arrhythmia Gracie Bunch MD December 12, 2018 23:07
[2018-12-13] VITALS: BP 102/68
[2018-12-13 04:00] VITALS: BP 108/67
[2018-12-13 08:00] VITALS: BP 102/61
[2018-12-13] MEDS: Heparin 5000 units/ml inj SUBQ SCH ×2 (09:29→21:00)
--- NOTE | 2018-12-13 10:24 | Infectious Diseases Prog Note ---
Assessment/Plan Assessment/Plan antibiotics : none A 1. e.coli sepsis secondary to UTI s/p rx 2. e.coli UTI s/p rx 3. leucocytosis resolved 4. shock resolved 5. renal failure improving 6. left hydronephrosis 7. rectal VRE colonization P 1. observe off antibiotics 2. transfer pending 3. will sign off Thank you please reconsult if any issues arise Subjective ROS Limited/Unobtainable: Yes Allergies: Coded Allergies: No Known Allergies (Unverified , 11/25/18) Objective Vital Signs Last 24 Hour Vital Signs Date Time Temp Pulse Resp B/P (MAP) Pulse Ox O2 Delivery O2 Flow Rate FiO2 12/13/18 08:45 Room Air 12/13/18 08:00 98.2 71 20 102/61 (75) 95 12/13/18 04:00 97.5 60 18 108/67 (81) 98 12/13/18 00:00 97.5 66 18 102/68 (79) 95 12/12/18 23:18 Room Air 12/12/18 22:00 97.4 64 18 99/63 (75) 96 12/12/18 20:00 Room Air 12/12/18 20:00 98.1 73 21 115/65 (82) 96 12/12/18 16:00 Room Air 12/12/18 16:00 97.8 75 21 125/68 (87) 96 12/12/18 15:11 66 12/12/18 12:00 Room Air 12/12/18 12:00 97.8 64 22 100/59 (73) 97 12/12/18 11:51 63 Height (Feet): 6 Height (Inches): 2.00 Weight (Pounds): 244 Respiratory/Chest: lungs clear Cardiovascular: normal rate, regular rhythm, no gallop/murmur Abdomen: soft, non tender Extremities: no edema Current Medications Medications (Trade) Dose Ordered Sig/Rikki Route PRN Reason Start Time Stop Time Status Last Admin Dose Admin Acetaminophen (Tylenol) 650 mg Q6H PRN ORAL Mild Pain/Temp > 100.5 12/13/18 03:00 12/31/18 20:53 Fluoxetine HCl (PROzac) 40 mg DAILY ORAL 12/13/18 09:00 01/11/19 08:59 12/13/18 09:25 Heparin Sodium (Porcine) (Heparin 5000 units/ml) 5,000 units EVERY 12 HOURS SUBQ 12/13/18 09:00 12/25/18 20:59 12/13/18 09:29 Olanzapine (ZyPREXA) 5 mg BEDTIME ORAL 12/13/18 21:00 01/04/19 20:59 Pantoprazole (Protonix) 40 mg Q12HR ORAL 12/13/18 09:00 01/05/19 20:59 12/13/18 09:24 Adilia Barnes MD December 13, 2018 10:24
[2018-12-13 12:00] VITALS: BP 110/65
--- NOTE | 2018-12-13 15:27 | Nephrology Progress Note ---
Assessment/Plan Plan Refusing blood draws! Slowly resolving ARF. Continue to monitor Needs transfer to a psych facility! DW Dr. Ozuna. Trying to transfer. Subjective Subjective No new c/o. Very poor PO intake Objective Objective Last 24 Hour Vital Signs Date Time Temp Pulse Resp B/P (MAP) Pulse Ox O2 Delivery O2 Flow Rate FiO2 12/13/18 12:00 98.6 66 20 110/65 (80) 95 12/13/18 08:45 Room Air 12/13/18 08:00 98.2 71 20 102/61 (75) 95 12/13/18 04:00 97.5 60 18 108/67 (81) 98 12/13/18 00:00 97.5 66 18 102/68 (79) 95 12/12/18 23:18 Room Air 12/12/18 22:00 97.4 64 18 99/63 (75) 96 12/12/18 20:00 Room Air 12/12/18 20:00 98.1 73 21 115/65 (82) 96 12/12/18 16:00 Room Air 12/12/18 16:00 97.8 75 21 125/68 (87) 96 Intake and Output 12/12/18 12/13/18 19:00 07:00 Intake Total 500 ml 200 ml Output Total 1200 ml 1600 ml Balance -700 ml -1400 ml Intake Oral 500 ml 200 ml Output Urine Total 1200 ml 1600 ml Height (Feet): 6 Height (Inches): 2.00 Weight (Pounds): 244 Objective CV RR Lungs B wheezes Abd SNT. BS + E No CCE Vlad Gutierrez MD December 13, 2018 15:27
[2018-12-13 16:00] VITALS: BP 105/68
[2018-12-13 20:00] VITALS: BP 118/78
--- NOTE | 2018-12-13 23:00 | Progress Note ---
DATE: 12/13/2018 SUBJECTIVE: The patient is transferred to step-down unit. The patient is illogical and refusing care and refusing replacement of the intravenous access. Refused the blood draw again. The patient is refusing to go to a psychiatric facility. MENTAL STATUS EXAMINATION: The patient is alert and oriented times self, place, and situation. Irritable. Mood is dysphoric. Affect is constricted. Congruent with mood. Thought process is concrete. Thought content, no suicidal or homicidal ideations. ASSESSMENT: Stable. PLAN: 1. The patient's Prozac will be increased to 60 mg in the morning. 2. Continue the Zoloft. 3. Provide the patient with reality orientation and supportive therapy. Elisabeth Ozuna M.D. DR: LEXI JOB#: [id number] CC:
--- NOTE | 2018-12-13 23:29 | Pulmonology Progress Note ---
Assessment/Plan Assessment/Plan Pulmonary Progress Note Assessment Respiratory failure, acute - improved hypoxemia on O2 hypotension resolved hyponatremia possible sepsis NSTEMI transaminitis metabolic acidosis possible shock liver leukocytosis possible sepsis PLAN care noted no distress at present respiratory care as is monitor acid base supportive care repeat imaging PRN- keep negative low flow oxygen as is medications/laboratory data/nursing notes reviewed in detail note reviewed and edited care discussed with RN and RT Last 24 Hour Vital Signs Noted Objective: WDWN on oxygen clear breath sounds bilaterally without rhonchi or wheeze [id number] without MRG NABS nontender no HSM; no distention no CCE nonfocal, more alert skin noted reviewed and edited Subjective ROS Limited/Unobtainable: No Allergies: Coded Allergies: No Known Allergies (Unverified , 11/25/18) Objective Last 24 Hour Vital Signs Date Time Temp Pulse Resp B/P (MAP) Pulse Ox O2 Delivery O2 Flow Rate FiO2 12/13/18 20:15 Room Air 12/13/18 20:00 98.5 82 20 118/78 (91) 98 12/13/18 16:00 98.0 75 20 105/68 (80) 95 12/13/18 12:00 98.6 66 20 110/65 (80) 95 12/13/18 08:45 Room Air 12/13/18 08:00 98.2 71 20 102/61 (75) 95 12/13/18 04:00 97.5 60 18 108/67 (81) 98 12/13/18 00:00 97.5 66 18 102/68 (79) 95 Intake and Output 12/12/18 12/13/18 19:00 07:00 Intake Total 500 ml 200 ml Output Total 1200 ml 1600 ml Balance -700 ml -1400 ml Intake Oral 500 ml 200 ml Output Urine Total 1200 ml 1600 ml Current Medications Medications (Trade) Dose Ordered Sig/Rikki Route PRN Reason Start Time Stop Time Status Last Admin Dose Admin Acetaminophen (Tylenol) 650 mg Q6H PRN ORAL Mild Pain/Temp > 100.5 12/13/18 03:00 12/31/18 20:53 Fluoxetine HCl (PROzac) 60 mg DAILY ORAL 12/14/18 09:00 01/13/19 08:59 Heparin Sodium (Porcine) (Heparin 5000 units/ml) 5,000 units EVERY 12 HOURS SUBQ 12/13/18 09:00 12/25/18 20:59 12/13/18 21:00 Olanzapine (ZyPREXA) 5 mg BEDTIME ORAL 12/13/18 21:00 01/12/19 20:59 12/13/18 20:58 Pantoprazole (Protonix) 40 mg Q12HR ORAL 12/13/18 09:00 01/05/19 20:59 12/13/18 20:58 Carl Key MD December 13, 2018 23:29
--- NOTE | 2018-12-13 23:37 | Neurology Progress Note ---
Interim History Interim History ROS Limited/Unobtainable: No Complaints: AMS Events: This visit was performed on December 13, [address] Garnica Interim History Stable MS Objective Physical Exam Last Vital Signs Date Time Temp Pulse Resp B/P (MAP) Pulse Ox O2 Delivery O2 Flow Rate FiO2 12/13/18 20:15 Room Air 12/13/18 20:00 98.5 82 20 118/78 (91) 98 12/09/18 07:15 2.0 28 General: well developed, well nourished, no acute distress Head: normocophalic, atraumatic Neck: no rigidity EENT: benign Neurologic Exam Mental Status: awake, alert, oriented x4, normal cognition, good mathematical skills, normal recent memory, normal remote memory, preserved visuospatial function Speech: normal speech, no dysarthia Language: normal language, no aphasia Cranial Nerve II: fundus normal, visual evans, no papilledema Cranial Nerves III, IV, : PERRLA, EOMI, pupils Cranial Nerve V: normal facial sensations, temporales function normal, masseters function normal, pterygoids function normal Cranial Nerve VII: no facial asymmetry, normal facial expressions Cranial Nerve VIII: normal hearing, no nystagmus Cranial Nerve IX: normal palate elevation, gag response Cranial Nerve X: no voice hoarseness Cranial Nerve XI: SCM symmetric, trapezii function normal Cranial Nerve XII: tongue midline, no tongue atrophy/fasciculations Motor System: no involuntary movement - Bilateral LE weakness - AG BLE and BUE - but non ambulatory , no muscle wasting Sensory: normal pinprick, normal light touch, normal position sense, normal graphesthesia Coordination: normal finger to nose bilaterally, normal heel to ruth bilaterally, negative Romberg test Deep Tendon Reflexes: 2+ bicep (L), 2+ bicep (R), 2+ tricep (L), 2+ tricep (R) , 2+ brachioradialis (L), 2+ brachioradialis (R), 2+ knee (L), 2+ knee (R), 2+ ankle (L), 2+ ankle (R) Reflexes: flexor plantar (L), flexor plantar (R); extensor plantar (L), extensor plantar (R) Stance: normal Gait: stable, normal regular, heel + toe gait Objective Bilateral LE weakness - greatest at hip flexors but AG bilaterally - unable to ambulate Impression/Recommendations Problems: (1) UTI (urinary tract infection) (2) Acute renal failure (3) Hypoxia (4) Elevated liver function tests (5) Severe sepsis (6) NSTEMI (non-ST elevated myocardial infarction) Status: stable Recommendations Continue Q4 Hr Neuro Obs HgB>8 Maintain normothermia Maintain normoglycemia Abx as per ID Replace/ Replete Lytes Psych Eval SBP< 140 Abx as per ID PT ORDERED Check Iron Recommend OOB as able w/ staff development coordinator - Desire Suarez N.P. December 13, 2018 23:36
[2018-12-14] VITALS (7 sets, daily range): BP systolic 108–119; BP diastolic 66–83
[2018-12-14] MEDS: Heparin 5000 units/ml inj SUBQ SCH ×2 (08:51→20:38)
--- NOTE | 2018-12-14 10:43 | Critical Care Progress Note ---
Assessment/Plan Assessment/Plan Respiratory failure resolved hypoxemia NSTEMI transaminitis metabolic acidosis PLAN care noted no distress at present respiratory care without change repeat imaging PRN- keep negative low flow oxygen as is medications/laboratory data/nursing notes reviewed in detail note reviewed and edited care discussed with RN and RT Critical Care - Subjective ROS Limited/Unobtainable: Yes Condition: stable EKG Rhythm: Sinus Rhythm I&O: Intake and Output 12/13/18 12/14/18 19:00 07:00 Intake Total 720 ml Output Total 1200 ml 1000 ml Balance -480 ml -1000 ml Intake Oral 720 ml Output Urine Total 1200 ml 1000 ml Critical Care - Objective ET-Tube: 7.5 ET Position: 24 Last 24 Hour Vital Signs Date Time Temp Pulse Resp B/P (MAP) Pulse Ox O2 Delivery O2 Flow Rate FiO2 12/14/18 09:00 Room Air 12/14/18 08:00 98.1 68 17 115/72 (86) 100 12/14/18 04:00 98.6 65 18 118/66 (83) 98 12/14/18 00:00 97.3 77 18 110/71 (84) 95 12/13/18 20:15 Room Air 12/13/18 20:00 98.5 82 20 118/78 (91) 98 12/13/18 16:00 98.0 75 20 105/68 (80) 95 12/13/18 12:00 98.6 66 20 110/65 (80) 95 Objective: WDWN on oxygen clear breath sounds bilaterally without rhonchi or wheeze [id number] without MRG NABS nontender no HSM; no distention no CCE nonfocal, more alert skin noted reviewed and edited Matt Ramirez MD Dec 14, 2018 10:43
--- NOTE | 2018-12-14 13:09 | Nephrology Progress Note ---
Assessment/Plan Plan Refusing blood draws! Slowly resolving ARF. Continue to monitor Needs transfer to a psych facility! DW Dr. Ozuna. Trying to transfer. Subjective Subjective No new c/o. Very poor PO intake Objective Objective Last 24 Hour Vital Signs Date Time Temp Pulse Resp B/P (MAP) Pulse Ox O2 Delivery O2 Flow Rate FiO2 12/14/18 12:00 97.9 71 18 118/69 (85) 99 12/14/18 09:00 Room Air 12/14/18 08:00 98.1 68 17 115/72 (86) 100 12/14/18 04:00 98.6 65 18 118/66 (83) 98 12/14/18 00:00 97.3 77 18 110/71 (84) 95 12/13/18 20:15 Room Air 12/13/18 20:00 98.5 82 20 118/78 (91) 98 12/13/18 16:00 98.0 75 20 105/68 (80) 95 Intake and Output 12/13/18 12/14/18 19:00 07:00 Intake Total 720 ml Output Total 1200 ml 1000 ml Balance -480 ml -1000 ml Intake Oral 720 ml Output Urine Total 1200 ml 1000 ml Height (Feet): 6 Height (Inches): 2.00 Weight (Pounds): 239 Objective CV RR Lungs B wheezes Abd SNT. BS + E No CCE Vlad Gutierrez MD Dec 14, 2018 13:09
[2018-12-15 04:00] VITALS: BP 119/77
[2018-12-15 06:44] LABS: BASOPHILS % (AUTO) 1.4 % (0.0-2.0); EOSINOPHILS % (AUTO) 3.4 % (0.0-3.0); HEMATOCRIT 33.4 % (42.0-52.0); LYMPHOCYTES % (AUTO) 18.2 % (20.0-45.0); MEAN CORPUSCULAR VOLUME 86 FL (80-99); MONOCYTES % (AUTO) 6.9 % (1.0-10.0); NEUTROPHILS % (AUTO) 70.1 % (45.0-75.0); PLATELET COUNT 496 K/UL (150-450); RED CELL DISTRIBUTION WIDTH 14.1 % (11.6-14.8); WHITE BLOOD COUNT 9.3 K/UL (4.8-10.8)
[2018-12-15 07:07] LABS: ALANINE AMINOTRANSFERASE 27 U/L (12-78); ALBUMIN/GLOBULIN RATIO 0.5 (1.0-2.7); ALKALINE PHOSPHATASE 116 U/L (46-116); ANION GAP 10 mmol/L (5-15); ASPARTATE AMINO TRANSFERASE 17 U/L (15-37); BILIRUBIN,TOTAL 0.7 MG/DL (0.2-1.0); BLOOD UREA NITROGEN 32 mg/dL (7-18); CALCIUM 9.6 MG/DL (8.5-10.1); CARBON DIOXIDE 26 MMOL/L (21-32); CHLORIDE 99 MMOL/L (98-107); CREATININE 2.3 MG/DL (0.55-1.30); PHOSPHORUS 4.4 MG/DL (2.5-4.9); POTASSIUM 4.3 MMOL/L (3.5-5.1); SODIUM 135 MMOL/L (136-145)
[2018-12-15 08:00] VITALS: BP 146/70
--- NOTE | 2018-12-15 09:19 | Critical Care Progress Note ---
Assessment/Plan Assessment/Plan Respiratory failure resolved hypoxemia NSTEMI transaminitis metabolic acidosis PLAN care noted no distress at present respiratory care without change repeat imaging PRN- keep negative low flow oxygen as is medications/laboratory data/nursing notes reviewed in detail note reviewed and edited care discussed with RN and RT Critical Care - Subjective ROS Limited/Unobtainable: Yes EKG Rhythm: Sinus Rhythm I&O: Intake and Output 12/14/18 12/15/18 18:59 06:59 Output Total 1400 ml 1300 ml Balance -1400 ml -1300 ml Output Urine Total 1400 ml 1300 ml # Voids 1 Critical Care - Objective ET-Tube: 7.5 ET Position: 24 Last 24 Hour Vital Signs Date Time Temp Pulse Resp B/P (MAP) Pulse Ox O2 Delivery O2 Flow Rate FiO2 12/15/18 04:00 98.2 79 18 119/77 (91) 95 12/14/18 23:51 97.5 82 18 108/75 (86) 97 12/14/18 21:00 Room Air 12/14/18 20:00 97.4 87 18 117/83 (94) 96 12/14/18 16:00 98.1 82 18 119/71 (87) 96 12/14/18 12:00 97.9 71 18 118/69 (85) 99 Objective: WDWN on oxygen clear breath sounds bilaterally without rhonchi or wheeze [id number] without MRG NABS nontender no HSM; no distention no CCE nonfocal, more alert skin noted reviewed and edited Matt Ramirez MD Dec 15, 2018 09:19
[2018-12-15] MEDS: Heparin 5000 units/ml inj SUBQ SCH ×2 (10:13→21:00)
[2018-12-15 12:00] VITALS: BP 102/65
--- NOTE | 2018-12-15 14:11 | Nephrology Progress Note ---
Assessment/Plan Plan CKD plateau . Creatinine clearance 29 Needs transfer to a psych facility! DW Dr. Ozuna. Trying to transfer! Subjective Subjective No new c/o. Very poor PO intake Objective Objective Last 24 Hour Vital Signs Date Time Temp Pulse Resp B/P (MAP) Pulse Ox O2 Delivery O2 Flow Rate FiO2 12/15/18 12:00 98.5 96 18 102/65 (77) 96 12/15/18 09:00 Room Air 12/15/18 08:00 97.4 69 18 146/70 (95) 96 12/15/18 04:00 98.2 79 18 119/77 (91) 95 12/14/18 23:51 97.5 82 18 108/75 (86) 97 12/14/18 21:00 Room Air 12/14/18 20:00 97.4 87 18 117/83 (94) 96 12/14/18 16:00 98.1 82 18 119/71 (87) 96 Intake and Output 12/14/18 12/15/18 19:00 07:00 Output Total 1400 ml 1300 ml Balance -1400 ml -1300 ml Output Urine Total 1400 ml 1300 ml # Voids 1 Laboratory Tests 12/15/18 05:35: White Blood Count 9.3, Red Blood Count 3.90L, Hemoglobin 11.0L, Hematocrit 33.4L , Mean Corpuscular Volume 86, Mean Corpuscular Hemoglobin 28.1, Mean Corpuscular Hemoglobin Concent 32.9, Red Cell Distribution Width 14.1, Platelet Count 496H, Mean Platelet Volume 6.9, Neutrophils (%) (Auto) 70.1, Lymphocytes ( %) (Auto) 18.2L, Monocytes (%) (Auto) 6.9, Eosinophils (%) (Auto) 3.4H, Basophils (%) (Auto) 1.4, Sodium Level 135L, Potassium Level 4.3, Chloride Level 99, Carbon Dioxide Level 26, Anion Gap 10, Blood Urea Nitrogen 32H, Creatinine 2.3H, Estimat Glomerular Filtration Rate 29.1, Glucose Level 93, Calcium Level 9.6, Phosphorus Level 4.4, Magnesium Level 1.8, Total Bilirubin 0.7, Aspartate Amino Transf (AST/SGOT) 17, Alanine Aminotransferase (ALT/SGPT) 27, Alkaline Phosphatase 116, Total Protein 8.7H, Albumin 3.0L, Globulin 5.7, Albumin/Globulin Ratio 0.5L Height (Feet): 6 Height (Inches): 2.00 Weight (Pounds): 241 Objective CV RR Lungs B wheezes Abd SNT. BS + E No CCE Vlad Gutierrez MD Dec 15, 2018 14:11
[2018-12-15 16:00] VITALS: BP 116/81
[2018-12-15 20:00] VITALS: BP 122/81
--- NOTE | 2018-12-15 23:35 | Neurology Progress Note ---
Interim History Interim History ROS Limited/Unobtainable: Yes Complaints: AMS Events: This visit was performed on December 14, [address] Garnica Interim History No changes in MS Objective Physical Exam Last Vital Signs Date Time Temp Pulse Resp B/P (MAP) Pulse Ox O2 Delivery O2 Flow Rate FiO2 12/15/18 20:00 97.8 75 18 122/81 (95) 96 12/15/18 09:00 Room Air 12/09/18 07:15 2.0 28 Laboratory Tests Test 12/15/18 05:35 White Blood Count 9.3 K/UL (4.8-10.8) Red Blood Count 3.90 M/UL (4.70-6.10) L Hemoglobin 11.0 G/DL (14.2-18.0) L Hematocrit 33.4 % (42.0-52.0) L Mean Corpuscular Volume 86 FL (80-99) Mean Corpuscular Hemoglobin 28.1 PG (27.0-31.0) Mean Corpuscular Hemoglobin Concent 32.9 G/DL (32.0-36.0) Red Cell Distribution Width 14.1 % (11.6-14.8) Platelet Count 496 K/UL (150-450) H Mean Platelet Volume 6.9 FL (6.5-10.1) Neutrophils (%) (Auto) 70.1 % (45.0-75.0) Lymphocytes (%) (Auto) 18.2 % (20.0-45.0) L Monocytes (%) (Auto) 6.9 % (1.0-10.0) Eosinophils (%) (Auto) 3.4 % (0.0-3.0) H Basophils (%) (Auto) 1.4 % (0.0-2.0) Sodium Level 135 MMOL/L (136-145) L Potassium Level 4.3 MMOL/L (3.5-5.1) Chloride Level 99 MMOL/L (98-107) Carbon Dioxide Level 26 MMOL/L (21-32) Anion Gap 10 mmol/L (5-15) Blood Urea Nitrogen 32 mg/dL (7-18) H Creatinine 2.3 MG/DL (0.55-1.30) H Estimat Glomerular Filtration Rate 29.1 mL/min (>60) Glucose Level 93 MG/DL (74-106) Calcium Level 9.6 MG/DL (8.5-10.1) Phosphorus Level 4.4 MG/DL (2.5-4.9) Magnesium Level 1.8 MG/DL (1.8-2.4) Total Bilirubin 0.7 MG/DL (0.2-1.0) Aspartate Amino Transf (AST/SGOT) 17 U/L (15-37) Alanine Aminotransferase (ALT/SGPT) 27 U/L (12-78) Alkaline Phosphatase 116 U/L (46-116) Total Protein 8.7 G/DL (6.4-8.2) H Albumin 3.0 G/DL (3.4-5.0) L Globulin 5.7 g/dL Albumin/Globulin Ratio 0.5 (1.0-2.7) L General: well developed, well nourished, no acute distress Head: normocophalic, atraumatic Neck: no rigidity EENT: benign Neurologic Exam Mental Status: awake, alert, oriented x4, normal cognition, good mathematical skills, normal recent memory, normal remote memory, preserved visuospatial function Speech: normal speech, no dysarthia Language: normal language, no aphasia Cranial Nerve II: fundus normal, visual evans, no papilledema Cranial Nerves III, IV, : PERRLA, EOMI, pupils Cranial Nerve V: normal facial sensations, temporales function normal, masseters function normal, pterygoids function normal Cranial Nerve VII: no facial asymmetry, normal facial expressions Cranial Nerve VIII: normal hearing, no nystagmus Cranial Nerve IX: normal palate elevation, gag response Cranial Nerve X: no voice hoarseness Cranial Nerve XI: SCM symmetric, trapezii function normal Cranial Nerve XII: tongue midline, no tongue atrophy/fasciculations Motor System: no involuntary movement - Bilateral LE weakness - AG BLE and BUE - but non ambulatory , no muscle wasting Sensory: normal pinprick, normal light touch, normal position sense, normal graphesthesia Coordination: normal finger to nose bilaterally, normal heel to ruth bilaterally, negative Romberg test Deep Tendon Reflexes: 2+ bicep (L), 2+ bicep (R), 2+ tricep (L), 2+ tricep (R) , 2+ brachioradialis (L), 2+ brachioradialis (R), 2+ knee (L), 2+ knee (R), 2+ ankle (L), 2+ ankle (R) Reflexes: flexor plantar (L), flexor plantar (R); extensor plantar (L), extensor plantar (R) Stance: normal Gait: stable, normal regular, heel + toe gait Objective Bilateral LE weakness - greatest at hip flexors but AG bilaterally - unable to ambulate Impression/Recommendations Problems: (1) UTI (urinary tract infection) (2) Acute renal failure (3) Hypoxia (4) Elevated liver function tests (5) Severe sepsis (6) NSTEMI (non-ST elevated myocardial infarction) Status: stable, tolerating diet Recommendations Continue Q4 Hr Neuro Obs HgB>8 Maintain normothermia Maintain normoglycemia Abx as per ID Replace/ Replete Lytes Psych Eval SBP< 140 Abx as per ID PT ORDERED Check Iron Recommend OOB as able w/ staffing consultant - Desire Suarez N.P. Dec 15, 2018 23:35
--- NOTE | 2018-12-15 23:38 | Neurology Progress Note ---
Interim History Interim History ROS Limited/Unobtainable: Yes Complaints: AMS Events: This visit was performed on December 15, [address] Garnica Interim History Stable MS Review of Systems All Systems: reviewed and negative except above Objective Physical Exam Last Vital Signs Date Time Temp Pulse Resp B/P (MAP) Pulse Ox O2 Delivery O2 Flow Rate FiO2 12/15/18 20:00 97.8 75 18 122/81 (95) 96 12/15/18 09:00 Room Air 12/09/18 07:15 2.0 28 Laboratory Tests Test 12/15/18 05:35 White Blood Count 9.3 K/UL (4.8-10.8) Red Blood Count 3.90 M/UL (4.70-6.10) L Hemoglobin 11.0 G/DL (14.2-18.0) L Hematocrit 33.4 % (42.0-52.0) L Mean Corpuscular Volume 86 FL (80-99) Mean Corpuscular Hemoglobin 28.1 PG (27.0-31.0) Mean Corpuscular Hemoglobin Concent 32.9 G/DL (32.0-36.0) Red Cell Distribution Width 14.1 % (11.6-14.8) Platelet Count 496 K/UL (150-450) H Mean Platelet Volume 6.9 FL (6.5-10.1) Neutrophils (%) (Auto) 70.1 % (45.0-75.0) Lymphocytes (%) (Auto) 18.2 % (20.0-45.0) L Monocytes (%) (Auto) 6.9 % (1.0-10.0) Eosinophils (%) (Auto) 3.4 % (0.0-3.0) H Basophils (%) (Auto) 1.4 % (0.0-2.0) Sodium Level 135 MMOL/L (136-145) L Potassium Level 4.3 MMOL/L (3.5-5.1) Chloride Level 99 MMOL/L (98-107) Carbon Dioxide Level 26 MMOL/L (21-32) Anion Gap 10 mmol/L (5-15) Blood Urea Nitrogen 32 mg/dL (7-18) H Creatinine 2.3 MG/DL (0.55-1.30) H Estimat Glomerular Filtration Rate 29.1 mL/min (>60) Glucose Level 93 MG/DL (74-106) Calcium Level 9.6 MG/DL (8.5-10.1) Phosphorus Level 4.4 MG/DL (2.5-4.9) Magnesium Level 1.8 MG/DL (1.8-2.4) Total Bilirubin 0.7 MG/DL (0.2-1.0) Aspartate Amino Transf (AST/SGOT) 17 U/L (15-37) Alanine Aminotransferase (ALT/SGPT) 27 U/L (12-78) Alkaline Phosphatase 116 U/L (46-116) Total Protein 8.7 G/DL (6.4-8.2) H Albumin 3.0 G/DL (3.4-5.0) L Globulin 5.7 g/dL Albumin/Globulin Ratio 0.5 (1.0-2.7) L General: well developed, well nourished, no acute distress Head: normocophalic, atraumatic Neck: no rigidity EENT: benign Neurologic Exam Mental Status: awake, alert, oriented x4, normal cognition, good mathematical skills, normal recent memory, normal remote memory, preserved visuospatial function Speech: normal speech, no dysarthia Language: normal language, no aphasia Cranial Nerve II: fundus normal, visual evans, no papilledema Cranial Nerves III, IV, : PERRLA, EOMI, pupils Cranial Nerve V: normal facial sensations, temporales function normal, masseters function normal, pterygoids function normal Cranial Nerve VII: no facial asymmetry, normal facial expressions Cranial Nerve VIII: normal hearing, no nystagmus Cranial Nerve IX: normal palate elevation, gag response Cranial Nerve X: no voice hoarseness Cranial Nerve XI: SCM symmetric, trapezii function normal Cranial Nerve XII: tongue midline, no tongue atrophy/fasciculations Motor System: no involuntary movement - Bilateral LE weakness - AG BLE and BUE - but non ambulatory , no muscle wasting Sensory: normal pinprick, normal light touch, normal position sense, normal graphesthesia Coordination: normal finger to nose bilaterally, normal heel to ruth bilaterally, negative Romberg test Deep Tendon Reflexes: 2+ bicep (L), 2+ bicep (R), 2+ tricep (L), 2+ tricep (R) , 2+ brachioradialis (L), 2+ brachioradialis (R), 2+ knee (L), 2+ knee (R), 2+ ankle (L), 2+ ankle (R) Reflexes: flexor plantar (L), flexor plantar (R); extensor plantar (L), extensor plantar (R) Stance: normal Gait: stable, normal regular, heel + toe gait Objective Bilateral LE weakness - greatest at hip flexors but AG bilaterally - unable to ambulate Impression/Recommendations Problems: (1) UTI (urinary tract infection) (2) Acute renal failure (3) Hypoxia (4) Elevated liver function tests (5) Severe sepsis (6) NSTEMI (non-ST elevated myocardial infarction) Status: stable, tolerating diet Recommendations Continue Q4 Hr Neuro Obs HgB>8 Maintain normothermia Maintain normoglycemia Abx as per ID Replace/ Replete Lytes Psych Eval SBP< 140 Abx as per ID PT ORDERED Check Iron Recommend OOB as able w/ staff development coordinator rn - Desire Suarez N.P. Dec 15, 2018 23:38
[2018-12-16] VITALS: BP 130/84
[2018-12-16 04:00] VITALS: BP 114/73
[2018-12-16 08:00] VITALS: BP 121/79
--- NOTE | 2018-12-16 08:14 | Critical Care Progress Note ---
Assessment/Plan Assessment/Plan Respiratory failure resolved hypoxemia NSTEMI transaminitis metabolic acidosis PLAN care noted no distress per pulmonary respiratory care without change repeat imaging PRN- keep negative low flow oxygen as is - stable medications/laboratory data/nursing notes reviewed in detail note reviewed and edited care discussed with RN and RT Critical Care - Subjective ROS Limited/Unobtainable: Yes Condition: stable I&O: Intake and Output 12/15/18 12/16/18 19:00 07:00 Intake Total 360 ml Output Total 1200 ml 1450 ml Balance -840 ml -1450 ml Intake Oral 360 ml Output Urine Total 1200 ml 1450 ml # Voids 2 Critical Care - Objective ET-Tube: 7.5 ET Position: 24 Last 24 Hour Vital Signs Date Time Temp Pulse Resp B/P (MAP) Pulse Ox O2 Delivery O2 Flow Rate FiO2 12/16/18 04:00 98.0 69 18 114/73 (87) 97 12/16/18 00:00 98.3 78 18 130/84 (99) 96 12/15/18 21:00 Room Air 12/15/18 20:00 97.8 75 18 122/81 (95) 96 12/15/18 16:00 97.8 84 20 116/81 (93) 96 12/15/18 12:00 98.5 96 18 102/65 (77) 96 12/15/18 09:00 Room Air Objective: WDWN on oxygen clear breath sounds bilaterally without rhonchi or wheeze [id number] without MRG NABS nontender no HSM; no distention no CCE nonfocal, more alert skin noted reviewed and edited Matt Ramirez MD Dec 16, 2018 08:14
[2018-12-16] MEDS: Heparin 5000 units/ml inj SUBQ SCH ×2 (08:53→21:00)
--- NOTE | 2018-12-16 11:37 | Nephrology Progress Note ---
Assessment/Plan Plan CKD plateau . Creatinine clearance 29 Needs transfer to a psych facility! DW Dr. Ozuna. Trying to transfer! Subjective Subjective No new c/o. Very poor PO intake Objective Objective Last 24 Hour Vital Signs Date Time Temp Pulse Resp B/P (MAP) Pulse Ox O2 Delivery O2 Flow Rate FiO2 12/16/18 09:00 Room Air 12/16/18 08:00 98.0 80 18 121/79 (93) 96 12/16/18 04:00 98.0 69 18 114/73 (87) 97 12/16/18 00:00 98.3 78 18 130/84 (99) 96 12/15/18 21:00 Room Air 12/15/18 20:00 97.8 75 18 122/81 (95) 96 12/15/18 16:00 97.8 84 20 116/81 (93) 96 12/15/18 12:00 98.5 96 18 102/65 (77) 96 Intake and Output 12/15/18 12/16/18 18:59 06:59 Intake Total 360 ml Output Total 1200 ml 1450 ml Balance -840 ml -1450 ml Intake Oral 360 ml Output Urine Total 1200 ml 1450 ml # Voids 2 Height (Feet): 6 Height (Inches): 2.00 Weight (Pounds): 241 Objective CV RR Lungs B wheezes Abd SNT. BS + E No CCE Vlad Gutierrez MD Dec 16, 2018 11:37
[2018-12-16 12:00] VITALS: BP 126/80
[2018-12-16 16:00] VITALS: BP 128/77
[2018-12-16 20:38] VITALS: BP 114/69
--- NOTE | 2018-12-16 23:55 | Neurology Progress Note ---
Interim History Interim History ROS Limited/Unobtainable: Yes Complaints: AMS Events: This visit was performed on December 16, [address] Garnica Objective Physical Exam Last Vital Signs Date Time Temp Pulse Resp B/P (MAP) Pulse Ox O2 Delivery O2 Flow Rate FiO2 12/16/18 20:38 98.2 65 20 114/69 (84) 96 12/16/18 09:00 Room Air 12/09/18 07:15 2.0 28 General: well developed, well nourished, no acute distress Head: normocophalic, atraumatic Neck: no rigidity EENT: benign Neurologic Exam Mental Status: awake, alert, oriented x4, normal cognition, good mathematical skills, normal recent memory, normal remote memory, preserved visuospatial function Speech: normal speech, no dysarthia Language: normal language, no aphasia Cranial Nerve II: fundus normal, visual evans, no papilledema Cranial Nerves III, IV, : PERRLA, EOMI, pupils Cranial Nerve V: normal facial sensations, temporales function normal, masseters function normal, pterygoids function normal Cranial Nerve VII: no facial asymmetry, normal facial expressions Cranial Nerve VIII: normal hearing, no nystagmus Cranial Nerve IX: normal palate elevation, gag response Cranial Nerve X: no voice hoarseness Cranial Nerve XI: SCM symmetric, trapezii function normal Cranial Nerve XII: tongue midline, no tongue atrophy/fasciculations Motor System: no involuntary movement - Bilateral LE weakness - AG BLE and BUE - but non ambulatory , no muscle wasting Sensory: normal pinprick, normal light touch, normal position sense, normal graphesthesia Coordination: normal finger to nose bilaterally, normal heel to ruth bilaterally, negative Romberg test Deep Tendon Reflexes: 2+ bicep (L), 2+ bicep (R), 2+ tricep (L), 2+ tricep (R) , 2+ brachioradialis (L), 2+ brachioradialis (R), 2+ knee (L), 2+ knee (R), 2+ ankle (L), 2+ ankle (R) Reflexes: flexor plantar (L), flexor plantar (R); extensor plantar (L), extensor plantar (R) Stance: normal Gait: stable, normal regular, heel + toe gait Objective Bilateral LE weakness - greatest at hip flexors but AG bilaterally - unable to ambulate Impression/Recommendations Problems: (1) UTI (urinary tract infection) (2) Acute renal failure (3) Hypoxia (4) Elevated liver function tests (5) Severe sepsis (6) NSTEMI (non-ST elevated myocardial infarction) Status: stable, tolerating diet Recommendations Continue Q4 Hr Neuro Obs HgB>8 Maintain normothermia Maintain normoglycemia Abx as per ID Replace/ Replete Lytes Psych Eval SBP< 140 Abx as per ID PT ORDERED Check Iron Recommend OOB as able w/ wait staff - Desire Suarez N.P. Dec 16, 2018 23:55
[2018-12-17 00:13] VITALS: BP 111/69
--- NOTE | 2018-12-17 02:00 | Progress Note ---
DATE: 12/16/2018 SUBJECTIVE: The patient is the same. Mental status is unchanged. Continues to be withdrawn and irritable. The patient is refusing IV access. The patient is refusing medications . MENTAL STATUS EXAMINATION: The patient is alert and oriented to time, self, place, and situation. Poor insight into his medical condition. Mood is irritable. Affect is constricted. Congruent with mood. Thought process is concrete. Thought content, no suicidal or homicidal ideation. Memory is impaired. Insight and judgment is impaired. ASSESSMENT: The patient is refusing care, refusing medication. The patient has poor insight and judgment into his current condition. PLAN: 1. The patient is refusing psychotropic medication. 2. We will order Haldol Decanoate. 3. We attempted transfer to psych facility, the patient is refusing. Elisabeth Ozuna M.D. DR: KIKI JOB#: [id number] CC:
[2018-12-17 04:22] VITALS: BP 111/71
[2018-12-17 08:00] VITALS: BP 104/64
[2018-12-17] MEDS: Heparin 5000 units/ml inj SUBQ SCH ×2 (08:52→20:24)
[2018-12-17 12:00] VITALS: BP 116/73
--- NOTE | 2018-12-17 13:51 | Nephrology Progress Note ---
Assessment/Plan Plan CKD plateau . Creatinine clearance 29 Needs transfer to a psych facility! DW Dr. Ozuna. Trying to transfer! Cannot DC to Psych since pt nonamb. + nonvoluntary. Dc to SNF Subjective Subjective No new c/o. Very poor PO intake Objective Objective Last 24 Hour Vital Signs Date Time Temp Pulse Resp B/P (MAP) Pulse Ox O2 Delivery O2 Flow Rate FiO2 12/17/18 09:00 Room Air 12/17/18 08:00 97.9 85 20 104/64 (77) 95 12/17/18 04:22 97.6 65 20 111/71 (84) 95 12/17/18 00:13 97.4 72 20 111/69 (83) 96 12/16/18 21:00 Room Air 12/16/18 20:38 98.2 65 20 114/69 (84) 96 12/16/18 16:00 98.0 80 20 128/77 (94) 98 Intake and Output 12/16/18 12/17/18 18:59 06:59 Intake Total 1000 ml Output Total 1300 ml 1950 ml Balance -300 ml -1950 ml Intake Oral 1000 ml Output Urine Total 1300 ml 1950 ml Height (Feet): 6 Height (Inches): 2.00 Weight (Pounds): 237 Objective CV RR Lungs B wheezes Abd SNT. BS + E No CCE Vlad Gutierrez MD Dec 17, 2018 13:51
[2018-12-17] MEDS ORDERED: HEPARIN SO5000 UNIT2 SUBQ (13:53)
[2018-12-17] MEDS ORDERED: PANTOPRAZOLE SO40 MG ORAL (13:53)
[2018-12-17] MEDS ORDERED: FLUOXETINE HCL20 MG ORAL (13:53)
[2018-12-17] MEDS ORDERED: OLANZAPINE5 MG ORAL (13:53)
[2018-12-17 16:00] VITALS: BP 112/75
[2018-12-17] MEDS: Haloperidol Decanoate 50mg Inj IM SCH ×2 (16:30→18:25)
--- NOTE | 2018-12-17 17:12 | Critical Care Progress Note ---
Assessment/Plan Assessment/Plan Respiratory failure resolved hypoxemia NSTEMI transaminitis metabolic acidosis PLAN care noted no distress per pulmonary respiratory care without change repeat imaging PRN- keep negative low flow oxygen as is - stable medications/laboratory data/nursing notes reviewed in detail note reviewed and edited care discussed with RN and RT Critical Care - Subjective Condition: stable EKG Rhythm: Sinus Rhythm I&O: Intake and Output 12/16/18 12/17/18 18:59 06:59 Intake Total 1000 ml Output Total 1300 ml 1950 ml Balance -300 ml -1950 ml Intake Oral 1000 ml Output Urine Total 1300 ml 1950 ml Critical Care - Objective ET-Tube: 7.5 ET Position: 24 Last 24 Hour Vital Signs Date Time Temp Pulse Resp B/P (MAP) Pulse Ox O2 Delivery O2 Flow Rate FiO2 12/17/18 12:00 98.6 70 20 116/73 (87) 96 12/17/18 09:00 Room Air 12/17/18 08:00 97.9 85 20 104/64 (77) 95 12/17/18 04:22 97.6 65 20 111/71 (84) 95 12/17/18 00:13 97.4 72 20 111/69 (83) 96 12/16/18 21:00 Room Air 12/16/18 20:38 98.2 65 20 114/69 (84) 96 Objective: WDWN on oxygen clear breath sounds bilaterally without rhonchi or wheeze [id number] without MRG NABS nontender no HSM; no distention no CCE nonfocal, more alert skin noted reviewed and edited Matt Ramirez MD Dec 17, 2018 17:12
--- NOTE | 2018-12-17 18:30 | Progress Note ---
DATE: 12/17/2018 SUBJECTIVE: The patient is withdrawn, isolative, presents with irritable mood, poor insight. Noncompliant with medication. MENTAL STATUS EXAMINATION: The patient is alert, oriented times self, place, and situation. Mood is irritable. Affect is constricted. Congruent mood. Thought process is concrete. Thought content, no suicidal or homicidal ideations. ASSESSMENT: The patient is not an imminent danger to self or others. PLAN: 1. We will give the patient Haldol Decanoate. 2. We will continue the current medication. 3. Encourage him to participate in the care and take medication. Elisabeth Ozuna M.D. DR: COLE JOB#: [id number] CC:
[2018-12-17 20:28] VITALS: BP 124/77
--- NOTE | 2018-12-17 23:45 | Neurology Progress Note ---
Interim History Interim History ROS Limited/Unobtainable: Yes Complaints: AMS Events: This visit was performed on December 17, [address] Garnica Interim History Stable MS - Worked with PT as per patient report Objective Physical Exam Last Vital Signs Date Time Temp Pulse Resp B/P (MAP) Pulse Ox O2 Delivery O2 Flow Rate FiO2 12/17/18 20:28 98.2 77 18 124/77 (93) 98 12/17/18 09:00 Room Air 12/09/18 07:15 2.0 28 General: well developed, well nourished, no acute distress Head: normocophalic, atraumatic Neck: no rigidity EENT: benign Neurologic Exam Mental Status: awake, alert, oriented x4, normal cognition, good mathematical skills, normal recent memory, normal remote memory, preserved visuospatial function Speech: normal speech, no dysarthia Language: normal language, no aphasia Cranial Nerve II: fundus normal, visual evans, no papilledema Cranial Nerves III, IV, : PERRLA, EOMI, pupils Cranial Nerve V: normal facial sensations, temporales function normal, masseters function normal, pterygoids function normal Cranial Nerve VII: no facial asymmetry, normal facial expressions Cranial Nerve VIII: normal hearing, no nystagmus Cranial Nerve IX: normal palate elevation, gag response Cranial Nerve X: no voice hoarseness Cranial Nerve XI: SCM symmetric, trapezii function normal Cranial Nerve XII: tongue midline, no tongue atrophy/fasciculations Motor System: no involuntary movement - Bilateral LE weakness - AG BLE and BUE - but non ambulatory , no muscle wasting Sensory: normal pinprick, normal light touch, normal position sense, normal graphesthesia Coordination: normal finger to nose bilaterally, normal heel to ruth bilaterally, negative Romberg test Deep Tendon Reflexes: 2+ bicep (L), 2+ bicep (R), 2+ tricep (L), 2+ tricep (R) , 2+ brachioradialis (L), 2+ brachioradialis (R), 2+ knee (L), 2+ knee (R), 2+ ankle (L), 2+ ankle (R) Reflexes: flexor plantar (L), flexor plantar (R); extensor plantar (L), extensor plantar (R) Stance: normal Gait: stable, normal regular, heel + toe gait Objective Bilateral LE weakness - greatest at hip flexors but AG bilaterally - unable to ambulate Impression/Recommendations Problems: (1) UTI (urinary tract infection) (2) Acute renal failure (3) Hypoxia (4) Elevated liver function tests (5) Severe sepsis (6) NSTEMI (non-ST elevated myocardial infarction) Status: stable, tolerating diet Recommendations Continue Q4 Hr Neuro Obs HgB>8 Maintain normothermia Maintain normoglycemia Abx as per ID Replace/ Replete Lytes Psych Eval SBP< 140 Abx as per ID PT ORDERED Check Iron Recommend OOB as able w/ staff therapist - Desire Suarez N.P. Dec 17, 2018 23:45
[2018-12-18 04:26] VITALS: BP 127/88
[2018-12-18 08:00] VITALS: BP 121/80
[2018-12-18] MEDS: Heparin 5000 units/ml inj SUBQ SCH ×2 (08:53→20:48)
--- NOTE | 2018-12-18 10:58 | Nephrology Progress Note ---
Assessment/Plan Plan CKD plateau . Creatinine clearance 29 Needs transfer to a psych facility! DW Dr. Ozuna. Trying to transfer! Cannot DC to Psych since pt nonamb. + nonvoluntary. Dc to SNF Subjective Subjective No new c/o. Very poor PO intake Objective Objective Last 24 Hour Vital Signs Date Time Temp Pulse Resp B/P (MAP) Pulse Ox O2 Delivery O2 Flow Rate FiO2 12/18/18 09:00 Room Air 12/18/18 08:00 97.4 70 21 121/80 (94) 97 12/18/18 04:26 98.0 75 18 127/88 (101) 96 12/17/18 20:28 98.2 77 18 124/77 (93) 98 12/17/18 16:00 98.0 66 18 112/75 (87) 100 12/17/18 12:00 98.6 70 20 116/73 (87) 96 Intake and Output 12/17/18 12/18/18 19:00 07:00 Intake Total 1000 ml Output Total 1200 ml 1200 ml Balance -200 ml -1200 ml Intake Oral 1000 ml Output Urine Total 1200 ml 1200 ml # Bowel Movements 4 Height (Feet): 6 Height (Inches): 2.00 Weight (Pounds): 242 Objective CV RR Lungs B wheezes Abd SNT. BS + E No CCE Vlad Gutierrez MD Dec 18, 2018 10:58
[2018-12-18 12:00] VITALS: BP 122/78
[2018-12-18 16:00] VITALS: BP 116/69
[2018-12-18 20:00] VITALS: BP 107/76
--- NOTE | 2018-12-18 21:26 | Pulmonology Progress Note ---
Assessment/Plan Assessment/Plan Pulmonary Progress Note Assessment Respiratory failure, acute - improved hypoxemia on O2 hypotension resolved hyponatremia possible sepsis NSTEMI transaminitis metabolic acidosis possible shock liver leukocytosis possible sepsis PLAN care noted no distress at present respiratory care as is monitor acid base supportive care repeat imaging PRN- keep negative low flow oxygen as is medications/laboratory data/nursing notes reviewed in detail note reviewed and edited care discussed with RN and RT Vital Signs Noted Objective: WDWN on oxygen clear breath sounds bilaterally without rhonchi or wheeze [id number] without MRG NABS nontender no HSM; no distention no CCE nonfocal, more alert skin noted reviewed and edited Subjective ROS Limited/Unobtainable: No Allergies: Coded Allergies: No Known Allergies (Unverified , 11/25/18) Objective Last 24 Hour Vital Signs Date Time Temp Pulse Resp B/P (MAP) Pulse Ox O2 Delivery O2 Flow Rate FiO2 12/18/18 20:00 98.3 90 19 107/76 (86) 97 12/18/18 16:00 97.3 60 19 116/69 (85) 99 12/18/18 12:00 98.6 72 19 122/78 (93) 99 12/18/18 09:00 Room Air 12/18/18 08:00 97.4 70 21 121/80 (94) 97 12/18/18 04:26 98.0 75 18 127/88 (101) 96 Intake and Output 12/17/18 12/18/18 18:59 06:59 Intake Total 1000 ml Output Total 1200 ml 1200 ml Balance -200 ml -1200 ml Intake Oral 1000 ml Output Urine Total 1200 ml 1200 ml # Bowel Movements 4 Current Medications Medications (Trade) Dose Ordered Sig/Rikki Route PRN Reason Start Time Stop Time Status Last Admin Dose Admin Acetaminophen (Tylenol) 650 mg Q6H PRN ORAL Mild Pain/Temp > 100.5 12/13/18 03:00 12/31/18 20:53 Fluoxetine HCl (PROzac) 60 mg DAILY ORAL 12/14/18 09:00 01/13/19 08:59 12/17/18 08:51 Heparin Sodium (Porcine) (Heparin 5000 units/ml) 5,000 units EVERY 12 HOURS SUBQ 12/13/18 09:00 12/25/18 20:59 12/18/18 20:48 Olanzapine (ZyPREXA) 5 mg BEDTIME ORAL 12/13/18 21:00 01/12/19 20:59 12/18/18 20:49 Pantoprazole (Protonix) 40 mg Q12HR ORAL 12/13/18 09:00 01/05/19 20:59 12/18/18 20:49 Carl Key MD Dec 18, 2018 21:26
--- NOTE | 2018-12-18 23:43 | Neurology Progress Note ---
Interim History Interim History ROS Limited/Unobtainable: No Complaints: AMS Events: This visit was performed on December 18, [address] Garnica Objective Physical Exam Last Vital Signs Date Time Temp Pulse Resp B/P (MAP) Pulse Ox O2 Delivery O2 Flow Rate FiO2 12/18/18 21:00 Room Air 12/18/18 20:00 98.3 90 19 107/76 (86) 97 12/09/18 07:15 2.0 28 General: well developed, well nourished, no acute distress Head: normocophalic, atraumatic Neck: no rigidity EENT: benign Neurologic Exam Mental Status: awake, alert, oriented x4, normal cognition, good mathematical skills, normal recent memory, normal remote memory, preserved visuospatial function Speech: normal speech, no dysarthia Language: normal language, no aphasia Cranial Nerve II: fundus normal, visual evans, no papilledema Cranial Nerves III, IV, : PERRLA, EOMI, pupils Cranial Nerve V: normal facial sensations, temporales function normal, masseters function normal, pterygoids function normal Cranial Nerve VII: no facial asymmetry, normal facial expressions Cranial Nerve VIII: normal hearing, no nystagmus Cranial Nerve IX: normal palate elevation, gag response Cranial Nerve X: no voice hoarseness Cranial Nerve XI: SCM symmetric, trapezii function normal Cranial Nerve XII: tongue midline, no tongue atrophy/fasciculations Motor System: no involuntary movement - Bilateral LE weakness - AG BLE and BUE - but non ambulatory , no muscle wasting Sensory: normal pinprick, normal light touch, normal position sense, normal graphesthesia Coordination: normal finger to nose bilaterally, normal heel to ruth bilaterally, negative Romberg test Deep Tendon Reflexes: 2+ bicep (L), 2+ bicep (R), 2+ tricep (L), 2+ tricep (R) , 2+ brachioradialis (L), 2+ brachioradialis (R), 2+ knee (L), 2+ knee (R), 2+ ankle (L), 2+ ankle (R) Reflexes: flexor plantar (L), flexor plantar (R); extensor plantar (L), extensor plantar (R) Stance: normal Gait: stable, normal regular, heel + toe gait Objective Bilateral LE weakness - greatest at hip flexors but AG bilaterally - unable to ambulate Impression/Recommendations Problems: (1) UTI (urinary tract infection) (2) Acute renal failure (3) Hypoxia (4) Elevated liver function tests (5) Severe sepsis (6) NSTEMI (non-ST elevated myocardial infarction) Status: stable, tolerating diet Recommendations Continue Q4 Hr Neuro Obs HgB>8 Maintain normothermia Maintain normoglycemia Abx as per ID Replace/ Replete Lytes Psych Eval SBP< 140 Abx as per ID PT ORDERED Check Iron Recommend OOB as able w/ staffing operations manager - Desire Suarez N.P. Dec 18, 2018 23:43
[2018-12-19] VITALS: BP 139/89
--- NOTE | 2018-12-19 01:00 | Progress Note ---
DATE: 12/18/2018 SUBJECTIVE: The patient is unchanged since previous encounter. The patient is more agitated, refusing labs and medications. Poor insight and judgment into his mental condition. MENTAL STATUS EXAMINATION: The patient is alert and oriented times self, place, and situation. Mood is neutral. Affect is flat. Thought process, there is a paucity of thought content. Thought content, no suicidal or homicidal ideations. Cognition is intact. Insight and judgment are non-existent. ASSESSMENT: Stable. PLAN: We will continue with current medication. Provide the patient with reality orientation and supportive therapy. Elisabeth Ozuna M.D. DR: COLE JOB#: [id number] CC:
[2018-12-19 04:00] VITALS: BP 128/82
[2018-12-19] MEDS: Heparin 5000 units/ml inj SUBQ SCH ×2 (09:00→20:40)
[2018-12-19 12:00] VITALS: BP 109/72
--- NOTE | 2018-12-19 12:17 | Nephrology Progress Note ---
Assessment/Plan Plan CKD stable . Ccr`30 Awaiting DC to SNF pending [facility]. Subjective Subjective No new c/o. Very poor PO intake Objective Objective Last 24 Hour Vital Signs Date Time Temp Pulse Resp B/P (MAP) Pulse Ox O2 Delivery O2 Flow Rate FiO2 12/19/18 09:00 Room Air 12/19/18 04:00 98.0 88 19 128/82 (97) 98 12/19/18 00:00 97.6 94 19 139/89 (106) 98 12/18/18 21:00 Room Air 12/18/18 20:00 98.3 90 19 107/76 (86) 97 12/18/18 16:00 97.3 60 19 116/69 (85) 99 Intake and Output 12/18/18 12/19/18 19:00 07:00 Intake Total 480 ml 240 ml Output Total 1800 ml 1000 ml Balance -1320 ml -760 ml Intake Oral 480 ml 240 ml Output Urine Total 1800 ml 1000 ml Height (Feet): 6 Height (Inches): 2.00 Weight (Pounds): 231 Objective CV RR Lungs B wheezes Abd SNT. BS + E No CCE Vlad Gutierrez MD Dec 19, 2018 12:17
[2018-12-19 20:00] VITALS: BP 116/74
--- NOTE | 2018-12-19 22:26 | Pulmonology Progress Note ---
Assessment/Plan Assessment/Plan Pulmonary Progress Note Assessment Respiratory failure, acute - improved hypoxemia on O2 hypotension resolved hyponatremia possible sepsis NSTEMI transaminitis metabolic acidosis possible shock liver leukocytosis possible sepsis PLAN care noted no distress at present respiratory care as is monitor acid base supportive care repeat imaging PRN- keep negative low flow oxygen as is medications/laboratory data/nursing notes reviewed in detail note reviewed and edited care discussed with RN and RT Vital Signs Noted Objective: WDWN on oxygen clear breath sounds bilaterally without rhonchi or wheeze [id number] without MRG NABS nontender no HSM; no distention no CCE nonfocal, more alert skin noted reviewed and edited Subjective ROS Limited/Unobtainable: No Allergies: Coded Allergies: No Known Allergies (Unverified , 11/25/18) Objective Last 24 Hour Vital Signs Date Time Temp Pulse Resp B/P (MAP) Pulse Ox O2 Delivery O2 Flow Rate FiO2 12/19/18 21:00 Room Air 12/19/18 20:00 97.5 85 18 116/74 (88) 100 12/19/18 12:00 97.9 83 18 109/72 (84) 94 12/19/18 09:00 Room Air 12/19/18 04:00 98.0 88 19 128/82 (97) 98 12/19/18 00:00 97.6 94 19 139/89 (106) 98 Intake and Output 12/18/18 12/19/18 18:59 06:59 Intake Total 480 ml 240 ml Output Total 1800 ml 1000 ml Balance -1320 ml -760 ml Intake Oral 480 ml 240 ml Output Urine Total 1800 ml 1000 ml Laboratory Tests 12/19/18 16:12: Magnesium Level 2.0 Current Medications Medications (Trade) Dose Ordered Sig/Rikki Route PRN Reason Start Time Stop Time Status Last Admin Dose Admin Acetaminophen (Tylenol) 650 mg Q6H PRN ORAL Mild Pain/Temp > 100.5 12/13/18 03:00 12/31/18 20:53 Fluoxetine HCl (PROzac) 60 mg DAILY ORAL 12/14/18 09:00 01/13/19 08:59 12/17/18 08:51 Heparin Sodium (Porcine) (Heparin 5000 units/ml) 5,000 units EVERY 12 HOURS SUBQ 12/13/18 09:00 12/25/18 20:59 12/19/18 20:40 Olanzapine (ZyPREXA) 10 mg BEDTIME ORAL 12/19/18 21:00 01/18/19 20:59 12/19/18 20:39 Pantoprazole (Protonix) 40 mg Q12HR ORAL 12/13/18 09:00 01/05/19 20:59 12/19/18 20:39 Carl Key MD Dec 19, 2018 22:26
--- NOTE | 2018-12-19 23:52 | Neurology Progress Note ---
Interim History Interim History ROS Limited/Unobtainable: No Complaints: AMS Events: This visit was performed on December 18, [address] Garnica Objective Physical Exam Last Vital Signs Date Time Temp Pulse Resp B/P (MAP) Pulse Ox O2 Delivery O2 Flow Rate FiO2 12/19/18 21:00 Room Air 12/19/18 20:00 97.5 85 18 116/74 (88) 100 Laboratory Tests Test 12/19/18 16:12 Magnesium Level 2.0 MG/DL (1.8-2.4) General: well developed, well nourished, no acute distress Head: normocophalic, atraumatic Neck: no rigidity EENT: benign Neurologic Exam Mental Status: awake, alert, oriented x4, normal cognition, good mathematical skills, normal recent memory, normal remote memory, preserved visuospatial function Speech: normal speech, no dysarthia Language: normal language, no aphasia Cranial Nerve II: fundus normal, visual evans, no papilledema Cranial Nerves III, IV, : PERRLA, EOMI, pupils Cranial Nerve V: normal facial sensations, temporales function normal, masseters function normal, pterygoids function normal Cranial Nerve VII: no facial asymmetry, normal facial expressions Cranial Nerve VIII: normal hearing, no nystagmus Cranial Nerve IX: normal palate elevation, gag response Cranial Nerve X: no voice hoarseness Cranial Nerve XI: SCM symmetric, trapezii function normal Cranial Nerve XII: tongue midline, no tongue atrophy/fasciculations Motor System: no involuntary movement - Bilateral LE weakness - AG BLE and BUE - but non ambulatory , no muscle wasting Sensory: normal pinprick, normal light touch, normal position sense, normal graphesthesia Coordination: normal finger to nose bilaterally, normal heel to ruth bilaterally, negative Romberg test Deep Tendon Reflexes: 2+ bicep (L), 2+ bicep (R), 2+ tricep (L), 2+ tricep (R) , 2+ brachioradialis (L), 2+ brachioradialis (R), 2+ knee (L), 2+ knee (R), 2+ ankle (L), 2+ ankle (R) Reflexes: flexor plantar (L), flexor plantar (R); extensor plantar (L), extensor plantar (R) Stance: normal Gait: stable, normal regular, heel + toe gait Objective Bilateral LE weakness - greatest at hip flexors but AG bilaterally - unable to ambulate Impression/Recommendations Problems: (1) UTI (urinary tract infection) (2) Acute renal failure (3) Hypoxia (4) Elevated liver function tests (5) Severe sepsis (6) NSTEMI (non-ST elevated myocardial infarction) Status: stable, tolerating diet Recommendations Continue Q4 Hr Neuro Obs HgB>8 Maintain normothermia Maintain normoglycemia Abx as per ID Replace/ Replete Lytes Psych Eval SBP< 140 Abx as per ID PT ORDERED Check Iron Recommend OOB as able w/ staff development coordinator rn - Desire Suarez N.P. Dec 19, 2018 23:52
[2018-12-20] VITALS: BP 119/80
--- NOTE | 2018-12-20 03:15 | Progress Note ---
DATE: 12/19/2018 SUBJECTIVE: The patient is the same. Mental condition is unchanged since previous encounter. The patient is alert, oriented, able to answer the questions and still resistance to care and medications. Poor insight into his mental condition. MENTAL STATUS EXAMINATION: The patient is alert and oriented x3. Mood is irritable and depressed. Affect is constricted, congruent with mood. Thought process is concrete. Thought content, no suicidal or homicidal ideations. ASSESSMENT: Depression and anxiety. PLAN: We will continue current medication. Provide the patient with reality orientation and supportive therapy. Elisabeth Ozuna M.D. DR: CARLITA JOB#: [id number] CC:
[2018-12-20 04:00] VITALS: BP 144/86
[2018-12-20] MEDS: Heparin 5000 units/ml inj SUBQ SCH (08:52)
[2018-12-20 12:00] VITALS: BP 125/80
--- NOTE | 2018-12-20 14:37 | Nephrology Progress Note ---
Assessment/Plan Plan CKD stable . Ccr`30 Awaiting DC to SNF pending [facility]. Refusing blood draws Subjective Subjective No new c/o. Very poor PO intake Objective Objective Last 24 Hour Vital Signs Date Time Temp Pulse Resp B/P (MAP) Pulse Ox O2 Delivery O2 Flow Rate FiO2 12/20/18 09:00 Room Air 12/20/18 08:00 18 96 12/20/18 04:00 98.6 73 20 144/86 (105) 98 12/20/18 00:00 97.7 77 20 119/80 (93) 99 12/19/18 21:00 Room Air 12/19/18 20:00 97.5 85 18 116/74 (88) 100 Intake and Output 12/19/18 12/20/18 19:00 07:00 Intake Total 945 ml Output Total 1025 ml 200 ml Balance -80 ml -200 ml Intake Oral 945 ml Output Urine Total 1025 ml 200 ml # Bowel Movements 1 Laboratory Tests 12/19/18 16:12: Magnesium Level 2.0 Height (Feet): 6 Height (Inches): 2.00 Weight (Pounds): 231 Objective CV RR Lungs B wheezes Abd SNT. BS + E No CCE Vlad Gutierrez MD Dec 20, 2018 14:37
[2018-12-20 16:00] VITALS: BP 120/78
--- NOTE | 2018-12-21 04:45 | Progress Note ---
DATE: 12/20/2018 SUBJECTIVE: The patient is the same. Continues to refuse the medication and care. The patient is refusing the blood draws. Refuses medication. The patient appears more depressed. MENTAL STATUS EXAMINATION: Alert and oriented to time, self, place, and situation he was in. Mood is irritable. Affect is constricted. Congruent with mood. Thought process is concrete. Thought content, no suicidal or homicidal ideations. ASSESSMENT: 1. The patient is stable. 2. The patient refused to be transferred to psychiatric unit. 3. The patient is "aggressive." PLAN: We will continue current medication. We will continue to encourage him to take medication. Elisabeth Ozuna M.D. DR: LEXI JOB#: [id number] CC:
--- NOTE | 2018-12-23 13:38 | Discharge Summary ---
Discharge Summary Discharge Summary _ DATE OF ADMISSION: 11/25/2018 DATE OF DISCHARGE: 12/20/2018 DISCHARGED BY: Dr. Cardona REASON FOR ADMISSION: 63 years old male with past medical history of DVT, organic brain syndrome, osteomyelitis of left foot, anemia of chronic disease, depression, history of alcohol abuse, presented from the [facility] due to profound shortness of breath and altered level of consciousness. Pulse oximetry was 82% patient was hypotensive. Patient received fluid bolus started on supplemental oxygen and presented to emergency department for further management. Upon presentation to emergency department patient was febrile tachycardic tachypneic and hypotensive. Pulse oximetry on 3 L of oxygen via nasal cannula was 89%. Central line was placed in anticipation for pressors. Patient required emergency oral intubation. Laboratory work-up revealed no leukocytosis hemoglobin 11.6 hematocrit 34.6. INR 1.4. Stable electrolytes. BUN 36 creatinine 3.8 lactic acid 8.9 troponin 0 0.166 proBNP 1847. Albumin 2.5. Urinalysis revealed pyuria and moderate bacteria likely UTI. Lactic acid 5.0 troponin repeated troponin 0 0.267 EKG shows sinus tachycardia no acute ischemic changes. Chest x-ray was treated no acute cardiopulmonary pathology. Patient subsequently admitted to ICU for further management CONSULTANTS: velocity shooter Dr. Callahan neurologist Dr. Garnica pulmonary Dr. Ramirez ID specialist Dr. Barnes psychiatrist [facility]SE: Patient admitted to ICU. Ventilator support and pulmonary toilet provided . Rn Intensive Care Unit followed. Patient was followed up with ABGs. Venous duplex bilateral lower extremity was done on admission due to history of DVT, and revealed venous insufficiency in the great saphenous vein and the proximal thigh level , but no evidence of acute DVT. Patient started on empiric antibiotics. ID specialist followed. Blood culture revealed E. coli ESBL. Urine culture revealed E. coli ESBL. Antibiotics regimen was optimized as per ID specialist. Patient completed antibiotics while in the hospital. No fever, no leukocytosis. Graphic Designer followed. Troponin were trended. Troponin increased from initial 0.166 to 0.328. Antiplatelet therapy and beta blockage ( after blood pressure stabilized ) provided. Per velocity shooter elevated troponin was likely due to sepsis. Patient initially required pressors to keep mean arterial blood pressure above 65. Patient was on Levophed. Patient was able to be weaned off pressor on 11/27. Hemodynamic status was closely monitored , and remained stable. Echocardiogram revealed ejection fraction 55 to 60% with no evidence of wall motion abnormality. Right ventricular systolic pressure 25. Patient was able to be extubated on . Supplemental oxygen provided as needed to keep pulse oximetry above 92%. Pulmonary toilet provided as needed. Prior to discharge pulse oximetry stable on room air. Renal ultrasound demonstrated moderate left hydronephrosis. Renal parameters and electrolytes were closely monitored. Electrolytes corrected as needed , and nephrotoxins were avoided. Creatinine from 3.8 down to 2.3 , BUN from 38 down to 32. According to attending physician/armored service technician patient remained stable, and had chronic kidney disease with creatinine clearance 29. Recommended to avoid nephrotoxics in future. Neurologist followed due to altered mental status. Neuro-checks were monitored every 4 hours. Neurologist recommended maintain normothermia and normoglycemia and replace electrolytes as needed. Keep systolic blood pressure below 140. DVT and GI prophylaxis provided. Transaminitis resolved , was likely due to sepsis. Blood pressure remained stable. Supportive care provided. Bowel regimen instituted. Hemoglobin and hematocrit were closely monitored and remained stable. Prior to discharge hemoglobin 11, hematocrit 33.4. Psychiatrist seen and evaluated patient, and diagnosed patient with acute metabolic encephalopathy, present on admission, due to sepsis along with major depressive disorder. Psychiatric medication regimen was optimized as per psychiatrist. Psychiatrist recommended to limit benzodiazepine and opiate, since patient had cognitive impairment. As patient clinically improved , he became more awake , alert and aggressive. Patient declined transfer to psychiatric unit. Per psychiatrist patient was not at imminent danger to self or to others. Reality orientation and supportive therapy provided. Patient clinically stabilized and was ready for transfer to [facility] for continuation of care FINAL DIAGNOSES: Acute respiratory failure requiring intubation, status post extubation Septic shock -resolved E coli ESBL septicemia due to UTI E coli ESBL UTI NSTEMI due to sepsis Acute metabolic encephalopathy , likely due to sepsis -resolved Hypoxemia Transaminitis -resolved Metabolic acidosis Major depressive disorder History of DVT Organic brain syndrome Anemia of chronic disease DISCHARGE MEDICATIONS: See Medication Reconciliation list. DISCHARGE INSTRUCTIONS: Patient was discharged to the [facility]. Follow up with medical doctor at the facility. I have been assigned to dictate discharge summary for this account. I was not involved in the patient's management. Gracia Lopez NP Dec 23, 2018 13:38
== END 2018-12-20 18:50 | DRG 720 ==
LOC: EDBD 04:05 → EMR 04:22 → EDBEDREQSVC 04:55 → EDBEDREQ 04:55 → ICU 06:15 → EDBEDREQ 06:36 → 2W 12-01 20:56 → 4E 12-12 21:45
PROC: 5A1945Z Respiratory Ventilation, 24-96 Consecutive Hours (ICD-10-PCS; principal; 2018-11-25)
PROC: 0BH17EZ Insertion of Endotracheal Airway into Trachea, Via Natural or Artificial Opening (ICD-10-PCS; principal; 2018-11-25)
PROC: 05HM33Z Insertion of Infusion Device into Right Internal Jugular Vein, Percutaneous Approach (ICD-10-PCS; principal; 2018-11-25)
DX: A41.51 Sepsis due to Escherichia coli [E. coli] (principal); I21.4 Non-ST elevation (NSTEMI) myocardial infarction; J96.01 Acute respiratory failure with hypoxia; E87.2 Acidosis; R65.21 Severe sepsis with septic shock; G93.41 Metabolic encephalopathy; N17.0 Acute kidney failure with tubular necrosis; Z86.718 Personal history of other venous thrombosis and embolism; F09 Unspecified mental disorder due to known physiological condition; D64.9 Anemia, unspecified; F10.11 Alcohol abuse, in remission; N39.0 Urinary tract infection, site not specified; N13.30 Unspecified hydronephrosis; N20.0 Calculus of kidney; F32.9 Major depressive disorder, single episode, unspecified; F41.9 Anxiety disorder, unspecified; R00.1 Bradycardia, unspecified; N18.9 Chronic kidney disease, unspecified; E87.1 Hypo-osmolality and hyponatremia
CPT/HCPCS: 31500; 36415; 36600; 70450; 71045; 76770; 80048; 80053; 80202; 81003; 81050; 82248; 82550; 82553; 82575; 82803; 82962; 83036; 83540; 83550; 83605; 83735; 83880; 84100; 84156; 84443; 84478; 84484; 85007; 85025; 85610; 85730; 86705; 86709; 86803; 87040; 87081; 87086; 87181; 87340; 93005; 93306; 93970; 94002; 94003; 94664; 94760; 96365; 96367; 96368; 96375; 99291; J2250

== ENCOUNTER 2019-01-12 16:20 | Inpatient (IN) | payer OTHER ==
[~2019-01-12] VITALS: Ht 182.9 cm; Wt 105.8 kg
[~2019-01-12 16:20] MED LIST: ACETAMINOPHEN325 M1 ORAL; ARTIFICIAL TEA1 EAC2 OP; FAMOTIDINE20 MG ORAL; FLUOXETINE HCL20 MG ORAL; HEPARIN SO5000 UNIT2 SUBQ; NEURONTIN300 MG ORAL; NORCO 5-325 TA1 EACH ORAL; OLANZAPINE5 MG ORAL; PANTOPRAZOLE SO40 MG ORAL; XARELTO10 MG ORAL
--- NOTE | 2019-01-12 16:24 | NUR ---
ED Nurse Note: PT BROUGHT IN BY [facility] FROM [facility]. AOX4. PER EMS, PT WAS SEATED IN HIS WHEELCHAIR THIS MORNING WHEN THE NURSE THE PT'S EYE ROLL BACK. EMS ALSO STATES THAT PT HAD ONE EPISODE OF VOMITING AFTER THAT. EMS STATES PT WAS SEATED THE ENTIRE TIME. NO HEAD TRAUMA. PT DENIES PAIN OR NAUSEA AT THIS TIME.
[2019-01-12] MEDS ORDERED: Isovue-370 150ml vial INJ PRN (16:45)
--- NOTE | 2019-01-12 16:47 | Emergency Room Report ---
History of Present Illness General Chief Complaint: Syncope Source: Patient Present Illness HPI Patient is a 63-year-old male sent in from nursing facility after recent syncopal episode. Patient had prior history of deep venous thrombosis. He reports having one episode of vomiting. He denies any fever. Patient denies any diarrhea. Allergies: Coded Allergies: No Known Allergies (Unverified , 11/25/18) Patient History Past Medical History: see triage record Reviewed Nursing Documentation: PMH: Agreed; PSxH: Agreed Nursing Documentation-PMH Past Medical History: No History, Except For Hx Cardiac Problems: Yes Hx Hypertension: Yes Hx Gastrointestinal Problems: Yes - GERD, BILATERAL DVT History Of Psychiatric Problem: Yes - DEPRESSION Hx Cerebrovascular Accident: Yes - neuropathy, muscle weakness, acidosis, Leukocytosis, cellulitis Review of Systems All Other Systems: negative except mentioned in HPI Physical Exam Vital Signs Date Time Temp Pulse Resp B/P (MAP) Pulse Ox O2 Delivery O2 Flow Rate FiO2 01/12/19 16:20 98.4 85 20 116/80 (92) 93 Room Air General Appearance: alert, GCS 15, Chronically Ill Neck: limited range of motion Respiratory: lungs clear, normal breath sounds Cardiovascular #1: normal peripheral pulses, no edema Gastrointestinal: normal inspection, non tender Musculoskeletal: normal inspection Neurologic: normal inspection, alert, oriented x3, responsive Skin: diaphoresis Lymphatic: normal inspection Medical Decision Making Diagnostic Impression: Primary Impression: Syncope Additional Impressions: Dehydration Gastroenteritis ER Course Patient presented for syncopal episode. Differential diagnosis include was not limited to hypovolemia, cardiac arrhythmia, myocardial infarction, pulmonary embolism among others. Because of complexity of patient's case laboratory testing and imaging studies were ordered. Patient was noted to have prior history of deep venous thrombosis is currently on anticoagulation. CTA of the chest was ordered due to patient's prior history of anticoagulant use and recent syncopal episode. CT of the chest read by radiology showed no evidence of acute pulmonary embolism. EKG interpreted by me showed normal sinus rhythm without acute ST or T wave changes. Patient was started on IV fluids as well as IV antibiotics. Dr. Vlad Gutierrez was contacted for inpatient management Laboratory Tests Test 01/12/19 16:30 01/12/19 17:56 01/13/19 06:03 White Blood Count 16.0 K/UL (4.8-10.8) H 12.4 K/UL (4.8-10.8) H Red Blood Count 4.38 M/UL (4.70-6.10) L 4.12 M/UL (4.70-6.10) L Hemoglobin 12.3 G/DL (14.2-18.0) L 11.7 G/DL (14.2-18.0) L Hematocrit 38.2 % (42.0-52.0) L 36.0 % (42.0-52.0) L Mean Corpuscular Volume 87 FL (80-99) 87 FL (80-99) Mean Corpuscular Hemoglobin 28.0 PG (27.0-31.0) 28.5 PG (27.0-31.0) Mean Corpuscular Hemoglobin Concent 32.1 G/DL (32.0-36.0) 32.7 G/DL (32.0-36.0) Red Cell Distribution Width 13.6 % (11.6-14.8) 13.9 % (11.6-14.8) Platelet Count 474 K/UL (150-450) H 440 K/UL (150-450) Mean Platelet Volume 6.0 FL (6.5-10.1) L 6.0 FL (6.5-10.1) L Neutrophils (%) (Auto) 82.3 % (45.0-75.0) H 76.3 % (45.0-75.0) H Lymphocytes (%) (Auto) 10.4 % (20.0-45.0) L 16.2 % (20.0-45.0) L Monocytes (%) (Auto) 4.7 % (1.0-10.0) 4.2 % (1.0-10.0) Eosinophils (%) (Auto) 1.9 % (0.0-3.0) 2.8 % (0.0-3.0) Basophils (%) (Auto) 0.7 % (0.0-2.0) 0.5 % (0.0-2.0) D-Dimer 1.88 mg/L FEU (0.00-0.49) H Sodium Level 137 MMOL/L (136-145) 136 MMOL/L (136-145) Potassium Level 3.9 MMOL/L (3.5-5.1) 3.7 MMOL/L (3.5-5.1) Chloride Level 103 MMOL/L (98-107) 102 MMOL/L (98-107) Carbon Dioxide Level 22 MMOL/L (21-32) 20 MMOL/L (21-32) L Anion Gap 12 mmol/L (5-15) 14 mmol/L (5-15) Blood Urea Nitrogen 17 mg/dL (7-18) 14 mg/dL (7-18) Creatinine 1.8 MG/DL (0.55-1.30) H 1.5 MG/DL (0.55-1.30) H Estimate Glomerular Filtration Rate 38.6 mL/min (>60) 47.6 mL/min (>60) Glucose Level 115 MG/DL (74-106) H 81 MG/DL (74-106) Calcium Level 9.5 MG/DL (8.5-10.1) 9.2 MG/DL (8.5-10.1) Total Bilirubin 0.4 MG/DL (0.2-1.0) 0.3 MG/DL (0.2-1.0) Aspartate Amino Transferase (AST) 10 U/L (15-37) L 11 U/L (15-37) L Alanine Aminotransferase (ALT) 23 U/L (12-78) 18 U/L (12-78) Alkaline Phosphatase 132 U/L (46-116) H 122 U/L (46-116) H Total Creatine Kinase 51 U/L (26-308) Creatine Kinase MB 0.7 NG/ML (0.0-3.6) Creatine Kinase MB Relative Index 1.3 Troponin I 0.001 ng/mL (0.000-0.056) Pro-B-Type Natriuretic Peptide 61 pg/mL (0-125) Total Protein 8.9 G/DL (6.4-8.2) H 8.3 G/DL (6.4-8.2) H Albumin 3.4 G/DL (3.4-5.0) 3.4 G/DL (3.4-5.0) Globulin 5.5 g/dL 4.9 g/dL Albumin/Globulin Ratio 0.6 (1.0-2.7) L 0.7 (1.0-2.7) L Lipase 377 U/L (73-393) Lactic Acid Level 1.20 mmol/L (0.4-2.0) Magnesium Level 1.7 MG/DL (1.8-2.4) L Last Vital Signs Date Time Temp Pulse Resp B/P (MAP) Pulse Ox O2 Delivery O2 Flow Rate FiO2 01/12/19 16:20 98.4 85 20 116/80 (92) 93 Room Air Status: improved Disposition: ADMITTED INPATIENT Condition: Stable Gerry Foster MD Jan 12, 2019 16:47
[2019-01-12] MEDS ORDERED: FERROUS SULFAT325 MG ORAL (16:48)
[2019-01-12] MEDS ORDERED: PRO-STAT LIQUID30 ML ORAL (16:48)
[2019-01-12 16:49] VITALS: BP 133/86
[2019-01-12 16:55] LABS: BASOPHILS % (AUTO) 0.7 % (0.0-2.0); EOSINOPHILS % (AUTO) 1.9 % (0.0-3.0); HEMATOCRIT 38.2 % (42.0-52.0); HEMOGLOBIN 12.3 G/DL (14.2-18.0); LYMPHOCYTES % (AUTO) 10.4 % (20.0-45.0); MEAN CORPUSCULAR VOLUME 87 FL (80-99); MONOCYTES % (AUTO) 4.7 % (1.0-10.0); NEUTROPHILS % (AUTO) 82.3 % (45.0-75.0); PLATELET COUNT 474 K/UL (150-450); RED BLOOD COUNT 4.38 M/UL (4.70-6.10); RED CELL DISTRIBUTION WIDTH 13.6 % (11.6-14.8)
[2019-01-12 17:09] LABS: ANION GAP 12 mmol/L (5-15); BLOOD UREA NITROGEN 17 mg/dL (7-18); CALCIUM 9.5 MG/DL (8.5-10.1); CARBON DIOXIDE 22 MMOL/L (21-32); CHLORIDE 103 MMOL/L (98-107); CREATININE 1.8 MG/DL (0.55-1.30); POTASSIUM 3.9 MMOL/L (3.5-5.1); SODIUM 137 MMOL/L (136-145)
--- NOTE | 2019-01-12 17:11 | NUR ---
ED Nurse Note: XRAY AT BEDSIDE.
[2019-01-12 17:21] LABS: ALANINE AMINOTRANSFERASE 23 U/L (12-78); ALBUMIN 3.4 G/DL (3.4-5.0); ALBUMIN/GLOBULIN RATIO 0.6 (1.0-2.7); ALKALINE PHOSPHATASE 132 U/L (46-116); ASPARTATE AMINO TRANSFERASE 10 U/L (15-37); BILIRUBIN,TOTAL 0.4 MG/DL (0.2-1.0); CKMB 0.7 NG/ML (0.0-3.6); CREATINE KINASE 51 U/L (26-308)
--- NOTE | 2019-01-12 18:34 | NUR ---
ED Nurse Note: PT TO CT VIA ALIA.
--- NOTE | 2019-01-12 18:45 | NUR ---
Face sheet, MD dictation and clinicals faxed to [phone] as requested.
--- NOTE | 2019-01-12 19:02 | NUR ---
ED Nurse Note: PT BACK FROM CT VIA ALIA.
--- NOTE | 2019-01-12 19:11 | NUR ---
ED Nurse Note: REPORT GIVEN TO FAVIOLA NGUYEN.
--- NOTE | 2019-01-12 19:12 | NUR ---
ED Nurse Note: Received report from Jese/FAVIOLA. Pt is A/O X4. VSS, will continue to monitor.
[2019-01-12] MEDS ORDERED: Vancomycin 275 ML IVPB ONE (21:00)
[2019-01-12] MEDS ORDERED: cefTRIAXone 1 GM in D5W 55 ML IVPB ONE (21:00)
--- NOTE | 2019-01-12 21:30 | NUR ---
TRANSFER TO FLOOR: Patient transferred to Tele/ 205 as ordered. Report given to Ebony/RN. Belongings sent with Pt and rechecked with RN.
--- NOTE | 2019-01-12 21:32 | NUR ---
NURSE NOTES: Received report from FAVIOLA Collier.Patient stable,A&Ox4,monotor applied,SR on bus driver/monitor,tolerated r/air well,BS active in all quadrants,no c/o pain,no respiratory distress noted,skin intact,IV on a L AV G 20 SL,belongings list signed for no belongings,bed secured in a low safety position,call light within a reach,will continue to monitor
[2019-01-12] MEDS ORDERED: Acetaminophen 500mg (ES) tab ORAL PRN (23:15)
[2019-01-12] MEDS ORDERED: HYDROcodone/Acetamin 5/325 tab ORAL PRN (23:15)
[2019-01-13] VITALS: BP 133/93
[2019-01-13] MEDS: 1/2NS w/KCl 20mEq 1000ml 1,000 ML IV SCH ×2 (00:40→18:35)
[2019-01-13 04:00] VITALS: BP 124/76
--- NOTE | 2019-01-13 06:47 | NUR ---
NURSE NOTES: Called to verify about Heparin and Xarelto,waiting to call back and confirm order.
--- NOTE | 2019-01-13 07:24 | NUR ---
HAND-OFF: Report given to FAVIOLA Justice.Patient stable.
--- NOTE | 2019-01-13 07:36 | NUR ---
NURSE NOTES: Pt in bed in low position, bed alarm on, call light at bedside, pt denies pain, Ox4 calm and cooperative, IV intact running 1/2NS c 20mEq K at 65ml/hr, D-Dimer elevated, Md aware, heparin vs Xeralto needs to be clarified with Md, breakfast at bedside, no s/s of distress or SOB noted New admission
[2019-01-13 07:37] LABS: BASOPHILS % (AUTO) 0.5 % (0.0-2.0); EOSINOPHILS % (AUTO) 2.8 % (0.0-3.0); HEMOGLOBIN 11.7 G/DL (14.2-18.0); LYMPHOCYTES % (AUTO) 16.2 % (20.0-45.0); MEAN CORPUSCULAR VOLUME 87 FL (80-99); MONOCYTES % (AUTO) 4.2 % (1.0-10.0); NEUTROPHILS % (AUTO) 76.3 % (45.0-75.0); PLATELET COUNT 440 K/UL (150-450); RED BLOOD COUNT 4.12 M/UL (4.70-6.10); RED CELL DISTRIBUTION WIDTH 13.9 % (11.6-14.8); WHITE BLOOD COUNT 12.4 K/UL (4.8-10.8)
[2019-01-13 08:00] VITALS: BP 132/88
[2019-01-13 08:14] LABS: ALANINE AMINOTRANSFERASE 18 U/L (12-78); ALBUMIN 3.4 G/DL (3.4-5.0); ALBUMIN/GLOBULIN RATIO 0.7 (1.0-2.7); ALKALINE PHOSPHATASE 122 U/L (46-116); ANION GAP 14 mmol/L (5-15); ASPARTATE AMINO TRANSFERASE 11 U/L (15-37); BILIRUBIN,TOTAL 0.3 MG/DL (0.2-1.0); BLOOD UREA NITROGEN 14 mg/dL (7-18); CALCIUM 9.2 MG/DL (8.5-10.1); CARBON DIOXIDE 20 MMOL/L (21-32); CHLORIDE 102 MMOL/L (98-107); CREATININE 1.5 MG/DL (0.55-1.30); POTASSIUM 3.7 MMOL/L (3.5-5.1); SODIUM 136 MMOL/L (136-145)
--- NOTE | 2019-01-13 09:29 | Diagnostic Imaging Report ---
ndication: Chest pain, prior history of deep venous thrombosis Technique: IV administration nonionic contrast. Spiral acquisitions obtained from the lung bases to the lung apices. Multiplanar and 3-D reconstructions were generated. Total dose length product 1148.6 mGycm. CTDIvol(s) 32.37 mGy. Dose reduction achieved using automated exposure control Comparison: none Findings: There is good quality opacification of the pulmonary arteries. No intraluminal filling defects or other findings to suggest acute pulmonary embolus are visualized. No pulmonary arterial dilatation. No evidence of thoracic or aortic aneurysm or dissection. Atelectatic changes and/or scarring are seen posteriorly at both lung bases. No definite infiltrates, effusions, congestion, masses, or nodules. The heart size is normal. No pericardial effusion. There are coronary artery calcifications. No mediastinal or hilar mass or adenopathy. No axillary or chest wall mass or adenopathy. Subcentimeter low-attenuation lesion is seen in the right thyroid lobe. The included upper abdominal anatomy demonstrates mild left hydronephrosis, perinephric fat stranding, and possible enhancement of the visualized renal pelvic urothelium. There is a cyst coming off the left upper pole. The coronal reconstructions demonstrate the top of a left renal pelvic large calculus. The right kidney demonstrates multiple cysts coming off of the upper pole, one of which demonstrates fairly coarse peripheral calcifications. Impression: Negative for evidence of acute pulmonary embolus Bilateral basilar pulmonary parenchymal atelectasis and/or scarring Left hydronephrosis and left renal pelvic calculus. This is also reported on prior renal sonogram of 11/26/2018 Bilateral renal cysts. This agrees with the preliminary interpretation provided overnight by [facility] teleradiology service. The CT scanner at [facility] is accredited by the [employer] and the scans are performed using protocols designed to limit radiation exposure to as low as reasonably achievable to attain images of sufficient resolution adequate for diagnostic evaluation.
[2019-01-13] MEDS: Heparin 5000 units/ml inj SUBQ SCH ×2 (09:34→20:52)
--- NOTE | 2019-01-13 10:52 | NUR ---
CASE MANAGEMENT: INITIAL REVIEW 01/12/2019 63 YO M JULIA FROM [facility] CC: SYNCOPE PMHx: DVT. HTN. GERD. DEPRESSION. SI:SYNCOPE T 98.4 HR 85 RR 20 B/P 116/80 SATS 93% ON RA WBC 16 CR 1.8 GLU 115 AST 10 ALP 132 IS: NS BOLUS X1 CTA CHEST Bilateral basilar pulmonary parenchymal atelectasis and/or scarring PATIENT TO BE DISCHARGED TO SNF ONCE MEDICALLY CLEARED. PLAN OF CARE: CARDIO EVAL 01/13/2019 SI:SYNCOPE T 98.8 HR 72 RR 20 B/P 132/88 SATS 99% ON RA CO2 20 CR 1.5 MG 1.7 AST 11 ALP 122 IS: IVF @ 65 mL/HR PROTONIX IV Q12H ZYPREXA PO QHS GABAPENTIN PO BID PEPCID PO QD FLAGYL IV Q6H PATIENT TO BE DISCHARGED TO SNF ONCE MEDICALLY CLEARED. Addendum: 01/13/19 at 1103 by Deanna Boston CM INTERQUAL MET
--- NOTE | 2019-01-13 10:58 | NUR ---
INSURANCE NO B/AR INFO WHERE TO FAX CLINICALS
--- NOTE | 2019-01-13 10:58 | Diagnostic Imaging Report ---
Indication: Chest pain Technique: One view of the chest Comparison: 12/03/2018 Findings: Lungs and pleural spaces are clear. Heart size is normal. Better inspiration currently . Previously suggested congestive changes are no longer apparent Impression: No acute process
[2019-01-13 12:00] VITALS: BP 153/59
[2019-01-13 16:39] VITALS: BP 160/63
--- NOTE | 2019-01-13 19:15 | History and Physical Report ---
DATE OF ADMISSION: 01/12/2019 CHIEF COMPLAINT: Diarrhea, nausea and vomiting. HISTORY OF PRESENT ILLNESS: This is a 63-year-old male from [facility]. The patient was discharged from this hospital about a month ago. The nursing staff called me from the residential facility about the patient having severe nausea and vomiting. Also, the patient fainted. He also had diarrhea. The patient is a very poor historian, having history of psychosis. PAST MEDICAL HISTORY: 1. Schizophrenia. 2. Depression. 3. Chronic kidney disease. 4. Neuropathy. 5. Anorexia. MEDICATIONS: Tylenol p.r.n., amino acids, famotidine, oral iron, fluoxetine, Neurontin, subcutaneous heparin, olanzapine, Protonix, Xarelto. ALLERGIES: No known drug allergies. FAMILY HISTORY: The patient is a very poor historian. SOCIAL HISTORY: The patient is a very poor historian. REVIEW OF SYSTEMS: The patient is a very poor historian. PHYSICAL EXAMINATION: GENERAL: This is an elderly male, who is in no acute distress. VITAL SIGNS: Blood pressure is 132/88, pulse 72 and regular, respirations 20, and temperature 98.8. HEENT: The head is normocephalic and atraumatic. Pupils are equal, round, and reactive to light and accommodation consensually. NECK: Supple. Trachea midline. There was no lymphadenopathy or thyromegaly. LUNGS: Clear to auscultation and percussion. HEART: Regular rate and rhythm without rubs, murmurs, or gallops. ABDOMEN: Soft and nontender. Bowel sounds were active. EXTREMITIES: No clubbing, cyanosis, or edema. NEUROLOGICAL: He is alert, but confused. There were no gross focal findings. LABORATORY AND ANCILLARY DATA: CBC on admission, white count 16,000, today 12,400, otherwise within normal limits. Chemistry, creatinine on admission 1.8, today 1.5. Alkaline phosphatase on admission 132, today 122. CT angio on admission unremarkable except shows left hydronephrosis and left renal pelvic calculus. ASSESSMENT: 1. Diarrhea with syncope, rule out C. difficile colitis. 2. Schizophrenia. 3. Depression. 4. Chronic kidney disease. 5. Neuropathy. 6. Anorexia. PLAN: 1. IV fluid rehydration. 2. Vancomycin and Flagyl. 3. Check C. difficile toxin. 4. Psychiatric consult. Vlad Gutierrez M.D. DR: ROSA JOB#: [id number] CC:
--- NOTE | 2019-01-13 19:17 | NUR ---
HAND-OFF: Report given to uyen Cortes with [employer] .
[2019-01-13 20:00] VITALS: BP 138/82
[2019-01-13] MEDS: Labetalol 200mg tab ORAL SCH (20:53)
--- NOTE | 2019-01-13 23:45 | Consultation ---
DATE OF CONSULTATION: 01/13/2019 CONSULTING PHYSICIAN: Elisabeth Ozuna M.D. HISTORY OF PRESENT ILLNESS: The patient is a 63-year-old, male with a history of schizophrenia, depression, kidney disease, neuropathy, anorexia admitted to the hospital for diarrhea, nausea, and vomiting. The patient has a history noncompliance with medication. The patient has poor insight and judgment. The patient is easily agitated and has poor impulse control. PAST PSYCHIATRIC HISTORY: He has a history of schizoaffective disorder and depression. PAST MEDICAL HISTORY: Significant for as mentioned above. ALLERGIES: No known drug allergies. SUBSTANCE ABUSE HISTORY: He denies any history of illicit drug use or alcohol. MENTAL STATUS EXAMINATION: The patient is alert, oriented times self, place, and situation. Mood is depressed. Affect is constricted, congruent with mood. Thought process is concrete. Thought content, no suicidal or homicidal ideation. ASSESSMENT: [place] I Schizophrenia. Major depressive disorder. [place] II Deferred. [place] III As above. [place] IV Low. [place] V 20. PLAN: 1. The patient will be continued on his current medications. 2. He was provided with reality orientation and supportive therapy. He agreed to take the Prozac. 3. Provide the patient with reality orientation and supportive therapy. Elisabeth Ozuna M.D. DR: JORGE A JOB#: [id number] CC:
[2019-01-14] VITALS: BP 123/74
[2019-01-14 04:00] VITALS: BP 133/75
[2019-01-14] MEDS: 1/2NS w/KCl 20mEq 1000ml 1,000 ML IV SCH ×2 (06:03→21:10)
[2019-01-14 06:51] LABS: BASOPHILS % (AUTO) 0.8 % (0.0-2.0); EOSINOPHILS % (AUTO) 3.7 % (0.0-3.0); HEMATOCRIT 35.5 % (42.0-52.0); HEMOGLOBIN 11.5 G/DL (14.2-18.0); LYMPHOCYTES % (AUTO) 19.1 % (20.0-45.0); MEAN CORPUSCULAR VOLUME 88 FL (80-99); MONOCYTES % (AUTO) 4.9 % (1.0-10.0); NEUTROPHILS % (AUTO) 71.6 % (45.0-75.0); PLATELET COUNT 378 K/UL (150-450); RED BLOOD COUNT 4.03 M/UL (4.70-6.10); RED CELL DISTRIBUTION WIDTH 14.2 % (11.6-14.8); WHITE BLOOD COUNT 9.6 K/UL (4.8-10.8)
[2019-01-14 07:31] LABS: ANION GAP 16 mmol/L (5-15); BLOOD UREA NITROGEN 13 mg/dL (7-18); CALCIUM 9.3 MG/DL (8.5-10.1); CARBON DIOXIDE 18 MMOL/L (21-32); CHLORIDE 106 MMOL/L (98-107); CREATININE 1.5 MG/DL (0.55-1.30); POTASSIUM 4.1 MMOL/L (3.5-5.1); SODIUM 140 MMOL/L (136-145)
--- NOTE | 2019-01-14 07:46 | NUR ---
HAND-OFF: Report given to FAVIOLA Hahn.
--- NOTE | 2019-01-14 07:47 | NUR ---
NURSE NOTES: Received report from Edd SALMERON. Pt is awake and resting in bed. In no acute distress. IV line intact and patent. Bed in lowest position, brakes engaged for safety. Call light within reach. Will continue plan of care.
[2019-01-14 08:00] VITALS: BP_SYST 112; BP_SYST 159; BP_DIAS 60; BP_DIAS 81
--- NOTE | 2019-01-14 08:15 | NUR ---
NURSE NOTES: Sandy from [facility] called to report patient is positive for MRSA Nares. Md notifiied and all precautions in place.
[2019-01-14] MEDS: Labetalol 200mg tab ORAL SCH ×2 (08:17→21:48)
[2019-01-14] MEDS: Heparin 5000 units/ml inj SUBQ SCH ×2 (08:17→21:03)
--- NOTE | 2019-01-14 10:20 | NUR ---
NURSE NOTES: Sandy from microbiology lab called to report patient positive for Gram positive cocci in clusters 2 bottles. Md notifiied and all precautions in place. Notified MD that patient has no infectious disease doctor. Awaiting call back.
[2019-01-14 12:00] VITALS: BP 103/61
--- NOTE | 2019-01-14 12:27 | NUR ---
CASE MANAGEMENT:REVIEW 01/14/19 SI: SYNCOPE. N/V/D BLOOD CX PRELIM(+) GPC IN C 98.7 58 20 112/60 97% ON RA H/H-11.5/35.5 CR+1.5 IS: IV VANCOMYCIN X1 IV FLAGYL Q6HRS IVF@65/HR ZYPREXA PO QHS LABETALOL PO Q12 PROZAC PO QD : TELEMETRY STATUS DCP: FROM [facility] PLAN: AWAIT FINAL BLOOD CX IV HYDRATION STOOL FOR C-DIFF ANTIBIOTICS
[2019-01-14] MEDS ORDERED: Vancomycin 1750mg/D5W 550ml IVPB ONE ×2 (14:00)
--- NOTE | 2019-01-14 14:59 | NUR ---
INSURANCE UPDATED CLINICALS and REVIEW HAVE BEEN FAXED TO: [facility] PLEASE FAX THE REVIEW AND CLINICAL TO p- [phone] F- [phone]...REVIEW/CLINICAL
--- NOTE | 2019-01-14 15:22 | General Progress Note ---
Assessment/Plan Assessment/Plan: BC - GPC . Also + MRSA nares. On IV Vanco. ID Called Subjective Allergies: Coded Allergies: No Known Allergies (Unverified , 11/25/18) Subjective Confused Objective Last 24 Hour Vital Signs Date Time Temp Pulse Resp B/P (MAP) Pulse Ox O2 Delivery O2 Flow Rate FiO2 01/14/19 12:00 98.2 63 20 103/61 (75) 96 01/14/19 12:00 70 01/14/19 09:00 Room Air 01/14/19 08:17 57 112/60 01/14/19 08:00 98.7 57 20 112/60 (77) 97 01/14/19 08:00 58 01/14/19 04:00 97.9 59 18 133/75 (94) 98 01/14/19 04:00 59 01/14/19 00:00 98.2 60 18 123/74 (90) 98 01/14/19 00:00 60 01/13/19 21:00 Room Air 01/13/19 20:53 68 138/82 01/13/19 20:00 64 01/13/19 20:00 97.3 64 18 138/82 (100) 98 01/13/19 16:39 98.1 83 18 160/63 (95) 97 01/13/19 16:12 56 Intake and Output 01/13/19 01/14/19 19:00 07:00 Intake Total 720 ml Output Total 1400 ml Balance 720 ml -1400 ml Intake Oral 720 ml Output Urine Total 1400 ml # Voids 1 2 Laboratory Tests 01/14/19 05:54: White Blood Count 9.6, Red Blood Count 4.03L, Hemoglobin 11.5L, Hematocrit 35.5L , Mean Corpuscular Volume 88, Mean Corpuscular Hemoglobin 28.5, Mean Corpuscular Hemoglobin Concent 32.4, Red Cell Distribution Width 14.2, Platelet Count 378, Mean Platelet Volume 5.7L, Neutrophils (%) (Auto) 71.6, Lymphocytes ( %) (Auto) 19.1L, Monocytes (%) (Auto) 4.9, Eosinophils (%) (Auto) 3.7H, Basophils (%) (Auto) 0.8, Sodium Level 140, Potassium Level 4.1, Chloride Level 106, Carbon Dioxide Level 18L, Anion Gap 16H, Blood Urea Nitrogen 13, Creatinine 1.5H, Estimat Glomerular Filtration Rate 47.6, Glucose Level 89, Calcium Level 9.3 Height (Feet): 6 Weight (Pounds): 224 Objective CV RR Lungs CTA Abd _ SNT . BS + E + Edema Vlad Gutierrez MD Jan 14, 2019 15:21
[2019-01-14 16:00] VITALS: BP 107/51
--- NOTE | 2019-01-14 17:00 | Consultation ---
DATE OF CONSULTATION: 01/14/2019 INFECTIOUS DISEASES CONSULTATION CONSULTING PHYSICIAN: Adilia Barnes M.D. REFERRING PHYSICIAN: Vlad Gutierrez M.D. REASON FOR CONSULTATION: Bacteremia. HISTORY OF PRESENTING ILLNESS: This is a 63-year-old gentleman with history of schizophrenia, chronic kidney disease, depression who came in with nausea and vomiting and he also fainted. He also had diarrhea. An Infectious Diseases consultation has been obtained because he was found to have positive blood cultures. PAST MEDICAL HISTORY: 1. History of schizophrenia. 2. Depression. 3. Chronic kidney disease. 4. Neuropathy. SOCIAL HISTORY: He is a smoker. He also drinks alcohol. No history of drug use. FAMILY HISTORY: Noncontributory. REVIEW OF SYSTEMS: RESPIRATORY: No fever, chills, cough, shortness of breath, or chest pain. CARDIAC: No chest pain. No palpitations. No dizziness. No syncope. GASTROINTESTINAL: No nausea. No vomiting. No abdominal pain. No diarrhea. MEDICATIONS: As an inpatient, he is on Zyprexa, labetalol, famotidine, ferrous sulfate, fluoxetine, gabapentin, subcutaneous heparin, Protonix, Flagyl, Tylenol, Deridder. ALLERGIES: No known drug allergies. PHYSICAL EXAMINATION: VITAL SIGNS: Temperature of 98.7 with T-max of 98.8, pulse of 58, respiratory rate 20, blood pressure 112/60, O2 saturation of 97%. HEENT: Pupils equally reactive to light and accommodation. Mouth appears clean without thrush. NECK: Supple. No adenopathy. No JVD. CARDIOVASCULAR: Regular rate and rhythm. No murmurs. LUNGS: Clear to auscultation bilaterally. No crackles. No wheezes. ABDOMEN: Soft and nontender. No organomegaly. EXTREMITIES: No cyanosis, no clubbing, no edema. LABORATORY AND DIAGNOSTIC DATA: White count 16 on 01/12/2019, white count 9.6 on 01/14/2019. Hemoglobin 11.5, hematocrit 35.5, MCV 88, platelet count of 378, neutrophils of 71%. Sodium 140, potassium 4.1, chloride 106, bicarb 18, BUN 13, creatinine 1.5, glucose 89, calcium 9.3. Total bilirubin 0.3, AST 11, ALT 18, alkaline phosphatase 122, total protein 8.3, albumin 3.4. Blood cultures showing gram-positive cocci in clusters. Naris cultures are positive for MRSA. CT scan angiogram is negative for pulmonary embolism, bilateral parenchymal atelectasis or scarring noted, left-sided hydronephrosis and left renal calculus noted, bilateral renal cysts noted. Chest x-ray is showing no acute process. ASSESSMENT: This is a 63-year-old gentleman with history of schizophrenia and depression, who comes in with nausea, vomiting, and diarrhea which appears to have resolved and is found to have. 1. Gram-positive sepsis. 2. We would like to rule out gastroenteritis as a possibility. 3. Schizophrenia. PLAN: 1. Continue IV Flagyl for now. 2. We will start the patient on IV vancomycin. 3. We will follow the patient clinically. If would like to thank, Dr. Gutierrez, for this consultation. Adilia Barnes M.D. DR: Alfredo JOB#: [id number] CC: Vlad Gutierrez M.D.; Fax#: [phone]
--- NOTE | 2019-01-14 17:45 | Progress Note ---
DATE: 01/14/2019 SUBJECTIVE: The patient is more cooperative and calm, taking his medication. No behavior issues. No anxiety or agitation at this time. He is paranoid and has poor insight into his medical condition. MENTAL STATUS EXAMINATION: The patient is alert and oriented times to self, place, and situation. Mood is dysphoric. Affect is constricted, congruent with mood. Thought process is concrete. Thought content, no suicidal or homicidal ideation. ASSESSMENT: Cognitive impairment. PLAN: The patient will be continued current medication. Provide the patient with reality orientation and supportive therapy. Elisabeth Ozuna M.D. DR: KIKI JOB#: [id number] CC:
--- NOTE | 2019-01-14 19:30 | NUR ---
HAND-OFF: Report given to FAVIOLA Puga. Patient is in stable condition.
--- NOTE | 2019-01-14 19:31 | NUR ---
NURSE NOTES: NURSE NOTES: Received report from FAVIOLA Hahn. Pt is awake and resting in bed. In no acute distress. IV line intact and patent. Bed in lowest position, call light within reach. Will continue plan of care.
[2019-01-14 20:00] VITALS: BP 119/51
[2019-01-15] VITALS: BP 116/71
[2019-01-15 04:00] VITALS: BP 131/81
[2019-01-15 07:18] LABS: BASOPHILS % (AUTO) 0.6 % (0.0-2.0); EOSINOPHILS % (AUTO) 4.1 % (0.0-3.0); HEMATOCRIT 33.9 % (42.0-52.0); LYMPHOCYTES % (AUTO) 12.5 % (20.0-45.0); MEAN CORPUSCULAR VOLUME 88 FL (80-99); MONOCYTES % (AUTO) 4.2 % (1.0-10.0); NEUTROPHILS % (AUTO) 78.7 % (45.0-75.0); PLATELET COUNT 403 K/UL (150-450); RED BLOOD COUNT 3.86 M/UL (4.70-6.10); RED CELL DISTRIBUTION WIDTH 14.4 % (11.6-14.8); WHITE BLOOD COUNT 10.1 K/UL (4.8-10.8)
--- NOTE | 2019-01-15 07:19 | NUR ---
HAND-OFF: Report given to FAVIOLA Hahn.
[2019-01-15 07:45] LABS: ANION GAP 14 mmol/L (5-15); BLOOD UREA NITROGEN 13 mg/dL (7-18); CALCIUM 9.2 MG/DL (8.5-10.1); CARBON DIOXIDE 19 MMOL/L (21-32); CHLORIDE 104 MMOL/L (98-107); CREATININE 1.5 MG/DL (0.55-1.30); POTASSIUM 4.2 MMOL/L (3.5-5.1); SODIUM 137 MMOL/L (136-145)
[2019-01-15 08:00] VITALS: BP 123/70
[2019-01-15] MEDS: Labetalol 200mg tab ORAL SCH ×2 (08:17→20:48)
[2019-01-15] MEDS: Heparin 5000 units/ml inj SUBQ SCH ×2 (08:19→20:50)
--- NOTE | 2019-01-15 10:31 | NUR ---
CASE MANAGEMENT:REVIEW 01/15/19 SI: GRAM POSITIVE SEPSIS 98.1 59 20 123/70 98% ON RA CR+1.5 IS: IV VANCOMYCIN Q12 IV FLAGYL Q6HRS IVF@65/HR ZYPREXA PO QHS LABETALOL PO Q12 PROZAC PO QD NEURONTIN PO BID : TELEMETRY STATUS DCP: RETURN TO [facility]
--- NOTE | 2019-01-15 10:57 | Infectious Diseases Prog Note ---
Assessment/Plan Assessment/Plan antibiotics : vancomycin iv, flagyl A 1. gram positive sepsis 2. gastroenteritis resolving 3. schizophrenia P 1. continue iv vancomycin, flagyl 2. will follow up cultures Subjective ROS Limited/Unobtainable: Yes Allergies: Coded Allergies: No Known Allergies (Unverified , 11/25/18) Objective Vital Signs Last 24 Hour Vital Signs Date Time Temp Pulse Resp B/P (MAP) Pulse Ox O2 Delivery O2 Flow Rate FiO2 01/15/19 08:40 Room Air 01/15/19 08:17 59 123/70 01/15/19 08:00 98.1 59 20 123/70 (87) 98 01/15/19 04:00 64 01/15/19 04:00 97.7 64 20 131/81 (98) 99 01/15/19 00:00 98.6 59 20 116/71 (86) 97 01/15/19 00:00 59 01/14/19 21:48 72 119/55 01/14/19 21:00 Room Air 01/14/19 20:00 55 01/14/19 20:00 98.2 55 20 119/51 (73) 97 01/14/19 16:00 97.1 57 20 107/51 (69) 01/14/19 16:00 58 01/14/19 12:00 98.2 63 20 103/61 (75) 96 01/14/19 12:00 70 Height (Feet): 6 Weight (Pounds): 233 Respiratory/Chest: lungs clear Cardiovascular: normal rate, regular rhythm, no gallop/murmur Abdomen: soft, non tender Extremities: no edema Microbiology Date/Time Source Procedure Growth Status 01/12/19 18:00 Blood Blood Culture - Preliminary Gram Positive Cocci Resulted 01/12/19 17:45 Blood Blood Culture - Preliminary Gram Positive Cocci Resulted 01/12/19 17:19 Nasal Nares MRSA Culture - Final Staphylococcus Aureus - Mrsa Complete Laboratory Tests Test 01/15/19 05:50 White Blood Count 10.1 K/UL (4.8-10.8) Red Blood Count 3.86 M/UL (4.70-6.10) L Hemoglobin 11.0 G/DL (14.2-18.0) L Hematocrit 33.9 % (42.0-52.0) L Mean Corpuscular Volume 88 FL (80-99) Mean Corpuscular Hemoglobin 28.4 PG (27.0-31.0) Mean Corpuscular Hemoglobin Concent 32.4 G/DL (32.0-36.0) Red Cell Distribution Width 14.4 % (11.6-14.8) Platelet Count 403 K/UL (150-450) Mean Platelet Volume 6.0 FL (6.5-10.1) L Neutrophils (%) (Auto) 78.7 % (45.0-75.0) H Lymphocytes (%) (Auto) 12.5 % (20.0-45.0) L Monocytes (%) (Auto) 4.2 % (1.0-10.0) Eosinophils (%) (Auto) 4.1 % (0.0-3.0) H Basophils (%) (Auto) 0.6 % (0.0-2.0) Sodium Level 137 MMOL/L (136-145) Potassium Level 4.2 MMOL/L (3.5-5.1) Chloride Level 104 MMOL/L (98-107) Carbon Dioxide Level 19 MMOL/L (21-32) L Anion Gap 14 mmol/L (5-15) Blood Urea Nitrogen 13 mg/dL (7-18) Creatinine 1.5 MG/DL (0.55-1.30) H Estimat Glomerular Filtration Rate 47.6 mL/min (>60) Glucose Level 88 MG/DL (74-106) Calcium Level 9.2 MG/DL (8.5-10.1) Current Medications Medications (Trade) Dose Ordered Sig/Rikki Route PRN Reason Start Time Stop Time Status Last Admin Dose Admin Acetaminophen (Tylenol) 325 mg Q4H PRN ORAL Mild Pain/Temp > 100.5 01/12/19 23:15 02/11/19 23:14 Acetaminophen/ Hydrocodone Bitart ([place] 5/325) 1 tab Q4H PRN ORAL Moderate Pain (Pain Scale 4-6) 01/12/19 23:15 01/19/19 23:14 Famotidine (Pepcid) 20 mg DAILY ORAL 01/13/19 09:00 02/12/19 08:59 01/15/19 08:16 Ferrous Sulfate (Feosol) 325 mg DAILY ORAL 01/13/19 09:00 7/31/19 08:59 01/15/19 08:17 Fluoxetine HCl (PROzac) 20 mg DAILY ORAL 01/13/19 09:00 02/12/19 08:59 01/15/19 08:17 Gabapentin (Neurontin) 300 mg BID ORAL 01/13/19 09:00 02/12/19 08:59 01/15/19 08:17 Heparin Sodium (Porcine) (Heparin 5000 units/ml) 5,000 units EVERY 12 HOURS SUBQ 01/13/19 09:00 02/12/19 08:59 01/15/19 08:19 Labetalol HCl (Normodyne) 200 mg Q12HR ORAL 01/13/19 21:00 02/12/19 20:59 01/15/19 08:17 Metronidazole 100 ml @ 100 mls/hr Q6HR IVPB 01/13/19 00:00 01/20/19 00:00 01/15/19 06:01 Olanzapine (ZyPREXA) 5 mg BEDTIME ORAL 01/13/19 21:00 02/12/19 20:59 01/14/19 21:01 Pantoprazole (Protonix) 40 mg EVERY 12 HOURS ORAL 01/13/19 09:00 02/12/19 08:59 01/15/19 08:17 Sodium 1,000 ml @ 65 mls/hr [id number] IV 01/12/19 23:15 02/11/19 23:14 01/14/19 21:10 Vancomycin HCl (Vanco rx to dose) 1 ea DAILY PRN MISC Per rx protocol 01/14/19 11:15 02/13/19 11:14 Vancomycin HCl 1 gm/Dextrose 275 ml @ 183.708 mls/hr Q12HR@1100,2300 IVPB 01/15/19 11:00 01/20/19 10:59 Adilia Barnes MD Jan 15, 2019 10:57
[2019-01-15] MEDS: Vancomycin 1gm/D5W 275ml IVPB SCH ×4 (11:02→23:13)
--- NOTE | 2019-01-15 11:25 | NUR ---
INSURANCE UPDATED CLINICALS and REVIEW HAVE BEEN FAXED TO: [facility] PLEASE FAX THE REVIEW AND CLINICAL TO p- [phone] F- [phone]...REVIEW/CLINICAL
[2019-01-15 12:00] VITALS: BP 119/71
--- NOTE | 2019-01-15 12:03 | CDS Physician Query ---
Clarification is required for compliance, coding accuracy, and to reflect severity of illness for this patient Dear Dr. Vlad Gutierrez Date 01/14/2019 Mathematical Scientist/CDS Name: Irma Mcclain Clarification is needed for one (or more) of the following conditions in order to accurately assign the "present on admission' indicator. Please choose the answer that best indicates whether the associated condition was present at the time of the order for inpatient admission. Thank you. Vitals/labs on admission: WBC 16.0, Temp 98.2, SD 75, RR 20, Bcx showing gram positive cocci ID note: gram positive sepsis Was the SEPSIS Present on admission? [X] YES [] NO [] Clinically Undeterminable Physician signature Date Please also document in your Progress Notes and/or Discharge Summary and indicate if the condition was present on admission. MTDD
[2019-01-15] MEDS: 1/2NS w/KCl 20mEq 1000ml 1,000 ML IV SCH (12:32)
--- NOTE | 2019-01-15 15:03 | General Progress Note ---
Assessment/Plan Assessment/Plan: BC - GPC . Also + MRSA nares. On IV Vanco. ID Called Subjective Allergies: Coded Allergies: No Known Allergies (Unverified , 11/25/18) Subjective Confused Objective Last 24 Hour Vital Signs Date Time Temp Pulse Resp B/P (MAP) Pulse Ox O2 Delivery O2 Flow Rate FiO2 01/15/19 12:00 57 01/15/19 12:00 98.2 63 20 119/71 (87) 98 01/15/19 08:40 Room Air 01/15/19 08:17 59 123/70 01/15/19 08:00 98.1 59 20 123/70 (87) 98 01/15/19 04:00 64 01/15/19 04:00 97.7 64 20 131/81 (98) 99 01/15/19 00:00 98.6 59 20 116/71 (86) 97 01/15/19 00:00 59 01/14/19 21:48 72 119/55 01/14/19 21:00 Room Air 01/14/19 20:00 55 01/14/19 20:00 98.2 55 20 119/51 (73) 97 01/14/19 16:00 97.1 57 20 107/51 (69) 01/14/19 16:00 58 Intake and Output 01/14/19 01/15/19 19:00 07:00 Intake Total 280 ml Balance 280 ml Intake Oral 280 ml # Voids 3 3 Laboratory Tests 01/15/19 05:50: White Blood Count 10.1, Red Blood Count 3.86L, Hemoglobin 11.0L, Hematocrit 33.9L, Mean Corpuscular Volume 88, Mean Corpuscular Hemoglobin 28.4, Mean Corpuscular Hemoglobin Concent 32.4, Red Cell Distribution Width 14.4, Platelet Count 403, Mean Platelet Volume 6.0L, Neutrophils (%) (Auto) 78.7H, Lymphocytes (%) (Auto) 12.5L, Monocytes (%) (Auto) 4.2, Eosinophils (%) (Auto) 4.1H, Basophils (%) (Auto) 0.6, Sodium Level 137, Potassium Level 4.2, Chloride Level 104, Carbon Dioxide Level 19L, Anion Gap 14, Blood Urea Nitrogen 13, Creatinine 1.5H, Estimat Glomerular Filtration Rate 47.6, Glucose Level 88, Calcium Level 9.2 Height (Feet): 6 Weight (Pounds): 233 Objective CV RR Lungs CTA Abd _ SNT . BS + E + Edema Vlad Gutierrez MD Jan 15, 2019 15:03
[2019-01-15] MEDS ORDERED: Tubing IV Secondary IV ONE (15:42)
[2019-01-15 16:00] VITALS: BP 123/68
--- NOTE | 2019-01-15 19:23 | NUR ---
HAND-OFF: Report given to FAVIOLA Pimentel. Patient is in stable condition.
--- NOTE | 2019-01-15 19:25 | NUR ---
NURSE NOTES: Received report from Keegan Hyman RN. Patient in bed AAO X3 with no complaints of acute pain or discomfort at this time, kept clean, dry, and comfortable in bed. On RA with no S/S of Resp distress or SOB noted, 02 saturation at 95-97%; and on continuous cardiac monitoring per protocol. Able to ambulate with minimal assistance to the bathroom and offered bedside urinal PRN. Placed on contact isolation noted per protocol. IV line intact and patent with prescribed fluids running as ordered. Safety precaution in place; siderails X2 up, call light within reach, bed in lowest position, brakes and alarm on at all times. Needs and wants anticipated and attended. Will continue plan of care and monitor for any changes noted. Monitored for any behavioral changes observed.
[2019-01-15 20:00] VITALS: BP 131/60
--- NOTE | 2019-01-15 20:00 | Progress Note ---
DATE: 01/15/2019 SUBJECTIVE: The patient is calmer, more cooperative during this hospitalization, has not been refusing medication. He is withdrawn and minimally verbal however more cooperative, still paranoid. MENTAL STATUS EXAMINATION: The patient is alert and oriented times self, place, and situation he is in. Mood is neutral. Affect is blunted. Congruent with mood. Thought process is linear. Thought content, no suicidal or homicidal ideations. ASSESSMENT: 1. Psychotic disorder. 2. Anxiety disorder. PLAN: 1. We will continue current medication. 2. Provide the patient with reality orientation and supportive therapy. Elisabeth Ozuna M.D. DR: Anjelica JOB#: [id number] CC:
[2019-01-16] VITALS: BP 126/76
--- NOTE | 2019-01-16 00:52 | NUR ---
NURSE NOTES: Patient in bed relaxed and compliant with prescribed medications ordered. Will continue to monitor.
--- NOTE | 2019-01-16 02:16 | NUR ---
NURSE NOTES: Patient in bed asleep with no complaint of distress or discomfort at this time. Will continue to monitor.
[2019-01-16 04:00] VITALS: BP 136/85
[2019-01-16] MEDS: 1/2NS w/KCl 20mEq 1000ml 1,000 ML IV SCH ×2 (04:49→21:31)
[2019-01-16 06:39] LABS: BASOPHILS % (AUTO) 0.7 % (0.0-2.0); EOSINOPHILS % (AUTO) 7.6 % (0.0-3.0); HEMATOCRIT 35.5 % (42.0-52.0); HEMOGLOBIN 11.4 G/DL (14.2-18.0); LYMPHOCYTES % (AUTO) 23.8 % (20.0-45.0); MEAN CORPUSCULAR VOLUME 88 FL (80-99); MONOCYTES % (AUTO) 7.2 % (1.0-10.0); NEUTROPHILS % (AUTO) 60.7 % (45.0-75.0); PLATELET COUNT 406 K/UL (150-450); RED BLOOD COUNT 4.04 M/UL (4.70-6.10); RED CELL DISTRIBUTION WIDTH 14.2 % (11.6-14.8); WHITE BLOOD COUNT 7.6 K/UL (4.8-10.8)
[2019-01-16 07:00] LABS: ANION GAP 13 mmol/L (5-15); BLOOD UREA NITROGEN 10 mg/dL (7-18); CALCIUM 9.2 MG/DL (8.5-10.1); CARBON DIOXIDE 20 MMOL/L (21-32); CHLORIDE 108 MMOL/L (98-107); CREATININE 1.5 MG/DL (0.55-1.30); POTASSIUM 4.3 MMOL/L (3.5-5.1); SODIUM 141 MMOL/L (136-145)
--- NOTE | 2019-01-16 07:18 | NUR ---
NURSE NOTES: I received the patient awake and resting in bed. Patient verbal and able to make his needs known. Bed in the lowest position and call light within reach. Patient does not display any signs of distress or SOB.
--- NOTE | 2019-01-16 07:18 | NUR ---
HAND-OFF: Report given to Charlie Schultz RN. Patient in bed in stable condition. Endorsed plan of care.
[2019-01-16 08:00] VITALS: BP 101/61
[2019-01-16] MEDS: Heparin 5000 units/ml inj SUBQ SCH ×2 (08:27→21:29)
[2019-01-16] MEDS: Labetalol 200mg tab ORAL SCH ×2 (09:00→20:58)
--- NOTE | 2019-01-16 10:43 | Infectious Diseases Prog Note ---
Assessment/Plan Assessment/Plan antibiotics : vancomycin iv, flagyl A 1. gram positive sepsis 2. gastroenteritis resolving 3. schizophrenia P 1. continue iv vancomycin 2. d/c flagyl 3. will follow up cultures Subjective Constitutional: Denies: fever, chills Respiratory: Denies: shortness of breath, dry cough Gastrointestinal/Abdominal: Denies: nausea, vomiting, diarrhea Musculoskeletal: Denies: pain Allergies: Coded Allergies: No Known Allergies (Unverified , 11/25/18) Objective Vital Signs Last 24 Hour Vital Signs Date Time Temp Pulse Resp B/P (MAP) Pulse Ox O2 Delivery O2 Flow Rate FiO2 01/16/19 09:00 Room Air 01/16/19 09:00 59 101/61 01/16/19 08:00 59 01/16/19 08:00 98.1 55 21 101/61 (74) 96 01/16/19 04:00 54 01/16/19 04:00 98.2 52 20 136/85 (102) 96 01/16/19 00:00 53 01/16/19 00:00 98.0 54 18 126/76 (93) 99 01/15/19 21:00 Room Air 01/15/19 20:48 60 131/60 01/15/19 20:00 57 01/15/19 20:00 97.8 60 24 131/60 (83) 97 01/15/19 16:00 98.0 65 20 123/68 (86) 99 01/15/19 16:00 67 01/15/19 12:00 57 01/15/19 12:00 98.2 63 20 119/71 (87) 98 Height (Feet): 6 Weight (Pounds): 233 Respiratory/Chest: lungs clear Cardiovascular: normal rate, regular rhythm, no gallop/murmur Abdomen: soft, non tender Extremities: no edema Laboratory Tests Test 01/16/19 06:05 01/16/19 10:05 White Blood Count 7.6 K/UL (4.8-10.8) Red Blood Count 4.04 M/UL (4.70-6.10) L Hemoglobin 11.4 G/DL (14.2-18.0) L Hematocrit 35.5 % (42.0-52.0) L Mean Corpuscular Volume 88 FL (80-99) Mean Corpuscular Hemoglobin 28.3 PG (27.0-31.0) Mean Corpuscular Hemoglobin Concent 32.2 G/DL (32.0-36.0) Red Cell Distribution Width 14.2 % (11.6-14.8) Platelet Count 406 K/UL (150-450) Mean Platelet Volume 6.2 FL (6.5-10.1) L Neutrophils (%) (Auto) 60.7 % (45.0-75.0) Lymphocytes (%) (Auto) 23.8 % (20.0-45.0) Monocytes (%) (Auto) 7.2 % (1.0-10.0) Eosinophils (%) (Auto) 7.6 % (0.0-3.0) H Basophils (%) (Auto) 0.7 % (0.0-2.0) Sodium Level 141 MMOL/L (136-145) Potassium Level 4.3 MMOL/L (3.5-5.1) Chloride Level 108 MMOL/L (98-107) H Carbon Dioxide Level 20 MMOL/L (21-32) L Anion Gap 13 mmol/L (5-15) Blood Urea Nitrogen 10 mg/dL (7-18) Creatinine 1.5 MG/DL (0.55-1.30) H Estimat Glomerular Filtration Rate 47.6 mL/min (>60) Glucose Level 90 MG/DL (74-106) Calcium Level 9.2 MG/DL (8.5-10.1) Vancomycin Level Trough Pending Current Medications Medications (Trade) Dose Ordered Sig/Rikki Route PRN Reason Start Time Stop Time Status Last Admin Dose Admin Acetaminophen (Tylenol) 325 mg Q4H PRN ORAL Mild Pain/Temp > 100.5 01/12/19 23:15 02/11/19 23:14 Acetaminophen/ Hydrocodone Bitart ([place] 5/325) 1 tab Q4H PRN ORAL Moderate Pain (Pain Scale 4-6) 01/12/19 23:15 01/19/19 23:14 Famotidine (Pepcid) 20 mg DAILY ORAL 01/13/19 09:00 02/12/19 08:59 01/16/19 08:24 Ferrous Sulfate (Feosol) 325 mg DAILY ORAL 01/13/19 09:00 02/12/19 08:59 01/16/19 08:24 Fluoxetine HCl (PROzac) 20 mg DAILY ORAL 01/13/19 09:00 02/12/19 08:59 01/16/19 08:24 Gabapentin (Neurontin) 300 mg BID ORAL 01/13/19 09:00 02/12/19 08:59 01/16/19 08:24 Heparin Sodium (Porcine) (Heparin 5000 units/ml) 5,000 units EVERY 12 HOURS SUBQ 01/13/19 09:00 02/12/19 08:59 01/16/19 08:27 Labetalol HCl (Normodyne) 200 mg Q12HR ORAL 01/13/19 21:00 02/12/19 20:59 01/15/19 20:48 Metronidazole 100 ml @ 100 mls/hr Q6HR IVPB 01/13/19 00:00 01/20/19 00:00 01/16/19 06:07 Olanzapine (ZyPREXA) 5 mg BEDTIME ORAL 01/13/19 21:00 02/12/19 20:59 01/15/19 20:48 Pantoprazole (Protonix) 40 mg EVERY 12 HOURS ORAL 01/13/19 09:00 02/12/19 08:59 01/16/19 08:24 Sodium 1,000 ml @ 65 mls/hr [id number] IV 01/12/19 23:15 02/11/19 23:14 01/16/19 04:49 Vancomycin HCl (Vanco rx to dose) 1 ea DAILY PRN MISC Per rx protocol 01/14/19 11:15 02/13/19 11:14 Vancomycin HCl 1 gm/Dextrose 275 ml @ 183.708 mls/hr Q12HR@1100,2300 IVPB 01/15/19 11:00 01/20/19 10:59 01/15/19 23:13 Adilia Barnes MD Jan 16, 2019 10:43
--- NOTE | 2019-01-16 10:56 | NUR ---
CASE MANAGEMENT:REVIEW 01/16/19 SI: GRAM POSITIVE SEPSIS T 98.1 HR 55 RR 21 B/P 101/61 SATS 96% ON RA CL 108 CO2 20 CR 1.5 IS: IV VANCOMYCIN Q12 IV FLAGYL Q6HRS IVF@65/HR ZYPREXA PO QHS LABETALOL PO Q12 PROZAC PO QD NEURONTIN PO BID : TELEMETRY STATUS DCP: RETURN TO [facility]
--- NOTE | 2019-01-16 10:58 | NUR ---
INSURANCE UPDATED CLINICALS and REVIEW HAVE BEEN FAXED TO: [facility] PLEASE FAX THE REVIEW AND CLINICAL TO p- [phone] F- [phone]...REVIEW/CLINICAL
[2019-01-16] MEDS: Vancomycin 1gm/D5W 275ml IVPB SCH ×6 (11:07→23:48)
[2019-01-16 12:00] VITALS: BP 124/64
--- NOTE | 2019-01-16 12:45 | General Progress Note ---
Assessment/Plan Assessment/Plan: BC - Staph Hominis . Also + MRSA nares. On IV Vanco. ID Called Subjective Allergies: Coded Allergies: No Known Allergies (Unverified , 11/25/18) Subjective Confused Objective Last 24 Hour Vital Signs Date Time Temp Pulse Resp B/P (MAP) Pulse Ox O2 Delivery O2 Flow Rate FiO2 01/16/19 09:00 Room Air 01/16/19 09:00 59 101/61 01/16/19 08:00 59 01/16/19 08:00 98.1 55 21 101/61 (74) 96 01/16/19 04:00 54 01/16/19 04:00 98.2 52 20 136/85 (102) 96 01/16/19 00:00 53 01/16/19 00:00 98.0 54 18 126/76 (93) 99 01/15/19 21:00 Room Air 01/15/19 20:48 60 131/60 01/15/19 20:00 57 01/15/19 20:00 97.8 60 24 131/60 (83) 97 01/15/19 16:00 98.0 65 20 123/68 (86) 99 01/15/19 16:00 67 Intake and Output 01/15/19 01/16/19 19:00 07:00 Intake Total 3000 ml 240 ml Balance 3000 ml 240 ml Intake Oral 3000 ml 240 ml # Voids 7 2 # Bowel Movements 1 Laboratory Tests 01/16/19 06:05: White Blood Count 7.6, Red Blood Count 4.04L, Hemoglobin 11.4L, Hematocrit 35.5L , Mean Corpuscular Volume 88, Mean Corpuscular Hemoglobin 28.3, Mean Corpuscular Hemoglobin Concent 32.2, Red Cell Distribution Width 14.2, Platelet Count 406, Mean Platelet Volume 6.2L, Neutrophils (%) (Auto) 60.7, Lymphocytes ( %) (Auto) 23.8, Monocytes (%) (Auto) 7.2, Eosinophils (%) (Auto) 7.6H, Basophils (%) (Auto) 0.7, Sodium Level 141, Potassium Level 4.3, Chloride Level 108H, Carbon Dioxide Level 20L, Anion Gap 13, Blood Urea Nitrogen 10, Creatinine 1.5H, Estimat Glomerular Filtration Rate 47.6, Glucose Level 90, Calcium Level 9.2 01/16/19 10:05: Vancomycin Level Trough 17.6H Height (Feet): 6 Weight (Pounds): 233 Objective CV RR Lungs CTA Abd _ SNT . BS + E + Edema Vlad Gutierrez MD Jan 16, 2019 12:45
[2019-01-16 16:00] VITALS: BP 116/71
--- NOTE | 2019-01-16 19:18 | NUR ---
HAND-OFF: Report given to FAVIOLA Subramanian.
[2019-01-16 20:00] VITALS: BP 127/65
--- NOTE | 2019-01-16 20:00 | NUR ---
NURSE NOTES: Report received from Larissa SALMERON. Patient is in bed, awake, alert, oriented, and able to make needs known. Respiratory even and unlabored. Denies pain at this time. IVF is running at a prescribed rate. Bed is in lowest position with side rails up x2 and brakes are engaged. Bed alarm is on. Will continue to monitor.
--- NOTE | 2019-01-16 21:15 | Progress Note ---
DATE: 01/16/2019 SUBJECTIVE: The patient is withdrawn, isolative, depressed, low energy, and paranoid. He has been at times noncompliant. MENTAL STATUS EXAMINATION: The patient is alert and oriented times to self, place, and situation. Mood is dysphoric. Affect is constricted, congruent with mood. Thought process is concrete. Thought content, no suicidal or homicidal ideations. ASSESSMENT: Depression and anxiety. PLAN: We will continue current medications. Provide the patient with reality orientation and supportive therapy. Elisabeth Ozuna M.D. DR: KIKI JOB#: [id number] CC:
--- NOTE | 2019-01-16 21:47 | Cardiology Report ---
APPROVED REPORT EKG Measurement Heart [id number] Normal sinus rhythm Septal infarct, age undetermined Abnormal ECG
--- NOTE | 2019-01-16 23:30 | NUR ---
NURSE NOTES: Patient's IV site is infiltrated and not patent. Patient is refusing to get another IV, educated the patient the importance of receiving the proper IV fluid and abx, however, patient refused and showing increase in agitation. Made charge nurse aware.
[2019-01-17] VITALS: BP 122/74
[2019-01-17 04:00] VITALS: BP 144/78
--- NOTE | 2019-01-17 04:00 | NUR ---
NURSE NOTES: Patient is asleep but arousable by voice. Denies pain at this tie. Respiratory even and unlabored. VSS. Will continue to monitor.
--- NOTE | 2019-01-17 06:30 | NUR ---
NURSE NOTES: Attempted to start another IV line for the pt, however, pt is still refusing. Notified charge manager.
[2019-01-17 07:02] LABS: ANION GAP 12 mmol/L (5-15); BLOOD UREA NITROGEN 11 mg/dL (7-18); CALCIUM 9.2 MG/DL (8.5-10.1); CARBON DIOXIDE 23 MMOL/L (21-32); CHLORIDE 102 MMOL/L (98-107); CREATININE 1.5 MG/DL (0.55-1.30); POTASSIUM 4.1 MMOL/L (3.5-5.1); SODIUM 136 MMOL/L (136-145)
--- NOTE | 2019-01-17 07:09 | NUR ---
HAND-OFF: Report given to Larissa SALMERON. Patient is observed in bed, awake, alert, oriented, and able to make needs known. Endorsed plan of care.
--- NOTE | 2019-01-17 07:14 | NUR ---
NURSE NOTES: I received the patient awake and eating breakfast in bed. Bed in the lowest position and call light within reach. Patient does not display any signs of distress or SOB. Patient alert and oriented x4. I will continue to monitor the patient and implement care.
[2019-01-17 08:00] VITALS: BP 127/69
[2019-01-17] MEDS: Heparin 5000 units/ml inj SUBQ SCH (08:17)
[2019-01-17] MEDS: Labetalol 200mg tab ORAL SCH (09:00)
--- NOTE | 2019-01-17 09:34 | NUR ---
CASE MANAGEMENT:REVIEW 01/17/19 SEPSIS STAPH HOMINIS BACTEREMIA 97.6 59 20 127/69 96% ON RA CR+1.5 IS: IV VANCOMYCIN Q12 IVF@65/HR HEPARIN SQ Q12 ZYPREXA PO QHS LABETALOL PO Q12 PROZAC PO QD NEURONTIN PO BID : TELEMETRY STATUS DCP: FROM [facility]
--- NOTE | 2019-01-17 09:41 | NUR ---
DISCHARGE PLANNING LEFT THE [facility] FOR DR OSBORN REGARDING DISCHARGE PLAN [facility] [place] T; [phone] F:[phone] WAITING FOR RETURN CALL FROM DR OSBORN AND [facility] FOR ROOM NUMBER
--- NOTE | 2019-01-17 10:55 | Infectious Diseases Prog Note ---
Assessment/Plan Assessment/Plan antibiotics : vancomycin iv A 1. + blood cultures with staph hemolyticus likely contaminated 2. gastroenteritis resolved 3. schizophrenia P 1. d/c iv vancomycin 2. observe off antibiotics Subjective ROS Limited/Unobtainable: Yes Allergies: Coded Allergies: No Known Allergies (Unverified , 11/25/18) Objective Vital Signs Last 24 Hour Vital Signs Date Time Temp Pulse Resp B/P (MAP) Pulse Ox O2 Delivery O2 Flow Rate FiO2 01/17/19 08:42 Room Air 01/17/19 08:00 97.6 59 20 127/69 (88) 96 01/17/19 08:00 60 01/17/19 04:00 97.6 55 20 144/78 (100) 98 01/17/19 03:51 62 01/17/19 00:00 98.0 53 20 122/74 (90) 98 01/16/19 23:27 51 01/16/19 21:00 Room Air 01/16/19 20:58 54 01/16/19 20:00 98.0 54 20 127/65 (85) 96 01/16/19 19:10 52 01/16/19 16:00 97.9 52 20 116/71 (86) 96 01/16/19 16:00 53 01/16/19 12:00 97.9 48 21 124/64 (84) 98 01/16/19 12:00 52 Height (Feet): 6 Weight (Pounds): 233 Respiratory/Chest: lungs clear Cardiovascular: normal rate, regular rhythm, no gallop/murmur Abdomen: soft, non tender Extremities: no edema Laboratory Tests Test 01/17/19 05:30 Sodium Level 136 MMOL/L (136-145) Potassium Level 4.1 MMOL/L (3.5-5.1) Chloride Level 102 MMOL/L (98-107) Carbon Dioxide Level 23 MMOL/L (21-32) Anion Gap 12 mmol/L (5-15) Blood Urea Nitrogen 11 mg/dL (7-18) Creatinine 1.5 MG/DL (0.55-1.30) H Estimat Glomerular Filtration Rate 47.6 mL/min (>60) Glucose Level 83 MG/DL (74-106) Calcium Level 9.2 MG/DL (8.5-10.1) Current Medications Medications (Trade) Dose Ordered Sig/Rikki Route PRN Reason Start Time Stop Time Status Last Admin Dose Admin Acetaminophen (Tylenol) 325 mg Q4H PRN ORAL Mild Pain/Temp > 100.5 01/12/19 23:15 02/11/19 23:14 Acetaminophen/ Hydrocodone Bitart ([place] 5/325) 1 tab Q4H PRN ORAL Moderate Pain (Pain Scale 4-6) 01/12/19 23:15 01/19/19 23:14 Famotidine (Pepcid) 20 mg DAILY ORAL 01/13/19 09:00 02/12/19 08:59 01/17/19 08:16 Ferrous Sulfate (Feosol) 325 mg DAILY ORAL 01/13/19 09:00 02/12/19 08:59 01/17/19 08:16 Fluoxetine HCl (PROzac) 20 mg DAILY ORAL 01/13/19 09:00 02/12/19 08:59 01/17/19 08:16 Gabapentin (Neurontin) 300 mg BID ORAL 01/13/19 09:00 02/12/19 08:59 01/17/19 08:16 Heparin Sodium (Porcine) (Heparin 5000 units/ml) 5,000 units EVERY 12 HOURS SUBQ 01/13/19 09:00 02/12/19 08:59 01/17/19 08:17 Labetalol HCl (Normodyne) 200 mg Q12HR ORAL 01/13/19 21:00 02/12/19 20:59 01/15/19 20:48 Olanzapine (ZyPREXA) 5 mg BEDTIME ORAL 01/13/19 21:00 02/12/19 20:59 01/16/19 21:28 Pantoprazole (Protonix) 40 mg EVERY 12 HOURS ORAL 01/13/19 09:00 02/12/19 08:59 01/17/19 08:16 Sodium 1,000 ml @ 65 mls/hr [id number] IV 01/12/19 23:15 02/11/19 23:14 01/16/19 21:31 Vancomycin HCl (Vanco rx to dose) 1 ea DAILY PRN MISC Per rx protocol 01/14/19 11:15 02/13/19 11:14 Vancomycin HCl 1 gm/Dextrose 275 ml @ 183.708 mls/hr Q12HR@1100,2300 IVPB 01/15/19 11:00 01/20/19 10:59 01/16/19 11:07 Adilia Barnes MD Jan 17, 2019 10:55
--- NOTE | 2019-01-17 10:58 | General Progress Note ---
Assessment/Plan Assessment/Plan: BC - Staph Hominis- contaminant . DC IV Abx. DC to SNF. Also + MRSA nares. Subjective Allergies: Coded Allergies: No Known Allergies (Unverified , 11/25/18) Subjective Confused Objective Last 24 Hour Vital Signs Date Time Temp Pulse Resp B/P (MAP) Pulse Ox O2 Delivery O2 Flow Rate FiO2 01/17/19 08:42 Room Air 01/17/19 08:00 97.6 59 20 127/69 (88) 96 01/17/19 08:00 60 01/17/19 04:00 97.6 55 20 144/78 (100) 98 01/17/19 03:51 62 01/17/19 00:00 98.0 53 20 122/74 (90) 98 01/16/19 23:27 51 01/16/19 21:00 Room Air 01/16/19 20:58 54 01/16/19 20:00 98.0 54 20 127/65 (85) 96 01/16/19 19:10 52 01/16/19 16:00 97.9 52 20 116/71 (86) 96 01/16/19 16:00 53 01/16/19 12:00 97.9 48 21 124/64 (84) 98 01/16/19 12:00 52 Intake and Output 01/16/19 01/17/19 18:59 06:59 Intake Total 825 ml Output Total 200 ml Balance 625 ml Intake Oral 240 ml IV Total 585 ml Output Urine Total 200 ml # Voids 2 # Bowel Movements 2 1 Laboratory Tests 01/17/19 05:30: Sodium Level 136, Potassium Level 4.1, Chloride Level 102, Carbon Dioxide Level 23, Anion Gap 12, Blood Urea Nitrogen 11, Creatinine 1.5H, Estimat Glomerular Filtration Rate 47.6, Glucose Level 83, Calcium Level 9.2 Height (Feet): 6 Weight (Pounds): 233 Objective CV RR Lungs CTA Abd _ SNT . BS + E + Edema Vlad Gutierrez MD Jan 17, 2019 10:58
--- NOTE | 2019-01-17 11:16 | NUR ---
DISCHARGE PLANNED PATIENT IS RETURNING TO [facility] ROOM [address] SKILLED T: [phone] FOR NURSE TO NURSE REPORT [facility] HAS BEEN ARRANGED FOR 1300 PICKUP
--- NOTE | 2019-01-17 11:30 | NUR ---
NURSE NOTES: Message left for patient's sister, Cas Martinez, about patient being discharged to [facility] today.
--- NOTE | 2019-01-17 11:59 | NUR ---
INSURANCE UPDATED CLINICALS and REVIEW HAVE BEEN FAXED TO: [facility] PLEASE FAX THE REVIEW AND CLINICAL TO p- [phone] F- [phone]...REVIEW/CLINICAL
[2019-01-17 12:00] VITALS: BP 125/78
--- NOTE | 2019-01-17 13:30 | NUR ---
NURSE NOTES: The patient was discharged in stable condition. Patient's IV was removed and the IV site did not display any signs of bleeding or redness. Patient's sister was notified about his discharged. Report was given to FAVIOLA Lanier at [facility]. Patient's vital signs were stable. Patient's wrist band was removed. Patient did not have any belongings. Patient was transported via ambulance of [facility].
--- NOTE | 2019-01-18 00:15 | Progress Note ---
DATE: 01/17/2019 SUBJECTIVE: The patient is doing well, more cooperative, presents with depressed mood, anhedonia, worthlessness, decreased energy, paranoid ideation. MENTAL STATUS EXAMINATION: The patient is alert, oriented times self, place, and situation. Mood is dysphoric. Affect is constricted, congruent with mood. Thought process is linear. Thought content, no suicidal or homicidal ideation. ASSESSMENT: Stable. PLAN: We will continue current medications. Provide the patient with reality orientation and supportive therapy. Elisabeth Ozuna M.D. DR: COLE JOB#: [id number] CC:
--- NOTE | 2019-01-18 18:41 | Discharge Summary ---
Discharge Summary Discharge Summary _ DATE OF ADMISSION: 01/12/2019 DATE OF DISCHARGE: 01/17/2019 DISCHARGED BY: Dr. Gutierrez REASON FOR ADMISSION: 63 years old male with past medical history of chronic kidney disease, neuropathy, anorexia, schizophrenia, depression, resident of retirement facility, started to have nausea and vomiting at the retirement facility. Patient fainted and had diarrhea. Patient by himself was a very poor historian, given history of psychosis. Patient was transferred to emergency room for further evaluation. Upon evaluation in emergency department vital signs were stable. Laboratory work-up revealed leukocytosis WBC 16, hemoglobin 12.3, hematocrit 38.2. Platelets 474. Next d-dimer 1.88. Lactic acid 1.2. Stable electrolytes. BUN 17, creatinine 1.8. Glucose 115. Stable LFT. Lipase 377. Troponin - 0.001. EKG revealed normal sinus rhythm. CK 51. Albumin 3.4. Chest x-ray demonstrated no acute cardiopulmonary pathology. CTA of the chest revealed no evidence of acute pulmonary emboli. Bilateral basilar pulmonary parenchymal atelectasis and /or scarring. Left hydronephrosis and left renal pelvic calculi also reported on previous renal ultrasound on 11/26/2018. Bilateral renal cysts. Patient subsequently admitted to telemetry floor for further management CONSULTANTS: ID specialist Dr. Barnes psychiatrist [facility] COURSE: Patient admitted to telemetry floor. Patient started on IV fluid rehydration and empiric antibiotic . Supportive therapy provided . Blood culture revealed Staph hominis. ID specialist and psychiatrist closely followed. Per ID specialist, positive blood culture with Staph hemolyticus were likely contaminated. Leukocytosis resolved, no fevers. Antibiotic were discontinued. ID specialist recommended to observe patient off antibiotics. No evidence of arrhythmia on telemetry . Telemetry showed sinus sinus bradycardia in 50s with first-degree AV block. Blood pressure was closely monitored and remained stable. Labetalol resumed for blood pressure management. DVT prophylaxis provided Renal parameters and electrolytes were closely monitored. With IV hydration, BUN from 17 down to 11 and creatinine from 1.8 down to 1.5. GI prophylaxis with PPI provided. Patient was able to tolerate diet. Syncope was likely due to dehydration brought by diarrhea. Diarrhea resolved. Patient likely had an episode of acute gastroenteritis, which resolved. Psychiatrist seen and evaluated patient. Per psychiatrist , patient had schizophrenia and major depressive disorder. Current psychiatric medication regimen was continued. Patient was provided with reality orientation and supportive therapy. Patient clinically stabilized and was ready for discharge to retirement facility for continuation of care. FINAL DIAGNOSES: Gastroenteritis -resolved Syncope due to dehydration from diarrhea -resolved Chronic kidney disease Anorexia Schizophrenia Major depressive disorder Anxiety disorder Neuropathy DISCHARGE MEDICATIONS: See Medication Reconciliation list. DISCHARGE INSTRUCTIONS: Patient was discharged to the retirement facility. Follow up with medical doctor at the facility. I have been assigned to dictate discharge summary for this account. I was not involved in the patient's management. Gracia Lopez NP Jan 18, 2019 18:41
== END 2019-01-17 13:45 | DRG 720 ==
LOC: EDBD 16:20 → EMR 16:48 → EDBEDREQ 17:15 → 2E 20:18
DX: A41.9 Sepsis, unspecified organism (principal); F25.9 Schizoaffective disorder, unspecified; K52.9 Noninfective gastroenteritis and colitis, unspecified; G62.9 Polyneuropathy, unspecified; R55 Syncope and collapse; E86.0 Dehydration; N18.9 Chronic kidney disease, unspecified; F32.9 Major depressive disorder, single episode, unspecified; F17.200 Nicotine dependence, unspecified, uncomplicated; Z22.322 Carrier or suspected carrier of Methicillin resistant Staphylococcus aureus; F29 Unspecified psychosis not due to a substance or known physiological condition; F41.9 Anxiety disorder, unspecified; Z79.01 Long term (current) use of anticoagulants; R63.0 Anorexia
CPT/HCPCS: 36415; 71045; 71275; 80048; 80053; 80202; 82550; 82553; 83605; 83690; 83735; 83880; 84484; 85025; 85379; 87040; 87081; 87181; 93005; 96360; 99285